=== PATIENT | male | born 1940 | race Caucasian/White ===

== ENCOUNTER 2020-12-18 13:04 | Outpatient (CLI) | payer MEDICARE, SELFPAY ==
--- NOTE | ~2020-12-18 | US_ITS ---
EXAMINATION: US carotid duplex BI DATE: 12/18/2020 13:57 INDICATION: Left carotid bruit. TECHNIQUE: Grayscale, color Doppler, and pulsed Doppler images of the cervical carotid arteries were obtained. The degree of vessel stenosis is placed in one of the following categories: normal, <50%, 5 0-69%, >=70% but less than near-occlusion, near-occlusion, or total occlusion. Note that percent sten osis relative to normal distal artery lumen diameter is indirectly measured from velocity measurement s as described by Kasi, et al. Radiology 2003; 229:340-346. COMPARISON: None. FINDINGS: RIGHT: The right common carotid artery (CCA) peak systolic velocity (PSV) is 82 cm/s. The right internal car otid artery (ICA) PSV is 82 cm/s. The right ICA end-diastolic velocity (EDV) is 21 cm/s. The right IC A/CCA PSV ratio is 1.0. Grayscale and color Doppler images yield an estimate of <50% diameter reducti on from plaque in the ICA. There is antegrade flow in the right vertebral artery. LEFT: The left CCA PSV is 66 cm/s. The left ICA PSV is 313 cm/s. The left ICA EDV is 65 cm/s. The left ICA/ CCA PSV ratio is 4.8. Grayscale and color Doppler images yield an estimate of >=50% diameter reductio n from plaque in the ICA. There is antegrade flow in the left vertebral artery. IMPRESSION: 1. <50% stenosis in the right internal carotid artery. 2. >=70% stenosis in the left internal carotid artery, but less than near occlusion. Reviewed, dictated and finalized at location A. IMPRESSION: 1. <50% stenosis in the right internal carotid artery. 2. >=70% stenosis in the left internal carotid artery, but less than near occlu zakia.
== END 2020-12-18 13:05 | disposition home or self-care (01) ==
PROVIDERS: PCP Family Medicine Adolescent Medicine; Visit Provider Internal Medicine Cardiovascular Disease
DX: I13.10 Hypertensive heart and chronic kidney disease without heart failure, with stage 1 through stage 4 chronic kidney disease, or unspecified chronic kidney disease (principal); E78.5 Hyperlipidemia, unspecified; I65.23 Occlusion and stenosis of bilateral carotid arteries
CPT/HCPCS: 93880

== ENCOUNTER 2021-01-31 21:35 | Emergency (ER) | payer MEDICARE, SELFPAY ==
[2021-01-31 22:06] VITALS: BP 176/70; PULSE 75; RESP 18; TEMP 37.1; O2SAT 99
[2021-01-31 23:01] LABS: Basophils Absolute Auto 0.1 K/mm3 (0.0-0.1); Basophils Percent Auto 0.8 % (0.2-1.2); Eosinophils Absolute Auto 0.1 K/mm3 (0-0.3); Eosinophils Percent Auto 1.7 % (0-4.4); Hematocrit 42.1 % (42.0-52.0); Hemoglobin 13.9 g/dL (14.0-18.0); Immature Granulocyte Absolute 0.01 K/mm3 (0.00-0.031); Immature Granulocyte Percent A 0.2 % (0-0.5); Lymphocytes Absolute Auto 1.15 K/mm3 (0.9-3.2); Lymphocytes Percent Auto 17.4 % (18.3-44.2); Mean Corpuscular Hemoglobin 30.7 pg (26-34); Mean Corpuscular Volume 92.9 fl (80-100); Monocytes Absolute Auto 0.6 K/mm3 (0.1-0.6); Monocytes Percent Auto 8.6 % (2.6-8.5); Neutrophils Absolute Auto 4.7 K/mm3 (1.3-6.7); Neutrophils Percent Auto 71.3 % (45.5-73.1); Platelet Count Result 210 k/mm3 (150-375); Red Blood Count 4.53 M/mm3 (4.6-6.20); Red Cell Distribution Width 12.8 % (11.5-14.5); White Blood Count 6.6 K/mm3 (4.5-10.0)
[2021-01-31 23:12] LABS: Alanine Aminotransferase 6 U/L (4-50); Albumin Level 4.5 g/dL (3.5-5.1); Alkaline Phosphatase 74 U/L (38-126); Anion Gap 7 mmol/L (8-16); Aspartate Amino Transferase 26 U/L (17-59); Bilirubin,Total 0.6 mg/dL (0.2-1.3); Blood Urea Nitrogen 29 mg/dL (9-20); Calcium 9.1 mg/dL (8.4-10.2); Carbon Dioxide 29 mmol/L (22-30); Chloride 106 mmol/L (98-107); Estimated CRCL calculation 40 ml/min; Estimated Glomerular Filt Rate 53; Glucose 102 mg/dL (65-110); Sodium 142 mmol/L (137-145)
[2021-01-31 23:18] LABS: INR 1.4; Prothrombin Time 16.6 Seconds (11.1-14.7)
[2021-01-31 23:54] VITALS: BP 157/74; PULSE 69
[2021-01-31 23:56] VITALS: BP 196/90; PULSE 75
[2021-01-31 23:58] VITALS: BP 165/84; PULSE 82
[2021-02-01] VITALS (18 sets, daily range): BP systolic 166–182; BP diastolic 69–82; PULSE 70–97; RESP 12–23; O2SAT 98–100
--- NOTE | 2021-02-01 00:15 | ED.GIBLEED ---
HPI - GI Bleed General Chief complaint: GI Bleed Stated complaint: rectal bleeding Time Seen by Provider: 01/31/21 23:55 Source: patient History of Present Illness HPI Narrative: Patient presents with blood per rectum. Patient with abdominal pain 830 this evening did not think much of it was having some mild lower abdominal went to use the restroom again and noted a large amount of blood in his underwear a white his bottom side and noted a large amount of blood on the tissue paper. He googled his symptoms and came to the ER for evaluation. Patient overall falls we will denies any abdominal pain at this time he reports he has 1 bowel movement a day denies prior history of GI bleeds hemorrhoids, fissures. Denies any pain with his bowel movement denies any nausea vomiting lightheadedness or fatigue Related Data Allergies Allergy/AdvReac Type Severity Reaction Status Date / Time No Known Allergies Allergy Unverified 10/10/18 16:36 Review of Systems Review of Systems: CONSTITUTIONAL: Denies fever, chills, or sweats. EYES: Denies visual changes, redness, or discharge. ENT: Denies rhinorrhea, congestion, sore throat, or otalgia. CARDIOVASCULAR: Denies chest pain, palpitations, or edema. RESPIRATORY: Denies cough or dyspnea. GASTROINTESTINAL: Denies abdominal pain, nausea, vomiting, or diarrhea. GENITOURINARY: Denies dysuria or hematuria. SKIN: Denies rash or itching. MUSCULOSKELETAL: Denies back pain, joint pain, or myalgia. NEUROLOGIC: Denies headache, numbness, dizziness, or weakness. PSYCHIATRIC: Denies anxiety or depression. All systems reviewed & are unremarkable except as noted in HPI and below Exam Narrative: GENERAL: Well-appearing, well-nourished, and in no acute distress. HEAD: Normocephalic, atraumatic. EYES: PERRLA and EOMI. ENT: Nares clear, no rhinorrhea or epistaxis. Mucous membranes moist. NECK: Supple. No masses. No JVD CHEST: Clear to auscultation. No respiratory distress. No wheezes rales or rhonchi HEART: Regular rate and rhythm. No murmur heard. Normal peripheral pulses. ABDOMEN: Soft, nontender, nondistended EXTREMITIES: Normal range of motion. No edema. SKIN: Warm, dry, no rash. NEURO: No focal deficits. Alert and oriented x3. PSYCH: Normal mood and affect. Course Reevaluation(s) Reevaluation #1: Case discussed with Dr. Maira MONTEZ at [facility] in [place] would be happy to evaluate the patient. Discussed patient with Daniela rasmussenlevel at the same facility who accepts on behalf of of Dr. Fregoso the hospitalist team. Will transfer patient to [facility] for specialty evaluation as GI is not available here patient is comfortable with transfer plans. Primary concern is for lower GI bleed Date: 02/01/21 Time: 01:00 Vital Signs Vital signs: Vital Signs Temperature 37.1 C 01/31/21 22:06 Pulse Rate 75 01/31/21 22:06 Respiratory Rate 18 01/31/21 22:06 Blood Pressure 176/70 H 01/31/21 22:06 Pulse Oximetry 99 01/31/21 22:06 Temperature 37.1 C 01/31/21 22:06 Pulse Rate 70 02/01/21 03:52 Respiratory Rate 17 02/01/21 03:52 Blood Pressure 176/69 H 02/01/21 03:17 Pulse Oximetry 99 02/01/21 03:52 MDM - GI Bleed MDM Narrative Medical decision making narrative: Patient presented with bright red blood per rectum which started this evening. Patient overall feels well vital signs are reassuring labs are reassuring exam however showed bright red blood per rectum without a clear source. Case was discussed with [facility] in [place] who is happy to accept and continue evaluation of patient. Lab Data Result diagrams: 01/31/21 22:52 01/31/21 22:52 Labs: Lab Results 01/31/21 01/31/21 01/31/21 Range/Units 22:52 22:52 22:52 WBC 6.6 (4.5-10.0) K/mm3 RBC 4.53 L (4.6-6.20) M/mm3 Hgb 13.9 L (14.0-18.0) g/dL Hct 42.1 (42.0-52.0) % MCV 92.9 (80-100) fl MCH 30.7 (26-34) pg MCHC 33.0 (32-36) g/dl RDW 12.8
== END 2021-02-01 04:30 | disposition short-term general hospital (02) ==
PROVIDERS: Emergency Provider Emergency Medicine; PCP Family Medicine Adolescent Medicine
DX: K92.2 Gastrointestinal hemorrhage, unspecified (principal)
CPT/HCPCS: 36415; 80053; 85025; 85610; 85730; 86850; 86900; 86901; 99285

== ENCOUNTER 2022-03-08 12:30 | Outpatient (RCR) | payer MEDICARE, SELFPAY ==
--- NOTE | 2022-02-13 16:22 | STOPEVAL1 ---
Assessment and note entered by Mera Avina, CABIN CLEANER Evaluation Information Assessment Status Evaluation Diagnosis Dysphonia Onset Several years Subjective Information Patient reports that he feels that his voice does not work very reliably. He reports he was diagnosed with Parkinson's disease September of 2020. The reports that the patient's vocal loudness is tremendously lower than what it used to be and that patient has been avoiding speaking on the phone as other people cannot hear him over the phone. She describes it as hoarse and that she continually has to ask him to repeat himself. Reported Pain Level Pain Score 0: Self Report Assessment ST Clinical Summary VOICE EVALUATION This patient presents with mildly reduced vocal loudness secondary to history of Parkinson's disease. Patient and report he has always been soft-spoken however now she and her family members are having difficulty understanding him. Speech intelligibility is judged to be within normal limits however loudness is judged to be on the average at least 7 decibels lower than the lowest limits for the normal range in this speech room. Patient will be seen three times weekly for four weeks to address improving vocal loudness in order for family to hear and understand him better in person, while in the car, and over the telephone/zoom/facetime. Patient and spouse voice good understanding of and are in agreement with recommendations. Thank you for this referral. Plan of Care Interventions Treatment of Voice ST Services Indicated Yes Treatment Frequency and 3x week/4 weeks. Duration These treatments will address the objective and functional deficits as defined above. The patient will be advanced safely and appropriately in order for the patient to progress towards his/her prior level of function. Additional exercises will be introduced and as well as a comprehensive home exercise program upon discharge, if needed, ?to ensure carryover of functional gains achieved in the clinic. This treatment plan has been reviewed and agreement upon by the patient.
--- NOTE | 2022-03-08 14:15 | STOPDC ---
Assessment and note entered by Mera Avina NONPROFIT MANAGER Evaluation Information Assessment Status Discharge Reported Pain Level Pain Score 0: Self Report Assessment ST Clinical Summary TREATMENT SESSION AND DISCHARGE SUMMARY This patient has been seen for an initial evaluation of voice and 9 treatment sessions focusing on improving vocal loudness. Initially, he was noted to speak softly, lower than average decibels for the average range in the speech therapy room. Therapy focused on repetition of loud, sustained ah sounds, then word, phrase, and sentence imitation, responding to open-ended questions, and then participating in conversation. Patient required visual and verbal feedback using a sound pressure level meter (SPL meter) in order to truly understand that her normal loudness was 5-10 decibels lower than the average range. By last session, patient's ability to sustain ah sound averaged at 95.4 decibels and his conversational loudness ranged at 76 decibels. Initially ah sound level was 84.2 decibels. Patient is being discharged with all goals achieved and patient instruction to continue to practice loudness exercises frequently. Patient and voice understanding of recommendations. Plan of Care ST Services Indicated No
== END 2022-03-08 15:17 | disposition home or self-care (01) ==
LOC: ANHST 12:30
PROVIDERS: PCP Family Medicine Adolescent Medicine
DX: G20 Parkinson's disease (principal); R49.0 Dysphonia
CPT/HCPCS: 92507; 92524

== ENCOUNTER 2022-05-09 16:02 | Observation (INO) | payer MEDICARE, SELFPAY ==
[2022-05-09] VITALS (44 sets, daily range): BP systolic 162–188; BP diastolic 70–82; PULSE 75–95; RESP 12–28; TEMP 36.3; O2SAT 97–100
--- NOTE | ~2022-05-09 | US_ITS ---
EXAMINATION: US carotid duplex BI DATE: 05/09/2022 19:38 INDICATION: Transient ischemic attack. Left common carotid, internal carotid artery stent. TECHNIQUE: Grayscale, color Doppler, and pulsed Doppler images of the cervical carotid arteries were obtained. The degree of vessel stenosis is placed in one of the following categories: normal, <50%, 5 0-69%, >=70% but less than near-occlusion, near-occlusion, or total occlusion. Note that percent sten osis relative to normal distal artery lumen diameter is indirectly measured from velocity measurement s as described by Kasi, et al. Radiology 2003; 229:340-346. COMPARISON: None. FINDINGS: RIGHT: The right common carotid artery (CCA) peak systolic velocity (PSV) is 86.3 cm/s. The right internal c arotid artery (ICA) PSV is 112.4 cm/s. The right ICA end-diastolic velocity (EDV) is 25.6 cm/s. The r ight ICA/CCA PSV ratio is 1.3. Grayscale and color Doppler images yield an estimate of less than 50% diameter reduction from plaque in the ICA. The external carotid artery (ECA) PSV is 141.7 cm/s. There is antegrade flow in the right vertebral artery. LEFT: The left CCA PSV is 90.7 cm/s. The left ICA PSV is 77.5 cm/s. The left ICA EDV is 18.2 cm/s. The left ICA/CCA PSV ratio is 0.85. Grayscale and color Doppler images yield an estimate of less than 50% ryan meter reduction from plaque in the ICA. The ECA PSV is 97.3 cm/s. There is antegrade flow in the left vertebral artery. IMPRESSION: 1. Less than 50% stenosis in the right internal carotid artery. 2. Less than 50%. stenosis in the left internal carotid artery. Reviewed, dictated and finalized at Location [facility]. Reviewed, dictated and finalized at location A. MANAGEMENT NURSE PRACTITIONER
--- NOTE | ~2022-05-09 | CT_ITS ---
EXAMINATION: CT brain wo con DATE: 05/09/2022 17:02 INDICATION: Transient ischemic episode with left arm numbness TECHNIQUE: Computed tomography (CT) of the head was performed without intravenous contrast. Sagittal and coronal reconstructions were performed. The mA was adjusted according to patient size. Iterative reconstruction technique was employed. The dose-length product was 681.00 mGy-cm. COMPARISON: Brain MR dated 07/23/2016 FINDINGS: No acute intracranial hemorrhage, acute infarction or abnormal extra axial fluid collection. There is moderate scattered white matter hypoattenuation consistent with chronic small vessel ischemic diseas e. Symmetric prominence of the sulci consistent with mild to moderate age-appropriate diffuse cerebra l volume loss. Ventricles are normal and symmetric. No mass/mass effect. Changes of bilateral intraoc ular lens replacement. The orbits, paranasal sinuses and mastoid air cells are normal. Intracranial c alcified cerebral atherosclerosis is noted. IMPRESSION: 1. No acute intracranial process. 2. Age-related changes including mild to moderate diffuse volume loss and moderate scattered white ma tter hypoattenuation consistent with chronic small vessel ischemic disease. Reviewed, dictated and finalized at location A. TBAND DECORATING MACHINE OPERATOR IMPRESSION: 1. No acute intracranial process. 2. Age-related changes including mild to moderate diffuse volume loss and moder ate scattered white matter hypoattenuation consistent with chronic small vessel ischemic disease.
--- NOTE | ~2022-05-09 | MR_ITS ---
EXAMINATION: MR brain/brain stem wo/w con DATE: 05/10/2022 13:01 INDICATION: Transient ischemic attack. Right arm weakness. TECHNIQUE: Magnetic resonance imaging (MRI) of the brain and brainstem was performed without and with 13 mL MultiHance intravenous contrast. COMPARISON: Brain MRI 07/23/2016, head CT 05/09/2022 FINDINGS: There is a small acute infarct in left frontoparietal region. There are scattered areas of nonspecific increased T2-weighted signal intensity in the cerebral white matter. There is no intracra nial hemorrhage or abnormal mass lesion. The ventricles are normal in size. There is mild mucosal thi ckening in the paranasal sinuses. There are likely changes of ocular lens replacement surgeries. The mastoid air cells are normal. IMPRESSION: 1. 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 2. Moderate nonspecific cerebral white matter disease, which likely represents chronic small vessel i schemic disease. Reviewed, dictated and finalized at location A. CAL HISTORIAN IMPRESSION: 1. 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 2. Moderate nonspecific cerebral white matter disease, which likely represents chronic small vessel ischemic disease.
--- NOTE | ~2022-05-09 | CT_ITS ---
EXAMINATION: CTA brain carotid DATE: 05/09/2022 18:10 INDICATION: Transient ischemic attack. TECHNIQUE: Computed tomographic angiography (CTA) of the head was performed with 100 mL Omnipaque-350 intravenous contrast. CTA of the neck was performed with intravenous contrast. Automated exposure co ntrol and iterative reconstruction technique were employed. The dose-length product was 1132.00 mGy-c m. Maximum intensity projection and volume rendered 3D-reconstructions were created by the [employer] on a separate workstation. COMPARISON: Head CT 05/09/2022, brain MRI 07/23/2016 FINDINGS: HEAD CTA: There are scattered areas of low attenuation in the cerebral white matter. There is no intr acranial hemorrhage, acute infarction, or abnormal intracranial mass lesion. The ventricles are emre l in size. There are likely changes of ocular lens replacement surgeries. There is mild mucosal thick ening in the paranasal sinuses. The mastoid air cells are normal. The vertebral arteries are codomina nt. There is no significant stenosis of basilar artery or the posterior cerebral arteries. There is n o significant stenosis of the intracranial internal carotid arteries or anterior cerebral arteries. T here is moderate stenosis of proximal left middle cerebral artery. Anterior communicating artery is n ormal. Right posterior communicating artery is normal. A left posterior communicating arteries not id entified. There is no aneurysm. NECK CTA: There is mild scarring at the lung apices. There are no pathologically enlarged lymph nodes . There is no significant stenosis of the vertebral arteries. There is plaque in proximal right inter nal carotid artery. There is 0% stenosis of the proximal right internal carotid artery relative to no rmal distal artery lumen diameter (NASCET criteria). There is a stent in left common carotid artery a nd internal carotid artery with mild in-stent stenosis. There are surgical clips in left supraclavicu lar region. There is soft tissue in left supraclavicular region around the internal jugular vein and common carotid artery, likely hematoma. There is moderate stenosis of left internal jugular vein near its anastomosis with subclavian vein. There is severe cervical spondylosis. IMPRESSION: 1. Moderate nonspecific cerebral white matter disease, which likely represents chronic small vessel i schemic disease. 2. Moderate stenosis of proximal left middle cerebral artery. 3. 0% stenosis of the proximal right internal carotid artery relative to normal distal artery lumen d iameter (NASCET criteria). 4. Stent in left common carotid artery and left internal carotid artery with mild in-stent stenosis. 5. Soft tissue in left supraclavicular region around the internal jugular vein and common carotid art nikolai with moderate stenosis of the internal jugular vein, likely hematoma. Reviewed, dictated and finalized at location E. [employer] IMPRESSION: 1. Moderate nonspecific cerebral white matter disease, which likely represents chronic small vessel ischemic disease. 2. Moderate stenosis of proximal left middle cerebral artery. 3. 0% stenosis of the proximal right internal carotid artery relative to normal distal artery lumen diameter (NASCET criteria). 4. Stent in left common carotid artery and left internal carotid artery with mi ld in-stent stenosis. 5. Soft tissue in left supraclavicular region around the internal jugular vein and common carotid artery with moderate stenosis of the internal jugular vein, likely hematoma.
--- NOTE | 2022-05-09 16:28 | ECG_ITS ---
Measurements Intervals [place] Rate: 78 P: 69 MA: 145 QRS: 31 QRSD: 134 T: 31 QT: 391 QTc: 446 Interpretive Statements SINUS RHYTHM RIGHT BUNDLE BRANCH BLOCK BASELINE ARTIFACT- I, II, III, AVR, AVL, AVF ABNORMAL ECG COMPARED TO ECG 10/10/2018 16:26:50 SINUS RHYTHM NOW PRESENT Electronically Signed On 05-09-2022 18:25:13 COMMERCIAL FRONT LOAD DRIVER by Nick Avelar D.O.
--- NOTE | 2022-05-09 16:31 | ED.GENADULT ---
HPI - General Adult General Chief complaint: Neuro Symptoms/Deficit Stated complaint: numbness to right arm Time Seen by Provider: 05/09/22 16:11 History of Present Illness HPI narrative: 81-year-old male presenting to the emergency department for evaluation of multiple episodes of right arm weakness. Patient states yesterday from 9 to 9:30 PM he had onset of numbness to the right hand and arm. Patient states this did have some associated weakness. Symptoms did resolve over 30-minute. Patient reports he had 2 additional episodes today each lasting approximately 30 minutes. Patient does have a history of carotid stenosis and did have a TCAR performed on the at [place] [facility] by Dr. Abarca on the left. Patient is already taking 81 mg of aspirin, 35 mg of Plavix and 5 mg Eliquis daily. Related Data Home Medications Medication Instructions Recorded Confirmed apixaban 5 mg tablet (Eliquis) 5 mg PO BID 05/14/21 05/09/22 cholecalciferol (vitamin D3) 25 25 mcg PO DAILY 05/14/21 01/28/22 mcg (1,000 unit) capsule metoprolol succinate 50 mg 50 mg PO BID 05/14/21 05/09/22 tablet,extended release 24 hr carbidopa 25 mg-levodopa 100 mg 1 tablet PO TID 01/22/22 05/09/22 tablet aspirin 81 mg chewable tablet 81 mg PO DAILY 05/09/22 05/09/22 clopidogrel 75 mg tablet 75 mg PO DAILY 05/09/22 05/09/22 Allergies Allergy/AdvReac Type Severity Reaction Status Date / Time neomycin Allergy Mild local Verified 05/09/22 17:08 swelling Review of Systems Review of Systems: CONSTITUTIONAL: Denies fever, chills, or sweats. EYES: Denies visual changes, redness, or discharge. ENT: Denies rhinorrhea, congestion, sore throat, or otalgia. CARDIOVASCULAR: Denies chest pain, palpitations, or edema. RESPIRATORY: Denies cough or dyspnea. GASTROINTESTINAL: Denies abdominal pain, nausea, vomiting, or diarrhea. GENITOURINARY: Denies dysuria or hematuria. SKIN: Denies rash or itching. MUSCULOSKELETAL: Denies back pain, joint pain, or myalgia. NEUROLOGIC: Denies headache, numbness, or weakness. [facility] Family History Family History Father Heart disease Social History Social History (Updated 05/14/21 @ 13:29 by Taylor Alcala MA) Smoking status: Never smoker Second hand tobacco smoke exposure: No Alcohol intake: current Drinks per week: 5 Substance use: never Substance use type: does not use Gender identity (if verbalized by the patient): Male Sexual Orientation (if Verbalized by the Patient): Straight or Heterosexual Spiritual care concerns: No Agree to blood products: Yes Exam Narrative: APPEARANCE: Well appearing, no pain, no distress, well-nourished. HEAD: normocephalic, atraumatic. EYES: PERRLA/EOMI, conjunctivae clear. NOSE: Normal no drainage NECK: Supple. No adenopathy, no masses. RESPIRATORY: Airway patent, respirations nonlabored. Clear to auscultation bilaterally, no rales, rhonchi, wheezing. CARDIOVASCULAR: Regular rate and rhythm without murmurs rubs or gallops. ABDOMINAL: Soft, nontender, nondistended, normal bowel sounds MUSCULOSKELETAL: Moves all extremities. Strength/ROM intact, No edema, No calf tenderness. NEURO: Alert. Cranial nerves II through XII intact. Normal comprehensive neuro exam. No ataxia. No drift. NIH score of 0 SKIN: Warm, dry. Normal Color PSYCHIATRIC: Normal affect/mood. Course Course Emergency Course: Patient's initial head CT showed no evidence of acute infarct. Case was discussed with patient's vascular surgeon and Dr. Tevin Ellis. Vascular did request a CTA to make sure that the newly placed stent was still patent. CTA did show evidence of mild in-stent stenosis. Dr. Pratt was comfortable with the plan to have the patient transferred to [place] [facility] and he will see the patient as consult. I discussed the case with Dr. Bartholomew and inpatient was accepted. Reportedly bed will not be available until tomorrow s
[2022-05-09 16:39] LABS: Glucose Point of Care 82 mg/dl (65-105)
[2022-05-09 16:43] LABS: Basophils Absolute Auto 0.1 K/mm3 (0.0-0.1); Eosinophils Absolute Auto 0.3 K/mm3 (0-0.3); Eosinophils Percent Auto 4.2 % (0-4.4); Hemoglobin 9.4 g/dL (14.0-18.0); Immature Granulocyte Absolute 0.02 K/mm3 (0.00-0.031); Immature Granulocyte Percent A 0.3 % (0-0.5); Lymphocytes Absolute Auto 0.96 K/mm3 (0.9-3.2); Lymphocytes Percent Auto 13.8 % (18.3-44.2); Mean Corpuscular HGB Conc 30.3 g/dl (32-36); Mean Corpuscular Hemoglobin 28.4 pg (26-34); Mean Corpuscular Volume 93.7 fl (80-100); Mean Platelet Volume 8.8 fl (7.4-10.4); Monocytes Absolute Auto 0.8 K/mm3 (0.1-0.6); Monocytes Percent Auto 10.8 % (2.6-8.5); Neutrophils Absolute Auto 4.9 K/mm3 (1.3-6.7); Neutrophils Percent Auto 69.9 % (45.5-73.1); Platelet Count Result 300 k/mm3 (150-375); Red Blood Count 3.31 M/mm3 (4.6-6.20)
[2022-05-09 16:53] LABS: Alanine Aminotransferase 9 U/L (6-50); Albumin Level 4.1 g/dL (3.5-5.1); Alkaline Phosphatase 80 U/L (38-126); Anion Gap 6 mmol/L (8-16); Aspartate Amino Transferase 26 U/L (17-59); Bilirubin,Total 0.5 mg/dL (0.2-1.3); Blood Urea Nitrogen 34 mg/dL (9-20); Calcium 8.5 mg/dL (8.4-10.2); Carbon Dioxide 26 mmol/L (22-30); Chloride 107 mmol/L (98-107); Estimated CRCL calculation 38 ml/min; Estimated Glomerular Filt Rate 53; Glucose 100 mg/dL (65-110); Potassium 4.2 mmol/L (3.4-5.0); Sodium 139 mmol/L (137-145)
[2022-05-09 16:54] LABS: INR 1.6; Prothrombin Time 18.3 Seconds (11.1-14.7)
[2022-05-09 16:55] LABS: Partial Thromboplastin Time 32.9 SECONDS (22.3-36.8)
[2022-05-09 17:33] LABS: Appearance Urine Clear (Clear); Bilirubin Urine Negative (Negative); Blood Urine Negative (Negative); Color Urine Yellow (Yellow); Glucose Urine UA Negative (Negative); Ketones Urine Negative (Negative); Leukocyte Esterase Ur Negative LEU/UL (Negative); Nitrate Urine Negative (Negative); Protein Urine Trace mg/dL (Negative); Specific Grav Ur >= 1.030 (1.001-1.035); Urobilinogen Urine 0.2 mg/dL (<2.0)
[2022-05-09 17:37] LABS: Mucus Urine Rare /lpf; WBC Urine 0-3 /hpf
[2022-05-09 18:14] LABS: Add Urine Microscopic? YES
--- NOTE | 2022-05-09 19:46 | PC.NURSE ---
Meghan LUO, called to finish triage pt for transfer and acceptance at [facility], still waiting on bed at this time. Requested call back with Covid results. [phone]
--- NOTE | 2022-05-09 20:02 | PM.IMHP ---
H&P: HPI History of Present Illness Date/Time: 05/09/22 20:02 Chief Complaint: Right arm pain Narrative: This is an 81-year-old male with past medical history significant for carotid artery disease patient underwent TCAR on April 23 with stent placement he comes to our emergency room after he had an episode of what he describes as right arm pain and numbness that lasted briefly 30 minutes the day before on the day the patient presents to the emergency room he had another 2 additional episodes decided to come to the emergency room his drove him at the time of my visit patient symptoms had resolved patient denies any headaches, change in vision, speech disturbance, trouble swallowing, no focal weakness, no vertigo, no dizziness, no syncope, no near syncope. Emergency room physician discussed case with patient's surgeon present time no beds are available but have accepted for transfer currently awaiting on a bed to open up. Preliminary workup was significant for: CT of the head was reported as: FINDINGS: No acute intracranial hemorrhage, acute infarction or abnormal extra axial fluid collection. There is moderate scattered white matter hypoattenuation consistent with chronic small vessel ischemic disease. Symmetric prominence of the sulci consistent with mild to moderate age-appropriate diffuse cerebral volume loss. Ventricles are normal and symmetric. No mass/mass effect. Changes of bilateral intraocular lens replacement. The orbits, paranasal sinuses and mastoid air cells are normal. Intracranial calcified cerebral atherosclerosis is noted. IMPRESSION: 1. No acute intracranial process. 2. Age-related changes including mild to moderate diffuse volume loss and moderate scattered white matter hypoattenuation consistent with chronic small vessel ischemic disease. CT angiogram of head and neck was reported as: FINDINGS: HEAD CTA: There are scattered areas of low attenuation in the cerebral white matter. There is no intracranial hemorrhage, acute infarction, or abnormal intracranial mass lesion. The ventricles are normal in size. There are likely changes of ocular lens replacement surgeries. There is mild mucosal thickening in the paranasal sinuses. The mastoid air cells are normal. The vertebral arteries are codominant. There is no significant stenosis of basilar artery or the posterior cerebral arteries. There is no significant stenosis of the intracranial internal carotid arteries or anterior cerebral arteries. There is moderate stenosis of proximal left middle cerebral artery. Anterior communicating artery is normal. Right posterior communicating artery is normal. A left posterior communicating arteries not identified. There is no aneurysm. NECK CTA: There is mild scarring at the lung apices. There are no pathologically enlarged lymph nodes. There is no significant stenosis of the vertebral arteries. There is plaque in proximal right internal carotid artery. There is 0% stenosis of the proximal right internal carotid artery relative to normal distal artery lumen diameter (NASCET criteria). There is a stent in left common carotid artery and internal carotid artery with mild in-stent stenosis. There are surgical clips in left supraclavicular region. There is soft tissue in left supraclavicular region around the internal jugular vein and common carotid artery, likely hematoma. There is moderate stenosis of left internal jugular vein near its anastomosis with subclavian vein. There is severe cervical spondylosis. IMPRESSION: 1. Moderate nonspecific cerebral white matter disease, which likely represents chronic small vessel ischemic disease. 2. Moderate stenosis of proximal left middle cerebral artery. 3. 0% stenosis of the proximal right internal carotid artery relative to normal distal artery lumen diameter (NASCET criteria). 4. Stent in left common carotid artery and left internal carotid artery with mild in-stent stenosis. 5. Soft tissue in left supracla
[2022-05-09 20:24] LABS: Influenza A QL RT-PCR Negative (Negative); Influenza B QL RT-PCR Negative (Negative); RSV RNA, RT-PCR Negative (Negative); SARS-CoV-2 RNA PCR Negative
--- NOTE | 2022-05-09 23:29 | ADMGEN ---
This patient, Jose Maria Terry, was admitted to IMU Room 205-02 at 2329. Patient/family oriented to hospital policies and general routines including ID bracelet, bed and alarms, visiting hours, pain management, procedures, bathroom and other care routines, personal items, smoking policy, room service/diet, and visiting hours. Information on how to activate the Rapid Response Team has been discussed. Patient/Family are encouraged to report perceived risks to care and to ask questions if they do not understand what they are told or what they should do.
[2022-05-10] VITALS (16 sets, daily range): BP systolic 133–163; BP diastolic 57–79; PULSE 67–121; RESP 16–20; TEMP 36.4–37.1; O2SAT 98–100
[2022-05-10] MEDS: SIMVASTATIN 20 MG TABLET PO ×2 (00:02→20:27)
[2022-05-10] MEDS: METOPROLOL SUCCINATE EXT REL 50 MG TABCR PO ×3 (08:06→20:27)
[2022-05-10] MEDS: APIXABAN 5 MG TABLET PO ×3 (08:06→19:57)
--- NOTE | 2022-05-10 12:41 | PM.IMPN ---
Progress Note: A&P Assessment and Plan (1) Brain TIA: Code(s): G45.9 - Transient cerebral ischemic attack, unspecified Status: Acute Assessment and Plan: Patient is status post TCAR Awaiting bed at [facility] where his surgeon performed the procedure Head CTA with mild InStent stenosis. Continue Plavix, continue apixaban, continue aspirin, continue Zocor MRI brain to be done today will Also consult Neurology while awaiting bed placement (2) Parkinson's disease: Code(s): G20 - Parkinson's disease Status: Acute Assessment and Plan: Resume carbidopa levodopa (3) Paroxysmal atrial fibrillation: Code(s): I48.0 - Paroxysmal atrial fibrillation Status: Acute Assessment and Plan: Resume metoprolol Also on apixaban for anticoagulation (4) Chronic kidney disease, stage 3a: Code(s): N18.31 - Chronic kidney disease, stage 3a Status: Acute Assessment and Plan: Continue to monitor BUN and creatinine (5) Occlusion and stenosis of bilateral carotid arteries: Code(s): I65.23 - Occlusion and stenosis of bilateral carotid arteries Status: Acute Assessment and Plan: A status post TCAR Subjective Date/time seen: 05/10/22 12:41 Interval history: Patient presents with episodes of right arm tingling and numbness since yesterday. Some weakness. Symptoms resolved after 30 minutes with further episodes again. No other worsening symptoms. She is on aspirin Plavix and Eliquis. He is status post TCAR done 23 April for carotid stenosis on left Review of Systems Review of Systems: All systems reviewed & are unremarkable except as noted in HPI and below Exam Narrative: APPEARANCE: Thin built, no pain, no distress, well-nourished. HEAD: normocephalic, atraumatic. EYES: PERRLA/EOMI, conjunctivae clear. NOSE: Normal no drainage NECK: Supple. No adenopathy, no masses. RESPIRATORY: Airway patent, respirations nonlabored. Clear to auscultation bilaterally, no rales, rhonchi, wheezing. CARDIOVASCULAR: Regular rate and rhythm without murmurs rubs or gallops. ABDOMINAL: Soft, nontender, nondistended, normal bowel sounds MUSCULOSKELETAL: Moves all extremities. Strength/ROM intact, No edema, No calf tenderness. NEURO: Alert. Cranial nerves II through XII intact.? Normal comprehensive neuro exam.? No ataxia.? No drift. SKIN: Warm, dry. Normal Color PSYCHIATRIC: Normal affect/mood. Objective Data Vital Signs Vital Signs: Vital Signs - 24 hr 05/09/22 16:04 05/09/22 18:46 05/09/22 18:49 Temperature 97.3 F L Pulse Rate 95 80 78 Respiratory Rate 16 18 Blood Pressure 188/76 H 162/72 H Pulse Oximetry 97 100 Oxygen Delivery Room Air 05/09/22 16:11 05/09/22 16:16 05/09/22 16:17 Temperature Pulse Rate 85 85 86 Respiratory Rate 18 20 22 H Blood Pressure 164/70 H Pulse Oximetry 99 100 100 Oxygen Delivery 05/09/22 16:30 05/09/22 16:31 05/09/22 16:45 Temperature Pulse Rate 80 80 77 Respiratory Rate 19 20 19 Blood Pressure 167/75 H Pulse Oximetry 99 Oxygen Delivery 05/09/22 17:00 05/09/22 17:15 05/09/22 17:36 Temperature Pulse Rate 86 75 Respiratory Rate 20 20 Blood Pressure Pulse Oximetry 98 100 Oxygen Delivery 05/09/22 17:45 05/09/22 18:06 05/09/22 18:07 Temperature Pulse Rate 77 81 83 Respiratory Rate 18 12 17 Blood Pressure 164/72 H Pulse Oximetry 100 99 99 Oxygen Delivery 05/09/22 18:15 05/09/22 18:30 05/09/22 18:31 Temperature Pulse Rate 80 75 77 Respiratory Rate 19 19 19 Blood Pressure 162/72 H Pulse Oximetry 99 100 100 Oxygen Delivery 05/09/22 18:45 05/09/22 19:00 05/09/22 19:01 Temperature Pulse Rate 79 76 79 Respiratory Rate 20 18 28 H Blood Pressure 162/76 H Pulse Oximetry 100 100 100 Oxygen Delivery 05/09/22 19:15 05/09/22 19:30 05/09/22 19:31 Temperature Pulse Rate 80 79 78 Respiratory Rate 18 17 20 Blood Pre
--- NOTE | 2022-05-10 13:32 | WPDNEURCNPN ---
Assessment and Plan Assessment and plan (1) Brain TIA: Code(s): G45.9 - Transient cerebral ischemic attack, unspecified Status: Acute Plan 1 postsurgical TIA 2 history of paroxysmal atrial fibrillation 3 history of Parkinson's disease for history of chronic kidney disease. Medications include apixaban 5 mg b.i.d. with aspirin 81 mg and clopidogrel 75 mg daily in addition to carbidopa levodopa 25/101 tablets 3 times a day Consult date: 05/10/22 HPI: Jose Maria Terry is a 81 year old male admitted to the hospital through the emergency room for the complaints of right upper extremity numbness on day before between 9 to 930 p.m. associated with weakness but symptomatology resolving over 30 minutes. Though recurring on the day of admission again reportedly patient has a history of carotid stenosis and has been taking the aspirin 81 mg daily with 375 mg of Plavix and 5 mg of Eliquis also has undergone TCAR other medications include metoprolol 50 mg twice a day carbidopa levodopa 25/100 3 times a day, patient is a never smoker, current alcohol intake or at least 5 drinks per week initial exam in the Emergency Room otherwise nonfocal, initial CT scan of the head negative for the bleed, case was discussed by the ER physician with the vascular surgeon Dr. drummond we will suggested to have the CTA to make sure the stent is still patent which documented mild in stent stenosis as the bed was not available at the [facility] patient was admitted here till the bed is available his initial signs were stable except blood pressure 188/76 CBC was normal except hemoglobin only 9.4 routine labs were completely normal UA was negative CT scan as mentioned before changes with age-related vasculature CTA with nonspecific cerebral white matter disease moderate stenosis of proximal left middle cerebral artery 0% stenosis of proximal right internal carotid artery stenting the left common carotid and left internal carotid with mild InStent stenosis and soft tissue in left supraclavicular region around the internal jugular vein and common carotid with moderate stenosis of internal jugular vein could be likely hematoma, MRI documented small acute infarct in left frontoparietal region with moderate nonspecific white matter diseas [facility] Family History Family History Father Heart disease Social History Social History (Updated 05/14/21 @ 13:29 by Taylor Alcala MA) Smoking status: Former smoker Second hand tobacco smoke exposure: No Additional smoking assessment comments: quit 40 years ago Alcohol intake: current Drinks per week: 5 Substance use: never Substance use type: does not use Lack of Transportation: No Lack of Food: Never True Current Housing: I Have Housing Concerned About Future Housing: No Difficulty Paying Gas/Electric Bills: No Difficulty Paying for Meds: No Currently Unemployed: No Education: Decline to Answer Difficulty w/ Childcare or Family Care: No Gender identity (if verbalized by the patient): Male Sexual Orientation (if Verbalized by the Patient): Straight or Heterosexual Spiritual care concerns: No Agree to blood products: Yes Meds Home Medications and Allergies Home Medications Medication Instructions Recorded Confirmed Type apixaban 5 mg tablet (Eliquis) 5 mg PO BID 05/14/21 05/09/22 History metoprolol succinate 50 mg 50 mg PO Q12H 05/14/21 05/09/22 History tablet,extended release 24 hr carbidopa 25 mg-levodopa 100 mg 1 tablet PO TID 01/22/22 05/09/22 History tablet simvastatin 20 mg tablet 20 mg PO DAILY #90 tabs 01/22/22 05/09/22 Rx aspirin 81 mg chewable tablet 81 mg PO DAILY 05/09/22 05/09/22 History cholecalciferol (vitamin D3) 25 25 mcg PO DAILY 05/09/22 05/09/22 History mcg (1,000 unit) capsule clopidogrel 75 mg tablet 75 mg PO DAILY 05/09/22 05/09/22 History fluticasone propionate 50 1 spray intranasal CHARLIE
[2022-05-10] MEDS: CARBIDOPA/LEVODOPA 25/100 MG TABLET 1 TABLET PO ×2 (13:35→19:57)
[2022-05-10] MEDS: ASPIRIN 81 MG CHEWABLE TABLET PO (13:35)
[2022-05-10] MEDS: CLOPIDOGREL BISULFATE 75 MG TABLET PO (13:35)
[2022-05-11] VITALS (15 sets, daily range): BP systolic 120–161; BP diastolic 52–75; PULSE 66–85; RESP 16–20; TEMP 36.1–36.7; O2SAT 98–100
[2022-05-11] MEDS: ACETAMINOPHEN 500 MG TABLET 1000 MG PO (02:41)
[2022-05-11 05:25] LABS: Basophils Absolute Auto 0.1 K/mm3 (0.0-0.1); Basophils Percent Auto 0.6 % (0.2-1.2); Eosinophils Absolute Auto 0.3 K/mm3 (0-0.3); Eosinophils Percent Auto 3.3 % (0-4.4); Hematocrit 29.3 % (42.0-52.0); Hemoglobin 9.1 g/dL (14.0-18.0); Immature Granulocyte Absolute 0.03 K/mm3 (0.00-0.031); Immature Granulocyte Percent A 0.4 % (0-0.5); Lymphocytes Absolute Auto 0.95 K/mm3 (0.9-3.2); Lymphocytes Percent Auto 11.9 % (18.3-44.2); Mean Corpuscular HGB Conc 31.1 g/dl (32-36); Mean Corpuscular Hemoglobin 28.2 pg (26-34); Mean Corpuscular Volume 90.7 fl (80-100); Mean Platelet Volume 9.5 fl (7.4-10.4); Monocytes Absolute Auto 0.9 K/mm3 (0.1-0.6); Monocytes Percent Auto 10.7 % (2.6-8.5); Neutrophils Absolute Auto 5.8 K/mm3 (1.3-6.7); Neutrophils Percent Auto 73.1 % (45.5-73.1); Platelet Count Result 308 k/mm3 (150-375); Red Blood Count 3.23 M/mm3 (4.6-6.20); Red Cell Distribution Width 13.5 % (11.5-14.5)
[2022-05-11 05:40] LABS: Alanine Aminotransferase 9 U/L (6-50); Albumin Level 3.5 g/dL (3.5-5.1); Alkaline Phosphatase 65 U/L (38-126); Anion Gap 3 mmol/L (8-16); Aspartate Amino Transferase 21 U/L (17-59); Bilirubin,Total 0.6 mg/dL (0.2-1.3); Blood Urea Nitrogen 26 mg/dL (9-20); Calcium 8.2 mg/dL (8.4-10.2); Carbon Dioxide 25 mmol/L (22-30); Chloride 107 mmol/L (98-107); Estimated CRCL calculation 44 ml/min; Estimated Glomerular Filt Rate > 60; Glucose 95 mg/dL (65-110); Magnesium 2.1 mg/dL (1.6-2.3); Potassium 3.8 mmol/L (3.4-5.0); Sodium 135 mmol/L (137-145)
[2022-05-11] MEDS: ASPIRIN 81 MG CHEWABLE TABLET PO (08:49)
[2022-05-11] MEDS: APIXABAN 5 MG TABLET PO ×2 (08:49→17:47)
[2022-05-11] MEDS: METOPROLOL SUCCINATE EXT REL 50 MG TABCR PO ×2 (08:49→20:11)
[2022-05-11] MEDS: CHOLECALCIFEROL 1,000 UNITS TABLET 1000 UNITS PO (08:50)
[2022-05-11] MEDS: CARBIDOPA/LEVODOPA 25/100 MG TABLET 1 TABLET PO ×3 (08:50→17:47)
[2022-05-11] MEDS: CLOPIDOGREL BISULFATE 75 MG TABLET PO (08:50)
--- NOTE | 2022-05-11 14:02 | PM.IMPN ---
Progress Note: A&P Assessment and Plan (1) Brain TIA: Code(s): G45.9 - Transient cerebral ischemic attack, unspecified Status: Acute Assessment and Plan: Patient is status post TCAR Awaiting bed at [facility] where his surgeon performed the procedure Head CTA with mild InStent stenosis. Continue Plavix, continue apixaban, continue aspirin, continue Zocor MRI brain With small acute stroke in left frontoparietal region Also consult Neurology while awaiting bed placement. Neurology consult reviewed (2) Parkinson's disease: Code(s): G20 - Parkinson's disease Status: Acute Assessment and Plan: Resume carbidopa levodopa (3) Paroxysmal atrial fibrillation: Code(s): I48.0 - Paroxysmal atrial fibrillation Status: Acute Assessment and Plan: Resume metoprolol Also on apixaban for anticoagulation (4) Chronic kidney disease, stage 3a: Code(s): N18.31 - Chronic kidney disease, stage 3a Status: Acute Assessment and Plan: Continue to monitor BUN and creatinine (5) Occlusion and stenosis of bilateral carotid arteries: Code(s): I65.23 - Occlusion and stenosis of bilateral carotid arteries Status: Acute Assessment and Plan: A status post TCAR (6) Acute stroke due to ischemia: Code(s): I63.9 - Cerebral infarction, unspecified Status: Acute Subjective Date/time seen: 05/11/22 14:02 Interval history: no overnight events on tingling and numbness about the same. Working with therapy today. Discussed findings with the patient. Review of Systems Review of Systems: All systems reviewed & are unremarkable except as noted in HPI and below Exam Narrative: APPEARANCE: Thin built, no pain, no distress, well-nourished. HEAD: normocephalic, atraumatic. EYES: PERRLA/EOMI, conjunctivae clear. NOSE: Normal no drainage NECK: Supple. No adenopathy, no masses. RESPIRATORY: Airway patent, respirations nonlabored. Clear to auscultation bilaterally, no rales, rhonchi, wheezing. CARDIOVASCULAR: Regular rate and rhythm without murmurs rubs or gallops. ABDOMINAL: Soft, nontender, nondistended, normal bowel sounds MUSCULOSKELETAL: Moves all extremities. Strength/ROM intact, No edema, No calf tenderness. NEURO: Alert. Cranial nerves II through XII intact.? Normal comprehensive neuro exam.? No ataxia.? No drift. SKIN: Warm, dry. Normal Color PSYCHIATRIC: Normal affect/mood. Objective Data Vital Signs Vital Signs: Vital Signs - 24 hr 05/11/22 16:00 05/11/22 16:00 05/11/22 16:00 Temperature Pulse Rate 75 75 75 Respiratory Rate 16 Blood Pressure Pulse Oximetry 100 Oxygen Delivery Room Air 05/11/22 18:00 05/11/22 20:00 05/11/22 20:11 Temperature 97.6 F Pulse Rate 79 81 82 Respiratory Rate 18 Blood Pressure 156/61 H Pulse Oximetry 100 Oxygen Delivery 05/11/22 20:00 05/11/22 20:00 05/11/22 22:00 Temperature Pulse Rate 82 71 Respiratory Rate Blood Pressure Pulse Oximetry Oxygen Delivery Room Air 05/11/22 23:29 05/11/22 23:50 05/12/22 00:00 Temperature 97.4 F L Pulse Rate 80 75 Respiratory Rate 18 Blood Pressure 161/69 H Pulse Oximetry 98 Oxygen Delivery Room Air 05/12/22 02:00 05/12/22 03:50 05/12/22 03:57 Temperature 97.6 F Pulse Rate 71 85 Respiratory Rate 18 Blood Pressure 158/72 H Pulse Oximetry 100 Oxygen Delivery Room Air 05/12/22 04:00 05/12/22 06:00 05/12/22 08:00 Temperature Pulse Rate 71 94 97 Respiratory Rate Blood Pressure Pulse Oximetry Oxygen Delivery 05/12/22 08:53 05/12/22 08:00 05/12/22 08:00 Temperature 97.9 F Pulse Rate 77 76 77 Respiratory Rate 16 16 Blood Pressure 134/59 L Pulse Oximetry 98 98 Oxygen Delivery Room Air 05/12/22 10:00 05/12/22 11:57 05/12/22 11:30 Temperature 97.6 F Pulse Rate 79 73 81 Respiratory Rate 20 Blood Pressure 120/46 L Pulse Oximetry 99
[2022-05-11] MEDS: SIMVASTATIN 20 MG TABLET PO (20:12)
[2022-05-11] MEDS: ACETAMINOPHEN 500 MG TABLET PO (20:39)
[2022-05-12] VITALS (11 sets, daily range): BP systolic 120–158; BP diastolic 46–72; PULSE 71–97; RESP 16–20; TEMP 36.4–36.6; O2SAT 98–100
[2022-05-12] MEDS: CARBIDOPA/LEVODOPA 25/100 MG TABLET 1 TABLET PO (08:52)
[2022-05-12] MEDS: ASPIRIN 81 MG CHEWABLE TABLET PO (08:52)
[2022-05-12] MEDS: CLOPIDOGREL BISULFATE 75 MG TABLET PO (08:52)
[2022-05-12] MEDS: APIXABAN 5 MG TABLET PO (08:52)
[2022-05-12] MEDS: CHOLECALCIFEROL 1,000 UNITS TABLET 1000 UNITS PO (08:52)
[2022-05-12] MEDS: METOPROLOL SUCCINATE EXT REL 50 MG TABCR PO (08:53)
--- NOTE | 2022-05-12 11:38 | PM.DS ---
DS: Admitting Diagnosis Discharge Date 05/12/2022 Admitting Diagnosis right- arm weakness DS: Discharge Diagnosis Discharge Diagnosis (1) Brain TIA: Code(s): G45.9 - Transient cerebral ischemic attack, unspecified Status: Acute (2) Parkinson's disease: Code(s): G20 - Parkinson's disease Status: Acute (3) Paroxysmal atrial fibrillation: Code(s): I48.0 - Paroxysmal atrial fibrillation Status: Acute (4) Chronic kidney disease, stage 3a: Code(s): N18.31 - Chronic kidney disease, stage 3a Status: Acute (5) Occlusion and stenosis of bilateral carotid arteries: Code(s): I65.23 - Occlusion and stenosis of bilateral carotid arteries Status: Acute (6) Acute stroke due to ischemia: Code(s): I63.9 - Cerebral infarction, unspecified Status: Acute DS: Summary Hospital Course Hospital Course: # acute ischemic stroke: Patient is status post TCAR Performed on 04/23 Head CTA with mild InStent stenosis. Continue Plavix, continue apixaban, continue aspirin, continue Zocor and has been compliant with the medications MRI brain with acute small stroke in frontoparietal area. Neurology consulted Already on aspirin Plavix and apixaban. Likely a stroke is postsurgical Discussed with Dr. Abarca vascular surgery regarding in stent stenosis. With clinical stability, he will follow-up early this week to review the images and make further determination. However does not anticipate any intervention required He work with PT OT while in the hospital. He will need outpatient PT OT which will be ordered # Parkinson's disease: Resume carbidopa levodopa # Paroxysmal atrial fibrillation: Resume metoprolol Also on apixaban for anticoagulation # chronic kidney disease stage 3: Continue to monitor BUN and creatinine # carotid artery stenosis: A status post TCAR Time Spent with Patient Time attestation: Total time spent providing and/or coordinating discharge services: 45 minutes Exam Narrative: APPEARANCE: Thin built, no pain, no distress, well-nourished. HEAD: normocephalic, atraumatic. EYES: PERRLA/EOMI, conjunctivae clear. NOSE: Normal no drainage NECK: Supple. No adenopathy, no masses. RESPIRATORY: Airway patent, respirations nonlabored. Clear to auscultation bilaterally, no rales, rhonchi, wheezing. CARDIOVASCULAR: Regular rate and rhythm without murmurs rubs or gallops. ABDOMINAL: Soft, nontender, nondistended, normal bowel sounds MUSCULOSKELETAL: Moves all extremities. Strength/ROM intact, No edema, No calf tenderness. NEURO: Alert. Cranial nerves II through XII intact.? Normal comprehensive neuro exam.? No ataxia.? No drift. SKIN: Warm, dry. Normal Color PSYCHIATRIC: Normal affect/mood. DS: Data Imaging Radiologist's impression: ITS Impressions Head CT 05/09/22 17:02 IMPRESSION: 1. No acute intracranial process. 2. Age-related changes including mild to moderate diffuse volume loss and moderate scattered white matter hypoattenuation consistent with chronic small vessel ischemic disease. Head/Neck CTA 05/09/22 18:30 IMPRESSION: 1. Moderate nonspecific cerebral white matter disease, which likely represents chronic small vessel ischemic disease. 2. Moderate stenosis of proximal left middle cerebral artery. 3. 0% stenosis of the proximal right internal carotid artery relative to normal distal artery lumen diameter (NASCET criteria). 4. Stent in left common carotid artery and left internal carotid artery with mild in-stent stenosis. 5. Soft tissue in left supraclavicular region around the internal jugular vein and common carotid artery with moderate stenosis of the internal jugular vein, likely hematoma. Carotid Doppler Study 05/09/22 19:48 IMPRESSION: 1. Less than 50% stenosis in the right internal carotid artery. 2. Less than 50%. stenosis in the left internal carotid artery. Brain MRI 05/10/22 13:13 IMPRESSION: 1. Small ac
== END 2022-05-12 13:00 | disposition home or self-care (01) ==
LOC: ANHED 19:30 → ANHIMU 23:14
PROVIDERS: Admitting Provider Internal Medicine; Emergency Provider Emergency Medicine; PCP Family Medicine Adolescent Medicine; Visit Provider Internal Medicine
DX: G45.9 Transient cerebral ischemic attack, unspecified (principal); G20 Parkinson's disease; I48.0 Paroxysmal atrial fibrillation; N18.31 Chronic kidney disease, stage 3a; I63.9 Cerebral infarction, unspecified; R20.0 Anesthesia of skin; T82.856A Stenosis of peripheral vascular stent, initial encounter; I87.1 Compression of vein; F10.90 Alcohol use, unspecified, uncomplicated; I45.10 Unspecified right bundle-branch block; Z20.822 Contact with and (suspected) exposure to COVID-19; R94.31 Abnormal electrocardiogram [ECG] [EKG]; R90.82 White matter disease, unspecified; Z87.891 Personal history of nicotine dependence; Z79.01 Long term (current) use of anticoagulants; Z79.82 Long term (current) use of aspirin; Z90.2 Acquired absence of lung [part of]; Z79.899 Other long term (current) drug therapy
CPT/HCPCS: 36415; 70450; 70496; 70498; 70553; 80053; 81001; 82948; 83735; 85025; 85610; 85730; 87637; 93005; 93880; 97161; 97165; 99285; A9270; A9577; G0378; Q9967

== ENCOUNTER → 2022-05-21 08:45 | Outpatient (CLI) | payer MEDICARE, SELFPAY ==
--- NOTE | ~2022-05-21 | CT_ITS ---
CT Scan of the Chest without Contrast: Clinical Indication: Hilar enlargement on outside chest x-ray Technique: Contiguous sections were acquired throughout the chest without intravenous contrast. Dose reduction technique was used on this scan by utilizing automated exposure control and iterative recon struction technique. The dose-length product (DLP) was 222.01 mGy-cm. Findings: There is no evidence of any significant mediastinal, hilar or axillary lymphadenopathy. Coronary mateusz ry calcifications are present. The mediastinal soft tissues otherwise appear normal. There is no evidence of pleural or pericardial effusion. There is an irregular, somewhat branching tubular opacity in the right lower lobe (axial images 70-77 ), suggestive a possible impacted small airway. There is a focal small calcified pleural plaque at th e extreme right lung base. There is minimal subpleural reticulation or scarring at the upper lobes. Images through the upper abdomen reveal small hepatic cysts. Large left renal cyst measures 9.8 cm in diameter.. Impression: Irregular, somewhat branching tubular opacities in the right lower lobe, as detailed above. Finding s uggests an impacted small airways and possible focal pneumonia. Clinical correlation advised. Short-t erm follow-up CT scan in 1-3 months after interval therapy is advised. Small focal calcified pleural plaque at the right lung base. Reviewed, dictated and finalized at location M. [employer] Impression: Irregular, somewhat branching tubular opacities in the right lower lobe, as det sayra above. Finding suggests an impacted small airways and possible focal pneu monia. Clinical correlation advised. Short-term follow-up CT scan in 1-3 months after interval therapy is advised. Small focal calcified pleural plaque at the right lung base.
== END ==
PROVIDERS: PCP Family Medicine Adolescent Medicine; Visit Provider Family Medicine Adolescent Medicine
DX: R91.8 Other nonspecific abnormal finding of lung field (principal); J92.9 Pleural plaque without asbestos
CPT/HCPCS: 71250

== ENCOUNTER 2022-09-27 09:15 | Outpatient (RCR) | payer MEDICARE, SELFPAY ==
--- NOTE | 2022-07-05 12:34 | OTOPDC ---
Assessment and note entered by HOLLEY Grant/Inocencio, CHT Evaluation Information Assessment Status Evaluation Diagnosis Parkinson's Disease, Orthostatic Hypotension Subjective Information Patient and his , Arielle, present today stating that they are here for JOSE hose fittings, which we unfortunately do not provide at this clinic. Provided them with information on a local resource that will measure patient and suggest what size stockings to purchase. The patient also reports having difficulties with his mobility since March after having a carotid stent and subsequent TIA. Reporting decreased balance and falls. He states he lives with his and is independent with ADLs. Does not use a device for mobility and they used to walk a mile a day prior to his carotid surgery. Reported Pain Level Pain Score 0: Self Report Assessment OT Clinical Summary Patient evaluated by OT this afternoon. Patient is currently functioning independently and reporting no difficulties with ADLs or fine motor tasks. Assessments today reveal functional and symmetrical strength and coordination of bilateral UEs. Patient and his spouse report they also have a PT order at home, which appears to be more fitting, for balance and mobility. No further skilled OT indicated at this time. Plan of Care OT Services Indicated No
--- NOTE | 2022-07-18 13:52 | PTOPEVAL1 ---
Assessment and note entered by Sumit Watson, PT Evaluation Information Assessment Status Evaluation Diagnosis Parkinsons disease Subjective Information Patient reports March of last year patient has been dealing with a carotid occlusion with subsequent surgery to fix it, a CVA, and orthostatic hypotension. He reports that he is no longer having the dizzy spells and it on a heart monitor. He was walking a mile a day, but has not done that since last March. Patient reports no falls or trouble do any activities of daily living. Reported Pain Level Pain Score 0: Self Report Assessment PT Clinical Summary Jose Maria is an 81 year old male coming into the clinic for strengthening and balance training after a run of bad health. He needs to work on balance and improving endurance. Physical therapy will be used as an adjunct to his HEP and getting back into the [facility] which he was using frequently last year. Plan of Care Interventions Electrical Stimulation,Gait Training,Hot Pack/Cold Pack,Manual Therapy,Neuro Re-education,Patient/ Caregiver Education,Therapeutic Activities, Therapeutic Exercise,Ultrasound Other Interventions taping PT Services Indicated Yes Treatment Frequency and 1x/wk for 4 weeks Duration These treatments will address the objective and functional deficits as defined above. The patient will be advanced safely and appropriately in order for the patient to progress towards his/her prior level of function. Additional exercises will be introduced and as well as a comprehensive home exercise program upon discharge, if needed, ?to ensure carryover of functional gains achieved in the clinic. This treatment plan has been reviewed and agreement upon by the patient.
--- NOTE | 2022-07-31 08:58 | PCPTNOTE ---
Patient called & cancelled scheduled appointment this date due to being in A-fib
--- NOTE | 2022-08-15 07:49 | PTOPPROG ---
Assessment and note entered by Sumit Watson, PT Evaluation Information Assessment Status Progress Diagnosis Parkinson's disease, orthostatic hypotension Subjective Information Patient reports he is starting to walk outside again and be more active, but had a run of A-Fib that slowed him down and still feels like his balance and endurance is not where he would like it. Assessment PT Clinical Summary Jose Maria is an 81 year old male coming into the clinic with a diagnosis of Parkinson's disease and balance issues. Patient was evaluated on July 18 and attended 4 vists with needing to take a week off secondary to some issues with A-Fib and getting medication figured out. He has met his strength and walking goal, but would like to have a more aggressive walking goal and has not met his balance goal. I believe that both will be achievable and since he was on the sidelines for awhile would benefit from continued physical therapy. Plan of Care Interventions Electrical Stimulation,Gait Training,Hot Pack/Cold Pack,Manual Therapy,Neuro Re-education,Patient/ Caregiver Education,Therapeutic Activities, Therapeutic Exercise,Ultrasound Other Interventions cupping, taping, IASTM PT Services Indicated Yes Treatment Frequency and 1-2x/wk for 4 weeks Duration These treatments will address the objective and functional deficits as defined above. The patient will be advanced safely and appropriately in order for the patient to progress towards his/her prior level of function. Additional exercises will be introduced and as well as a comprehensive home exercise program upon discharge, if needed, ?to ensure carryover of functional gains achieved in the clinic. This treatment plan has been reviewed and agreement upon by the patient.
--- NOTE | 2022-09-10 13:34 | PTOPPROG ---
Assessment and note entered by Sumit Watson, PT Evaluation Information Assessment Status Progress Diagnosis Parkinson's disease Subjective Information Patient reports he started doing LSVT exercises given to him by Jessica CASE THERAPIST certified LSVT clinician , and he watched the DVD and it is making more sense. He is walking 1 mile a day 3 times a week. Reports no falls. Assessment PT Clinical Summary Jose Maria is an 81 year old male coming into the clinic with a diagnosis of Parkinson's Disease. The patient was evaluated on 07/18/22 and has attended 12 sessions. The last go around patient will work on LSVT and establish a good home exercise progrm for the patient. Plan of Care Interventions Electrical Stimulation,Gait Training,Hot Pack/Cold Pack,Manual Therapy,Neuro Re-education,Patient/ Caregiver EducatiON,Therapeutic Activities, Therapeutic Exercise,Ultrasound Other Interventions taping, cupping, IASTM PT Services Indicated Yes Treatment Frequency and 2x/wk for 4 weeks Duration These treatments will address the objective and functional deficits as defined above. The patient will be advanced safely and appropriately in order for the patient to progress towards his/her prior level of function. Additional exercises will be introduced and as well as a comprehensive home exercise program upon discharge, if needed, ?to ensure carryover of functional gains achieved in the clinic. This treatment plan has been reviewed and agreement upon by the patient.
== END 2022-09-27 15:45 | disposition other institution (70) ==
LOC: ANHPT 09:15
PROVIDERS: PCP Family Medicine Adolescent Medicine
DX: G20 Parkinson's disease (principal); I95.1 Orthostatic hypotension
CPT/HCPCS: 97110; 97112; 97161; 97165; 97530

== ENCOUNTER 2022-10-11 12:30 | Outpatient (RCR) | payer MEDICARE, SELFPAY ==
--- NOTE | 2022-10-11 13:14 | PTOPDC ---
Assessment and note entered by Sumit Watson, PT Evaluation Information Assessment Status Discharge Diagnosis Parkinson's Disease Subjective Information Patient and reports he feels like he is moving around better, has been doing his HEP 2x a day without fail and is going to sign up for a PD class at the [facility] or look into [facility] training. Patient and are okay with being discharged from skilled physical therapy. Reported Pain Level Pain Score 0: Self Report Assessment PT Clinical Summary Jose Maria is an 81 year old male coming into the clinic with a diagnosis of Parkinson's Disease. Patient was evaluated on 07/18/22 and has attended 18 visits. He has met his strength, and balance goals, but not his hamstring flexibility goal although it did improve 9-10 degrees from initial evaluation. Patient appears safe with his exercises and now is a good time to go to HEP with him staying active at the [facility]. Discharged from skilled physical therapy. Plan of Care PT Services Indicated No
== END 2022-10-11 15:33 | disposition home or self-care (01) ==
LOC: ANHPT 12:30
PROVIDERS: PCP Family Medicine Adolescent Medicine
DX: G20 Parkinson's disease (principal); I95.1 Orthostatic hypotension
CPT/HCPCS: 97110; 97112; 97530

== ENCOUNTER 2023-01-05 22:49 | Emergency (ER) | payer MEDICARE, SELFPAY ==
[2023-01-05 23:30] VITALS: BP 184/93; PULSE 88; RESP 16; TEMP 36.3; O2SAT 99
--- NOTE | 2023-01-05 23:37 | ED.GENADULT ---
HPI - General Adult General Chief complaint: Recheck/Abnormal Lab/Rx Stated complaint: elevated BP Time Seen by Provider: 01/05/23 23:36 History of Present Illness HPI narrative: Patient presents to the emergency department with his with concern for hypertension. He is asymptomatic. They have been checking his blood pressure because he has a history of orthostatic hypotension. He is not on any blood pressure medications. Normally blood pressure varies between 100-1 60 systolic. However time it was 180s. Repeat numbers continued up to 200. Here is 184/93. He is accompanied by his and she contributes to a large part of the history. He is very pleasant and his exam is grossly benign Related Data Home Medications Medication Instructions Recorded Confirmed apixaban 5 mg tablet (Eliquis) 5 mg PO BID 05/14/21 09/11/22 carbidopa 25 mg-levodopa 100 mg 1 tablet PO TID 01/22/22 09/11/22 tablet cholecalciferol (vitamin D3) 25 25 mcg PO DAILY 05/09/22 09/11/22 mcg (1,000 unit) capsule clopidogrel 75 mg tablet 75 mg PO DAILY 05/09/22 09/11/22 fluticasone propionate 50 1 spray intranasal DAILY PRN 05/09/22 09/11/22 mcg/actuation nasal Allergy Symptoms spray,suspension (Flonase Allergy Relief) ketotifen fumarate 0.025 % (0.035 1 drp EACH EYE BID PRN Allergy 05/09/22 09/11/22 %) eye drops (Alaway) Symptoms fludrocortisone 0.1 mg tablet 0.1 mg PO .AM 09/11/22 09/11/22 metoprolol succinate 25 mg 25 mg PO .PM 09/11/22 09/11/22 tablet,extended release 24 hr (Toprol XL) Allergies Allergy/AdvReac Type Severity Reaction Status Date / Time cats Allergy Mild Sneezing Uncoded 09/11/22 08:43 mold Allergy Mild Swelling Uncoded 09/11/22 08:43 tree pollen Allergy Mild Sneezing Uncoded 09/11/22 08:43 Review of Systems Review of Systems: CONSTITUTIONAL: Denies fever, chills, or sweats. EYES: Denies visual changes, redness, or discharge. ENT: Denies rhinorrhea, congestion, sore throat, or otalgia. CARDIOVASCULAR: Denies chest pain, palpitations, or edema. RESPIRATORY: Denies cough or dyspnea. GASTROINTESTINAL: Denies abdominal pain, nausea, vomiting, or diarrhea. GENITOURINARY: Denies dysuria or hematuria. SKIN: Denies rash or itching. MUSCULOSKELETAL: Denies back pain, joint pain, or myalgia. NEUROLOGIC: Denies headache, numbness, or weakness. PSYCHIATRIC: Denies anxiety or depression. [facility] Past Medical History Medical History (Updated 01/06/23 @ 02:30 by Darline Gonzales MD) Anemia Benign prostatic hyperplasia with lower urinary tract symptoms CKD (chronic kidney disease) Hypertension Parkinson's disease Paroxysmal atrial fibrillation Personal history of malignant neoplasm of prostate Vasomotor rhinitis Family History Family History Father Heart disease Social History Social History (Updated 05/14/21 @ 13:29 by Taylor Alcala MA) Smoking status: Former smoker Second hand tobacco smoke exposure: No Additional smoking assessment comments: quit 40 years ago Alcohol intake: current Drinks per week: 5 Substance use: never Substance use type: does not use Lack of Transportation: No Lack of Food: Never True Current Housing: I Have Housing Concerned About Future Housing: No Difficulty Paying Gas/Electric Bills: No Difficulty Paying for Meds: No Currently Unemployed: No Education: Decline to Answer Difficulty w/ Childcare or Family Care: No Living arrangements: with family Occupation/Education: retired Gender identity (if verbalized by the patient): Male Sexual Orientation (if Verbalized by the Patient): Straight or Heterosexual Spiritual care concerns: No Agree to blood products: Yes Exam Narrative: GENERAL: Well-appearing, well-nourished, and in no acute distress. HEAD: Normocephalic, atraumatic. EYES: PERRLA and EOMI. ENT: Nares clear, no rhinorrhea or epistaxis. Mucous membranes
--- NOTE | 2023-01-06 | ECG_ITS ---
Measurements Intervals [place] Rate: 77 P: 79 WA: 164 QRS: 50 QRSD: 135 T: 37 QT: 383 QTc: 435 Interpretive Statements SINUS RHYTHM POSSIBLE LEFT ATRIAL ENLARGEMENT RIGHT BUNDLE BRANCH BLOCK BASELINE ARTIFACT- I, III, AVR, AVL ABNORMAL ECG COMPARED TO ECG 05/09/2022 16:33:38 NO SIGNIFICANT CHANGES Electronically Signed On 01-06-2023 6:31:22 CDT by Nick Avelar D.O.
[2023-01-06 00:44] LABS: Basophils Absolute Auto 0.1 K/mm3 (0.0-0.1); Basophils Percent Auto 0.7 % (0.2-1.2); Eosinophils Absolute Auto 0.1 K/mm3 (0-0.3); Eosinophils Percent Auto 0.9 % (0-4.4); Hematocrit 37.9 % (42.0-52.0); Hemoglobin 12.3 g/dL (14.0-18.0); Immature Granulocyte Absolute 0.01 K/mm3 (0.00-0.031); Immature Granulocyte Percent A 0.1 % (0-0.5); Lymphocytes Percent Auto 12.8 % (18.3-44.2); Mean Corpuscular HGB Conc 32.5 g/dl (32-36); Mean Corpuscular Hemoglobin 31.8 pg (26-34); Mean Corpuscular Volume 97.9 fl (80-100); Mean Platelet Volume 9.5 fl (7.4-10.4); Monocytes Absolute Auto 0.7 K/mm3 (0.1-0.6); Neutrophils Absolute Auto 5.3 K/mm3 (1.3-6.7); Neutrophils Percent Auto 75.5 % (45.5-73.1); Platelet Count Result 192 k/mm3 (150-375); Red Blood Count 3.87 M/mm3 (4.6-6.20); Red Cell Distribution Width 12.7 % (11.5-14.5)
[2023-01-06 00:56] LABS: Alanine Aminotransferase 8 U/L (6-50); Albumin Level 4.4 g/dL (3.5-5.1); Alkaline Phosphatase 71 U/L (38-126); Anion Gap 7 mmol/L (8-16); Aspartate Amino Transferase 28 U/L (17-59); Bilirubin,Total 0.7 mg/dL (0.2-1.3); Blood Urea Nitrogen 32 mg/dL (9-20); Calcium 8.6 mg/dL (8.4-10.2); Carbon Dioxide 27 mmol/L (22-30); Chloride 107 mmol/L (98-107); Estimated CRCL calculation 43 ml/min; Estimated Glomerular Filt Rate > 60; Glucose 100 mg/dL (65-110); Sodium 141 mmol/L (137-145)
[2023-01-06 01:46] VITALS: BP 174/88; PULSE 78; RESP 14; O2SAT 99
[2023-01-06 03:34] VITALS: BP 195/77; PULSE 82; RESP 16; O2SAT 100
[2023-01-06 04:30] VITALS: BP 212/97; PULSE 86
[2023-01-06] MEDS: METOPROLOL TARTRATE 50 MG TAB 25 MG PO (04:30)
[2023-01-06] MEDS: cloNIDine HCL 0.1 MG TABLET 0.2 MG PO (04:30)
[2023-01-06 04:31] VITALS: BP 204/95
[2023-01-06 05:07] VITALS: BP 173/89
== END 2023-01-06 06:13 | disposition home or self-care (01) ==
PROVIDERS: Emergency Provider Emergency Medicine; PCP Family Medicine Adolescent Medicine
DX: I10 Essential (primary) hypertension (principal); I12.9 Hypertensive chronic kidney disease with stage 1 through stage 4 chronic kidney disease, or unspecified chronic kidney disease; N18.9 Chronic kidney disease, unspecified; G20 Parkinson's disease; I48.0 Paroxysmal atrial fibrillation; Z79.01 Long term (current) use of anticoagulants
CPT/HCPCS: 36415; 80053; 85025; 93005; 99283; A9270

== ENCOUNTER 2024-02-03 14:06 | Inpatient (IN) | payer MEDICARE, SELFPAY ==
[2024-02-03] VITALS (17 sets, daily range): BP systolic 117–171; BP diastolic 65–114; PULSE 78–148; RESP 14–20; TEMP 36.6–37.1; O2SAT 98–100; BMI 21.2
--- NOTE | ~2024-02-03 | XR_ITS ---
EXAMINATION: XR chest 2V DATE: 02/03/2024 14:37 INDICATION: Near syncope. TECHNIQUE: Frontal and lateral views of the chest were obtained. COMPARISON: Chest 2 views 02/28/2015, chest CT 05/21/2022 FINDINGS: There are small pleural effusions, right worse than left. There is mild scarring at right l liset apex and in the right midlung zone. No pneumothorax. The heart size is normal. Surgical clips ove rlie left chest. IMPRESSION: 1. Small pleural effusions, right worse than left. 2. Mild scarring in right mid and upper lung zones. Reviewed, dictated and finalized at location A.
--- NOTE | 2024-02-03 14:05 | ECG_ITS ---
Test Date: 2024-02-03 14:09:32 Measurements Intervals [place] Rate: 133 P: 0 NM: 0 QRS: 19 QRSD: 146 T: -37 QT: 329 QTc: 489 Interpretive Statements ATRIAL FIBRILLATION WITH RAPID VENTRICULAR RESPONSE RIGHT BUNDLE BRANCH BLOCK [120+ ms QRS DURATION, UPRIGHT V1, 40+ ms S IN I/aVL/V4/V5/V6] NONSPECIFIC ST SEGMENT ABNORMALITY ABNORMAL ECG No previous ECG available for comparison Electronically Signed On 02-04-2024 07:07:41 CDT by Prabhakar Murry M.D.
[2024-02-03 14:45] LABS: Basophils Percent Auto 0.5 % (0.2-1.2); Eosinophils Absolute Auto 0.1 K/mm3 (0-0.3); Eosinophils Percent Auto 0.8 % (0-4.4); Hematocrit 27.4 % (42.0-52.0); Hemoglobin 7.9 g/dL (14.0-18.0); Immature Granulocyte Absolute 0.03 K/mm3 (0.00-0.031); Immature Granulocyte Percent A 0.5 % (0-0.5); Lymphocytes Absolute Auto 0.55 K/mm3 (0.9-3.2); Lymphocytes Percent Auto 9.1 % (18.3-44.2); Mean Corpuscular HGB Conc 28.8 g/dl (32-36); Mean Corpuscular Hemoglobin 24.6 pg (26-34); Mean Corpuscular Volume 85.4 fl (80-100); Mean Platelet Volume 9.7 fl (7.4-10.4); Monocytes Absolute Auto 0.3 K/mm3 (0.1-0.6); Neutrophils Absolute Auto 5.1 K/mm3 (1.3-6.7); Neutrophils Percent Auto 84.1 % (45.5-73.1); Nucleated Red Blood Cells Perc 0.3 % (0.0-0.2); Platelet Count Result 256 k/mm3 (150-375); Red Blood Count 3.21 M/mm3 (4.6-6.20); Red Cell Distribution Width 15.9 % (11.5-14.5)
[2024-02-03 15:03] LABS: Alanine Aminotransferase 9 U/L (6-50); Albumin Level 3.7 g/dL (3.5-5.1); Alkaline Phosphatase 57 U/L (38-126); Anion Gap 13 mmol/L (4-12); Aspartate Amino Transferase 22 U/L (17-59); Blood Urea Nitrogen 33 mg/dL (9-20); Calcium 8.3 mg/dL (8.4-10.2); Carbon Dioxide 22 mmol/L (22-30); Chloride 109 mmol/L (98-107); Estimated CRCL calculation 31 ml/min; Estimated Glomerular Filt Rate 44; Glucose 130 mg/dL (65-110); Potassium 3.4 mmol/L (3.4-5.0); Sodium 144 mmol/L (137-145)
[2024-02-03 15:09] LABS: Hypochromasia 1+; Ovalocytes 1+; Platelet Estimate Adequate (Adequate); Schistocytes None Seen
--- NOTE | 2024-02-03 15:55 | ED.SYNCOPE ---
HPI - Syncope General Chief Complaint: Syncope Stated Complaint: near syncopal Time Seen by Provider: 02/03/24 15:44 History of Present Illness HPI narrative: Pt had several near syncopal episodes this morning. Pt said some were when he stood others not. Pt denies CP or SOB. Pt has history of syncopal episodes in past and iron deficiency anemia but quit taking it due to interactions with other meds. Pt also recently started on lasix for leg edema. Related Data Home Medications Medication Instructions Recorded Confirmed apixaban 5 mg tablet (Eliquis) 5 mg PO BID 05/14/21 01/27/24 cholecalciferol (vitamin D3) 25 25 mcg PO DAILY 05/09/22 01/27/24 mcg (1,000 unit) capsule fluticasone propionate 50 1 spray intranasal DAILY PRN 05/09/22 01/27/24 mcg/actuation nasal Allergy Symptoms spray,suspension (Flonase Allergy Relief) ketotifen fumarate 0.025 % (0.035 1 drp EACH EYE BID PRN Allergy 05/09/22 01/27/24 %) eye drops (Alaway) Symptoms ferrous sulfate 325 mg (65 mg 325 mg PO DAILY 01/09/23 09/25/23 iron) tablet clonidine HCl 0.1 mg tablet 0.1 mg PO .COMPLEX 03/19/23 01/27/24 metoprolol succinate 25 mg 25 mg PO QHS 05/15/23 01/27/24 tablet,extended release 24 hr (Toprol XL) aspirin 81 mg tablet,delayed 81 mg PO DAILY 01/27/24 01/27/24 release (Adult Low Dose Aspirin) Allergies Allergy/AdvReac Type Severity Reaction Status Date / Time cats Allergy Mild Sneezing Uncoded 01/27/24 09:29 mold Allergy Mild Swelling Uncoded 01/27/24 09:29 tree pollen Allergy Mild Sneezing Uncoded 01/27/24 09:29 Review of Systems Review of Systems: All systems reviewed & are unremarkable except as noted in HPI and below PMFSH Past Medical History Medical History (Updated 02/03/24 @ 17:35 by Vikram Galaviz III, DO) Anemia Benign prostatic hyperplasia with lower urinary tract symptoms CKD (chronic kidney disease) Hypertension Parkinson's disease Paroxysmal atrial fibrillation Personal history of malignant neoplasm of prostate Vasomotor rhinitis Family History Family History Father Heart disease Social History Social History (Updated 09/25/23 @ 10:10 by Melissa Irby MA) Smoking status: Former smoker Second hand tobacco smoke exposure: No Additional smoking assessment comments: quit 40 years ago Alcohol intake: current Drinks per week: 5 Substance use: never Substance use type: does not use Do You Feel Safe in your Home?: Yes Lack of Transportation: No Lack of Food: Never True Current Housing: I Have Housing Concerned About Future Housing: No Difficulty Paying Gas/Electric Bills: No Difficulty Paying for Meds: No Currently Unemployed: No Education: Decline to Answer Difficulty w/ Childcare or Family Care: No Living arrangements: with family Occupation/Education: retired Gender identity (if verbalized by the patient): Male Sexual Orientation (if Verbalized by the Patient): Straight or Heterosexual Spiritual care concerns: No Agree to blood products: Yes Exam Const: General: healthy appearing and no acute distress Nutritional Appearance: well nourished Orientation/consciousness: patient oriented x3 Eyes: Pupils: Equal, round and reactive pupils present EOM: EOMs intact bilaterally Neck: Neck: normal visual inspection Chest: Chest palpation & inspection: normal inspection of the chest Resp: Effort & Inspection: normal respiratory effort Auscultation: clear to auscultation bilaterally Cardio: Rate: tachycardic Rhythm: abnormal rhythm GI: GI Palp: Yes Soft to palpation and No Tenderness to palpation present (GI) Back/Spine/Pelvis: Back: no CVA tenderness Skin: General skin exam: pallor Rashes: no rashes Wounds: no wounds Neuro: General: patient oriented x3, moves all extremities, no meningeal signs, no focal motor deficits and CN's II-XI intact bilaterally Cranial nerves: Yes Nysta
[2024-02-03] MEDS: SODIUM CHLORIDE 0.9% IV 500 ML 999 ML IV CONT (16:01)
--- NOTE | 2024-02-03 16:06 | PC.NURSE ---
Lab called to add on ordered labs.
[2024-02-03 16:46] LABS: INR 2.2; Partial Thromboplastin Time 30.3 Seconds (22.3-36.8); Prothrombin Time 24.7 Seconds (11.1-14.7)
[2024-02-03 16:54] LABS: Troponin I 0.012 ng/mL (0.000-0.034)
--- NOTE | 2024-02-03 17:19 | PM.IMHP ---
H&P: HPI History of Present Illness Date/Time: 02/03/24 17:19 Chief Complaint: Syncope Narrative: 83-year-old male with past medical history of Parkinson's disease, iron deficiency anemia, atrial fibrillation, lower extremity edema presents the hospital with syncope. Per the patient he believes that he did not pass out. Per the she states that the patient was in the bathroom when his eyes rolled into the back of his head and he did not respond her, he fell back onto the toilet. She states that when they tried to get into a chair he fell onto the ground. She states that he has passed out 3 or 4 times this week. Patient recently saw his cardiology nurse practitioner last week and was on a Holter monitor with Lasix started due to his increasing lower extremity edema. Patient states that he took it for a couple days and then stopped taking it due to side effects increasing has orthostatic hypotension and falls , his last dose was about 3 days ago. Patient also states that he stop taking his iron supplements due to interactions with his Parkinson's. He states that he has been off them for about a month. Patient states that he stopped drinking alcohol last month. Per the patient did not hit his head, patient denies nausea or vomiting. Emergency room patient had positive orthostatics with a simple RVR heart rate in 140s, patient was given 500 cc fluid bolus, without change in heart rate. Due to patient having acute hemoglobin drop since last month with positive orthostatics is given 1 unit RBCs without improvement in heart rate. We will defer to Cardiology for further management. states his old registered art therapist retired and not seen his new registered art therapist Dr. Chance. Review of Systems Constitutional: Constitutional: Reports fatigue and Reports weakness Eyes: Eyes: Reports no additional eye complaints Cardiovascular: Cardiovascular: Reports leg edema and Reports lightheadedness Respiratory: Respiratory: Reports no additional respiratory complaints Gastrointestinal: Gastrointestinal: Reports no additional gastrointestinal complaints Genitourinary: Genitourinary: Reports no additional male genitourinary complaints Musculoskeletal: Musculoskeletal: Reports no additional musculoskeletal complaints Integumentary/Breasts: Skin/Breast: Reports system reviewed and no additional complaints, except as docu Neurologic: Reports system reviewed and no additional complaints, except as documented Psychiatric: Psychiatric: Reports no additional psychiatric complaints PMFSH Past Medical History Medical History (Updated 02/03/24 @ 17:35 by Vikram Galaviz III, DO) Anemia Benign prostatic hyperplasia with lower urinary tract symptoms CKD (chronic kidney disease) Hypertension Parkinson's disease Paroxysmal atrial fibrillation Personal history of malignant neoplasm of prostate Vasomotor rhinitis Family History Family History (Updated 02/03/24 @ 20:28 by Junie Barrett, MARIANA) Father Heart disease Sibling Cancer Social History Social History (Updated 02/03/24 @ 21:00 by Birgit Mosher APRN) Smoking status: Former smoker Second hand tobacco smoke exposure: No Additional smoking assessment comments: quit 40 years ago Alcohol intake: former Alcohol use details: 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s: with family Occupation/Education: retired Gender identity (if verbalized by the patient): Male Sexual Orientation (if Verbalized by the Patient): Straight or Heterosexual Spiritual care
[2024-02-03] MEDS: SODIUM CHLORIDE 0.9% IV 250 ML 30 ML IV CONT (18:20)
--- NOTE | 2024-02-03 20:00 | PC.NURSE ---
Addendum entered by Liz Rangel RN 02/03/24 20:01: Report called to IMU RN for room 205. All questions answered at this time. Original Note: Report called to IMU RN for room
--- NOTE | 2024-02-03 20:16 | ADMGEN ---
This patient, Jose Maria Terry, was admitted to IMU Room 205-01. Patient/family oriented to hospital policies and general routines including ID bracelet, bed and alarms, visiting hours, pain management, procedures, bathroom and other care routines, personal items, smoking policy, room service/diet, and visiting hours. Information on how to activate the Rapid Response Team has been discussed. Patient/Family are encouraged to report perceived risks to care and to ask questions if they do not understand what they are told or what they should do.
--- NOTE | 2024-02-03 20:47 | PC.NURSE ---
blood finished in ed
[2024-02-03 21:54] LABS: Iron 35 ug/dL (49-181)
[2024-02-03] MEDS: CARBIDOPA/LEVODOPA 25/100 MG TABLET 1 TABLET BY MOUTH (21:58)
[2024-02-03] MEDS: SIMVASTATIN 20 MG TABLET PO (21:58)
[2024-02-03] MEDS: METOPROLOL TARTRATE INJ 5 MG/5 ML VIAL IV PUSH (22:01)
[2024-02-03 22:02] LABS: Percent Iron Saturation 8 % (20-50)
[2024-02-03 22:29] LABS: Ferritin 7.21 ng/mL (11.1-264)
[2024-02-03] MEDS: FLUDROCORTISONE ACETATE 0.1 MG TABLET 0.2 MG PO (22:33)
[2024-02-03] MEDS: METOPROLOL SUCCINATE EXT REL 25 MG TABCR PO (22:33)
[2024-02-03 22:58] LABS: Folic Acid 9.6 ng/mL (2.76->20)
[2024-02-04] VITALS (18 sets, daily range): BP systolic 106–174; BP diastolic 52–97; PULSE 88–140; RESP 18–22; TEMP 36.1–36.6; O2SAT 98–100
--- NOTE | 2024-02-04 | ECHO_ITS ---
Patient Info Name: Jose Maria Terry Age: 83 years : 1940 Gender: Male Ht: 72 in Wt: 155 lbs BSA: 1.88 m2 HR: 68 bpm BP: 142 / 89 mmHg Heart Rhythm: Atrial Flutter Technical Quality: Fair Exam Date: 02/04/2024 11:34 AM Exam Location: Echo Lab Patient Status: Outpatient Admit Date: 02/03/2024 Staff Ordering Physician: Lanre Miranda MD (lee/betsy) Grey Iron Molder: Wali Be RDCS Attending Provider: Bill Naqvi MD Referring Physician: Ruben RICH; Exam Type: CA echo doppler color flow Study Info Indications R55 - Syncope and collapse Complete two-dimensional, color flow and Doppler transthoracic echocardiogram is performed. Summary 1. Complete two-dimensional, color flow and Doppler transthoracic echocardiogram is performed. 2. Normal left ventricular size and systolic contractility. 3. Right ventricular dilation with systolic dysfunction. 4. Significant biatrial dilation right greater than left. 5. Mild savage valvular regurgitation. 6. Atrial flutter. Left Ventricle Left ventricular systolic function is normal, estimated at 55-60%. The left ventricular diastolic function is indeterminate. Right Ventricle Right ventricular chamber dimension is severely enlarged. Left Atria Left atrial chamber dimension is moderately enlarged. Right Atria Right atrial chamber dimension is severely enlarged. Aortic Valve The aortic valve is trileaflet. There is mild aortic valve sclerosis. There is mild aortic valve regurgitation. Pulmonic Valve The pulmonic valve is normal. There is mild pulmonic regurgitation. Mitral Valve The mitral valve has normal leaflets. There is trace mitral valve regurgitation. Tricuspid Valve The tricuspid valve leaflets are normal. There is mild tricuspid valve regurgitation. Pericardium/Pleural The pericardium appears normal. Aorta The aortic root size at the sinus of Valsalva is normal. Left Ventricular Outflow Tract Name Value Normal LVOT 2D LVOT Diameter 2.1 cm LVOT Doppler LVOT Peak Gradient 2 mmHg LVOT Mean Gradient 1 mmHg LVOT VTI 13 cm LVOT VTI/AV VTI Ratio 1.1 LVOT Stroke Volume 42 ml LVOT CO 8.1 l/min LVOT CI 4.3 l/min/m2 Pulmonic Valve Name Value Normal PV Doppler PV Peak Gradient 3 mmHg PV Regurgitation Doppler OR Peak End Diastolic Velocity 73 cm/s Mitral Valve Name Value Normal MV Doppler M
[2024-02-04 05:25] LABS: Basophils Percent Auto 0.6 % (0.2-1.2); Eosinophils Absolute Auto 0.1 K/mm3 (0-0.3); Hematocrit 29.9 % (42.0-52.0); Hemoglobin 8.9 g/dL (14.0-18.0); Immature Granulocyte Absolute 0.02 K/mm3 (0.00-0.031); Immature Granulocyte Percent A 0.3 % (0-0.5); Lymphocytes Absolute Auto 1.03 K/mm3 (0.9-3.2); Lymphocytes Percent Auto 14.9 % (18.3-44.2); Mean Corpuscular HGB Conc 29.8 g/dl (32-36); Mean Corpuscular Hemoglobin 25.1 pg (26-34); Mean Corpuscular Volume 84.5 fl (80-100); Mean Platelet Volume 9.6 fl (7.4-10.4); Monocytes Absolute Auto 0.8 K/mm3 (0.1-0.6); Monocytes Percent Auto 11.9 % (2.6-8.5); Neutrophils Absolute Auto 4.9 K/mm3 (1.3-6.7); Neutrophils Percent Auto 71.3 % (45.5-73.1); Nucleated Red Blood Cells Perc 0.3 % (0.0-0.2); Platelet Count Result 239 k/mm3 (150-375); Red Blood Count 3.54 M/mm3 (4.6-6.20); Red Cell Distribution Width 16.2 % (11.5-14.5); White Blood Count 6.9 K/mm3 (4.5-10.0)
[2024-02-04 05:31] LABS: Anion Gap 9 mmol/L (4-12); Blood Urea Nitrogen 35 mg/dL (9-20); Calcium 8.5 mg/dL (8.4-10.2); Carbon Dioxide 23 mmol/L (22-30); Chloride 111 mmol/L (98-107); Estimated CRCL calculation 37 ml/min; Estimated Glomerular Filt Rate 52; Glucose 90 mg/dL (65-110); Potassium 3.5 mmol/L (3.4-5.0); Sodium 143 mmol/L (137-145)
[2024-02-04 05:53] LABS: Ovalocytes 1+; Platelet Estimate Adequate (Adequate)
[2024-02-04 05:54] LABS: Schistocytes None Seen; Target Cells 1+
[2024-02-04] MEDS: METOPROLOL SUCCINATE EXT REL 25 MG TABCR PO (08:38)
[2024-02-04] MEDS: ASPIRIN 81 MG ENTERIC TABLET PO (08:39)
[2024-02-04] MEDS: FLUDROCORTISONE ACETATE 0.1 MG TABLET 0.2 MG PO (08:39)
[2024-02-04] MEDS: CARBIDOPA/LEVODOPA 25/100 MG TABLET 1 TABLET BY MOUTH ×3 (08:40→17:59)
[2024-02-04] MEDS: DIGOXIN INJ 250 MCG/ML 2 ML AMP (*BKC) 500 MCG IV PUSH (10:38)
[2024-02-04] MEDS: ENOXAPARIN 40 MG/0.4 ML SYRINGE SUB-Q (10:40)
--- NOTE | 2024-02-04 11:35 | PM.IMPN ---
Progress Note: A&P Assessment and Plan (1) Atrial fibrillation with RVR: Code(s): I48.91 - Unspecified atrial fibrillation Status: Acute Assessment and Plan: unresponsive to fluid cardiology consulted telemetry monitoring IV metoprolol x1 02/03 card recommendation reviewed: VALERIEVAS 4 - Continue BB in their current dose - Will consider one dose digoxin and monitor response - Apixaban on hold for now because of anemia - Consider GI evaluation prior to restart of apixaban (2) Iron deficiency anemia: Code(s): D50.9 - Iron deficiency anemia, unspecified Status: Acute Assessment and Plan: patient was seen outpatient on 01/06/2023 hemoglobin of 12.3, now 7.9 no acute signs of bleeding patient has taken himself off iron supplements due to interacting with Parkinson's medications vitamin B12 and folic acid pending ferritin, iron, TIBC panel pending (3) Syncope: Code(s): R55 - Syncope and collapse Status: Acute Assessment and Plan: workup per Cardiology -recommendations reviewed: Appears secondary to autonomic dysfunction in the setting of parkinsons. Sinemet contributes to the episodes so as the diuretics did orthostatics Supine: BP 139/97 mmhg Sitting: BP 116/72 mmhg Standin/52 mmhg - Discontinue diuretic - Compression stocking - Continue Fludricortisone. Monitor BP closely for supine hypertension - Increase intake of salt - Advised regarding changes to movement - Discuss with neurology to help consider an alternative for sinemet - Repeat echo to r/o any structural heart ds. Prior echo shows hyperdynamic LV function with no significant valvular heart ds (4) Edema: Code(s): R60.9 - Edema, unspecified Status: Acute Assessment and Plan: 3 to 4+ lower extremity pitting edema no signs of pulmonary edema on exam but patient has taken himself off lasix about 3 days ago cardiology to manage diuretics -recommendation reviewed: -Discontinue diuretic - Compression stocking (5) Orthostatic hypotension: Code(s): I95.1 - Orthostatic hypotension Status: Acute Assessment and Plan: continue home fludrocortisone Plan 83-year-old male with past medical history of Parkinson's disease, iron deficiency anemia, atrial fibrillation, lower extremity edema presents the hospital with syncope and AFib with RVR, Cardiology consulted for management. Time Spent With Patient Time with patient: Greater than 35 minutes Subjective Date/time seen: 02/04/24 11:35 Interval history: Syncope Narrative retrieved from H/P: 83-year-old male with past medical history of Parkinson's disease, iron deficiency anemia, atrial fibrillation, lower extremity edema presents the hospital with syncope. Per the patient he believes that he did not pass out. Per the she states that the patient was in the bathroom when his eyes rolled into the back of his head and he did not respond her, he fell back onto the toilet. She states that when they tried to get into a chair he fell onto the ground. She states that he has passed out 3 or 4 times this week. Patient recently saw his cardiology nurse practitioner last week and was on a Holter monitor with Lasix started due to his increasing lower extremity edema. Patient states that he took it for a couple days and then stopped taking it due to side effects increasing has orthostatic hypotension and falls , his last dose was about 3 days ago. Patient also states that he stop taking his iron supplements due to interactions with his Parkinson's. He states that he has been off them for about a month. Patient states that he stopped drinking alcohol last month. Per the patient did not hit his head, patient denies nausea or vomiting. Emergency room patient had positive orthostatics with a simple RVR heart rate in 140s, patient was given 500 cc fluid bolus, without change in heart rat
--- NOTE | 2024-02-04 13:55 | PM.CNCAR ---
Assessment and Plan Assessment and plan (1) Atrial fibrillation with RVR: Code(s): I48.91 - Unspecified atrial fibrillation Status: Acute (2) Orthostatic hypotension: Code(s): I95.1 - Orthostatic hypotension Status: Acute (3) Syncope: Code(s): R55 - Syncope and collapse Status: Acute Plan 1. Syncope/orthostatic Hypotension Appears secondary to autonomic dysfunction in the setting of parkinsons. Sinemet contributes to the episodes so as the diuretics did orthostatics Supine: BP 139/97 mmhg Sitting: BP 116/72 mmhg Standin/52 mmhg - Discontinue diuretic - Compression stocking - Continue Fludricortisone. Monitor BP closely for supine hypertension - Increase intake of salt - Advised regarding changes to movement - Discuss with neurology to help consider an alternative for sinemet - Repeat echo to r/o any structural heart ds. Prior echo shows hyperdynamic LV function with no significant valvular heart ds 2. Afib with RVR CHADSVASC 4 - Continue BB in their current dose - Will consider one dose digoxin and monitor response - Apixaban on hold for now becasue of anemia - Consider GI evaluation prior to restart of apixaban History of Present Illness History of Present Illness Consult date/time: 02/04/24 13:55 Reason For Visit: near syncope Narrative: 83-year-old male with past medical history of Parkinson's disease, iron deficiency anemia, atrial fibrillation, lower extremity edema presents the hospital with syncope. As per his he has been having occasional episodes of falls for the past several days. They seem to coincide with the timing of him being started on diuretics. No chest pain, palpitations, tonic-clonic movements. No loss of bowel bladder Review of Systems Review of Systems: All systems reviewed & are unremarkable except as noted in HPI and below Constitutional: Constitutional: Reports fatigue and Reports weakness Eyes: Eyes: Reports no additional eye complaints Cardiovascular: Cardiovascular: Reports leg edema and Reports lightheadedness Respiratory: Respiratory: Reports no additional respiratory complaints Gastrointestinal: Gastrointestinal: Reports no additional gastrointestinal complaints Genitourinary: Genitourinary: Reports no additional male genitourinary complaints Musculoskeletal: Musculoskeletal: Reports no additional musculoskeletal complaints Integumentary/Breasts: Skin/Breast: Reports system reviewed and no additional complaints, except as docu Neurologic: Reports system reviewed and no additional complaints, except as documented and Reports weakness Psychiatric: Psychiatric: Reports no additional psychiatric complaints Endocrine: Endocrine: Reports fatigue PMFSH Past Medical History Medical History (Updated 02/03/24 @ 17:35 by Vikram Galaviz III, DO) Anemia Benign prostatic hyperplasia with lower urinary tract symptoms CKD (chronic kidney disease) Hypertension Parkinson's disease Paroxysmal atrial fibrillation Personal history of malignant neoplasm of prostate Vasomotor rhinitis Family History Family History (Updated 02/03/24 @ 20:28 by Junie Barrett RN) Father Heart disease Sibling Cancer Social History Social History (Updated 02/03/24 @ 21:00 by Birgit Mosher, [employer]) Smoking status: Former smoker Second hand tobacco smoke exposure: No Additional smoking assessment comments: quit 40 years ago Alcohol intake: former Alcohol use details: 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
[2024-02-04] MEDS: DIGOXIN INJ 250 MCG/ML 2 ML AMP (*BKC) IV PUSH (16:17)
[2024-02-04] MEDS: SIMVASTATIN 20 MG TABLET PO (17:59)
[2024-02-05] VITALS (17 sets, daily range): BP systolic 130–161; BP diastolic 61–90; PULSE 66–132; RESP 16–20; TEMP 36.4–36.6; O2SAT 97–99
[2024-02-05] MEDS: ASPIRIN 81 MG ENTERIC TABLET PO (08:54)
[2024-02-05] MEDS: ENOXAPARIN 40 MG/0.4 ML SYRINGE SUB-Q (08:55)
[2024-02-05] MEDS: METOPROLOL SUCCINATE EXT REL 25 MG TABCR PO (08:55)
[2024-02-05] MEDS: FLUDROCORTISONE ACETATE 0.1 MG TABLET 0.2 MG PO (08:55)
[2024-02-05] MEDS: CARBIDOPA/LEVODOPA 25/100 MG TABLET 1 TABLET BY MOUTH ×3 (08:57→18:04)
--- NOTE | 2024-02-05 09:33 | PM.IMPN ---
Progress Note: A&P Assessment and Plan (1) Atrial fibrillation with RVR: Code(s): I48.91 - Unspecified atrial fibrillation Status: Acute Assessment and Plan: unresponsive to fluid cardiology consulted telemetry monitoring IV metoprolol x1 02/03 card recommendation reviewed: BJ 4 - Continue BB in their current dose - Will consider one dose digoxin and monitor response - Apixaban on hold for now because of anemia - Consider GI evaluation prior to restart of apixaban - card is changing therapy- sotalol instead of metoprolol with electrophysiology card [facility] as outpt. -contniue to monitor (2) Iron deficiency anemia: Code(s): D50.9 - Iron deficiency anemia, unspecified Status: Acute Assessment and Plan: patient was seen outpatient on 01/06/2023 hemoglobin of 12.3, now 7.9 no acute signs of bleeding patient has taken himself off iron supplements due to interacting with Parkinson's medications vitamin B12 and folic acid pending ferritin, iron, TIBC panel pending -stool occult ordered but not collected (3) Syncope: Code(s): R55 - Syncope and collapse Status: Acute Assessment and Plan: workup per Cardiology -recommendations reviewed: Appears secondary to autonomic dysfunction in the setting of parkinsons. Sinemet contributes to the episodes so as the diuretics did orthostatics Supine: BP 139/97 mmhg Sitting: BP 116/72 mmhg Standin/52 mmhg - Discontinue diuretic - Compression stocking - Continue Fludricortisone. Monitor BP closely for supine hypertension - Increase intake of salt - Advised regarding changes to movement - Discuss with neurology to help consider an alternative for sinemet - Repeat echo to r/o any structural heart ds. Prior echo shows hyperdynamic LV function with no significant valvular heart ds (4) Edema: Code(s): R60.9 - Edema, unspecified Status: Acute Assessment and Plan: 3 to 4+ lower extremity pitting edema no signs of pulmonary edema on exam but patient has taken himself off lasix about 3 days ago cardiology to manage diuretics -recommendation reviewed: -Discontinue diuretic - Compression stocking (5) Orthostatic hypotension: Code(s): I95.1 - Orthostatic hypotension Status: Acute Assessment and Plan: continue home fludrocortisone Plan 83-year-old male with past medical history of Parkinson's disease, iron deficiency anemia, atrial fibrillation, lower extremity edema presents the hospital with syncope and AFib with RVR, Cardiology consulted for management. Time Spent With Patient Time with patient: Greater than 35 minutes Subjective Date/time seen: 02/05/24 09:33 Interval history: Syncope Narrative retrieved from H/P: 83-year-old male with past medical history of Parkinson's disease, iron deficiency anemia, atrial fibrillation, lower extremity edema presents the hospital with syncope. Per the patient he believes that he did not pass out. Per the she states that the patient was in the bathroom when his eyes rolled into the back of his head and he did not respond her, he fell back onto the toilet. She states that when they tried to get into a chair he fell onto the ground. She states that he has passed out 3 or 4 times this week. Patient recently saw his cardiology nurse practitioner last week and was on a Holter monitor with Lasix started due to his increasing lower extremity edema. Patient states that he took it for a couple days and then stopped taking it due to side effects increasing has orthostatic hypotension and falls , his last dose was about 3 days ago. Patient also states that he stop taking his iron supplements due to interactions with his Parkinson's. He states that he has been off them for about a month. Patient states that he stopped drinking alcohol last month. Per the patient did not hit his head, patient denies nausea or vomi
[2024-02-05 09:49] LABS: Hematocrit 30.5 % (42.0-52.0); Hemoglobin 9.2 g/dL (14.0-18.0); Mean Corpuscular HGB Conc 30.2 g/dl (32-36); Mean Corpuscular Hemoglobin 25.3 pg (26-34); Mean Platelet Volume 9.5 fl (7.4-10.4); Platelet Count Result 223 k/mm3 (150-375); Red Blood Count 3.63 M/mm3 (4.6-6.20); Red Cell Distribution Width 16.3 % (11.5-14.5); White Blood Count 7.3 K/mm3 (4.5-10.0)
[2024-02-05 10:00] LABS: Anion Gap 7 mmol/L (4-12); Blood Urea Nitrogen 33 mg/dL (9-20); Calcium 8.4 mg/dL (8.4-10.2); Carbon Dioxide 27 mmol/L (22-30); Chloride 108 mmol/L (98-107); Estimated CRCL calculation 41 ml/min; Estimated Glomerular Filt Rate 58; Glucose 105 mg/dL (65-110); Potassium 3.5 mmol/L (3.4-5.0); Sodium 142 mmol/L (137-145)
--- NOTE | 2024-02-05 10:18 | PC.NURSE ---
Resting in bed with eyes closed upon admission to room. Opens eyes and is oriented x3. Denies pain or discomfort at this time. Vital signs are stable. Discussed plan of care for the day including medication with both patient and spouse. Verbalizes understanding related to plan and medications, and states he is familiar with all medications. Heart rate is noted to be irregular, however rate is controlled at this time. Denies chest pain or shortness of breath. No acute distress noted at this time. Denies further questions or concerns at this time.
--- NOTE | 2024-02-05 11:02 | PM.PNCARD ---
Progress Note: A&P Assessment and Plan (1) Atrial fibrillation with rapid ventricular response: Code(s): I48.91 - Unspecified atrial fibrillation Status: Acute Plan 83-year-old man with paroxysmal atrial fibrillation. He is symptomatic because of this as well as orthostatic hypotension related to Parkinson's. Despite low-dose metoprolol he is in and out of atrial fibrillation. The plan at the time of his last office appointment was to refer him to electrophysiology for opinion regarding more aggressive therapy for his AF. The physician with whom he has an appointment has resigned and obviously that appointment will not occur. While he is in the hospital I believe we should attempt more aggressive antiarrhythmic therapy in along those lines I am going to transition him from metoprolol to sotalol. Will start with 80 mg q.12 hours starting tonight and see how he tolerates this dosage. Explained to the patient that we do not have electrophysiology artist consultant available here at [facility]. We might refer him to an EP artist consultant at [facility] or [facility] as an outpatient but the physician that he was scheduled to see is no longer available. Patient was somewhat disappointed that initiation of sotalol treatment will result in needing to remain hospitalized for at least a couple more days. Prabhakar Murry MD [facility] Subjective Date/time seen: Date of service: 02/05/24 11:02 Interval history: Follow-up visit in this 83-year-old man with: Symptomatic paroxysmal atrial fibrillation. He has had this arrhythmia for several years and has been managed with low-dose of beta-corina. Recently he has become more symptomatic with this arrhythmia and has been admitted to the hospital because of this and because of symptomatic hypotension related to orthostasis. This is been attributed to concurrent Parkinson's disease. The patient at bed rest is feeling well and is essentially asymptomatic at this time. Exam Const: General: comfortable and no acute distress Other: Elderly frail gentleman comfortable no distress HENMT: Mouth: Yes moist mucous membranes Eyes: Sclera: sclerae normal Neck: Neck: supple and no JVD Resp: Effort & Inspection: normal respiratory effort Auscultation: clear to auscultation bilaterally Cardio: Rate: regular rate Rhythm: abnormal rhythm irregularly irregular GI: GI Palp: Yes Soft to palpation Auscultation: normal bowel sounds Skin: General skin exam: normal color Neuro: Other: Alert and oriented x3 Objective Data Vital Signs Vital Signs: Vital Signs - 24 hr 02/04/24 12:15 02/04/24 12:00 02/04/24 14:00 Temperature 36.1 C L Pulse Rate 116 H 101 H 98 Respiratory Rate 22 H Blood Pressure 133/58 L Pulse Oximetry 99 Oxygen Delivery 02/04/24 15:35 02/04/24 15:40 02/04/24 15:33 Temperature Pulse Rate 94 97 Respiratory Rate 18 Blood Pressure 131/68 Pulse Oximetry 100 Oxygen Delivery Room Air 02/04/24 16:17 02/04/24 18:00 02/04/24 19:31 Temperature Pulse Rate 88 88 91 Respiratory Rate Blood Pressure Pulse Oximetry Oxygen Delivery 02/04/24 19:36 02/04/24 20:04 02/04/24 21:58 Temperature 36.6 C Pulse Rate 91 89 89 Respiratory Rate 18 18 Blood Pressure 168/69 H Pulse Oximetry 100 98 Oxygen Delivery Room Air 02/04/24 23:28 02/05/24 00:00 02/05/24 00:00 Temperature 36.5 C Pulse Rate 89 84 76 Respiratory Rate 18 18 Blood Pressure 174/75 H Pulse Oximetry 98 98 Oxygen Delivery Room Air 02/05/24 03:20 02/05/24 03:53 02/05/24 04:24 Temperature 36.6 C Pulse Rate 125 H 109 H 132 H Respiratory Rate 18 18 Blood Pressure 161/90 H Pulse Oximetry 98 97 Oxygen Delivery Room Air 02/05/24 05:00 02/05/24 07:53 02/05/24 08:55 Temperature 36.6 C Pulse Rate 100 122 H 98 Respiratory Rate 16 Blood Pressure 145/84 H Pulse Oximetry 98 Oxygen Delivery 02/05/24 09:00 1
--- NOTE | 2024-02-05 12:19 | PC.NURSE ---
Patient discussed plan of care including medication changes with MD. Verbalizes understanding that because of the medications changes he will not be discharged home today. No acute distress noted at this time.
[2024-02-05] MEDS: SIMVASTATIN 20 MG TABLET PO (18:04)
[2024-02-05] MEDS: SOTALOL HCL 80 MG TABLET PO (20:58)
--- NOTE | 2024-02-05 22:04 | ECG_ITS ---
Test Date: 2024-02-05 22:04:24 Measurements Intervals [place] Rate: 85 P: 0 MD: 0 QRS: 7 QRSD: 139 T: -2 QT: 431 QTc: 515 Interpretive Statements ATRIAL FIBRILLATION RIGHT BUNDLE BRANCH BLOCK [120+ ms QRS DURATION, UPRIGHT V1, 40+ ms S IN I/aVL/V4/V5/V6] NONSPECIFIC T-WAVE ABNORMALITY ABNORMAL ECG WARNING: DATA QUALITY MAY AFFECT INTERPRETATION Compared to ECG 02/03/2024 14:09:32 HEART RATE IS REDUCED Electronically Signed On 02-06-2024 12:31:20 CDT by Prabhakar Murry M.D.
[2024-02-06] VITALS (11 sets, daily range): BP systolic 130–176; BP diastolic 50–72; PULSE 61–707; RESP 16–20; TEMP 36.4–36.8; O2SAT 93–99
--- NOTE | 2024-02-06 07:52 | P.PNIM_ITS ---
Progress Note: A&P Assessment and Plan (1) Atrial fibrillation with RVR: Code(s): I48.91 - Unspecified atrial fibrillation Status: Acute Assessment and Plan: unresponsive to fluid cardiology consulted telemetry monitoring IV metoprolol x1 02/03 card recommendation reviewed: BJ 4 - Continue BB in their current dose - Will consider one dose digoxin and monitor response - Apixaban on hold for now because of anemia - Consider GI evaluation prior to restart of apixaban - card is changing therapy- sotalol instead of metoprolol with electrophysiology card [facility] as outpt. -contniue to monitor 02/05- converted overnight (2) Iron deficiency anemia: Code(s): D50.9 - Iron deficiency anemia, unspecified Status: Acute Assessment and Plan: patient was seen outpatient on 01/06/2023 hemoglobin of 12.3, now 7.9 no acute signs of bleeding patient has taken himself off iron supplements due to interacting with Parkinson's medications vitamin B12 and folic acid pending ferritin, iron, TIBC panel pending -stool occult ordered but not collected (3) Syncope: Code(s): R55 - Syncope and collapse Status: Acute Assessment and Plan: workup per Cardiology -recommendations reviewed: Appears secondary to autonomic dysfunction in the setting of parkinsons. Sinemet contributes to the episodes so as the diuretics did orthostatics Supine: BP 139/97 mmhg Sitting: BP 116/72 mmhg Standin/52 mmhg - Discontinue diuretic - Compression stocking - Continue Fludricortisone. Monitor BP closely for supine hypertension - Increase intake of salt - Advised regarding changes to movement - Discuss with neurology to help consider an alternative for sinemet - Repeat echo to r/o any structural heart ds. Prior echo shows hyperdynamic LV function with no significant valvular heart ds (4) Edema: Code(s): R60.9 - Edema, unspecified Status: Acute Assessment and Plan: 3 to 4+ lower extremity pitting edema no signs of pulmonary edema on exam but patient has taken himself off lasix about 3 days ago cardiology to manage diuretics -recommendation reviewed: -Discontinue diuretic - Compression stocking (5) Orthostatic hypotension: Code(s): I95.1 - Orthostatic hypotension Status: Acute Assessment and Plan: continue home fludrocortisone Plan 83-year-old male with past medical history of Parkinson's disease, iron deficiency anemia, atrial fibrillation, lower extremity edema presents the hospital with syncope and AFib with RVR, Cardiology consulted for management. Time Spent With Patient Time with patient: Greater than 35 minutes Subjective Date/time seen: 02/06/24 07:52 Interval history: Syncope Narrative retrieved from H/P: 83-year-old male with past medical history of Parkinson's disease, iron deficiency anemia, atrial fibrillation, lower extremity edema presents the hospital with syncope. Per the patient he believes that he did not pass out. Per the she states that the patient was in the bathroom when his eyes rolled into the back of his head and he did not respond her, he fell back onto the toilet. She states that when they tried to get into a chair he fell onto the ground. She states that he has passed out 3 or 4 times this week. Patient recently saw his cardiology nurse practitioner last week and was on a Holter monitor with Lasix started due to his increasing lower extremity edema. Patient states that
[2024-02-06] MEDS: ENOXAPARIN 40 MG/0.4 ML SYRINGE SUB-Q (08:14)
[2024-02-06] MEDS: SOTALOL HCL 80 MG TABLET PO ×2 (08:14→20:44)
[2024-02-06] MEDS: ASPIRIN 81 MG ENTERIC TABLET PO (08:15)
[2024-02-06] MEDS: FLUDROCORTISONE ACETATE 0.1 MG TABLET 0.2 MG PO (08:15)
[2024-02-06] MEDS: CARBIDOPA/LEVODOPA 25/100 MG TABLET 1 TABLET BY MOUTH ×3 (08:15→19:07)
--- NOTE | 2024-02-06 10:07 | PC.NURSE ---
Alert and oriented sitting up in bed. Vital sign are stable at this time. Discussed plan of care including PT, OT, and medications. Discussed current cardiac rhythm as being NSR at this time. Denies chest pain or discomfort at this time. No acute distress noted.
--- NOTE | 2024-02-06 10:19 | PM.PNCARD ---
Progress Note: A&P Assessment and Plan (1) Atrial fibrillation with rapid ventricular response: Code(s): I48.91 - Unspecified atrial fibrillation Status: Acute Plan 83-year-old man with paroxysmal atrial fibrillation. He is symptomatic because of this as well as orthostatic hypotension related to Parkinson's. Despite low-dose metoprolol he is in and out of atrial fibrillation. He has been shifted to sotalol and has converted to sinus rhythm Continue sotalol 80mg b.i.d. Daily BMP and Mag while sotalol loading Obtain EKG 2 hours post sotalol dose x 5 doses for QTc monitoring, stable so far If he remains otherwise stable he can be discharged after his 5th dose of sotalol Will arrange for outpatient follow up with a different EP as his previous EP has resigned Continuous telemetry monitoring while sotalol loading Subjective Date/time seen: 02/06/24 10:19 Interval history: Follow-up visit in this 83-year-old man with: Symptomatic paroxysmal atrial fibrillation. He has had this arrhythmia for several years and has been managed with low-dose of beta-corina. Recently he has become more symptomatic with this arrhythmia and has been admitted to the hospital because of this and because of symptomatic hypotension related to orthostasis. This is been attributed to concurrent Parkinson's disease. The patient at bed rest is feeling well and is essentially asymptomatic at this time. Date of service 02/06/2024: Mr. Terry feels well this morning and has no complaints. Telemetry shows sinus rhythm with QTc is stable on follow up EKG this morning Review of Systems Review of Systems: All systems reviewed & are unremarkable except as noted in HPI and below Constitutional: Constitutional: Reports fatigue and Reports weakness Eyes: Eyes: Reports no additional eye complaints Cardiovascular: Cardiovascular: Reports leg edema and Reports lightheadedness Respiratory: Respiratory: Reports no additional respiratory complaints Gastrointestinal: Gastrointestinal: Reports no additional gastrointestinal complaints Genitourinary: Genitourinary: Reports no additional male genitourinary complaints Musculoskeletal: Musculoskeletal: Reports no additional musculoskeletal complaints Integumentary/Breasts: Skin/Breast: Reports system reviewed and no additional complaints, except as docu Neurologic: Reports system reviewed and no additional complaints, except as documented and Reports weakness Psychiatric: Psychiatric: Reports no additional psychiatric complaints Endocrine: Endocrine: Reports fatigue Exam Const: General: healthy appearing, comfortable, no acute distress and well nourished Nutritional Appearance: well nourished Orientation/consciousness: patient oriented x3 Other: Elderly frail gentleman comfortable no distress HENMT: Face/Nose/Sinus: Normal nares present Mouth: Yes moist mucous membranes Eyes: General: appearance normal, both eyes and all related structures Sclera: sclerae normal Pupils: Equal, round and reactive pupils present EOM: EOMs intact bilaterally Neck: Neck: normal visual inspection, no meningeal signs, supple and no JVD Chest: Chest palpation & inspection: normal inspection of the chest Resp: Effort & Inspection: normal respiratory effort Auscultation: clear to auscultation bilaterally Cardio: Rate: regular rate Rhythm: regular rhythm GI: Auscultation: normal bowel sounds : General: Yes bladder normal to palpation and Yes no CVA tenderness Back/Spine/Pelvis: Back: no CVA tenderness Skin: General skin exam: normal color and pallor Rashes: no rashes Wounds: no wounds Other: pale Neuro: General: patient oriented x3, moves all extremities, no meningeal signs, no focal motor deficits and CN's II-XI intact bilaterally Cranial nerves: Yes Equal, round and reactive pupils present and Yes Nystagmus not present Speech: normal speech Other: Alert and oriented x3 E
--- NOTE | 2024-02-06 10:31 | ECG_ITS ---
Test Date: 2024-02-06 10:55:00 Measurements Intervals [place] Rate: 61 P: 47 OK: 152 QRS: 15 QRSD: 136 T: -7 QT: 449 QTc: 453 Interpretive Statements SINUS RHYTHM RIGHT BUNDLE BRANCH BLOCK [120+ ms QRS DURATION, UPRIGHT V1, 40+ ms S IN I/aVL/V4/V5/V6] ABNORMAL ECG WARNING: DATA QUALITY MAY AFFECT INTERPRETATION Compared to ECG 02/05/2024 22:04:24 SINUS RHYTHM REPLACES ATRIAL FIBRILLATION Electronically Signed On 02-06-2024 12:37:19 CDT by Prabhakar Murry M.D.
[2024-02-06] MEDS: SIMVASTATIN 20 MG TABLET PO (19:07)
--- NOTE | 2024-02-06 22:45 | ECG_ITS ---
Test Date: 2024-02-06 23:22:02 Measurements Intervals [place] Rate: 58 P: 56 MT: 158 QRS: 13 QRSD: 146 T: -18 QT: 471 QTc: 466 Interpretive Statements SINUS BRADYCARDIA WITH SINUS ARRHYTHMIA RIGHT BUNDLE BRANCH BLOCK [120+ ms QRS DURATION, UPRIGHT V1, 40+ ms S IN I/aVL/V4/V5/V6] none specific t,st changes Compared to ECG 02/06/2024 10:55:00 Sinus rhythm no longer present Electronically Signed On 02-07-2024 08:32:44 CDT by Nicolasa Freitas M.D.
[2024-02-07] VITALS (18 sets, daily range): BP systolic 117–174; BP diastolic 44–56; PULSE 53–88; RESP 14–18; TEMP 36.4–36.9; O2SAT 97–100
[2024-02-07] MEDS: SOTALOL HCL 80 MG TABLET PO ×2 (08:57→20:24)
[2024-02-07] MEDS: ASPIRIN 81 MG ENTERIC TABLET PO (08:57)
[2024-02-07] MEDS: CARBIDOPA/LEVODOPA 25/100 MG TABLET 1 TABLET BY MOUTH ×3 (08:58→16:59)
[2024-02-07] MEDS: ENOXAPARIN 40 MG/0.4 ML SYRINGE SUB-Q (08:58)
[2024-02-07] MEDS: FLUDROCORTISONE ACETATE 0.1 MG TABLET 0.2 MG PO (08:58)
--- NOTE | 2024-02-07 10:16 | PM.IMPN ---
Progress Note: A&P Assessment and Plan (1) Atrial fibrillation with RVR: Code(s): I48.91 - Unspecified atrial fibrillation Status: Acute Assessment and Plan: unresponsive to fluid cardiology consulted telemetry monitoring IV metoprolol x1 02/03 card recommendation reviewed: VALERIEVAS 4 - Continue BB in their current dose - Will consider one dose digoxin and monitor response - Apixaban on hold for now because of anemia - Consider GI evaluation prior to restart of apixaban - card is changing therapy- sotalol instead of metoprolol with electrophysiology card [place] as outpt. -contniue to monitor 02/05- converted overnight 02/06- sotalol 80 mg q12h- HR 58's overnight, 69 this am (2) Iron deficiency anemia: Code(s): D50.9 - Iron deficiency anemia, unspecified Status: Acute Assessment and Plan: patient was seen outpatient on 01/06/2023 hemoglobin of 12.3, now 7.9 no acute signs of bleeding patient has taken himself off iron supplements due to interacting with Parkinson's medications vitamin B12 and folic acid pending ferritin, iron, TIBC panel pending -stool occult ordered but not collected -to avoid PO interactions- will give IV dose of iron (3) Syncope: Code(s): R55 - Syncope and collapse Status: Acute Assessment and Plan: workup per Cardiology -recommendations reviewed: Appears secondary to autonomic dysfunction in the setting of parkinsons. Sinemet contributes to the episodes so as the diuretics did orthostatics Supine: BP 139/97 mmhg Sitting: BP 116/72 mmhg [place]/52 mmhg - Discontinue diuretic - Compression stocking - Continue Fludricortisone. Monitor BP closely for supine hypertension - Increase intake of salt - Advised regarding changes to movement - Discuss with neurology to help consider an alternative for sinemet - Repeat echo to r/o any structural heart ds. Prior echo shows hyperdynamic LV function with no significant valvular heart ds (4) Edema: Code(s): R60.9 - Edema, unspecified Status: Acute Assessment and Plan: 3 to 4+ lower extremity pitting edema no signs of pulmonary edema on exam but patient has taken himself off lasix about 3 days ago cardiology to manage diuretics -recommendation reviewed: -Discontinue diuretic - Compression stocking (5) Orthostatic hypotension: Code(s): I95.1 - Orthostatic hypotension Status: Acute Assessment and Plan: continue home fludrocortisone Plan 83-year-old male with past medical history of Parkinson's disease, iron deficiency anemia, atrial fibrillation, lower extremity edema presents the hospital with syncope and AFib with RVR, Cardiology consulted for management. Time Spent With Patient Time with patient: Greater than 35 minutes Subjective Date/time seen: 02/07/24 10:16 Interval history: 02/06- pt is seen and examined. he feels well this morning and has no complaints. Cardiology switched him to sotalol 80 mg q12h. Telemetry shows sinus rhythm with QTc is stable. will receive IV iron x 1 Review of Systems Constitutional: Constitutional: Reports fatigue and Reports weakness Eyes: Eyes: Reports no additional eye complaints Cardiovascular: Cardiovascular: Reports leg edema and Reports lightheadedness Respiratory: Respiratory: Reports no additional respiratory complaints Gastrointestinal: Gastrointestinal: Reports no additional gastrointestinal complaints Genitourinary: Genitourinary: Reports no additional male genitourinary complaints Musculoskeletal: Musculoskeletal: Reports no additional musculoskeletal complaints Integumentary/Breasts: Skin/Breast: Reports system reviewed and no additional complaints, except as docu Neurologic: Reports system reviewed and no additional complaints, except as documented and Reports weakness Psychiatric: Psychiatric: Reports no additional psychiatric complaints Endocrine: E
--- NOTE | 2024-02-07 10:57 | ECG_ITS ---
Test Date: 2024-02-07 11:05:07 Measurements Intervals [place] Rate: 59 P: 50 DC: 148 QRS: 12 QRSD: 147 T: -28 QT: 465 QTc: 462 Interpretive Statements SINUS BRADYCARDIA RIGHT BUNDLE BRANCH BLOCK [120+ ms QRS DURATION, UPRIGHT V1, 40+ ms S IN I/aVL/V4/V5/V6] MODERATE T-WAVE ABNORMALITY, CONSIDER LATERAL ISCHEMIA [-0.1+ mV T WAVE IN I/aVL/V5/V6] Compared to ECG 02/06/2024 23:22:02 T-wave abnormality now present Possible ischemia now present Sinus arrhythmia no longer present Electronically Signed On 02-07-2024 11:55:13 CDT by Nicolasa Freitas M.D.
[2024-02-07 11:01] LABS: IFOB Positive Control Positive; Immunochemical Fecal Occult Bl Positive (N)
--- NOTE | 2024-02-07 12:52 | PM.PNCARD ---
Progress Note: A&P Assessment and Plan (1) Atrial fibrillation with rapid ventricular response: Code(s): I48.91 - Unspecified atrial fibrillation Status: Acute Plan Proximal atrial fibrillation currently in sinus rhythm Sotalol loading see interval is normal tolerated Hypertension controlled Four anticoagulation has been on hold because of anemia Plan Continue sotalol 80 mg b.i.d. Continue aspirin Subjective Date/time seen: 02/07/24 12:52 Interval history: no acute events Telemetry sinus rhythm and QTC intervals normal Review of Systems Review of Systems: All systems reviewed & are unremarkable except as noted in HPI and below Exam Const: General: healthy appearing, comfortable, no acute distress and well nourished Nutritional Appearance: well nourished Orientation/consciousness: patient oriented x3 Other: Elderly frail gentleman comfortable no distress HENMT: Face/Nose/Sinus: Normal nares present Mouth: Yes moist mucous membranes Eyes: General: appearance normal, both eyes and all related structures Sclera: sclerae normal Pupils: Equal, round and reactive pupils present EOM: EOMs intact bilaterally Neck: Neck: normal visual inspection, no meningeal signs, supple and no JVD Chest: Chest palpation & inspection: normal inspection of the chest Resp: Effort & Inspection: normal respiratory effort Auscultation: clear to auscultation bilaterally Cardio: Rate: regular rate Rhythm: regular rhythm GI: Auscultation: normal bowel sounds : General: Yes bladder normal to palpation and Yes no CVA tenderness Back/Spine/Pelvis: Back: no CVA tenderness Skin: General skin exam: normal color and pallor Rashes: no rashes Wounds: no wounds Other: pale Neuro: General: patient oriented x3, moves all extremities, no meningeal signs, no focal motor deficits and CN's II-XI intact bilaterally Cranial nerves: Yes Equal, round and reactive pupils present and Yes Nystagmus not present Speech: normal speech Other: Alert and oriented x3 Extrem: General: edema bilateral Psych: Mental Status: mental status grossly normal Affect: normal affect Attitude: cooperative Objective Data Vital Signs Vital Signs: Vital Signs - 24 hr 02/06/24 16:00 02/06/24 16:00 02/06/24 16:00 Temperature 36.8 C Pulse Rate 62 61 61 Respiratory Rate 20 20 Blood Pressure 130/51 L Pulse Oximetry 98 98 Oxygen Delivery Room Air 02/06/24 20:06 02/06/24 20:44 02/06/24 20:00 Temperature 36.5 C Pulse Rate 69 74 65 Respiratory Rate 18 Blood Pressure 165/65 H Pulse Oximetry 96 Oxygen Delivery 02/06/24 20:00 02/06/24 21:48 02/06/24 23:41 Temperature 36.4 C Pulse Rate 65 76 62 Respiratory Rate 18 18 Blood Pressure 176/66 H Pulse Oximetry 96 98 Oxygen Delivery Room Air 02/07/24 00:00 02/07/24 00:00 02/07/24 02:00 Temperature Pulse Rate 56 L 56 L 54 L Respiratory Rate 18 Blood Pressure Pulse Oximetry 98 Oxygen Delivery Room Air 02/07/24 04:00 02/07/24 04:00 02/07/24 05:28 Temperature 36.8 C Pulse Rate 61 61 61 Respiratory Rate 18 18 Blood Pressure 174/56 H Pulse Oximetry 98 99 Oxygen Delivery Room Air 02/07/24 05:55 02/07/24 07:48 02/07/24 08:57 Temperature 36.4 C Pulse Rate 58 L 59 L 69 Respiratory Rate 18 Blood Pressure 166/56 H Pulse Oximetry 100 Oxygen Delivery 02/07/24 08:00 02/07/24 08:00 02/07/24 10:00 Temperature Pulse Rate 58 L 55 L Respiratory Rate Blood Pressure Pulse Oximetry Oxygen Delivery Room Air 02/07/24 12:00 Temperature 36.8 C Pulse Rate 55 L Respiratory Rate 16 Blood Pressure 117/45 L Pulse Oximetry 97 Oxygen Delivery Intake/Output Intake/Output: Intake & Output 02/04/24 02/05/24 02/06/24 02/07/24 23:59 23:59 23:59 23:59 Intake Total 1460 750 600 622 Output Total 625 900 100 300 Balance 835 -150 500 322 Meds/Results Medications: Acti
[2024-02-07] MEDS: SIMVASTATIN 20 MG TABLET PO (16:59)
--- NOTE | 2024-02-07 17:08 | WPDGICN ---
Assessment and Plan Assessment and plan (1) Anemia: Code(s): D64.9 - Anemia, unspecified Status: Acute Plan The patient has clear evidence of iron deficiency anemia with recent drop in hemoglobin. A colonoscopy and an upper endoscopy are indicated to rule out colorectal, gastric neoplasm, peptic ulcer disease, angiodysplasia among other sources of bleeding. I explained to the patient about the procedure and he will discuss it with his primary care physician, Dr. Carey. When a decision is made, we will be glad to schedule the procedures, either now as an inpatient or at a later date as an outpatient, although it will be ideal to perform these procedures while off Eliquis. GI Consult Note Consult date/time: 02/07/24 17:08 Reason for consult: Fe Deficiency anemia and heme-positive stools. HPI: 83-year-old male with past medical history of Parkinson's disease, iron deficiency anemia, atrial fibrillation, presents the hospital with syncope. He was taking Eliquis at home among other medications, however it was discontinued at admission and is currently receiving subcutaneous Lovenox. He denies overt rectal bleeding, hematemesis, melena or abdominal pain. He has never had colonoscopy or EGD. Review of Systems Review of Systems: All systems reviewed & are unremarkable except as noted in HPI and below [facility] Past Medical History Medical History (Updated 02/03/24 @ 17:35 by Vikram Galaviz III, DO) Anemia Benign prostatic hyperplasia with lower urinary tract symptoms CKD (chronic kidney disease) Hypertension Parkinson's disease Paroxysmal atrial fibrillation Personal history of malignant neoplasm of prostate Vasomotor rhinitis Family History Family History (Updated 02/03/24 @ 20:28 by Junie Barrett RN) Father Heart disease Sibling Cancer Social History Social History (Updated 02/03/24 @ 21:00 by Birgit Mosher APRN) Smoking status: Former smoker Second hand tobacco smoke exposure: No Additional smoking assessment comments: quit 40 years ago Alcohol intake: former Alcohol use details: 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s: with family Occupation/Education: retired Gender identity (if verbalized by the patient): Male Sexual Orientation (if Verbalized by the Patient): Straight or Heterosexual Spiritual care concerns: No Agree to blood products: Yes Meds Home Medications and Allergies Home Medications Medication Instructions Recorded Confirmed Type apixaban 5 mg tablet (Eliquis) 5 mg PO Q12H 05/14/21 02/03/24 History cholecalciferol (vitamin D3) 25 25 mcg PO DAILY 05/09/22 02/03/24 History mcg (1,000 unit) capsule fluticasone propionate 50 1 spray intranasal DAILY PRN 05/09/22 02/03/24 History mcg/actuation nasal Allergy Symptoms spray,suspension (Flonase Allergy Relief) ketotifen fumarate 0.025 % (0.035 1 drp EACH EYE BID PRN Allergy 05/09/22 02/03/24 History %) eye drops ([place]) Symptoms ferrous sulfate 325 mg (65 mg 325 mg PO QPM 01/09/23 02/03/24 History iron) tablet clonidine HCl 0.1 mg tablet 0.1 mg PO .COMPLEX 03/19/23 02/03/24 History metoprolol succinate 25 mg 25 mg PO QPM 05/15/23 02/03/24 History tablet,extended release 24 hr (Toprol XL) carbidopa 25 mg-levodopa 100 mg See Rx Instructions .Route 06/05/23 02/03/24 Rx tablet .COMPLEX #270 tabs fludrocortisone 0.1 mg tablet 0.2 mg PO .AM #180 tabs 11/27/23 02/03/24 Rx aspirin 81 mg tablet,delayed 81 mg PO DAILY 01/27/24 02/03/24 History release
[2024-02-08] VITALS (7 sets, daily range): BP systolic 127–159; BP diastolic 45–60; PULSE 50–59; RESP 14–20; TEMP 36.3–36.6; O2SAT 97–100
[2024-02-08] MEDS: ENOXAPARIN 40 MG/0.4 ML SYRINGE SUB-Q (08:50)
[2024-02-08] MEDS: IRON SUCROSE COMPLEX 100 MG in SODIUM CHLORIDE 0.9% IV 50 ML 220 MG IVPB (08:51)
[2024-02-08] MEDS: FLUDROCORTISONE ACETATE 0.1 MG TABLET 0.2 MG PO (08:51)
[2024-02-08] MEDS: CARBIDOPA/LEVODOPA 25/100 MG TABLET 1 TABLET BY MOUTH ×2 (08:51→12:05)
[2024-02-08] MEDS: ASPIRIN 81 MG ENTERIC TABLET PO (08:51)
[2024-02-08] MEDS: SOTALOL HCL 80 MG TABLET PO (08:51)
--- NOTE | 2024-02-08 10:15 | WPDGIPROGNO ---
Progress Note: A&P Assessment and Plan (1) Anemia: Code(s): D64.9 - Anemia, unspecified Status: Acute Plan Patient will be discharged today. Conversation with his PCP still pending regarding the optimal timing for colonoscopy and EGD, essential to address cause of iron deficiency anemia. Will coordinate these tests as an outpatient. Time Spent With Patient Time with patient: less than 15 minutes Subjective Date/time seen: 02/08/24 10:15 Objective Data Vital Signs Vital Signs: Vital Signs - 24 hr 02/07/24 12:00 02/07/24 12:00 02/07/24 12:00 Temperature 98.2 F Pulse Rate 55 L 60 Respiratory Rate 16 Blood Pressure 117/45 L Pulse Oximetry 97 Oxygen Delivery Room Air 02/07/24 14:00 02/07/24 16:00 02/07/24 16:00 Temperature 98.4 F Pulse Rate 61 54 L 53 L Respiratory Rate 14 Blood Pressure 121/44 L Pulse Oximetry 100 Oxygen Delivery 02/07/24 16:00 02/07/24 19:42 02/07/24 20:24 Temperature 97.6 F Pulse Rate 64 88 Respiratory Rate 14 Blood Pressure 130/55 L Pulse Oximetry 97 Oxygen Delivery Room Air 02/07/24 20:00 02/07/24 20:00 02/07/24 21:38 Temperature Pulse Rate 66 66 60 Respiratory Rate 14 Blood Pressure Pulse Oximetry 97 Oxygen Delivery Room Air 02/07/24 23:50 02/07/24 23:50 02/07/24 23:55 Temperature 97.6 F Pulse Rate 56 L 56 L 57 L Respiratory Rate 14 18 Blood Pressure 169/56 H Pulse Oximetry 97 97 Oxygen Delivery Room Air 02/08/24 02:00 02/08/24 04:00 02/08/24 04:00 Temperature Pulse Rate 52 L 50 L 50 L Respiratory Rate 18 Blood Pressure Pulse Oximetry 97 Oxygen Delivery Room Air 02/08/24 04:00 02/08/24 05:40 02/08/24 08:51 Temperature 97.8 F Pulse Rate 58 L 52 L 55 L Respiratory Rate 18 Blood Pressure 159/60 H Pulse Oximetry 97 Oxygen Delivery 02/08/24 08:00 Temperature 97.3 F L Pulse Rate 57 L Respiratory Rate 14 Blood Pressure 137/45 L Pulse Oximetry 98 Oxygen Delivery Intake/Output Intake/Output: Intake & Output 02/05/24 02/06/24 02/07/24 02/08/24 23:59 23:59 23:59 23:59 Intake Total 376 713 5691 100 Output Total 900 100 300 400 Balance -904 109 0911 -300 Meds/Results Medications: Active Medications Generic Name Dose Route Start Last Admin Trade Name Freq PRN Reason Stop Dose Admin Acetaminophen 650 mg 02/03/24 21:09 Acetaminophen 325 Mg Tablet PO Q4H PRN Mild Pain (1-3) or Fever Hydrocodone Bitart/Acetaminophen 1 tab 02/03/24 21:09 Hydrocodone/Acetaminophen (*Crx) 5-325 Mg Tablet PO Q4H PRN Moderate Pain (4-6) Aspirin 81 mg 02/04/24 09:00 02/08/24 08:51 Aspirin 81 Mg Enteric Tablet PO 81 mg DAILY BELKIS Administration Carbidopa/Levodopa 1 tablet 02/03/24 21:30 02/08/24 08:51 Carbidopa/Levodopa 25/100 Mg Tablet BY MOUTH 1 tablet 0900,1300,1800 BELKIS Administration Docusate Sodium 100 mg 02/03/24 21:44 Docusate Sodium 100 Mg Capsule PO Q12H PRN Constipation Enoxaparin Sodium 40 mg 02/04/24 09:00 02/08/24 08:50 Enoxaparin 40 Mg/0.4 Ml Syringe SUB-Q 40 mg DAILY BELKIS Administration Fludrocortisone Acetate 0.2 mg 02/03/24 09:00 02/08/24 08:51 Fludrocortisone Acetate 0.1 Mg Tablet PO 0.2 mg DAILY BELKIS Administration Fluticasone Propionate 1 spray 02/03/24 21:13 Fluticasone Propionate 0.05% Na Spr 16 Gm Btl (*Bkc) NASAL DAILY PRN Allergy Symptoms Iron Sucrose 100 mg/ Sodium 55 mls @ 220 mls/hr 02/08/24 09:00 02/08/24 08:51 Chloride IVPB 220 mls/hr DAILY BELKIS Administration Simvastatin 20 mg 02/03/24 21:30 02/07/24 16:59 Simvastatin 20 Mg Tablet PO 20 mg QPM BELKIS Administration Sotalol HCl 80 mg 02/05/24 21:00 02/08/24 08:51 Sotalol Hcl 80 Mg Tablet PO 80 mg Q12HR BELKIS Administration Radiology Results: ITS Impressions Chest X-Ray 02/03/24 14:41 IMPRESSION: 1. Small pleural effusions, right worse
--- NOTE | 2024-02-08 12:03 | PM.DS ---
DS: Admitting Diagnosis Discharge Date 02/07 Admitting Diagnosis dizzy DS: Discharge Diagnosis Discharge Diagnosis (1) Atrial fibrillation with RVR: Code(s): I48.91 - Unspecified atrial fibrillation Status: Acute Assessment and Plan: unresponsive to fluid cardiology consulted telemetry monitoring IV metoprolol x1 02/03 card recommendation reviewed: CHADSVASC 4 - Continue BB in their current dose - Will consider one dose digoxin and monitor response - Apixaban on hold for now because of anemia - Consider GI evaluation prior to restart of apixaban - card is changing therapy- sotalol instead of metoprolol with electrophysiology card [place] as outpt. -contniue to monitor 02/05- converted overnight 02/06- sotalol 80 mg q12h- HR 58's overnight, 69 this am (2) Iron deficiency anemia: Code(s): D50.9 - Iron deficiency anemia, unspecified Status: Acute Assessment and Plan: patient was seen outpatient on 01/06/2023 hemoglobin of 12.3, now 7.9 no acute signs of bleeding patient has taken himself off iron supplements due to interacting with Parkinson's medications vitamin B12 and folic acid pending ferritin, iron, TIBC panel pending -stool occult ordered but not collected -to avoid PO interactions- will give IV dose of iron (3) Syncope: Code(s): R55 - Syncope and collapse Status: Acute Assessment and Plan: workup per Cardiology -recommendations reviewed: Appears secondary to autonomic dysfunction in the setting of parkinsons. Sinemet contributes to the episodes so as the diuretics did orthostatics Supine: BP 139/97 mmhg Sitting: BP 116/72 mmhg [place]/52 mmhg - Discontinue diuretic - Compression stocking - Continue Fludricortisone. Monitor BP closely for supine hypertension - Increase intake of salt - Advised regarding changes to movement - Discuss with neurology to help consider an alternative for sinemet - Repeat echo to r/o any structural heart ds. Prior echo shows hyperdynamic LV function with no significant valvular heart ds (4) Edema: Code(s): R60.9 - Edema, unspecified Status: Acute Assessment and Plan: 3 to 4+ lower extremity pitting edema no signs of pulmonary edema on exam but patient has taken himself off lasix about 3 days ago cardiology to manage diuretics -recommendation reviewed: -Discontinue diuretic - Compression stocking (5) Orthostatic hypotension: Code(s): I95.1 - Orthostatic hypotension Status: Acute Assessment and Plan: continue home fludrocortisone Plan 83-year-old male with past medical history of Parkinson's disease, iron deficiency anemia, atrial fibrillation, lower extremity edema presents the hospital with syncope and AFib with RVR, Cardiology consulted for management. DS: Summary Hospital Course Hospital Course: 83-year-old male with past medical history of Parkinson's disease, iron deficiency anemia, atrial fibrillation, lower extremity edema presents the hospital with syncope. Per the patient he believes that he did not pass out. Per the she states that the patient was in the bathroom when his eyes rolled into the back of his head and he did not respond her, he fell back onto the toilet. She states that when they tried to get into a chair he fell onto the ground. cardiology was consulted- transitioned him from metoprolol to sotalol on 02/04- 80 mg q.12 hours- he converted to NSR that following night. Proximal atrial fibrillation currently in sinus rhythm Four anticoagulation has been on hold because of anemia Plan Continue sotalol 80 mg b.i.d. Continue aspirin # TANESHA - received IV iron - positive stool occult - will need to arrange colonoscopy - hold eliquis until colonoscopy is done - further recommendations on eliquiz per GI Status at Discharge Functional status at discharge: independent ambulation Overall status at discharge: patient is
== END 2024-02-08 13:48 | disposition home health service (06) | DRG 312 ==
LOC: ANHED 17:35 → ANHIMU 19:46
PROVIDERS: Nurse Practitioner Gerontology; Admitting Provider General Practice; Emergency Provider Emergency Medicine; PCP Family Medicine Adolescent Medicine; Visit Provider Nurse Practitioner
DX: I95.1 Orthostatic hypotension (principal); I48.0 Paroxysmal atrial fibrillation; D50.9 Iron deficiency anemia, unspecified; N40.1 Benign prostatic hyperplasia with lower urinary tract symptoms; G20.A1 Parkinson's disease without dyskinesia, without mention of fluctuations; I12.9 Hypertensive chronic kidney disease with stage 1 through stage 4 chronic kidney disease, or unspecified chronic kidney disease; N18.9 Chronic kidney disease, unspecified; Z85.46 Personal history of malignant neoplasm of prostate; Z87.891 Personal history of nicotine dependence
CPT/HCPCS: 36415; 36430; 71046; 80048; 80053; 82274; 82607; 82728; 82746; 83540; 83550; 84484; 85025; 85027; 85610; 85730; 86850; 86900; 86901; 86923; 93005; 93306; 96361; 96372; 96374; 96375; 97110; 97116; 97162; 97165; 97530; 97535; 99285; A9270; G0378; J1160; J1650; J1756; J7040; J7050; P9016

== ENCOUNTER 2024-03-04 11:46 | Inpatient (IN) | payer MEDICARE, SELFPAY ==
[2024-03-04] VITALS (16 sets, daily range): BP systolic 90–179; BP diastolic 42–93; PULSE 68–98; RESP 14–18; TEMP 35.7–36.6; O2SAT 98–99
--- NOTE | ~2024-03-04 | XR_ITS ---
EXAMINATION: XR chest 2V DATE: 03/04/2024 12:13 INDICATION: Weakness. TECHNIQUE: Frontal and lateral views of the chest were obtained. COMPARISON: Chest 2 views 02/03/2024, chest CT 05/21/2022 FINDINGS: There is mild scarring in right mid and upper lung zones and left upper lung zone. There is a small left pleural effusion. No pneumothorax. The heart size is normal. There are surgical clips i n left neck. There are old healed left rib fractures. IMPRESSION: 1. Mild scarring in the lungs. 2. Small left pleural effusion. Reviewed, dictated and finalized at location [facility]
--- NOTE | 2024-03-04 11:47 | ECG_ITS ---
Test Date: 2024-03-04 11:49:27 Measurements Intervals [place] Rate: 83 P: 0 MI: 0 QRS: 24 QRSD: 146 T: 55 QT: 446 QTc: 524 Interpretive Statements ATRIAL FLUTTER/TACHYCARDIA WITH NORMAL VENTRICULAR RESPONSE RIGHT BUNDLE BRANCH BLOCK BASELINE ARTIFACT- I, II, III, AVR, AVL, V1-V2 ABNORMAL ECG Compared to ECG 02/07/2024 11:05:07 ATRIAL FLUTTER/TACHYCARDIA NOW PRESENT Electronically Signed On 03-04-2024 11:58:42 WASHERETTE MACHINE OPERATOR by Nick Avelar D.O.
[2024-03-04] MEDS: SODIUM CHLORIDE 0.9% IV 1,000 ML 999 ML IV CONT (12:27)
[2024-03-04 12:38] LABS: Basophils Percent Auto 0.2 % (0.2-1.2); Eosinophils Percent Auto 0.4 % (0-4.4); Hematocrit 36.7 % (42.0-52.0); Hemoglobin 11.1 g/dL (14.0-18.0); Immature Granulocyte Absolute 0.03 K/mm3 (0.00-0.031); Immature Granulocyte Percent A 0.4 % (0-0.5); Lymphocytes Absolute Auto 0.61 K/mm3 (0.9-3.2); Lymphocytes Percent Auto 7.1 % (18.3-44.2); Mean Corpuscular HGB Conc 30.2 g/dl (32-36); Mean Corpuscular Hemoglobin 26.8 pg (26-34); Mean Corpuscular Volume 88.6 fl (80-100); Mean Platelet Volume 9.5 fl (7.4-10.4); Monocytes Absolute Auto 0.6 K/mm3 (0.1-0.6); Monocytes Percent Auto 7.2 % (2.6-8.5); Neutrophils Absolute Auto 7.3 K/mm3 (1.3-6.7); Neutrophils Percent Auto 84.7 % (45.5-73.1); Platelet Count Result 164 k/mm3 (150-375); Red Blood Count 4.14 M/mm3 (4.6-6.20); Red Cell Distribution Width 23.5 % (11.5-14.5); White Blood Count 8.6 K/mm3 (4.5-10.0)
[2024-03-04 12:48] LABS: Alanine Aminotransferase 8 U/L (6-50); Albumin Level 3.8 g/dL (3.5-5.1); Alkaline Phosphatase 60 U/L (38-126); Anion Gap 8 mmol/L (4-12); Aspartate Amino Transferase 22 U/L (17-59); Bilirubin,Total 1.2 mg/dL (0.2-1.3); Blood Urea Nitrogen 36 mg/dL (9-20); Calcium 8.8 mg/dL (8.4-10.2); Carbon Dioxide 29 mmol/L (22-30); Chloride 101 mmol/L (98-107); Estimated CRCL calculation 30 ml/min; Estimated Glomerular Filt Rate 44; Glucose 91 mg/dL (65-110); Potassium 3.5 mmol/L (3.4-5.0); Sodium 138 mmol/L (137-145)
[2024-03-04 13:00] LABS: Anisocytosis 2+; Platelet Estimate Adequate (Adequate); Schistocytes None Seen
--- NOTE | 2024-03-04 13:09 | ED.GENADULT ---
HPI - General Adult General Chief complaint: Weakness Stated complaint: weakness Time Seen by Provider: 03/04/24 12:05 History of Present Illness HPI narrative: Patient is an 83-year-old male who presents ER with increased confusion. Ongoing since last night. He has had increased weakness and cannot stand up. Underwent colonoscopy yesterday and underwent multiple polypectomies. The procedure was performed for anemia. Patient has had no bloody stools. He has only urinated x1. Has had poor oral intake. Related Data Home Medications Medication Instructions Recorded Confirmed apixaban 5 mg tablet (Eliquis) 5 mg PO Q12H 05/14/21 03/04/24 cholecalciferol (vitamin D3) 25 25 mcg PO DAILY 05/09/22 03/04/24 mcg (1,000 unit) capsule fluticasone propionate 50 1 spray intranasal DAILY PRN 05/09/22 03/04/24 mcg/actuation nasal Allergy Symptoms spray,suspension (Flonase Allergy Relief) ketotifen fumarate 0.025 % (0.035 1 drp EACH EYE BID PRN Allergy 05/09/22 03/04/24 %) eye drops (Alaway) Symptoms ferrous sulfate 325 mg (65 mg 325 mg PO QPM 01/09/23 03/04/24 iron) tablet clonidine HCl 0.1 mg tablet 0.1 mg PO PRN PRN Hypertension 03/19/23 03/04/24 aspirin 81 mg tablet,delayed 81 mg PO DAILY 01/27/24 03/04/24 release (Adult Low Dose Aspirin) simvastatin 20 mg tablet 20 mg PO QPM 02/03/24 03/04/24 vibegron 75 mg tablet (Gemtesa) 75 mg PO QPM 02/03/24 03/04/24 carbidopa 25 mg-levodopa 100 mg 25 - 100 tablet PO TID 03/04/24 03/04/24 tablet Allergies Allergy/AdvReac Type Severity Reaction Status Date / Time cats Allergy Mild Sneezing Uncoded 03/03/24 11:29 mold Allergy Mild Swelling Uncoded 03/03/24 11:29 tree pollen Allergy Mild Sneezing Uncoded 03/03/24 11:29 Review of Systems Review of Systems: ROS unobtainable: Yes unobtainable due to mental status PMFSH Past Medical History Medical History (Updated 03/04/24 @ 22:05 by Loc Wing MD) Acute stroke due to ischemia Anemia TANESHA/CKD Atrial flutter, paroxysmal Benign prostatic hyperplasia with lower urinary tract symptoms CKD (chronic kidney disease) Hypertension shelter (current) use of anticoagulants Occlusion and stenosis of bilateral carotid arteries Overactive bladder Parkinson's disease Paroxysmal atrial fibrillation Personal history of malignant neoplasm of prostate Secondary renal hyperparathyroidism Vasomotor rhinitis Vitamin D deficiency Family History Family History Father Heart disease Sibling Cancer Social History Social History Years smoked: 20 Smoking status: Former smoker Second hand tobacco smoke exposure: No Additional smoking assessment comments: quit 40 years ago Alcohol intake: never Alcohol use details: 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s: with family Occupation/Education: retired Gender identity (if verbalized by the patient): Male Sexual Orientation (if Verbalized by the Patient): Straight or Heterosexual Spiritual care concerns: No Agree to blood products: Yes Exam Narrative: GENERAL: Chronically ill-appearing, well-nourished, and in no acute distress. HEAD: Normocephalic, atraumatic. ENT: Mucous membranes moist. CHEST: Clear to auscultation. No respiratory distress. HEART: Irregularly irregular rate and rhythm. Normal peripheral pulses. ABDOMEN: Soft, nontender, nondistended. EXTREMITIES: Normal range of motion. No edema. SKIN: Warm, dry, no rash. NEURO: Alert and oriented x2. PSYCH: Normal mood and affect. Course Course Emergency Course: admit for observation. Still orthostatic after IV fluid. Discussed with hospitalist. Vital Signs Vital signs: Vital Signs Temperature 97.9 F 03/04/24 11:48 Pulse Rate 77 03/04/24 11:48 Respiratory Rate 18 03/04/24 11:48 Blood Pressure 156/78 H 03/04/24 11:48 Pulse Oximetry 98 03/04/24 11:48 Oxygen Delivery Room Air 03/04/24 11:48 Temperature 97.9 F 03/04/24 20:11 Pulse Rate 68 03/04/24 20:11 Respiratory Rate 18 03/04/24 20:11 Blood Pressure 176/72 H 03/04/24 20:12 Pulse Oximetry 99 03/04/24 20:11 Oxygen Delivery Room Air 03/04/24 11:48 Medical Decision Making Vital Signs Vital Signs: Vital Signs Temperature 97.9 F 03/04/24 11:48 Pulse Rate 77 03/04/24 11:48 Respiratory Rate 18 03/04/24 11:48 Blood Pressure 156/78 H 03/04/24 11:48 Pulse Oximetry 98 03/04/24 11:48 Oxygen Delivery Room Air 03/04/24 11:48 Temperature 97.9 F 03/04/24 20:11 Pulse Rate 68 03/04/24 20:11 Respiratory Rate 18 03/04/24 20:11 Blood Pressure 176/72 H 03/04/24 20:12 Pulse Oximetry 99 03/04/24 20:11 Oxygen Delivery Room Air 03/04/24 11:48 Lab Data 03/04/24 12:26 03/04/24 12:26 Labs: Lab Results 03/04/24 03/04/24 Range/Units 12:26 13:08 WBC 8.6 (4.5-10.0) K/mm3 RBC 4.14 L (4.6-6.20) M/mm3 Hgb 11.1 L (14.0-18.0) g/dL Hct 36.7 L (42.0-52.0) % MCV 88.6 (80-100) fl MCH 26.8 (26-34) pg MCHC 30.2 L (32-36) g/dl RDW 23.5 H (11.5-14.5) % Plt Count 164 (150-375) k/mm3 MPV 9.5 (7.4-10.4) fl Immature Gran % (Auto) 0.4 (0-0.5) % Neut % (Auto) 84.7 H (45.5-73.1) % Lymph % (Auto) 7.1 L (18.3-44.2) % [place] % (Auto) 7.2 (2.6-8.5) % Eos % (Auto) 0.4 (0-4.4) % Baso % (Auto) 0.2 (0.2-1.2) % Lymph # (Auto) 0.61 L (0.9-3.2) K/mm3 [place] # (Auto) 0.6 (0.1-0.6) K/mm3 Eos # (Auto) 0.0 (0-0.3) K/mm3 Baso # (Auto) 0.0 (0.0-0.1) K/mm3 Abs Immat Gran (auto) 0.03 (0.00-0.031) K/mm3 Absolute Neuts (auto) 7.3 H (1.3-6.7) K/mm3 Absolute Nucleated RBC 0.000 (0.0-0.012) K/mm3 Nucleated RBC % 0.0 (0.0-0.2) % Platelet Estimate Adequate (Adequate) Anisocytosis 2+ Schistocytes None seen Sodium 138 (137-145) mmol/L Potassium 3.5 (3.4-5.0) mmol/L Chloride 101 (98-107) mmol/L Carbon Dioxide 29 (22-30) mmol/L Anion Gap 8 (4-12) mmol/L BUN 36 H (9-20) mg/dL Creatinine 1.50 H (0.7-1.3) mg/dL Estim Creat Clear Calc 30 ml/min Estimated GFR 44 L (59 - ) Glucose 91 (65-110) mg/dL Calcium 8.8 (8.4-10.2) mg/dL Total Bilirubin 1.2 (0.2-1.3) mg/dL AST 22 (17-59) U/L ALT 8 (6-50) U/L Alkaline Phosphatase 60 (38-126) U/L Total Protein 7.0 (6.3-8.2) g/dL Albumin 3.8 (3.5-5.1) g/dL Urine Color Yellow (Yellow) Urine Appearance Clear (Clear) Urine pH 5.0 (5.0-9.0) Ur Specific [place] 1.013 (1.001-1.035) Urine Protein Negative (Negative) mg/dL Urine Glucose (UA) Negative (Negative) mg/dL Urine Ketones Negative (Negative) mg/dL Ur Blood (Man) Negative (Negative) Urine Nitrate Negative (Negative) Urine Bilirubin Negative (Negative) Urine Urobilinogen 0.2 (<2.0) mg/dL Leukocyte Esterase Rfl Negative (Negative) SHIV/UL Imaging Data Radiologist's impression: ITS Impressions Chest X-Ray 03/04/24 12:32 IMPRESSION: 1. Mild scarring in the lungs. 2. Small left pleural effusion. ECG Data EKG #1: ECG completion date: 03/04/24 ECG completion time: 11:49 EKG Interpretation: normal rate (83), sinus rhythm, widened QRS and RBBB Discharge Plan Discharge Clinical Impression: Syncope, Dehydration Patient Disposition: Still a Patient Condition: Stable
[2024-03-04 14:14] LABS: Bilirubin Urine Negative (Negative); Blood Urine Negative (Negative); Color Urine Yellow (Yellow); Glucose Urine UA Negative (Negative); Ketones Urine Negative (Negative); Leukocyte Esterase Ur Negative LEU/UL (Negative); Nitrate Urine Negative (Negative); Protein Urine Negative (Negative); Specific Grav Ur 1.013 (1.001-1.035); Urobilinogen Urine 0.2 mg/dL (<2.0)
[2024-03-04 14:28] LABS: Add Urine Microscopic? NO; Appearance Urine Clear (Clear)
--- NOTE | 2024-03-04 16:38 | P.HP_ITS ---
H&P: HPI History of Present Illness Date/Time: 03/04/24 16:38 Chief Complaint: Weakness Narrative: 83 y/o M presents here with weakness with PMH of Parkinson's disease, paroxysmal AFib, anemia, stroke, BPH, CKD, and HTN. The patient presents here from home for further evaluation of weakness. The patient reports he underwent a colonoscopy yesterday and later that evening he developed weakness. At baseline he ambulates with a walker. Now not able to ambulate as well due to the severity of weakness. Colonoscopy performed for anemia. Underwent multiple polypectomies during procedure. He denies BRB per rectum or melena. Endorsing poor appetite/poor oral intake and reduced urine output. During initial evaluation in the ED, he was found to be orthostatic positive 163/79 -> 136/70 -> 94/42. He reports a similar situation has occurred twice after two previous colonoscopies. Patient is difficult historian. Initial VS at presentation: 97.9? F, HR 77, RR 18, 156/78, and 98% on RA. ED workup showed: No leukocytosis, hemoglobin 11.1 (previously 9.2 on 02/05/2024), creatinine 1.5 and GFR 44 (previously 1.2 and 58 on 02/05/2024), and UA unremarkable. CXR showed mild scarring in the lungs and small left pleural effusion. EKG showed atrial flutter/tachycardia with normal ventricular response, RBBB, and baseline artifact. 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 Occlusion and stenosis of bilateral carotid arteries Overactive bladder Parkinson's disease Paroxysmal atrial fibrillation Personal history of malignant neoplasm of prostate Secondary renal hyperparathyroidism Vasomotor rhinitis Vitamin D deficiency Family History Family History Father Heart disease Sibling Cancer Social History Social History Years smoked: 20 Smoking status: Former smoker Second hand tobacco smoke exposure: No Additional smoking assessment comments: quit 40 years ago Alcohol intake: never Alcohol use details: 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s: with family Occupation/Education: retired Gender identity (if verbalized by the patient): Male Sexual Orientation (if Verbalized by the Patient): Straight or Heterosexual Spiritual care concerns: No Agree to blood products: Yes Meds Home Medications and Allergies Home Medications Medication Instructions Recorded Confirmed Type apixaban 5 mg tablet (Eliquis) 5 mg PO Q12H 05/14/21 03/04/24 History cholecalciferol (vitamin D3) 25 25 mcg PO DAILY 05/09/22 03/04/24 History mcg (1,000 unit) capsule fluticasone propionate 50 1 spray intranasal DAILY PRN 05/09/22 03/04/24 History mcg/actuation nasal Allergy Symptoms spray,suspension (Flonase Allergy Relief) ketotifen fumarate 0.025 % (0.035 1 drp EACH EYE BID PRN Allergy 05/09/22 03/04/24 History %) eye drops (Alaway) Symptoms ferrous sulfate 325 mg (65 mg 325 mg PO QPM 01/09/23 03/04/24 History iron) tablet clonidine HCl 0.1 mg tablet 0.1 mg PO PRN PRN Hypertension 03/19/23 03/04/24 History aspirin 81 mg tablet,delayed 81 mg PO DAILY 01/27/24 03/04/24 History release (Adult Low Dose Aspirin) simvastatin 20 mg tablet 20 mg PO QPM 02/03/24 03/04/24 History vibegron 75 mg tablet (Gemtesa) 75 mg PO QPM 02/03/24 03/04/24 History sotalol 80 mg tablet 80 mg PO Q12HR #90 tabs 02/08/24 03/04/24 Rx carbidopa 25 mg-levodopa 100 mg 25 - 100 tablet PO TID 03/04/24 03/04/24 History tablet Allergies Allergy/AdvReac Type Severity Reaction Status Date / Time cats Allergy Mild Sneezing Uncoded 03/03/24 11:29 mold Allergy Mild Swelling Uncoded 03/03/24 11:29 tree pollen Allergy Mild Sneezing Uncoded 03/03/24 11:29 Vital Signs Vital Signs - 24 hr 03/04/24 11:48 03/04/24 12:27 03/04/24 12:30 Temperature 97.9 F Pulse Rate 77 98 86 Respiratory Rate 18 Blood Pressure 156/78 H 163/79 H 136/70 Pulse Oximetry 98 Oxygen Delivery Room Air 03/04/24 12:32 03/04/24 12:00 03/04/24 13:15 Temperature 97.6 F 97.9 F Pulse Rate 85 86 88 Respiratory Rate 16 16 Blood Pressure 94/42 L 145/89 H 146/72 H Pulse Oximetry 99 98 Oxygen Delivery 03/04/24 13:00 03/04/24 14:00 03/04/24 14:15 Temperature 97.8 F 97.6 F Pulse Rate 79 85 82 Respiratory Rate 16 16 Blood Pressure 154/84 H 151/83 H 155/79 H Pulse Oximetry 99 98 Oxygen Delivery 03/04/24 15:00 03/04/24 16:00 03/04/24 14:22 Temperature 97.6 F 97.7 F Pulse Rate 89 88 82 Respiratory Rate 18 18 Blood Pressure 171/93 H 135/91 H 157/90 H Pulse Oximetry 99 98 Oxygen Delivery 03/04/24 14:24 Temperature Pulse Rate 98 Respiratory Rate Blood Pressure 90/68 L Pulse Oximetry Oxygen Delivery Exam Const: General: comfortable and no acute distress Other: , male, nontoxic appearance. Mildly frail. HENMT: Face/Nose/Sinus: Normal nares present Mouth: Yes moist mucous membranes Eyes: General: appearance normal, both eyes and all related structures Sclera: sclerae normal Pupils: Equal, round and reactive pupils present EOM: EOMs intact bilaterally Resp: Effort & Inspection: normal respiratory effort Auscultation: clear to auscultation bilaterally Cardio: Rate: regular rate Rhythm: regular rhythm Other: +murmur GI: Other: Abdomen soft, nondistended, nontender. : Other: No suprapubic tenderness Skin: General skin exam: normal color and no rashes or lesions noted Wounds: no wounds Neuro: Speech: normal speech Motor exam (neuro): 5/5 motor strength present throughout Sensory Exam: normal sensation Other: A&O x4. fine intermittent tremor to hands and tongue. Extrem: General: normal to inspection Psych: Mental Status: mental status grossly normal Affect: normal affect Other: Good to fair insight and judgment, pleasant H&P: Results Labs Labs: Short CBC 03/04/24 Range/Units 12:26 WBC 8.6 (4.5-10.0) K/mm3 Hgb 11.1 L (14.0-18.0) g/dL Hct 36.7 L (42.0-52.0) % Plt Count 164 (150-375) k/mm3 BMP 03/04/24 12:26 Sodium 138 Potassium 3.5 Chloride 101 Carbon Dioxide 29 BUN 36 H Creatinine 1.50 H Glucose 91 Calcium 8.8 Liver Function 03/04/24 Range/Units 12:26 Total Bilirubin 1.2 (0.2-1.3) mg/dL AST 22 (17-59) U/L ALT 8 (6-50) U/L Alkaline Phosphatase 60 (38-126) U/L Albumin 3.8 (3.5-5.1) g/dL Urine 03/04/24 Range/Units 13:08 Urine Color Yellow (Yellow) Urine Appearance Clear (Clear) Urine pH 5.0 (5.0-9.0) Ur Specific [place] 1.013 (1.001-1.035) Urine Protein Negative (Negative) mg/dL Urine Glucose (UA) Negative (Negative) mg/dL Assessment and Plan Assessment and plan (1) Orthostatic hypotension: Code(s): I95.1 - Orthostatic hypotension Status: Acute Assessment and Plan: - orthostatic VS, initial: laying - HR 98, 163/79. sitting - HR 86, 136/70. standing - HR 85, 94/42. - orthostatics be repeated later in visit: laying - HR 82, 155/79. sitting - HR 82, 157/90. standing - HR 98, 90/68. - orthostatics qshift, starting on 03/05 - IV fluids: 1L bolus -> 125 mL/hr - suspect acute dehydration secondary to poor PO intake post-colonoscopy, has history of same x2 - monitor I&Os (2) Atrial flutter, paroxysmal: Code(s): I48.92 - Unspecified atrial flutter Status: Acute Assessment and Plan: - EKG, initial: Atrial flutter/tachycardia with normal ventricular response, rate 83, RBBB, baseline artifact. When compared to EKG done on 02/07/2024, atrial flutter/tachycardia now present. - continue home medications: (3) Anemia: Qualifiers: Anemia type: unspecified type Qualified Code(s): D64.9 - Anemia, unspecified Code(s): D64.9 - Anemia, unspecified Status: Chronic Assessment and Plan: - multifactorial: CKD, TANESHA - at baseline - monitor (4) Hypertension: Qualifiers: Hypertension type: unspecified Qualified Code(s): I10 - Essential (primary) hypertension Code(s): I10 - Essential (primary) hypertension Status: Chronic Assessment and Plan: - chronic, currently 135/91 - home medications: Will continue p.r.n. home clonidine for BP greater than 180/90. Hold sotalol, resume when appropriate. - monitor Plan Diet: Heart healthy GI Prophylaxis: Not currently indicated DVT Prophylaxis: Continue Eliquis Lines: Peripheral Code Status: Full code Quality VTE Prophylaxis VTE prophylaxis: pharmacologic ordered Hospitalist MIPS Advance Care Plan I have confirmed that the patient's Advanced Care Plan is present, code status is documented, or surrogate decision maker is listed in patient medical record.: Yes Medication Reconciliation I have utilized all available resources to obtain, update and review the patients current medications (includes all prescriptions, OTC, herbals, cannabis, and nutritional supplements).: Yes
[2024-03-04] MEDS: LACTATED RINGERS 1,000 ML 125 ML IV CONT (16:42)
--- NOTE | 2024-03-04 16:55 | ADMGEN ---
This patient, Jose Maria Terry, was admitted to [address] [facility] Surg Room 315-01. Patient/family oriented to hospital policies and general routines including ID bracelet, bed and alarms, visiting hours, pain management, procedures, bathroom and other care routines, personal items, smoking policy, room service/diet, and visiting hours. Information on how to activate the Rapid Response Team has been discussed. Patient/Family are encouraged to report perceived risks to care and to ask questions if they do not understand what they are told or what they should do.
[2024-03-04] MEDS: APIXABAN 5 MG TABLET PO (23:43)
[2024-03-05] VITALS (7 sets, daily range): BP systolic 116–218; BP diastolic 48–92; PULSE 70–97; RESP 14–16; TEMP 36.1–37.7; O2SAT 96–99
[2024-03-05] MEDS: LACTATED RINGERS 1,000 ML 125 ML IV CONT ×2 (01:34→09:40)
[2024-03-05] MEDS: cloNIDine HCL 0.1 MG TABLET PO (05:04)
[2024-03-05 07:07] LABS: Basophils Percent Auto 0.3 % (0.2-1.2); Eosinophils Absolute Auto 0.1 K/mm3 (0-0.3); Eosinophils Percent Auto 1.3 % (0-4.4); Hematocrit 35.1 % (42.0-52.0); Hemoglobin 10.6 g/dL (14.0-18.0); Immature Granulocyte Absolute 0.03 K/mm3 (0.00-0.031); Immature Granulocyte Percent A 0.4 % (0-0.5); Lymphocytes Absolute Auto 0.43 K/mm3 (0.9-3.2); Mean Corpuscular HGB Conc 30.2 g/dl (32-36); Mean Corpuscular Hemoglobin 26.6 pg (26-34); Mean Corpuscular Volume 88.2 fl (80-100); Monocytes Absolute Auto 0.6 K/mm3 (0.1-0.6); Monocytes Percent Auto 8.2 % (2.6-8.5); Neutrophils Percent Auto 83.8 % (45.5-73.1); Platelet Count Result 174 k/mm3 (150-375); Red Blood Count 3.98 M/mm3 (4.6-6.20); Red Cell Distribution Width 23.1 % (11.5-14.5); White Blood Count 7.2 K/mm3 (4.5-10.0)
[2024-03-05 07:16] LABS: Anion Gap 6 mmol/L (4-12); Blood Urea Nitrogen 28 mg/dL (9-20); Calcium 8.5 mg/dL (8.4-10.2); Carbon Dioxide 30 mmol/L (22-30); Chloride 103 mmol/L (98-107); Estimated CRCL calculation 40 ml/min; Estimated Glomerular Filt Rate > 60; Glucose 90 mg/dL (65-110); Potassium 3.4 mmol/L (3.4-5.0); Sodium 139 mmol/L (137-145)
[2024-03-05 07:46] LABS: Anisocytosis 2+; Burr Cells 1+; Hypochromasia 1+; Platelet Estimate Adequate (Adequate); Schistocytes None Seen
[2024-03-05] MEDS: CHOLECALCIFEROL 1,000 UNITS TABLET 1000 UNITS PO (07:56)
[2024-03-05] MEDS: ASPIRIN 81 MG ENTERIC TABLET PO (07:57)
[2024-03-05] MEDS: APIXABAN 5 MG TABLET PO (07:57)
[2024-03-05] MEDS: CARBIDOPA/LEVODOPA 25/100 MG TABLET 1 TABLET PO ×3 (07:58→17:54)
[2024-03-05] MEDS: FERROUS SULFATE 325 MG TABLET DR PO (17:54)
[2024-03-05] MEDS: SIMVASTATIN 20 MG TABLET PO (17:54)
--- NOTE | 2024-03-05 18:13 | P.DS_ITS ---
DS: Admitting Diagnosis Discharge Date 03/05/2024 Admitting Diagnosis Generalized Muscle Weakness DS: Discharge Diagnosis Discharge Diagnosis (1) Orthostatic hypotension: Code(s): I95.1 - Orthostatic hypotension Status: Acute Assessment and Plan: - Possibly secondary to dehydration related to colonoscopy prep. - orthostatic VS, initial: laying - HR 98, 163/79. sitting - HR 86, 136/70. standing - HR 85, 94/42. - Repeat orthostatics: laying - HR 82, 155/79. sitting - HR 82, 157/90. standing - HR 98, 90/68. - orthostatics qshift, starting on 03/05 - Continue IVF hydration. - Symptoms much improved with IVF hydration and denies symptoms prior to discharge. - Worked with PT and cleared for discharge home with home health PT. - Patient already has PT set-up at home. (2) Atrial flutter, paroxysmal: Code(s): I48.92 - Unspecified atrial flutter Status: Acute Assessment and Plan: - EKG, initial: Atrial flutter/tachycardia with normal ventricular response, rate 83, RBBB, baseline artifact. When compared to EKG done on 02/07/2024, atrial flutter/tachycardia now present. - Rate well controlled. - Resume Sotalol and Apixaban. (3) Anemia: Qualifiers: Anemia type: unspecified type Qualified Code(s): D64.9 - Anemia, unspecified Code(s): D64.9 - Anemia, unspecified Status: Chronic Assessment and Plan: - multifactorial: CKD, TANESHA - Hgb remains stable baseline inpatient. (4) Hypertension: Qualifiers: Hypertension type: unspecified Qualified Code(s): I10 - Essential (primary) hypertension Code(s): I10 - Essential (primary) hypertension Status: Chronic Assessment and Plan: - Well controlled inpatient. - Home meds resumed. - chronic, currently 135/91 Plan Diet: Heart healthy GI Prophylaxis: Not currently indicated DVT Prophylaxis: Continue Eliquis Lines: Peripheral Code Status: Full code Discharge home with Home Health DS: Summary Hospital Course Reason for hospitalization: Generalized Muscle Weakness Hospital Course: Patient presented to the hospital with reports of increased generalized weakness accompanied with dizziness at home. Patient had a colonoscopy the day before he presented and his reported that this always occurs to the patient after colonoscopy due to severe dehydration with the colonoscopy prep. Patient had positive orthostatics and had JERMAINE as well with Cr level 1.5. Patient has been aggressively hydrated and his JERMAINE has resolved. His orthostatics have normalized too and patient was able to walk with PT prior to discharge and tolerated well. Pt was recommended for home discharge with PT home health, which pt currently has. Pt want to go home today and denies any distressful symptoms, including dizziness. He's medically stable for discharge with no acute distress noted or reported prior to discharge. Status at Discharge Functional status at discharge: uses cane/walker Overall status at discharge: patient is progressing back to baseline Time Spent with Patient Time attestation: Total time spent providing and/or coordinating discharge services: Time spent: Less than 30 minutes DS: Data Data Completed and Pending Labs on day of discharge: Labs from last 24 hours 03/05/24 06:20 WBC 7.2 RBC 3.98 L Hgb 10.6 L Hct 35.1 L MCV 88.2 MCH 26.6 MCHC 30.2 L RDW 23.1 H Plt Count 174 MPV 10.0 Immature Gran % (Auto) 0.4 Neut % (Auto) 83.8 H Lymph % (Auto) 6.0 L [place] % (Auto) 8.2 Eos % (Auto) 1.3 Baso % (Auto) 0.3 Lymph # (Auto) 0.43 L [place] # (Auto) 0.6 Eos # (Auto) 0.1 Baso # (Auto) 0.0 Abs Immat Gran (auto) 0.03 Absolute Neuts (auto) 6.0 Absolute Nucleated RBC 0.000 Nucleated RBC % 0.0 Platelet Estimate Adequate Hypochromasia 1+ Anisocytosis 2+ Abe Cells 1+ Schistocytes None seen Sodium 139 Potassium 3.4 Chloride 103 Carbon Dioxide 30 Anion Gap 6 BUN 28 H Creatinine 1.10 Estim Creat Clear Calc 40 Estimated GFR > 60 Glucose 90 Calcium 8.5 Discharge Plan Discharge Attending physician on discharge: Dre Gottlieb Discharging Clinician: Ervin Guerrero Anticipated Discharge Date/Time: 03/05/24 18:28 Patient Disposition: Home Health Service Activity: as tolerated Diet: heart healthy Discharge Instructions: Per Care Coordination: [facility] will resume services at discharge. [facility] will resume PT eval and treat servies. [facility] can be contacted at [phone]. Nursing please fax discharge paperwork to [phone]. Patient Instructions: Antibiotic Form, Apixaban (By mouth) Stand Alone Forms: General Discharge Information Follow-up/Referrals: Miguel Acuña MD [Primary Care Provider] - 1 Week Discharge Medications: Continued clonidine HCl 0.1 mg tablet 0.1 mg PO PRN PRN (Reason: Hypertension) Rx Instructions: 0.1 mg orally as needed for blood pressure greater than 180; Eliquis 5 mg tablet 5 mg PO Q12H Hold Instructions: Resume on 02/23/24. hold until directed otgerwise per your GI doctor Patient Comments: On hold until EGD/Colonoscopy RESUME 03/11/24 ferrous sulfate 325 mg (65 mg iron) tablet 325 mg PO QPM aspirin [Adult Low Dose Aspirin] 81 mg tablet,delayed release (DR/EC) 81 mg PO DAILY simvastatin 20 mg tablet 20 mg PO QPM Gemtesa 75 mg tablet 75 mg PO QPM sotalol 80 mg Tablet 80 mg PO Q12HR Qty: 90 0RF carbidopa-levodopa 25-100 mg tablet 25 - 100 tablet PO TID Rx Instructions: TAKE 1 TABLET BY MOUTH THREE TIMES DAILY (9AM, 1PM, 6PM) ketotifen fumarate [[place]away] 0.025 % (0.035 %) Drops 1 drp EACH EYE BID PRN (Reason: Allergy Symptoms) Rx Instructions: administer at least 8 hours apart fluticasone propionate [Flonase Allergy Relief] 50 mcg/actuation [place],Suspension 1 spray INTRANASAL DAILY PRN (Reason: Allergy Symptoms) Rx Instructions: administer into each nostril cholecalciferol (vitamin D3) 25 mcg (1,000 unit) Capsule 25 mcg PO DAILY Date of admission: 03/05/24 12:38 Primary Care Provider: Miguel Acuña Admitting Provider: Dre Gottlieb Attending physician on admission: Dre Gottlieb Condition: Stable Quality VTE Prophylaxis VTE prophylaxis: pharmacologic ordered Hospitalist MIPS Heart Failure (Exclusion) Patient has history of Heart Transplant or Left Ventricular Assistive Device?: No IF YES, STOP HERE Heart Failure (Qualifier) Patient has current or prior documentation of LVEF less than or equal to 40%, or mod/servere depressed LVSF?: No IF NO, STOP HERE If Yes, Heart Failure (Qualifier) Patient was prescribed or already taking bisoprolol, carvedilol, or sustained release metoprolol succinate: Yes
== END 2024-03-05 18:45 | disposition home health service (06) | DRG 312 ==
LOC: ANHED 12:23 → ANH3MEDSUR 16:30
PROVIDERS: Emergency Medicine; Student in an Organized Health Care Education/Training Program; Admitting Provider Internal Medicine; Emergency Provider Emergency Medicine; PCP Family Medicine Adolescent Medicine; Visit Provider Nurse Practitioner Adult Health
DX: I95.1 Orthostatic hypotension (principal); I48.92 Unspecified atrial flutter; N25.81 Secondary hyperparathyroidism of renal origin; E86.0 Dehydration; I65.23 Occlusion and stenosis of bilateral carotid arteries; I12.9 Hypertensive chronic kidney disease with stage 1 through stage 4 chronic kidney disease, or unspecified chronic kidney disease; N18.9 Chronic kidney disease, unspecified; D63.1 Anemia in chronic kidney disease; D50.9 Iron deficiency anemia, unspecified; G20.A1 Parkinson's disease without dyskinesia, without mention of fluctuations; N32.81 Overactive bladder; N40.1 Benign prostatic hyperplasia with lower urinary tract symptoms; I48.0 Paroxysmal atrial fibrillation; Z79.01 Long term (current) use of anticoagulants; Z85.46 Personal history of malignant neoplasm of prostate; Z87.891 Personal history of nicotine dependence; Z86.73 Personal history of transient ischemic attack (TIA), and cerebral infarction without residual deficits
CPT/HCPCS: 36415; 71046; 80048; 80053; 81003; 85025; 93005; 96360; 96361; 97161; 97166; 99285; A9270; G0378; J7030; J7120

== ENCOUNTER 2024-03-22 12:36 | Inpatient (IN) | payer MEDICARE, SELFPAY ==
[2024-03-22] VITALS (25 sets, daily range): BP systolic 68–234; BP diastolic 35–91; PULSE 19–66; RESP 16–20; TEMP 36.5; O2SAT 96–100; BMI 17.5
--- NOTE | ~2024-03-22 | XR_ITS ---
EXAM: XR pelvis 1-2V DATE: 03/22/2024 15:23 HISTORY: fall . COMPARISON: None available. FINDINGS: Decreased mineralization. Vascular clips and prostate seeds over the midline pelvis. No fr acture or dislocation. No lytic or blastic lesion. Moderate lumbar degenerative disc disease. Scatter ed pelvic enthesopathy. Mild bilateral hip osteoarthritis. No erosion or periosteal change. Soft tiss ues within normal limits. IMPRESSION: No acute osseous finding in the pelvis. Reviewed, dictated and finalized at location K. IRER RECREATIONAL VEHICLE
--- NOTE | ~2024-03-22 | XR_ITS ---
XR chest 1V portable 03/23/2024 10:08 Indication: Shock Procedure: AP portable chest Comparison: Comparison to multiple prior studies sequentially, with oldest reviewed study dated 12/14.. Findings: Cardiomegaly. No focal air space disease, pulmonary edema, pleural effusion or suspected pn eumothorax. No acute osseous abnormality. Impression: 1: No acute cardiopulmonary disease. Reviewed, dictated and finalized at location B. ICE CONSULTANT Impression: 1: No acute cardiopulmonary disease.
--- NOTE | ~2024-03-22 | XR_ITS ---
XR chest 1V portable DATE: 03/26/2024 12:48 INDICATION: Post lead-less pacemaker TECHNIQUE: Portable upright AP chest on 03/26/2024 at 1239 hours COMPARISON: 03/23/2024 portable AP chest at 1004 hours FINDINGS: There is a small electronic device overlying the left lower chest, superimposing the left c ardiac silhouette. There is borderline heart size. There is pulmonary vascular congestion and redistribution. There are bilateral pulmonary central lung infiltrates suggesting pulmonary edema. There is a small right pleur al effusion. NG tube in stomach. IMPRESSION: Congestive changes including pulmonary edema and mild right pleural effusion, new since 05/23/2023 Left lead-less pacemaker device placement since 03/23/2024 Reviewed, dictated and finalized at location A. METRY MONITOR IMPRESSION: Congestive changes including pulmonary edema and mild right pleural effusion, new since 03/23/2024 Left lead-less pacemaker device placement since 03/23/2024
--- NOTE | ~2024-03-22 | CT_ITS ---
EXAMINATION: CT abdomen pelvis wo con DATE: 03/24/2024 10:57 INDICATION: Shock. TECHNIQUE: Computed tomography (CT) of the abdomen and pelvis was performed without intravenous contr ast. Automated exposure control and iterative reconstruction technique were employed. The dose-length product was 392.24 mGy-cm. COMPARISON: Chest CT 05/21/2022 FINDINGS: The visualized portions of the lung bases demonstrate small pleural effusions and dependent atelectasis. Cardiomegaly is noted. No pericardial effusion. There are coronary artery calcification s. There is a pacer wire in right ventricle. The liver demonstrates periportal edema. There are cysts in the liver measuring up to 2.1 cm. The gallbladder, spleen, pancreas, and adrenal glands are emre l. There are cysts in the kidneys measuring up to 10.4 cm on the left. There are two 1-2 mm stones in left kidney. The prostate is moderately enlarged. There are brachytherapy seeds in the prostate. The re is a Rodriguez catheter in expected position. There is diverticulosis of the colon without evidence of diverticulitis. There are no dilated loops of bowel. The appendix is not visualized. There are no pa thologically enlarged lymph nodes. There is a small volume of pelvic ascites. Body wall edema is note d. There are healing fractures of right 11th and 12th ribs and right L1 transverse process. There is severe lower lumbar spondylosis. IMPRESSION: 1. Small pleural effusions. 2. Small volume of ascites. Reviewed, dictated and finalized at location A. NG CARPENTER
--- NOTE | ~2024-03-22 | XR_ITS ---
EXAMINATION: XR chest ET placement DATE: 03/26/2024 14:27 INDICATION: Intubation TECHNIQUE: frontal view of the chest was obtained. COMPARISON: Chest radiograph dated 03/26/2024 at 12:39 PM FINDINGS: Endotracheal tube tip 4.6 similar both the chris. Nasogastric tube extends below the left hemidiaph ragm with distal tip collimated off the study. Increasing volume loss in the right hemithorax with elevation the right hemidiaphragm and rightward s hift of the heart and mediastinum. There is elevation of the minor fissure and progressive increase i n opacification of the right upper lobe most likely representing progression of now partial lobar col lapse although underlying pneumonia not excludable. There is new cut off of the lucency at the right mainstem bronchus suggestive of mucus impaction. A couple skinfolds project over the left upper lung. Mild streaky left basilar atelectasis. No pulmonary edema, pleural effusion or pneumothorax. Heart s ize is normal. IMPRESSION: 1. Constellation of findings suggestive of mucus impaction in the right mainstem bronchus with progre ssive volume loss the right hemithorax including partial collapse of the right upper lobe. Reviewed, dictated and finalized at location A. PRESIDENT IMPRESSION: 1. Constellation of findings suggestive of mucus impaction in the right mainste m bronchus with progressive volume loss the right hemithorax including partial collapse of the right upper lobe.
--- NOTE | ~2024-03-22 | CT_ITS ---
EXAMINATION: CT brain wo con DATE: 03/24/2024 10:57 INDICATION: Encephalopathy. TECHNIQUE: Computed tomography (CT) of the head was performed without intravenous contrast. The mA wa s adjusted according to patient size. Iterative reconstruction technique was employed. The dose-lengt h product was 681.00 mGy-cm. COMPARISON: Head CT 05/09/2022 FINDINGS: There are scattered areas of low attenuation in the cerebral white matter. There is no intr acranial hemorrhage, acute infarction, or abnormal intracranial mass lesion. The ventricles are emre l in size. There are likely changes of ocular lens replacement surgeries. There is mild mucosal thick ening in the paranasal sinuses. There is a small left mastoid effusion. IMPRESSION: 1. Stable moderate nonspecific cerebral white matter disease, which likely represents chronic small v essel ischemic disease. Reviewed, dictated and finalized at location A. RIAL COMBINER IMPRESSION: 1. Stable moderate nonspecific cerebral white matter disease, which likely repr esents chronic small vessel ischemic disease.
--- NOTE | ~2024-03-22 | XR_ITS ---
XR abdomen gastric tube insert DATE: 03/26/2024 12:48 INDICATION: NG tube placement TECHNIQUE: Portable AP view on 03/26/2024 at 1240 hours COMPARISON: None FINDINGS: An NG tube is present, the proximal side port situated near the diaphragmatic hiatus, the d istal tip situated in the very proximal stomach. Tube advancement is recommended. Nonspecific bowel gas pattern. IMPRESSION: NG tube in the very proximal stomach, the proximal side port near the diaphragmatic hiatu s; tube advancement is recommended Reviewed, dictated and finalized at Location A. Reviewed, dictated and finalized at location A. ESSOR OF BIOSTATISTICS IMPRESSION: NG tube in the very proximal stomach, the proximal side port near t he diaphragmatic hiatus; tube advancement is recommended
--- NOTE | 2024-03-22 12:41 | ECG_ITS ---
Test Date: 2024-03-22 12:45:09 Measurements Intervals [place] Rate: 33 P: 0 [place]: 0 QRS: 53 QRSD: 135 T: 5 QT: 569 QTc: 424 Interpretive Statements SINUS BRADYCARDIA WITH 2ND DEGREE AV BLOCK, MOBITZ TYPE II (2:1 AV BLOCK) RIGHT BUNDLE BRANCH BLOCK BASELINE ARTIFACT- I, II, III, AVR, AVL, AVF, V1, V4-V6 ABNORMAL ECG Compared to ECG 03/04/2024 11:49:27 Atrial flutter no longer present Electronically Signed On 03-22-2024 12:55:36 CREDIT REPORTING CLERK by Nick Avelar D.O.
--- NOTE | 2024-03-22 12:57 | ED_ITS ---
HPI - Arrhythmia/Palpitations General Chief Complaint: Arrhythmia/Palpitations Stated Complaint: glf, dizzy, hypotension Time Seen by Provider: 03/22/24 12:48 History of Present Illness HPI narrative: Pt slipped and fell to ground but denies injuring himself with fall. Pt felt very weak after and had trouble getting up. On EMS arrival SBP in 100's and bradycardia noted. Pt denies CP or SOB. Pt feels generally weak. Pt restarted on eliquis last week after holding it for colonoscopy. Pt has history of a fib. Pt is DNR. Related Data Home Medications Medication Instructions Recorded Confirmed apixaban 5 mg tablet (Eliquis) 5 mg PO Q12H 05/14/21 03/22/24 cholecalciferol (vitamin D3) 25 25 mcg PO DAILY 05/09/22 03/22/24 mcg (1,000 unit) capsule fluticasone propionate 50 1 spray intranasal DAILY PRN 05/09/22 03/22/24 mcg/actuation nasal Allergy Symptoms spray,suspension (Flonase Allergy Relief) ketotifen fumarate 0.025 % (0.035 1 drp EACH EYE BID PRN Allergy 05/09/22 03/22/24 %) eye drops (Alaway) Symptoms ferrous sulfate 325 mg (65 mg 325 mg PO QPM 01/09/23 03/22/24 iron) tablet clonidine HCl 0.1 mg tablet 0.1 mg PO PRN PRN Hypertension 03/19/23 03/22/24 aspirin 81 mg tablet,delayed 81 mg PO DAILY 01/27/24 03/22/24 release (Adult Low Dose Aspirin) simvastatin 20 mg tablet 20 mg PO QPM 02/03/24 03/22/24 vibegron 75 mg tablet (Gemtesa) 75 mg PO QPM 02/03/24 03/22/24 carbidopa 25 mg-levodopa 100 mg 25 - 100 tablet PO TID 03/04/24 03/22/24 tablet fludrocortisone 0.1 mg tablet 0.05 mg PO DAILY 03/18/24 03/22/24 tavaborole 5 % topical solution 1 applic topical DAILY 03/18/24 03/22/24 with applicator nitrofurantoin 100 mg PO Q12H 03/22/24 03/22/24 monohydrate/macrocrystals 100 mg capsule Allergies Allergy/AdvReac Type Severity Reaction Status Date / Time cats Allergy Mild Sneezing Uncoded 03/18/24 10:09 mold Allergy Mild Swelling Uncoded 03/18/24 10:09 tree pollen Allergy Mild Sneezing Uncoded 03/18/24 10:09 Review of Systems Review of Systems: All systems reviewed & are unremarkable except as noted in HPI and below PMFSH Past Medical History Medical History Acute stroke due to ischemia Atrial flutter, paroxysmal Benign prostatic hyperplasia with lower urinary tract symptoms Chronic anemia anemia of chronic disease and iron deficiency Chronic kidney disease 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 Code status: Full code. Years smoked: 20 Smoking status: Former smoker Tobacco type: cigarettes Second hand tobacco smoke exposure: No Additional smoking assessment comments: quit 40 years ago Alcohol intake: never Substance use: never Substance use type: does not use Do You Feel Safe in your Home?: Yes Lack of Transportation: No Lack of Food: Never True Current Housing: I Have Housing Concerned About Future Housing: No Difficulty Paying Gas/Electric Bills: No Difficulty Paying for Meds: No Currently Unemployed: No Education: Master's Degree or Higher Difficulty w/ Childcare or Family Care: No Living arrangements: with family Occupation/Education: retired Spiritual care concerns: No Agree to blood products: Yes Exam Const: General: healthy appearing and no acute distress Nutritional Appearance: well nourished Orientation/consciousness: patient oriented x3 Limitations: no limitations Eyes: EOM: EOMs intact bilaterally Resp: Effort & Inspection: normal respiratory effort Auscultation: clear to auscultation bilaterally Cardio: Rate: bradycardic Rhythm: regular rhythm GI: Auscultation: normal bowel sounds Skin: General skin exam: normal color Wounds: no wounds Neuro: General: patient oriented x3, moves all extremities, no focal motor deficits and CN's II-XI intact bilaterally Cranial nerves: Yes Nystagmus not present Speech: normal speech Extrem: General: normal to inspection and no clubbing, cyanosis or edema Psych: Mental Status: mental status grossly normal Affect: normal affect Attitude: cooperative Course Vital Signs Vital signs: Vital Signs Temperature 97.7 F 03/22/24 12:34 Pulse Rate 35 L 03/22/24 12:34 Respiratory Rate 18 03/22/24 12:34 Blood Pressure 140/47 L 03/22/24 12:34 Pulse Oximetry 96 03/22/24 12:34 Oxygen Delivery Room Air 03/22/24 12:34 Temperature 97.7 F 03/22/24 12:34 Pulse Rate 35 L 03/22/24 17:52 Respiratory Rate 16 03/22/24 17:05 Blood Pressure 176/42 H 03/22/24 17:05 Pulse Oximetry 100 03/22/24 17:05 Oxygen Delivery Room Air 03/22/24 12:34 MDM - Arrhythmia/Palpitations MDM Narrative Medical decision making narrative: Pt in 2nd degree block [place] II on ekg rate 33. will check las and get cardiology consult and admit. Pt initially said was DNR but talked with and would like to be rescusitated. Pt willing to have pacer. discussed with Meghan Duque and says will consult . discussed with Dr Murry will not be her for a couple of days but other partners can see pt. Discussed with Xiomara dee and will admit. Pt says he has some discomfort in his bottom, has external hemmorhoids by history, no hemmorhoids noted on exam. will get x ray pelvis to be safe Lab Data 03/22/24 13:09 03/22/24 13:09 Labs: Lab Results 03/22/24 Range/Units 13:09 WBC 6.2 (4.5-10.0) K/mm3 RBC 3.80 L (4.6-6.20) M/mm3 Hgb 10.5 L (14.0-18.0) g/dL Hct 34.5 L (42.0-52.0) % MCV 90.8 (80-100) fl MCH 27.6 (26-34) pg MCHC 30.4 L (32-36) g/dl RDW 23.1 H (11.5-14.5) % Plt Count 277 D (150-375) k/mm3 MPV 9.1 (7.4-10.4) fl Immature Gran % (Auto) 0.3 (0-0.5) % Neut % (Auto) 77.5 H (45.5-73.1) % Lymph % (Auto) 10.6 L (18.3-44.2) % [place] % (Auto) 8.6 H (2.6-8.5) % Eos % (Auto) 2.3 (0-4.4) % Baso % (Auto) 0.7 (0.2-1.2) % Lymph # (Auto) 0.65 L (0.9-3.2) K/mm3 [place] # (Auto) 0.5 (0.1-0.6) K/mm3 Eos # (Auto) 0.1 (0-0.3) K/mm3 Baso # (Auto) 0.0 (0.0-0.1) K/mm3 Abs Immat Gran (auto) 0.02 (0.00-0.031) K/mm3 Absolute Neuts (auto) 4.8 (1.3-6.7) K/mm3 Absolute Nucleated RBC 0.000 (0.0-0.012) K/mm3 Nucleated RBC % 0.0 (0.0-0.2) % Platelet Estimate Adequate (Adequate) Hypochromasia 1+ Anisocytosis 1+ Acanthocytes ([place]) 1+ Schistocytes None seen PT 20.8 H (11.1-14.7) Seconds INR 1.8 APTT 31.6 (22.3-36.8) Seconds Sodium 140 (137-145) mmol/L Potassium 3.8 (3.4-5.0) mmol/L Chloride 106 (98-107) mmol/L Carbon Dioxide 29 (22-30) mmol/L Anion Gap 5 (4-12) mmol/L BUN 36 H (9-20) mg/dL Creatinine 1.20 (0.7-1.3) mg/dL Estim Creat Clear Calc 36 ml/min Estimated GFR 58 L (59 - ) Glucose 97 (65-110) mg/dL Calcium 8.7 (8.4-10.2) mg/dL Total Bilirubin 0.7 (0.2-1.3) mg/dL AST 25 (17-59) U/L ALT 9 (6-50) U/L Alkaline Phosphatase 56 (38-126) U/L Troponin I 0.029 (0.000-0.034) ng/mL Total Protein 7.0 (6.3-8.2) g/dL Albumin 3.8 (3.5-5.1) g/dL Lipase 107 (23-300) U/L Critical Care Time Critical Care Time Critical Care Time: Yes Total Critical Care Time: 35 Discharge Plan Discharge Clinical Impression: Heart block AV second degree Patient Disposition: Still a Patient Condition: Guarded Prognosis
[2024-03-22 13:14] LABS: Basophils Percent Auto 0.7 % (0.2-1.2); Eosinophils Absolute Auto 0.1 K/mm3 (0-0.3); Eosinophils Percent Auto 2.3 % (0-4.4); Hematocrit 34.5 % (42.0-52.0); Hemoglobin 10.5 g/dL (14.0-18.0); Immature Granulocyte Absolute 0.02 K/mm3 (0.00-0.031); Immature Granulocyte Percent A 0.3 % (0-0.5); Lymphocytes Absolute Auto 0.65 K/mm3 (0.9-3.2); Lymphocytes Percent Auto 10.6 % (18.3-44.2); Mean Corpuscular HGB Conc 30.4 g/dl (32-36); Mean Corpuscular Hemoglobin 27.6 pg (26-34); Mean Corpuscular Volume 90.8 fl (80-100); Mean Platelet Volume 9.1 fl (7.4-10.4); Monocytes Absolute Auto 0.5 K/mm3 (0.1-0.6); Monocytes Percent Auto 8.6 % (2.6-8.5); Neutrophils Absolute Auto 4.8 K/mm3 (1.3-6.7); Neutrophils Percent Auto 77.5 % (45.5-73.1); Platelet Count Result 277 k/mm3 (150-375); Red Cell Distribution Width 23.1 % (11.5-14.5); White Blood Count 6.2 K/mm3 (4.5-10.0)
[2024-03-22 13:32] LABS: Alanine Aminotransferase 9 U/L (6-50); Albumin Level 3.8 g/dL (3.5-5.1); Alkaline Phosphatase 56 U/L (38-126); Anion Gap 5 mmol/L (4-12); Aspartate Amino Transferase 25 U/L (17-59); Bilirubin,Total 0.7 mg/dL (0.2-1.3); Blood Urea Nitrogen 36 mg/dL (9-20); Calcium 8.7 mg/dL (8.4-10.2); Carbon Dioxide 29 mmol/L (22-30); Chloride 106 mmol/L (98-107); Estimated CRCL calculation 36 ml/min; Estimated Glomerular Filt Rate 58; Glucose 97 mg/dL (65-110); Lipase 107 U/L (23-300); Potassium 3.8 mmol/L (3.4-5.0); Sodium 140 mmol/L (137-145)
[2024-03-22 13:36] LABS: Anisocytosis 1+; Hypochromasia 1+; Platelet Estimate Adequate (Adequate); Schistocytes None Seen
[2024-03-22 13:37] LABS: Acanthocytes 1+
[2024-03-22 13:44] LABS: Troponin I 0.029 ng/mL (0.000-0.034)
[2024-03-22 14:01] LABS: INR 1.8; Prothrombin Time 20.8 Seconds (11.1-14.7)
[2024-03-22 14:02] LABS: Partial Thromboplastin Time 31.6 Seconds (22.3-36.8)
--- NOTE | 2024-03-22 14:50 | PM.IMHP ---
H&P: HPI History of Present Illness Date/Time: 03/22/24 14:50 Chief Complaint: Weakness, fall. Narrative: This is a pleasant 83-year-old male with history of atrial fibrillation on chronic anticoagulation, hyperlipidemia, Parkinson's disease, orthostatic hypotension with history of syncope, chronic kidney disease, and iron deficiency anemia presented to the emergency department via EMS from home for evaluation of weakness and a fall. The patient provides the following history. This will be the patient's 3rd admission to the hospital since the beginning of January. He was admitted on 02/03/2024 with syncope, rapid atrial fibrillation, and anemia. Syncope may have been related to orthostatic hypotension due to autonomic dysfunction in the setting of Parkinson's. Metoprolol was discontinued and he was started on sotalol per Cardiology with recommendations to follow-up with an electrophysiology specialist. There were no obvious signs of bleeding and he was started back on iron supplementation. Outpatient EGD and colonoscopy on 03/03/2024 showed gastritis, several benign colon polyps, and diverticulosis without abscess or bleeding. He was readmitted to the hospital the following day with orthostatic hypotension, was hydrated, and was discharged 24 hours later. He is back on apixaban and has not noticed any bleeding. In any event today he slipped and fell to the ground and was weak that he had difficulties getting himself up. EMS was summoned and on their arrival his systolic pressure was in the low 100s and his pulse was found to be in the 30s. He denies syncope, chest pain, palpitations, shortness of breath, nausea, vomiting, and sweats. At the time my evaluation his only complaint is that of being tired. In the ED: Vital signs on arrival include a blood pressure of 140/47, pulse surgery 3, respiratory 20, SpO2 100% on room air. Labs were significant for a stable hemoglobin of 10.5, INR 1.8, BUN 36, creatinine 1.20, estimated GFR 58, troponin 0.029. EKG showed sinus bradycardia with second-degree AV block and right bundle-branch block. ED physician spoke with Cardiology who recommends admission to IMU. Review of Systems Review of Systems: 12 systems were reviewed and are negative except for as per HPI. [facility] [place] Past Medical History Medical History Acute stroke due to ischemia Atrial flutter, paroxysmal Benign prostatic hyperplasia with lower urinary tract symptoms Chronic anemia anemia of chronic disease and iron deficiency Chronic kidney disease Hypertension halfway (current) use of anticoagulants Occlusion and stenosis of bilateral carotid arteries Overactive bladder Parkinson's disease Paroxysmal atrial fibrillation Prostate cancer status post radiation and seed implantation Secondary renal hyperparathyroidism Vasomotor rhinitis Vitamin D deficiency Surgical History Surgical History History of bilateral cataract extraction History of tonsillectomy History of transcarotid artery revascularization (TCAR) (04/2021) left Family History Family History Father Heart disease Sibling Cancer Social History Social History (Updated 03/22/24 @ 21:38 by Xiomara Kathleen PA-C) Social History: Surrogate medical decision maker: Arielle Terry, spouse. Code status: Full code. Years smoked: 20 Smoking status: Former smoker Tobacco type: cigarettes Second hand tobacco smoke exposure: No Additional smoking assessment comments: quit 40 years ago Alcohol intake: never Substance use: never Substance use type: does not use Do You Feel Safe in your Home?: Yes Lack of Transportation: No Lack of Food: Never True Current Housing: I Have Housing Concerned About Future Housing: No Difficulty Paying Gas/Electric Bills: No Difficulty Paying for Meds: No Currently Unemployed: No Education: Master's Degree or Higher Difficulty w/ Childcare or Family Care: No Living arrangements: with family Additional living arrangements comments: Lives with spouse in [place]. 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 Spiritual care concerns: No Agree to blood products: Yes Meds Home Medications and Allergies Home Medications Medication Instructions Recorded Confirmed Type apixaban 5 mg tablet (Eliquis) 5 mg PO Q12H 05/14/21 03/22/24 History cholecalciferol (vitamin D3) 25 25 mcg PO DAILY 05/09/22 03/22/24 History mcg (1,000 unit) capsule fluticasone propionate 50 1 spray intranasal DAILY PRN 05/09/22 03/22/24 History mcg/actuation nasal Allergy Symptoms spray,suspension (Flonase Allergy Relief) ketotifen fumarate 0.025 % (0.035 1 drp EACH EYE BID PRN Allergy 05/09/22 03/22/24 History %) eye drops ([place]) Symptoms ferrous sulfate 325 mg (65 mg 325 mg PO QPM 01/09/23 03/22/24 History iron) tablet clonidine HCl 0.1 mg tablet 0.1 mg PO PRN PRN Hypertension 03/19/23 03/22/24 History aspirin 81 mg tablet,delayed 81 mg PO DAILY 01/27/24 03/22/24 History release (Adult Low Dose Aspirin) simvastatin 20 mg tablet 20 mg PO QPM 02/03/24 03/22/24 History vibegron 75 mg tablet (Gemtesa) 75 mg PO QPM 02/03/24 03/22/24 History sotalol 80 mg tablet 80 mg PO Q12HR #90 tabs 02/08/24 03/22/24 Rx carbidopa 25 mg-levodopa 100 mg 25 - 100 tablet PO TID 03/04/24 03/22/24 History tablet fludrocortisone 0.1 mg tablet 0.05 mg PO DAILY 03/18/24 03/22/24 History tavaborole 5 % topical solution 1 applic topical DAILY 03/18/24 03/22/24 History with applicator nitrofurantoin 100 mg PO Q12H 03/22/24 03/22/24 History monohydrate/macrocrystals 100 mg capsule Allergies Allergy/AdvReac Type Severity Reaction Status Date / Time cats Allergy Mild Sneezing Uncoded 03/18/24 10:09 mold Allergy Mild Swelling Uncoded 03/18/24 10:09 tree pollen Allergy Mild Sneezing Uncoded 03/18/24 10:09 Vital Signs Vital Signs - 24 hr 03/22/24 12:34 03/22/24 12:55 03/22/24 13:32 Temperature 97.7 F Pulse Rate 35 L 33 L 33 L Respiratory Rate 18 20 19 Blood Pressure 140/47 L 140/47 L 139/46 L Pulse Oximetry 96 100 98 Oxygen Delivery Room Air 03/22/24 13:46 03/22/24 14:01 Temperature Pulse Rate 34 L 34 L Respiratory Rate 17 18 Blood Pressure 150/46 H 148/51 H Pulse Oximetry 100 100 Oxygen Delivery Exam Narrative: General: Chronically ill-appearing elderly gentleman supine in bed in no acute distress. Weight: 58.7 kg. BMI: 17.6. HEENT: PERRL, EOMI. Sclera anicteric. Oral mucosa moist. Oropharynx clear. Neck: Supple. No JVD. Respiratory: Lungs are clear to auscultation bilaterally. Cardiovascular: Bradycardic. Gastrointestinal: Abdomen is soft, nontender, and nondistended with positive bowel sounds. Skin: Warm and dry. Generalized pallor. Bruising over the right medial elbow. Extremities: No cyanosis, clubbing, or edema. Radial and pedal pulses intact. Neurological: Alert. Cranial nerves 2-12 are grossly intact. No gross focal deficits to casual conversation. Psychiatric: Pleasant and cooperative with normal mood and affect. Judgment and insight intact. H&P: Results Labs Labs: Short CBC 03/22/24 Range/Units 13:09 WBC 6.2 (4.5-10.0) K/mm3 Hgb 10.5 L (14.0-18.0) g/dL Hct 34.5 L (42.0-52.0) % Plt Count 277 D (150-375) k/mm3 BMP 03/22/24 13:09 Sodium 140 Potassium 3.8 Chloride 106 Carbon Dioxide 29 BUN 36 H Creatinine 1.20 Glucose 97 Calcium 8.7 Cardiac Enzymes 03/22/24 Range/Units 13:09 Troponin I 0.029 (0.000-0.034) ng/mL Liver Function 03/22/24 Range/Units 13:09 Total Bilirubin 0.7 (0.2-1.3) mg/dL AST 25 (17-59) U/L ALT 9 (6-50) U/L Alkaline Phosphatase 56 (38-126) U/L Albumin 3.8 (3.5-5.1) g/dL Imaging Pelvis X-Ray 03/22/24 15:24 IMPRESSION: 1. No acute osseous finding in the pelvis. 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 Labs, imaging, EKG, and all reports were personally reviewed. Blood pressures have been stable however he is bradycardic with evidence of second-degree heart block Mobitz type 2. Within the past month or so he was transitioned from metoprolol to sotalol due to rapid atrial fibrillation and flutter. Hold sotalol for now. Cardiology has been consulted for recommendations. Initiate fall precautions. His labs are stable on review of previous labs. Home medications will be reviewed and resumed as appropriate. Findings and treatment plan were discussed with the patient. Questions were solicited and answered to satisfaction. The patient's medical management will be taken over by the hospitalist team in a.m. Quality VTE Prophylaxis VTE prophylaxis: mechanical ordered If No VTE Prophylaxis Answer both mechanical and pharmacologic: Reason no pharmacologic proph: medical contraindication (may need pacemaker) The patient has been admitted under observation status. Hospitalist [facility] Advance Care Plan I have confirmed that the patient's Advanced Care Plan is present, code status is documented, or surrogate decision maker is listed in patient medical record.: Yes Medication Reconciliation I have utilized all available resources to obtain, update and review the patients current medications (includes all prescriptions, OTC, herbals, cannabis, and nutritional supplements).: Yes
[2024-03-22] MEDS: HYDROcodone/acetaminophen (*CRX) 5-325 MG TABLET 1 TAB PO (15:14)
--- NOTE | 2024-03-22 15:56 | ECG_ITS ---
Test Date: 2024-03-22 16:11:26 Measurements Intervals [place] Rate: 35 P: 0 [place]: 0 QRS: 27 QRSD: 139 T: 17 QT: 577 QTc: 442 Interpretive Statements SINUS BRADYCARDIA WITH 2ND DEGREE AV BLOCK, 2:1 OR MOBITZ TYPE II RIGHT BUNDLE BRANCH BLOCK BASELINE ARTIFACT- I, II, III, AVR, AVL, AVF, V1-V6 ABNORMAL ECG Compared to ECG 03/22/2024 12:45:09 NO SIGNIFICANT CHANGE Electronically Signed On 03-22-2024 16:16:28 DISPATCH SUPERVISOR by Nick Avelar D.O.
[2024-03-22 16:41] LABS: Troponin I 0.022 ng/mL (0.000-0.034)
[2024-03-22 18:37] LABS: Troponin I 0.025 ng/mL (0.000-0.034)
[2024-03-22 22:05] LABS: Troponin I 0.041 ng/mL (0.000-0.034)
[2024-03-22] MEDS: ATROPINE SULFATE 1 MG/10 ML SYRINGE IV PUSH (22:19)
[2024-03-22] MEDS: DOPamine 400 MG/D5W 250 ML 400 MG/250 ML BAG 22.01 MG IV CONT (22:30)
[2024-03-22] MEDS: EPINEPHrine INJ 1 MG/10 ML SYRINGE IV PUSH (22:40)
--- NOTE | 2024-03-22 23:03 | PC.NURSE ---
This patient, Jose Maria Terry, was received from [IMU room 232 ] on 03/22/24 at 2228. Patient/family oriented to unit policies and routines
--- NOTE | 2024-03-22 23:04 | PC.NURSE ---
at bedside. Updated to pt's condition per STACI Sam. Desires pt to remain a full code.
--- NOTE | 2024-03-22 23:21 | PC.NURSE ---
Pt's removed yellow band from left ring finger and will take ring home.
[2024-03-22 23:27] LABS: Alveolar/Arterial O2 Gradient 27.6 mmHg; Base Excess ABG -2.5 mEq/l (+/-2.0); Carboxyhemoglobin 0.6 % THb (0-2.0); Fractional Inspired Oxygen 21 %; HCO3 ABG 21.5 mEq/l (22.0-26.0); Methemoglobin ABG 0.3 %THb (0-1.5); Oxygen Saturation ABG 96.2 % (95.0-100.0); Oxyhemoglobin 94.9 % THb (90.0-100.0); PCO2 ABG 34.3 mmHg (35.0-45.0); PO2 ABG 81.1 mmHg (80.0-100.0); PO2 FiO2 Ratio Arterial Blood 3.86 %; Reduced Hemoglobin 4.2 %THb (0-5.0); Total Hemoglobin 10.4 g/dL (12.0-18.0); pH ABG 7.416 (7.350-7.450)
[2024-03-22 23:28] LABS: Device ROOM AIR; Modified Allen's Test Pass; Site Drawn RIGHT RADIAL
[2024-03-22 23:29] LABS: IFOB Positive Control Positive; Immunochemical Fecal Occult Bl Positive (N)
[2024-03-22 23:30] LABS: Hematocrit 32.6 % (42.0-52.0); Hemoglobin 9.8 g/dL (14.0-18.0); Mean Corpuscular HGB Conc 30.1 g/dl (32-36); Mean Corpuscular Volume 93.1 fl (80-100); Mean Platelet Volume 9.2 fl (7.4-10.4); Platelet Count Result 280 k/mm3 (150-375); Red Cell Distribution Width 23.4 % (11.5-14.5); White Blood Count 6.8 K/mm3 (4.5-10.0)
[2024-03-22 23:40] LABS: Alanine Aminotransferase 18 U/L (6-50); Albumin Level 3.5 g/dL (3.5-5.1); Alkaline Phosphatase 60 U/L (38-126); Anion Gap 6 mmol/L (4-12); Aspartate Amino Transferase 34 U/L (17-59); Bilirubin,Total 0.7 mg/dL (0.2-1.3); Blood Urea Nitrogen 42 mg/dL (9-20); Calcium 8.5 mg/dL (8.4-10.2); Carbon Dioxide 24 mmol/L (22-30); Chloride 107 mmol/L (98-107); Estimated CRCL calculation 27 ml/min; Estimated Glomerular Filt Rate 44; Glucose 122 mg/dL (65-110); Magnesium 2.5 mg/dL (1.6-2.3); Potassium 4.3 mmol/L (3.4-5.0); Sodium 137 mmol/L (137-145)
[2024-03-22 23:46] LABS: Partial Thromboplastin Time 29.7 Seconds (22.3-36.8)
[2024-03-22 23:47] LABS: Fibrinogen 231 mg/dl (215-510)
--- NOTE | 2024-03-22 23:47 | PC.NURSE ---
2221: this RN transferred pt to ICU 11 by bed. Bedside report given to Kaykay PEÑA. 2232: Miller RN called and left a message 2237: this RN called Dr. Menchaca per Xiomara with update on patient. Dr. Menchaca called Xiomara directly. 2238: this RN called pt's with status update and advised to come to bedside per Xiomara. confirmed pt's code status as full code and wanted intubation if needed.
[2024-03-22 23:48] LABS: INR 1.8; Prothrombin Time 20.9 Seconds (11.1-14.7)
[2024-03-22] MEDS: GLUCAGON FOR INJ 1 MG VIAL 10 MG IV PUSH (23:53)
[2024-03-22] MEDS: NOREPINEPHRINE 8 MG/D5W 250 ML 8 MG/250 ML BAG 18.75 MG IV CONT (23:55)
[2024-03-22 23:56] LABS: Troponin I 0.043 ng/mL (0.000-0.034)
[2024-03-22] MEDS: GLUCAGON FOR INJ 10 MG in DEXTROSE 5% 100 ML 40 MG IV CONT (23:56)
--- NOTE | 2024-03-22 23:59 | P.PCNBED_ITS ---
Procedures Central Line Placement Left Femoral: Central Line Date: 03/22/24 Central Line Time: 23:30 Discussed w/ the patient/family/POA,the placement of a central venous catheter, including its clinical necessity/indication & associated potential risks, benifits and alternatives.: Yes The patient/family/POA understand(s) and acknowledge(s) the need to proceed with central venous catheter insertion as an important element of the patient's clinical management.: Yes Consent: I have discussed with the patient and/or surrogate, the non-emergent placement of a central venous catheter, including its clinical necessity/indication and associated potential risks and complications. The patient and/or surrogate understand(s) and acknowledge(s) the need to proceed with central venous catheter insertion as an important element of the patient's clinical management. Time Out Performed: Yes Patient Position: supine Patient placed on monitor/pulse ox: Yes Provider Prep: mask, sterile gown, sterile gloves, Max. sterile barrier precautions, cap and hand hygiene with conventional soap/water or alcohol based hand rub Central line prep: 2% Chlorhexidine scrub Local anesthesia used: lidocaine 1% Amount of anesthesia used (ml): 5 Sterile US Technique with sterile gel/sterile probe covers: Yes Central line lumen inserted: triple Surinamese: 7 Length (cm): 20 Post Procedure: sutured in place, good blood return, all ports aspirated, flushed, capped, transparent dressing and aseptic technique maintained throughout procedure Post procedure x-ray: other ( n/a with femoral placement) Complications: none
[2024-03-23] VITALS (35 sets, daily range): BP systolic 100–163; BP diastolic 50–98; PULSE 58–81; RESP 14–22; TEMP 36.4–37.1; O2SAT 96–100; BMI 18.5
[2024-03-23 00:03] LABS: D Dimer 0.36 ug/mL (<0.48)
--- NOTE | 2024-03-23 00:32 | PM.CCN ---
Critical Care Event Note Summary Code activated: No Narrative: Date of encounter: 03/23/2024 I received a call from the patient's nurse that his heart rate was dropping into the 20s and he seemed less responsive. Patient is less responsive than when I saw him last. He is slightly hard of hearing and would not respond to voice. He did withdraw to pain. Radial pulse palpable at about 20 beats per minute. Respirations were nonlabored with an SpO2 in the upper 90s on room air. Abdomen nontender. Patient was noted to have a maroon-colored stool. He was transferred immediately to the ICU. Generalized pallor. Capillary refill approximately 3 to 4 seconds. Extremities slightly cool. is at bedside and he will occasionally say a word or 2 to her. No facial asymmetry. Pupils are reactive. Extraocular motions appear to be intact. He withdraws to stimuli in all extremities. Atropine 1 mg administered with brief improvement in his heart rate into the 40s. He was then started on peripheral dopamine at 5 mics which was titrated up to 15 mics without much improvement. Currently being transcutaneously with a rate of 60 at 90 mA. Blood pressures deteriorated, central line was inserted, and he is currently on norepinephrine at 11 mics. Case was discussed with vulcan crewmember Dr. Diggs and cardiac interventionalist Dr. Chance. Dr. Chance recommends giving glucagon bolus and starting glucagon drip for possible beta-corina overdose as he was recently started on sotalol. If he remains hemodynamically stable overnight plans will be for pacemaker implantation tomorrow however may need to be done on a more urgent basis. Trend hemoglobin and hematocrit. Apixaban and aspirin remain on hold. This case had a high probability of a clinically significant, sudden, or life threatening deterioration of this patient's condition which required my full and direct attention, intervention and personal management. Critical care time: 30 - 74 mins
[2024-03-23 01:04] LABS: Free T4 Free Thyroxine Reflex 1.77 ng/dL (0.78-2.19)
[2024-03-23] MEDS: SODIUM CHLORIDE 0.9% IV 1,000 ML 80 ML IV CONT ×2 (01:12→17:03)
[2024-03-23 01:52] LABS: Total Triiodothyronine (T3) 0.99 NG/ML (0.97-1.69)
[2024-03-23 04:42] LABS: Basophils Percent Auto 0.3 % (0.2-1.2); Eosinophils Percent Auto 0.2 % (0-4.4); Hematocrit 32.7 % (42.0-52.0); Hemoglobin 10.2 g/dL (14.0-18.0); Immature Granulocyte Absolute 0.05 K/mm3 (0.00-0.031); Immature Granulocyte Percent A 0.5 % (0-0.5); Lymphocytes Absolute Auto 0.84 K/mm3 (0.9-3.2); Lymphocytes Percent Auto 7.7 % (18.3-44.2); Mean Corpuscular HGB Conc 31.2 g/dl (32-36); Mean Corpuscular Hemoglobin 27.9 pg (26-34); Mean Corpuscular Volume 89.3 fl (80-100); Monocytes Absolute Auto 1.6 K/mm3 (0.1-0.6); Monocytes Percent Auto 14.8 % (2.6-8.5); Neutrophils Absolute Auto 8.4 K/mm3 (1.3-6.7); Neutrophils Percent Auto 76.5 % (45.5-73.1); Platelet Count Result 261 k/mm3 (150-375); Red Blood Count 3.66 M/mm3 (4.6-6.20)
[2024-03-23 04:54] LABS: Anion Gap 9 mmol/L (4-12); Blood Urea Nitrogen 46 mg/dL (9-20); Calcium 8.9 mg/dL (8.4-10.2); Carbon Dioxide 25 mmol/L (22-30); Chloride 105 mmol/L (98-107); Estimated CRCL calculation 27 ml/min; Estimated Glomerular Filt Rate 41; Glucose 122 mg/dL (65-110); Magnesium 2.6 mg/dL (1.6-2.3); Potassium 4.5 mmol/L (3.4-5.0); Sodium 139 mmol/L (137-145)
[2024-03-23 04:56] LABS: INR 1.8; Prothrombin Time 20.8 Seconds (11.1-14.7)
[2024-03-23 05:03] LABS: Anisocytosis 1+; Large Platelets Present; Ovalocytes 1+; Platelet Estimate Adequate (Adequate)
[2024-03-23 05:04] LABS: Burr Cells 1+; Schistocytes Rare
[2024-03-23] MEDS: CENTRAL LINE FLUSH 10 ML IV PUSH ×3 (05:30→20:49)
--- NOTE | 2024-03-23 05:30 | PC.NURSE ---
Pacer pads changed. mA decreased due to better connectivity.
[2024-03-23] MEDS: DOPamine 400 MG/D5W 250 ML 400 MG/250 ML BAG 33.02 MG IV CONT (06:21)
[2024-03-23] MEDS: LACTATED RINGERS 500 ML IV CONT (08:39)
[2024-03-23 09:00] LABS: Lactic Acid Reflex 2.9 mmol/L (0.7-2.0)
--- NOTE | 2024-03-23 09:25 | WPDCNINT ---
Assessment and Plan Assessment and plan (1) Shock: Code(s): R57.9 - Shock, unspecified Status: Acute Assessment and Plan: Hemodynamic instability leading to shock secondary to high-degree AV block, questionable infection -central line was inserted overnight -continue dopamine and Levophed maintain mean arterial pressure > 65 mmHg for adequate end organ perfusion -lactic acid 2.9 this morning -will give IV fluid bolus 500 mL IV x1 and will repeat -continue maintenance IV fluids -03/03: Obtain blood and urine culture -started patient on a empiric ceftriaxone and vancomycin (03/23) -will obtain UA and chest x-ray 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, likely related to sotalol -currently currently being transcutaneously paced, -patient hemodynamically unstable requiring norepinephrine and dopamine -has received glucagon IV push and drip -discussed with Cardiology, likely require transvenous pacing (3) Bradycardia: Code(s): R00.1 - Bradycardia, unspecified Status: Acute Assessment and Plan: Symptomatic bradycardia likely related av block secondary to sotalol -treatment as above (4) Fall from ground level: Code(s): W18.30XA - Fall on same level, unspecified, initial encounter Status: Acute Assessment and Plan: Most likely related to bradycardia and AV block (5) Chronic anemia: Code(s): D64.9 - Anemia, unspecified Status: Acute Assessment and Plan: History of chronic iron deficiency anemia, patient is on iron supplements at home. Recent colonoscopy as under -patient did have a maroon stool last night per hospitalist note -hemoglobin has been stable -continue to monitor for now -start Protonix IV q.12 hours 03/03/2024: Colonoscopy was done for iron deficiency anemia, showed cecal polyp, transverse colon polyps, ascending colon polyps, diverticulosis without perforation or abscess without bleeding. (6) Chronic kidney disease: Code(s): N18.9 - Chronic kidney disease, unspecified Status: Acute Assessment and Plan: Creatinine 1.60 this admission, (baseline creatinine is 1.10-1.30) -continue maintenance IV fluid -will give 500 mL bolus of LR x1 -will check urine lytes, urine eosinophils, CK level since patient had a fall -monitor urine output, renal function electrolytes Plan DVT prophylaxis: SCDs Stress ulcer prophylaxis: Protonix Nutrition: NPO for now Code Status: Full code Critical Care Time Spent: [address] Menchaca, stated patient may require a transvenous pacemaker -discussed with patient's spouse at bedside updated with patient's condition and plan of care. I answered all questions. She is aware that patient may require transvenous pacemaker once Cardiology evaluates the patient Due to a high probability of clinically significant, life threatening deterioration, the patient required my highest level of preparedness to intervene emergently and I personally spent this critical care time directly and personally managing the patient. This critical care time included obtaining a history; examining the patient; pulse oximetry; ordering and review of studies; arranging urgent treatment with development of a management plan; evaluation of patient's response to treatment; frequent reassessment; and discussions with other providers. It was exclusive of separately billable procedures and treating other patients and teaching time. Please see Assessment and Plan section and the rest of the note for further information on patient assessment and treatment This dictation may have been done utilizing a voice recognition system. Attempts have been made to correct errors. However, there may be uncorrected grammatical, spelling, and recognitions errors present. 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 Consult date: 03/23/24 Reason for consult: High degree AV block, bradycardia, fall HPI: Jose Maria Terry is a 83 year old male with significant past medical history of CVA, paroxysmal atrial flutter/fibrillation on anticoagulation, BPH, chronic iron deficiency anemia, CKD, essential hypertension, overactive bladder, Parkinson's disease, history of prostate cancer status post radiation and seed implantation, hyperparathyroidism presented the ED on 03/22/2024 after he had a fall and had difficulty getting himself up, EMS was called and upon their arrival his systolic blood pressures were in the low 100s and his pulse was in the 30s and patient was brought to the ED. patient was admitted to the intermediate Unit, rapid response was called patient's heart rate was in the 20s, less responsive and hypotensive. Patient was also had a maroon-colored stool and was transferred to the ICU for further management. In the ICU patient would administered atropine, peripheral dopamine was started, patient was transcutaneously paced, central line was inserted and patient was started on norepinephrine. Medical Record Assistant was aware, recommended glucagon and glucagon drip as patient was recently started on sotalol. Apixaban aspirin were held. 03/03/2024: Colonoscopy was done for iron deficiency anemia, showed cecal polyp, transverse colon polyps, ascending colon polyps, diverticulosis without perforation or abscess without bleeding. Patient seen and examined the ICU this morning, is awake, able to answer few questions but is confused. Upon further questioning with the who is at bedside, she stated that the patient has been confused since his colonoscopy on 03/03/2024. He is able to walk and take care of himself. Patient is currently being paced with transcutaneous pacer, remains on dopamine and Levophed infusion urine output has been low, lactic acid of 2.9. 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 Occlusion and stenosis of bilateral carotid arteries Overactive bladder Parkinson's disease Paroxysmal atrial fibrillation Prostate cancer status post radiation and seed implantation Secondary renal hyperparathyroidism Vasomotor rhinitis Vitamin D deficiency Surgical History Surgical History History of bilateral cataract extraction History of tonsillectomy History of transcarotid artery revascularization (TCAR) (04/2021) left Family History Family History Father Heart disease Sibling Cancer Social History Social History (Updated 03/22/24 @ 21:38 by Xiomara Kathleen PA-C) Social History: Surrogate medical decision maker: Arielle Terry, spouse. Code status: Full code. Years smoked: 20 Smoking status: Former smoker Tobacco type: cigarettes Second hand tobacco smoke exposure: No Additional smoking assessment comments: quit 40 years ago Alcohol intake: never Substance use: never Substance use type: does not use Do You Feel Safe in your Home?: Yes Lack of Transportation: No Lack of Food: Never True Current Housing: I Have Housing Concerned About Future Housing: No Difficulty Paying Gas/Electric Bills: No Difficulty Paying for Meds: No Currently Unemployed: No Education: Master's Degree or Higher Difficulty w/ Childcare or Family Care: No Living arrangements: with family Additional living arrangements comments: Lives with spouse in [place]. 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 Spiritual care concerns: No Agree to blood products: Yes Meds Home Medications and Allergies Home Medications Medication Instructions Recorded Confirmed Type apixaban 5 mg tablet (Eliquis) 5 mg PO Q12H 05/14/21 03/22/24 History cholecalciferol (vitamin D3) 25 25 mcg PO DAILY 05/09/22 03/22/24 History mcg (1,000 unit) capsule fluticasone propionate 50 1 spray intranasal DAILY PRN 05/09/22 03/22/24 History mcg/actuation nasal Allergy Symptoms spray,suspension (Flonase Allergy Relief) ketotifen fumarate 0.025 % (0.035 1 drp EACH EYE BID PRN Allergy 05/09/22 03/22/24 History %) eye drops ([place]) Symptoms ferrous sulfate 325 mg (65 mg 325 mg PO QPM 01/09/23 03/22/24 History iron) tablet clonidine HCl 0.1 mg tablet 0.1 mg PO PRN PRN Hypertension 03/19/23 03/22/24 History aspirin 81 mg tablet,delayed 81 mg PO DAILY 01/27/24 03/22/24 History release (Adult Low Dose Aspirin) simvastatin 20 mg tablet 20 mg PO QPM 02/03/24 03/22/24 History vibegron 75 mg tablet (Gemtesa) 75 mg PO QPM 02/03/24 03/22/24 History sotalol 80 mg tablet 80 mg PO Q12HR #90 tabs 02/08/24 03/22/24 Rx carbidopa 25 mg-levodopa 100 mg 25 - 100 tablet PO TID 03/04/24 03/22/24 History tablet fludrocortisone 0.1 mg tablet 0.05 mg PO DAILY 03/18/24 03/22/24 History tavaborole 5 % topical solution 1 applic topical DAILY 03/18/24 03/22/24 History with applicator nitrofurantoin 100 mg PO Q12H 03/22/24 03/22/24 History monohydrate/macrocrystals 100 mg capsule Allergies Allergy/AdvReac Type Severity Reaction Status Date / Time cats Allergy Mild Sneezing Uncoded 03/18/24 10:09 mold Allergy Mild Swelling Uncoded 03/18/24 10:09 tree pollen Allergy Mild Sneezing Uncoded 03/18/24 10:09 Vital Signs Vital Signs - 24 hr 03/22/24 12:34 03/22/24 12:55 03/22/24 13:32 Temperature 97.7 F Pulse Rate 35 L 33 L 33 L Respiratory Rate 18 20 19 Blood Pressure 140/47 L 140/47 L 139/46 L Pulse Oximetry 96 100 98 Oxygen Delivery Room Air Oxygen Flow Rate 03/22/24 13:46 03/22/24 14:01 03/22/24 14:30 Temperature Pulse Rate 34 L 34 L 36 L Respiratory Rate 17 18 18 Blood Pressure 150/46 H 148/51 H 165/52 H Pulse Oximetry 100 100 100 Oxygen Delivery Oxygen Flow Rate 03/22/24 15:31 03/22/24 16:32 03/22/24 16:55 Temperature Pulse Rate 34 L 36 L 36 L Respiratory Rate 17 17 16 Blood Pressure 166/49 H 181/51 H 175/65 H Pulse Oximetry 100 100 97 Oxygen Delivery Oxygen Flow Rate 03/22/24 17:52 03/22/24 17:05 03/22/24 20:00 Temperature 97.7 F Pulse Rate 35 L 37 L 26 L Respiratory Rate 16 18 Blood Pressure 176/42 H 118/62 Pulse Oximetry 100 100 Oxygen Delivery Oxygen Flow Rate 03/22/24 19:55 03/22/24 22:30 03/22/24 22:44 Temperature Pulse Rate 24 L 66 Respiratory Rate Blood Pressure 122/62 234/91 H Pulse Oximetry Oxygen Delivery Oxygen Flow Rate 03/22/24 22:47 03/22/24 23:06 03/22/24 23:15 Temperature Pulse Rate 61 62 65 Respiratory Rate Blood Pressure 222/77 H 107/40 L Pulse Oximetry Oxygen Delivery Oxygen Flow Rate 03/22/24 23:27 03/22/24 23:31 03/22/24 20:00 Temperature Pulse Rate 60 65 Respiratory Rate Blood Pressure 90/35 L 90/38 L Pulse Oximetry 97 Oxygen Delivery Room Air Oxygen Flow Rate 03/22/24 20:00 03/22/24 22:00 03/22/24 22:16 Temperature Pulse Rate 24 L 26 L 19 L Respiratory Rate Blood Pressure Pulse Oximetry Oxygen Delivery Oxygen Flow Rate 03/22/24 22:16 03/22/24 23:47 03/22/24 23:55 Temperature Pulse Rate 19 L 61 60 Respiratory Rate Blood Pressure 68/40 L 68/40 L Pulse Oximetry Oxygen Delivery Oxygen Flow Rate 03/22/24 23:59 03/22/24 22:30 03/23/24 00:04 Temperature 97.9 F Pulse Rate 61 21 L 67 Respiratory Rate 18 20 Blood Pressure 76/50 L 122/60 Pulse Oximetry 99 Oxygen Delivery Oxygen Flow Rate 03/23/24 00:15 03/23/24 00:43 03/23/24 00:44 Temperature Pulse Rate 72 73 72 Respiratory Rate Blood Pressure 142/58 H 150/70 H 150/70 H Pulse Oximetry Oxygen Delivery Oxygen Flow Rate 03/23/24 00:00 03/23/24 01:15 03/23/24 01:15 Temperature Pulse Rate 69 68 72 Respiratory Rate Blood Pressure 158/59 H 158/59 H Pulse Oximetry Oxygen Delivery Oxygen Flow Rate 03/23/24 00:00 03/23/24 02:00 03/23/24 02:04 Temperature Pulse Rate 70 60 Respiratory Rate 17 Blood Pressure 157/59 H Pulse Oximetry 98 Oxygen Delivery Room Air Oxygen Flow Rate 03/23/24 02:30 03/23/24 02:30 03/23/24 03:21 Temperature Pulse Rate 60 60 60 Respiratory Rate Blood Pressure 157/59 H 157/59 H 146/98 H Pulse Oximetry Oxygen Delivery Oxygen Flow Rate 03/23/24 03:58 03/23/24 03:59 03/23/24 04:00 Temperature 97.8 F Pulse Rate 58 L 58 L 58 L Respiratory Rate 18 Blood Pressure 100/60 100/60 100/60 Pulse Oximetry 99 Oxygen Delivery Oxygen Flow Rate 03/23/24 04:00 03/23/24 04:25 03/23/24 04:33 Temperature Pulse Rate 60 61 Respiratory Rate 20 Blood Pressure 102/50 L 124/60 Pulse Oximetry 97 Oxygen Delivery Room Air Oxygen Flow Rate 03/23/24 04:48 03/23/24 04:00 03/23/24 05:28 Temperature Pulse Rate 58 L 60 62 Respiratory Rate Blood Pressure 160/60 H 132/64 Pulse Oximetry Oxygen Delivery Oxygen Flow Rate 03/23/24 06:00 03/23/24 06:09 03/23/24 06:00 Temperature Pulse Rate 58 L 58 L 60 Respiratory Rate Blood Pressure 132/60 132/60 Pulse Oximetry Oxygen Delivery Oxygen Flow Rate 03/23/24 06:00 03/23/24 06:00 03/23/24 06:21 Temperature Pulse Rate 60 69 Respiratory Rate 14 Blood Pressure 132/60 111/96 H Pulse Oximetry 100 100 Oxygen Delivery Nasal Cannula Oxygen Flow Rate 2 03/23/24 06:21 03/23/24 06:42 03/23/24 07:03 Temperature Pulse Rate 69 69 65 Respiratory Rate Blood Pressure 111/96 H 150/58 H 154/60 H Pulse Oximetry Oxygen Delivery Oxygen Flow Rate 03/23/24 07:15 03/23/24 08:01 03/23/24 08:01 Temperature Pulse Rate 68 67 67 Respiratory Rate Blood Pressure 143/61 H 118/97 H 118/97 H Pulse Oximetry Oxygen Delivery Oxygen Flow Rate 03/23/24 08:00 03/23/24 08:00 03/23/24 08:00 Temperature 98.2 F Pulse Rate 64 68 Respiratory Rate 20 Blood Pressure 118/97 H Pulse Oximetry 98 99 Oxygen Delivery Nasal Cannula Oxygen Flow Rate 2 Exam Narrative: General: Elderly gentleman currently in no acute distress HEENT:? Pupils equal and reactive, sclera is clear, dry oral mucosa Neck:? Supple Respiratory:? Clear to auscultation bilaterally, decreased at bases Cardiac:? Irregular rhythm Abdomen:? Soft, nontender, nondistended, hypoactive bowel sounds Extremities:? palpable pedal pulses, no edema Neuro:? Patient is awake, not oriented, able to answer few questions and follows commands Skin:? Mottling noted on the knees bilaterally Psych:? Confused Results Labs 03/23/24 04:30 03/23/24 04:30 Labs: Short CBC 03/22/24 03/22/24 03/23/24 Range/Units 13:09 23:24 04:30 WBC 6.2 6.8 11.0 H (4.5-10.0) K/mm3 Hgb 10.5 L 9.8 L 10.2 L (14.0-18.0) g/dL Hct 34.5 L 32.6 L 32.7 L (42.0-52.0) % Plt Count 277 D 280 261 (150-375) k/mm3 BMP 03/22/24 03/22/24 03/23/24 13:09 23:24 04:30 Sodium 140 137 139 Potassium 3.8 4.3 4.5 Chloride 106 107 105 Carbon Dioxide 29 24 25 BUN 36 H 42 H 46 H Creatinine 1.20 1.50 H 1.60 H Glucose 97 122 H 122 H Calcium 8.7 8.5 8.9 Cardiac Enzymes 03/22/24 03/22/24 03/22/24 Range/Units 13:09 16:00 18:08 Troponin I 0.029 0.022 D 0.025 (0.000-0.034) ng/mL 03/22/24 03/22/24 Range/Units 21:30 23:24 Troponin I 0.041 H* D 0.043 H* (0.000-0.034) ng/mL Liver Function 03/22/24 03/22/24 Range/Units 13:09 23:24 Total Bilirubin 0.7 0.7 (0.2-1.3) mg/dL AST 25 34 (17-59) U/L ALT 9 18 (6-50) U/L Alkaline Phosphatase 56 60 (38-126) U/L Albumin 3.8 3.5 (3.5-5.1) g/dL Hospitalist MIPS Advance Care Plan I have confirmed that the patient's Advanced Care Plan is present, code status is documented, or surrogate decision maker is listed in patient medical record.: Yes Medication Reconciliation I have utilized all available resources to obtain, update and review the patients current medications (includes all prescriptions, OTC, herbals, cannabis, and nutritional supplements).: Yes
[2024-03-23 10:22] LABS: Creatine Kinase 38 U/L (55-170)
--- NOTE | 2024-03-23 10:41 | PC.NURSE ---
pt transported to labor trainer via bed with 2 labor trainer RN's; levophed and dopamine drips infusing, transcutaneous pacer still intact and pacing
--- NOTE | 2024-03-23 11:35 | P.CONCA_ITS ---
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 Discontinue Sotalol. Avoid other AV johanne blocking agents. Tentatively plan for permanent pacemaker on Friday with Dr. Murry. Last dose of Eliquis 03/22 AM. Hold Eliquis in preparation for permanent pacemaker. (2) Tachycardia-bradycardia syndrome: Code(s): I49.5 - Sick sinus syndrome Status: Acute Assessment and Plan: As above. (3) Shock: Code(s): R57.9 - Shock, unspecified Status: Acute Assessment and Plan: Likely precipitated by complete heart block. Undergoing infectious workup by ICU team. (4) [facility] (current) use of anticoagulants: Code(s): Z79.01 - [facility]FP (current) use of anticoagulants Status: Acute Assessment and Plan: Last dose of Eliquis 03/22 AM. Hold Eliquis in preparation for permanent pacemaker. (5) Paroxysmal atrial fibrillation: Code(s): I48.0 - Paroxysmal atrial fibrillation Status: Acute Assessment and Plan: Discontinue Sotalol. Avoid other AV johanne blocking agents. Last dose of Eliquis 03/22 AM. Hold Eliquis in preparation for permanent pacemaker. Plan Recommendations and plan discussed with Dr. Smith. Patient's case discussed with Dr. Murry. History of Present Illness History of Present Illness Consult date/time: 03/23/24 11:35 Requesting physician: Xiomara Kathleen PA-C Consult reason: Other (Complete heart block ) Reason For Visit: heart block Narrative: This is an 83 year old male with paroxysmal atrial fibrillation on Sotalol (which was started in January 2024) who presented to [facility] for evaluation of weakness and fall. Found to be in sinus bradycardia with 2:1 AV block. Overnight, patient progressed to complete heart block. Initially was hemodynamically stable and asymptomatic, however, then he became less responsive and heart rates dropped to the 20s. He was moved to the ICU. Administered Atropine with improvement in heart rates to the 40s. Started on Dopamine and transcutaneous pacing. Became hypotensive and required addition of Levophed. This morning, patient remains mentally altered. He is being transcutaneous pa arron. Remains on Dopamine and Levophed. at bedside. 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 Code status: Full code. Years smoked: 20 Smoking status: Former smoker Tobacco type: cigarettes Second hand tobacco smoke exposure: No Additional smoking assessment comments: quit 40 years ago Alcohol intake: never Substance use: never Substance use type: does not use Do You Feel Safe in your Home?: Yes Lack of Transportation: No Lack of Food: Never True Current Housing: I Have Housing Concerned About Future Housing: No Difficulty Paying Gas/Electric Bills: No Difficulty Paying for Meds: No Currently Unemployed: No Education: Master's Degree or Higher Difficulty w/ Childcare or Family Care: No Living arrangements: with family Additional living arrangements comments: Lives with spouse in [place]. 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 Spiritual care concerns: No Agree to blood products: Yes Meds Home Medications and Allergies Home Medications Medication Instructions Recorded Confirmed Type apixaban 5 mg tablet (Eliquis) 5 mg PO Q12H 05/14/21 03/22/24 History cholecalciferol (vitamin D3) 25 25 mcg PO DAILY 05/09/22 03/22/24 History mcg (1,000 unit) capsule fluticasone propionate 50 1 spray intranasal DAILY PRN 05/09/22 03/22/24 History mcg/actuation nasal Allergy Symptoms spray,suspension (Flonase Allergy Relief) ketotifen fumarate 0.025 % (0.035 1 drp EACH EYE BID PRN Allergy 05/09/22 03/22/24 History %) eye drops ([place]) Symptoms ferrous sulfate 325 mg (65 mg 325 mg PO QPM 01/09/23 03/22/24 History iron) tablet clonidine HCl 0.1 mg tablet 0.1 mg PO PRN PRN Hypertension 03/19/23 03/22/24 History aspirin 81 mg tablet,delayed 81 mg PO DAILY 01/27/24 03/22/24 History release (Adult Low Dose Aspirin) simvastatin 20 mg tablet 20 mg PO QPM 02/03/24 03/22/24 History vibegron 75 mg tablet (Gemtesa) 75 mg PO QPM 02/03/24 03/22/24 History sotalol 80 mg tablet 80 mg PO Q12HR #90 tabs 02/08/24 03/22/24 Rx carbidopa 25 mg-levodopa 100 mg 25 - 100 tablet PO TID 03/04/24 03/22/24 History tablet fludrocortisone 0.1 mg tablet 0.05 mg PO DAILY 03/18/24 03/22/24 History tavaborole 5 % topical solution 1 applic topical DAILY 03/18/24 03/22/24 History with applicator nitrofurantoin 100 mg PO Q12H 03/22/24 03/22/24 History monohydrate/macrocrystals 100 mg capsule Allergies Allergy/AdvReac Type Severity Reaction Status Date / Time cats Allergy Mild Sneezing Uncoded 03/18/24 10:09 mold Allergy Mild Swelling Uncoded 03/18/24 10:09 tree pollen Allergy Mild Sneezing Uncoded 03/18/24 10:09 Vital Signs Vital Signs - 24 hr 03/22/24 12:34 03/22/24 12:55 03/22/24 13:32 Temperature 36.5 C Pulse Rate 35 L 33 L 33 L Respiratory Rate 18 20 19 Blood Pressure 140/47 L 140/47 L 139/46 L Pulse Oximetry 96 100 98 Oxygen Delivery Room Air Oxygen Flow Rate 03/22/24 13:46 03/22/24 14:01 03/22/24 14:30 Temperature Pulse Rate 34 L 34 L 36 L Respiratory Rate 17 18 18 Blood Pressure 150/46 H 148/51 H 165/52 H Pulse Oximetry 100 100 100 Oxygen Delivery Oxygen Flow Rate 03/22/24 15:31 03/22/24 16:32 03/22/24 16:55 Temperature Pulse Rate 34 L 36 L 36 L Respiratory Rate 17 17 16 Blood Pressure 166/49 H 181/51 H 175/65 H Pulse Oximetry 100 100 97 Oxygen Delivery Oxygen Flow Rate 03/22/24 17:52 03/22/24 17:05 03/22/24 20:00 Temperature 36.5 C Pulse Rate 35 L 37 L 26 L Respiratory Rate 16 18 Blood Pressure 176/42 H 118/62 Pulse Oximetry 100 100 Oxygen Delivery Oxygen Flow Rate 03/22/24 19:55 03/22/24 22:30 03/22/24 22:44 Temperature Pulse Rate 24 L 66 Respiratory Rate Blood Pressure 122/62 234/91 H Pulse Oximetry Oxygen Delivery Oxygen Flow Rate 03/22/24 22:47 03/22/24 23:06 03/22/24 23:15 Temperature Pulse Rate 61 62 65 Respiratory Rate Blood Pressure 222/77 H 107/40 L Pulse Oximetry Oxygen Delivery Oxygen Flow Rate 03/22/24 23:27 03/22/24 23:31 03/22/24 20:00 Temperature Pulse Rate 60 65 Respiratory Rate Blood Pressure 90/35 L 90/38 L Pulse Oximetry 97 Oxygen Delivery Room Air Oxygen Flow Rate 03/22/24 20:00 03/22/24 22:00 03/22/24 22:16 Temperature Pulse Rate 24 L 26 L 19 L Respiratory Rate Blood Pressure Pulse Oximetry Oxygen Delivery Oxygen Flow Rate 03/22/24 22:16 03/22/24 23:47 03/22/24 23:55 Temperature Pulse Rate 19 L 61 60 Respiratory Rate Blood Pressure 68/40 L 68/40 L Pulse Oximetry Oxygen Delivery Oxygen Flow Rate 03/22/24 23:59 03/22/24 22:30 03/23/24 00:04 Temperature 36.6 C Pulse Rate 61 21 L 67 Respiratory Rate 18 20 Blood Pressure 76/50 L 122/60 Pulse Oximetry 99 Oxygen Delivery Oxygen Flow Rate 03/23/24 00:15 03/23/24 00:43 03/23/24 00:44 Temperature Pulse Rate 72 73 72 Respiratory Rate Blood Pressure 142/58 H 150/70 H 150/70 H Pulse Oximetry Oxygen Delivery Oxygen Flow Rate 03/23/24 00:00 03/23/24 01:15 03/23/24 01:15 Temperature Pulse Rate 69 68 72 Respiratory Rate Blood Pressure 158/59 H 158/59 H Pulse Oximetry Oxygen Delivery Oxygen Flow Rate 03/23/24 00:00 03/23/24 02:00 03/23/24 02:04 Temperature Pulse Rate 70 60 Respiratory Rate 17 Blood Pressure 157/59 H Pulse Oximetry 98 Oxygen Delivery Room Air Oxygen Flow Rate 03/23/24 02:30 03/23/24 02:30 03/23/24 03:21 Temperature Pulse Rate 60 60 60 Respiratory Rate Blood Pressure 157/59 H 157/59 H 146/98 H Pulse Oximetry Oxygen Delivery Oxygen Flow Rate 03/23/24 03:58 03/23/24 03:59 03/23/24 04:00 Temperature 36.6 C Pulse Rate 58 L 58 L 58 L Respiratory Rate 18 Blood Pressure 100/60 100/60 100/60 Pulse Oximetry 99 Oxygen Delivery Oxygen Flow Rate 03/23/24 04:00 03/23/24 04:25 03/23/24 04:33 Temperature Pulse Rate 60 61 Respiratory Rate 20 Blood Pressure 102/50 L 124/60 Pulse Oximetry 97 Oxygen Delivery Room Air Oxygen Flow Rate 03/23/24 04:48 03/23/24 04:00 03/23/24 05:28 Temperature Pulse Rate 58 L 60 62 Respiratory Rate Blood Pressure 160/60 H 132/64 Pulse Oximetry Oxygen Delivery Oxygen Flow Rate 03/23/24 06:00 03/23/24 06:09 03/23/24 06:00 Temperature Pulse Rate 58 L 58 L 60 Respiratory Rate Blood Pressure 132/60 132/60 Pulse Oximetry Oxygen Delivery Oxygen Flow Rate 03/23/24 06:00 03/23/24 06:00 03/23/24 06:21 Temperature Pulse Rate 60 69 Respiratory Rate 14 Blood Pressure 132/60 111/96 H Pulse Oximetry 100 100 Oxygen Delivery Nasal Cannula Oxygen Flow Rate 2 03/23/24 06:21 03/23/24 06:42 03/23/24 07:03 Temperature Pulse Rate 69 69 65 Respiratory Rate Blood Pressure 111/96 H 150/58 H 154/60 H Pulse Oximetry Oxygen Delivery Oxygen Flow Rate 03/23/24 07:15 03/23/24 08:01 03/23/24 08:01 Temperature Pulse Rate 68 67 67 Respiratory Rate Blood Pressure 143/61 H 118/97 H 118/97 H Pulse Oximetry Oxygen Delivery Oxygen Flow Rate 03/23/24 08:00 03/23/24 08:00 03/23/24 08:00 Temperature 36.8 C Pulse Rate 64 68 Respiratory Rate 20 Blood Pressure 118/97 H Pulse Oximetry 98 99 Oxygen Delivery Nasal Cannula Oxygen Flow Rate 2 03/23/24 10:00 03/23/24 10:00 03/23/24 10:00 Temperature Pulse Rate 70 70 70 Respiratory Rate Blood Pressure 116/90 116/90 Pulse Oximetry Oxygen Delivery Oxygen Flow Rate 03/23/24 10:00 Temperature Pulse Rate 70 Respiratory Rate 22 H Blood Pressure 116/90 Pulse Oximetry 97 Oxygen Delivery Oxygen Flow Rate Exam Const: General: no acute distress HENMT: Mouth: Yes dry mucous membranes Eyes: Sclera: sclerae normal Resp: Effort & Inspection: normal respiratory effort Cardio: Heart sounds: no murmurs Other: Transcutaneously paced Neuro: Other: Mentally altered Results Labs and Meds 03/23/24 04:30 03/23/24 04:30 Lab results: Cardiac Enzymes 03/22/24 03/22/24 03/22/24 Range/Units 13:09 16:00 18:08 AST 25 (17-59) U/L Troponin I 0.029 0.022 D 0.025 (0.000-0.034) ng/mL 03/22/24 03/22/24 Range/Units 21:30 23:24 AST 34 (17-59) U/L Troponin I 0.041 H* D 0.043 H* (0.000-0.034) ng/mL Coagulation 03/22/24 03/22/24 03/23/24 Range/Units 13:09 23:24 04:30 PT 20.8 H 20.9 H 20.8 H (11.1-14.7) Seconds APTT 31.6 29.7 (22.3-36.8) Seconds CBC 03/22/24 03/22/24 03/23/24 Range/Units 13:09 23:24 04:30 WBC 6.2 6.8 11.0 H (4.5-10.0) K/mm3 RBC 3.80 L 3.50 L 3.66 L (4.6-6.20) M/mm3 Hgb 10.5 L 9.8 L 10.2 L (14.0-18.0) g/dL Hct 34.5 L 32.6 L 32.7 L (42.0-52.0) % Plt Count 277 D 280 261 (150-375) k/mm3 Lymph # (Auto) 0.65 L 0.84 L (0.9-3.2) K/mm3 [place] # (Auto) 0.5 1.6 H (0.1-0.6) K/mm3 Eos # (Auto) 0.1 0.0 (0-0.3) K/mm3 Baso # (Auto) 0.0 0.0 (0.0-0.1) K/mm3 Comprehensive Metabolic Panel 03/22/24 03/22/24 03/23/24 Range/Units 13:09 23:24 04:30 Sodium 140 137 139 (137-145) mmol/L Potassium 3.8 4.3 4.5 (3.4-5.0) mmol/L Chloride 106 107 105 (98-107) mmol/L Carbon Dioxide 29 24 25 (22-30) mmol/L BUN 36 H 42 H 46 H (9-20) mg/dL Creatinine 1.20 1.50 H 1.60 H (0.7-1.3) mg/dL Glucose 97 122 H 122 H (65-110) mg/dL Calcium 8.7 8.5 8.9 (8.4-10.2) mg/dL AST 25 34 (17-59) U/L ALT 9 18 (6-50) U/L Alkaline Phosphatase 56 60 (38-126) U/L Total Protein 7.0 7.0 (6.3-8.2) g/dL Albumin 3.8 3.5 (3.5-5.1) g/dL Intake and Output 03/22/24 03/23/24 03/23/24 23:59 07:59 15:59 Intake Total 16.6 439.2 906.6 Output Total 75 Balance 16.6 364.2 906.6 Intake: IV 16.6 439.2 906.6 DOPamine 400 MG/D5W 250 ML 400 15.3 216.9 120.5 mg In 250 ml @ 15 MCG/KG/MIN 33 .019 mls/hr IV CONT .[id number] [facility] Rx#:[id number] Glucagon For Inj 10 mg In 100 Dextrose 5% 100 ml @ 4 MG/HR 40 mls/hr IV CONT .Q2H30M [facility] Rx# :[id number] Norepinephrine 8 mg/D5w 250 ml 1.3 122.3 22.1 8 mg In 250 ml @ 6 MCG/MIN 11. 25 mls/hr IV CONT .[id number] [facility] Rx#:[id number] Sodium Chloride 0.9% IV 1,000 764 ml @ 80 mls/hr IV CONT .[id number] [facility] Rx#:[id number] Oral 0 0 Output: Catheter Urine 75 Coude 75 Other: Number of Bowel Movements Today 1 Patient Weight 03/23/24 23:59 Weight 62 kg
[2024-03-23 11:41] LABS: Reflex Lactic Acid Yes or No Add Lactic
--- NOTE | 2024-03-23 11:49 | P.SEDATION_ITS ---
Moderate Sedation Note-Pt Data Patient Data Diagnosis: Complete heart block Present Complaint: Complete heart block Procedure to be performed/Plan: Insertion of temporary transvenous pacer Allergies Allergy/AdvReac Type Severity Reaction Status Date / Time cats Allergy Mild Sneezing Uncoded 03/18/24 10:09 mold Allergy Mild Swelling Uncoded 03/18/24 10:09 tree pollen Allergy Mild Sneezing Uncoded 03/18/24 10:09 Home Medications Medication Instructions Recorded Confirmed Type apixaban 5 mg tablet (Eliquis) 5 mg PO Q12H 05/14/21 03/22/24 History cholecalciferol (vitamin D3) 25 25 mcg PO DAILY 05/09/22 03/22/24 History mcg (1,000 unit) capsule fluticasone propionate 50 1 spray intranasal DAILY PRN 05/09/22 03/22/24 History mcg/actuation nasal Allergy Symptoms spray,suspension (Flonase Allergy Relief) ketotifen fumarate 0.025 % (0.035 1 drp EACH EYE BID PRN Allergy 05/09/22 03/22/24 History %) eye drops ([place]) Symptoms ferrous sulfate 325 mg (65 mg 325 mg PO QPM 01/09/23 03/22/24 History iron) tablet clonidine HCl 0.1 mg tablet 0.1 mg PO PRN PRN Hypertension 03/19/23 03/22/24 History aspirin 81 mg tablet,delayed 81 mg PO DAILY 01/27/24 03/22/24 History release (Adult Low Dose Aspirin) simvastatin 20 mg tablet 20 mg PO QPM 02/03/24 03/22/24 History vibegron 75 mg tablet (Gemtesa) 75 mg PO QPM 02/03/24 03/22/24 History sotalol 80 mg tablet 80 mg PO Q12HR #90 tabs 02/08/24 03/22/24 Rx carbidopa 25 mg-levodopa 100 mg 25 - 100 tablet PO TID 03/04/24 03/22/24 History tablet fludrocortisone 0.1 mg tablet 0.05 mg PO DAILY 03/18/24 03/22/24 History tavaborole 5 % topical solution 1 applic topical DAILY 03/18/24 03/22/24 History with applicator nitrofurantoin 100 mg PO Q12H 03/22/24 03/22/24 History monohydrate/macrocrystals 100 mg capsule Current Medications: Active Medications Acetaminophen (Acetaminophen 325 Mg Tablet) 650 mg PO Q6H PRN PRN Reason: Mild Pain (1-3) or Fever Carbidopa/Levodopa (Carbidopa/Levodopa 25/100 Mg Tablet) 1 tablet PO TID @0900,1300,1800 [facility] Last Admin: 03/23/24 09:18 Dose: Not Given Ferrous Sulfate (Ferrous Sulfate [address]) 325 mg BY MOUTH HS [facility] Fludrocortisone Acetate (Fludrocortisone Acetate 0.1 Mg Tablet) 0.05 mg PO DAILY PRN PRN Reason: SBP<90 Hydrocortisone Sodium Succinate (Hydrocortisone Sodium Succinate 100 Mg/2 Ml Vial) 100 mg IV PUSH Q8HR [facility] Dopamine HCl/Dextrose (Dopamine 400 Mg/D5w 250 Ml) 400 mg in 250 mls @ 33.019 mls/hr IV CONT .[id number] [facility]; Protocol Last Titration: 03/23/24 10:00 Dose: 15 mcg/kg/min, 33.02 mls/hr Norepinephrine Bitartrate (Levophed 8 Mg/D5w 250 Ml) 8 mg in 250 mls @ 7.5 mls/hr IV CONT .Q24H [facility]; Protocol Last Titration: 03/23/24 10:00 Dose: 4 mcg/min, 7.5 mls/hr Sodium Chloride (Normal Saline Iv) 1,000 mls @ 80 mls/hr IV CONT .[id number] [facility] Last Infusion: 03/23/24 10:45 Dose: 0 mls/hr Ceftriaxone Sodium (Rocephin 1 Gm/Ns 50 Ml) 1 gm in 50 mls @ 100 mls/hr IVPB Q2 4H [facility] Vancomycin HCl (Vancomycin 1,500 Mg/Ns 500 Ml) 1,500 mg in 500 mls @ 250 mls/hr IVPB ONCE ONE Stop: 03/23/24 12:02 Vancomycin HCl (Vancomycin 1,250 Mg/Ns 250 Ml) 1,250 mg in 250 mls @ 166.667 mls/hr IVPB Q36H [facility] Non-Formulary Medication (Tavaborole) 1 applic TOPICAL DAILY [facility] Stop: 04/22/24 08:59 Non-Formulary Medication (Vibegron [Gemtesa]) 75 mg PO QPM [facility] Stop: 04/21/24 21:39 Pantoprazole Sodium (Pantoprazole Sodium Iv 40 Mg Vial) 40 mg IV PUSH Q12HR [facility] Simvastatin (Simvastatin 20 Mg Tablet) 20 mg PO QPM [facility] Last Admin: 03/23/24 00:16 Dose: Not Given Sodium Chloride (Central Line Flush) 10 ml IV PUSH Q8HR [facility] Last Admin: 03/23/24 05:30 Dose: 10 ml Sodium Chloride (Central Line Flush) 20 ml IV PUSH PRN PRN PRN Reason: after blood draws Vitamin D (Cholecalciferol 1,000 Units Tablet) 1,000 units PO DAILY [facility] Last Admin: 03/23/24 09:18 Dose: Not Given Sedation/Anesthesia: No previous sedation/anesthesia problems (including family history). [facility] Past Medical History Medical History Acute stroke due to ischemia Atrial flutter, paroxysmal Benign prostatic hyperplasia with lower urinary tract symptoms Chronic anemia anemia of chronic disease and iron deficiency Chronic kidney disease Hypertension USP (current) use of anticoagulants Occlusion and stenosis of bilateral carotid arteries Overactive bladder Parkinson's disease Paroxysmal atrial fibrillation Prostate cancer status post radiation and seed implantation Secondary renal hyperparathyroidism Vasomotor rhinitis Vitamin D deficiency Surgical History Surgical History History of bilateral cataract extraction History of tonsillectomy History of transcarotid artery revascularization (TCAR) (04/2021) left Family History Family History Father Heart disease Sibling Cancer Social History Social History Social History: Surrogate medical decision maker: Arielle Terry, spouse. Code status: Full code. Years smoked: 20 Smoking status: Former smoker Tobacco type: cigarettes Second hand tobacco smoke exposure: No Additional smoking assessment comments: quit 40 years ago Alcohol intake: never Substance use: never Substance use type: does not use Do You Feel Safe in your Home?: Yes Lack of Transportation: No Lack of Food: Never True Current Housing: I Have Housing Concerned About Future Housing: No Difficulty Paying Gas/Electric Bills: No Difficulty Paying for Meds: No Currently Unemployed: No Education: Master's Degree or Higher Difficulty w/ Childcare or Family Care: No Living arrangements: with family Additional living arrangements comments: Lives with spouse in [place]. 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 Spiritual care concerns: No Agree to blood products: Yes Mod Sed Physical Exam Physical Exam Pre Procedural Exam: Normal: Lungs, Extremities and Skin and Variation: Appearance (Altered mental status, frail appearing ), Heart Rate ( Transcutaneously paced ), Heart Rhythm (Transcutaneously paced) and Neuro Exam (Altered mental status ) Hours since solid foods: 12 Hours since liquid intake: 8 Mallampati Classification: class II Internal Medicine - PN: Obj Da Vital Signs Vital Signs: Vital Signs - 24 hr 03/22/24 12:34 03/22/24 12:55 03/22/24 13:32 Temperature 36.5 C Pulse Rate 35 L 33 L 33 L Respiratory Rate 18 20 19 Blood Pressure 140/47 L 140/47 L 139/46 L Pulse Oximetry 96 100 98 Oxygen Delivery Room Air Oxygen Flow Rate 03/22/24 13:46 03/22/24 14:01 03/22/24 14:30 Temperature Pulse Rate 34 L 34 L 36 L Respiratory Rate 17 18 18 Blood Pressure 150/46 H 148/51 H 165/52 H Pulse Oximetry 100 100 100 Oxygen Delivery Oxygen Flow Rate 03/22/24 15:31 03/22/24 16:32 03/22/24 16:55 Temperature Pulse Rate 34 L 36 L 36 L Respiratory Rate 17 17 16 Blood Pressure 166/49 H 181/51 H 175/65 H Pulse Oximetry 100 100 97 Oxygen Delivery Oxygen Flow Rate 03/22/24 17:52 03/22/24 17:05 03/22/24 20:00 Temperature 36.5 C Pulse Rate 35 L 37 L 26 L Respiratory Rate 16 18 Blood Pressure 176/42 H 118/62 Pulse Oximetry 100 100 Oxygen Delivery Oxygen Flow Rate 03/22/24 19:55 03/22/24 22:30 03/22/24 22:44 Temperature Pulse Rate 24 L 66 Respiratory Rate Blood Pressure 122/62 234/91 H Pulse Oximetry Oxygen Delivery Oxygen Flow Rate 03/22/24 22:47 03/22/24 23:06 03/22/24 23:15 Temperature Pulse Rate 61 62 65 Respiratory Rate Blood Pressure 222/77 H 107/40 L Pulse Oximetry Oxygen Delivery Oxygen Flow Rate 03/22/24 23:27 03/22/24 23:31 03/22/24 20:00 Temperature Pulse Rate 60 65 Respiratory Rate Blood Pressure 90/35 L 90/38 L Pulse Oximetry 97 Oxygen Delivery Room Air Oxygen Flow Rate 03/22/24 20:00 03/22/24 22:00 03/22/24 22:16 Temperature Pulse Rate 24 L 26 L 19 L Respiratory Rate Blood Pressure Pulse Oximetry Oxygen Delivery Oxygen Flow Rate 03/22/24 22:16 03/22/24 23:47 03/22/24 23:55 Temperature Pulse Rate 19 L 61 60 Respiratory Rate Blood Pressure 68/40 L 68/40 L Pulse Oximetry Oxygen Delivery Oxygen Flow Rate 03/22/24 23:59 03/22/24 22:30 03/23/24 00:04 Temperature 36.6 C Pulse Rate 61 21 L 67 Respiratory Rate 18 20 Blood Pressure 76/50 L 122/60 Pulse Oximetry 99 Oxygen Delivery Oxygen Flow Rate 03/23/24 00:15 03/23/24 00:43 03/23/24 00:44 Temperature Pulse Rate 72 73 72 Respiratory Rate Blood Pressure 142/58 H 150/70 H 150/70 H Pulse Oximetry Oxygen Delivery Oxygen Flow Rate 03/23/24 00:00 03/23/24 01:15 03/23/24 01:15 Temperature Pulse Rate 69 68 72 Respiratory Rate Blood Pressure 158/59 H 158/59 H Pulse Oximetry Oxygen Delivery Oxygen Flow Rate 03/23/24 00:00 03/23/24 02:00 03/23/24 02:04 Temperature Pulse Rate 70 60 Respiratory Rate 17 Blood Pressure 157/59 H Pulse Oximetry 98 Oxygen Delivery Room Air Oxygen Flow Rate 03/23/24 02:30 03/23/24 02:30 03/23/24 03:21 Temperature Pulse Rate 60 60 60 Respiratory Rate Blood Pressure 157/59 H 157/59 H 146/98 H Pulse Oximetry Oxygen Delivery Oxygen Flow Rate 03/23/24 03:58 03/23/24 03:59 03/23/24 04:00 Temperature 36.6 C Pulse Rate 58 L 58 L 58 L Respiratory Rate 18 Blood Pressure 100/60 100/60 100/60 Pulse Oximetry 99 Oxygen Delivery Oxygen Flow Rate 03/23/24 04:00 03/23/24 04:25 03/23/24 04:33 Temperature Pulse Rate 60 61 Respiratory Rate 20 Blood Pressure 102/50 L 124/60 Pulse Oximetry 97 Oxygen Delivery Room Air Oxygen Flow Rate 03/23/24 04:48 03/23/24 04:00 03/23/24 05:28 Temperature Pulse Rate 58 L 60 62 Respiratory Rate Blood Pressure 160/60 H 132/64 Pulse Oximetry Oxygen Delivery Oxygen Flow Rate 03/23/24 06:00 03/23/24 06:09 03/23/24 06:00 Temperature Pulse Rate 58 L 58 L 60 Respiratory Rate Blood Pressure 132/60 132/60 Pulse Oximetry Oxygen Delivery Oxygen Flow Rate 03/23/24 06:00 03/23/24 06:00 03/23/24 06:21 Temperature Pulse Rate 60 69 Respiratory Rate 14 Blood Pressure 132/60 111/96 H Pulse Oximetry 100 100 Oxygen Delivery Nasal Cannula Oxygen Flow Rate 2 03/23/24 06:21 03/23/24 06:42 03/23/24 07:03 Temperature Pulse Rate 69 69 65 Respiratory Rate Blood Pressure 111/96 H 150/58 H 154/60 H Pulse Oximetry Oxygen Delivery Oxygen Flow Rate 03/23/24 07:15 03/23/24 08:01 03/23/24 08:01 Temperature Pulse Rate 68 67 67 Respiratory Rate Blood Pressure 143/61 H 118/97 H 118/97 H Pulse Oximetry Oxygen Delivery Oxygen Flow Rate 03/23/24 08:00 03/23/24 08:00 03/23/24 08:00 Temperature 36.8 C Pulse Rate 64 68 Respiratory Rate 20 Blood Pressure 118/97 H Pulse Oximetry 98 99 Oxygen Delivery Nasal Cannula Oxygen Flow Rate 2 03/23/24 10:00 03/23/24 10:00 03/23/24 10:00 Temperature Pulse Rate 70 70 70 Respiratory Rate Blood Pressure 116/90 116/90 Pulse Oximetry Oxygen Delivery Oxygen Flow Rate 03/23/24 10:00 Temperature Pulse Rate 70 Respiratory Rate 22 H Blood Pressure 116/90 Pulse Oximetry 97 Oxygen Delivery Oxygen Flow Rate Intake/Output Intake/Output: Intake & Output 03/20/24 03/21/24 03/22/24 03/23/24 23:59 23:59 23:59 23:59 Intake Total 16.6 1345.8 Output Total 75 Balance 16.6 1270.8 Meds/Results Medications: Active Medications Generic Name Dose Route Start Last Admin Trade Name Freq PRN Reason Stop Dose Admin Acetaminophen 650 mg 03/22/24 15:38 Acetaminophen 325 Mg Tablet PO Q6H PRN Mild Pain (1-3) or Fever Carbidopa/Levodopa 1 tablet 03/22/24 22:00 03/23/24 09:18 Carbidopa/Levodopa 25/100 Mg Tablet PO Not Given TID@0900,1300,1800 [facility] Ferrous Sulfate 325 mg 03/23/24 21:00 Ferrous Sulfate [address] BY MOUTH HS [facility] Fludrocortisone Acetate 0.05 mg 03/23/24 09:00 Fludrocortisone Acetate 0.1 Mg Tablet PO DAILY PRN SBP<90 Hydrocortisone Sodium Succinate 100 mg 03/23/24 14:00 Hydrocortisone Sodium Succinate 100 Mg/2 Ml Vial IV PUSH Q8HR [facility] Dopamine HCl/Dextrose 400 mg in 250 mls @ 33.019 mls/hr 03/22/24 22:30 03/23/24 10:00 Dopamine 400 Mg/D5w 250 Ml IV CONT 15 mcg/kg/min .Q7H35M [facility] 33.02 mls/hr Titration Protocol 15 MCG/KG/MIN Norepinephrine Bitartrate 8 mg in 250 mls @ 7.5 mls/hr 03/22/24 23:55 03/23/24 10:00 Levophed 8 Mg/D5w 250 Ml IV CONT 4 mcg/min .Q24H [facility] 7.5 mls/hr Titration Protocol 4 MCG/MIN Sodium Chloride 1,000 mls @ 80 mls/hr 03/23/24 00:50 03/23/24 10:45 Normal Saline Iv IV CONT 0 mls/hr .[id number] [facility] Infusion Ceftriaxone Sodium 1 gm in 50 mls @ 100 mls/hr 03/23/24 09:00 Rocephin 1 Gm/Ns 50 Ml IVPB Q24H [facility] Vancomycin HCl 1,500 mg in 500 mls @ 250 mls/hr 03/23/24 10:03 Vancomycin 1,500 Mg/Ns 500 Ml IVPB 03/23/24 12:02 ONCE ONE Vancomycin HCl 1,250 mg in 250 mls @ 166.667 mls/hr 03/24/24 23:00 Vancomycin 1,250 Mg/Ns 250 Ml IVPB Q36H [facility] Non-Formulary Medication 1 applic 03/23/24 09:00 Tavaborole TOPICAL 04/22/24 08:59 DAILY [facility] Non-Formulary Medication 75 mg 03/22/24 21:40 Vibegron [Gemtesa] PO 04/21/24 21:39 QPM [facility] Pantoprazole Sodium 40 mg 03/23/24 10:00 Pantoprazole Sodium Iv 40 Mg Vial IV PUSH Q12HR [facility] Simvastatin 20 mg 03/22/24 21:40 03/23/24 00:16 Simvastatin 20 Mg Tablet PO Not Given QPM [facility] Sodium Chloride 10 ml 03/23/24 06:00 03/23/24 05:30 Central Line Flush IV PUSH 10 ml Q8HR [facility] Administration Sodium Chloride 20 ml 03/23/24 02:04 Central Line Flush IV PUSH PRN PRN after blood draws Vitamin D 1,000 units 03/23/24 09:00 03/23/24 09:18 Cholecalciferol 1,000 Units Tablet PO Not Given DAILY [facility] Radiology Results: ITS Impressions Pelvis X-Ray 03/22/24 15:24 IMPRESSION: No acute osseous finding in the pelvis. Chest X-Ray 03/23/24 10:09 Impression: 1: No acute cardiopulmonary disease. Labs 03/23/24 04:30 03/23/24 04:30 Labs: Laboratory Results - last 24 hr 03/22/24 03/22/24 03/22/24 13:09 16:00 18:08 WBC 6.2 RBC 3.80 L Hgb 10.5 L Hct 34.5 L MCV 90.8 MCH 27.6 MCHC 30.4 L RDW 23.1 H Plt Count 277 D MPV 9.1 Immature Gran % (Auto) 0.3 Neut % (Auto) 77.5 H Lymph % (Auto) 10.6 L [place] % (Auto) 8.6 H Eos % (Auto) 2.3 Baso % (Auto) 0.7 Lymph # (Auto) 0.65 L [place] # (Auto) 0.5 Eos # (Auto) 0.1 Baso # (Auto) 0.0 Abs Immat Gran (auto) 0.02 Absolute Neuts (auto) 4.8 Absolute Nucleated RBC 0.000 Nucleated RBC % 0.0 Platelet Estimate Adequate Large Platelets Hypochromasia 1+ Anisocytosis 1+ Ovalocytes Diamond Cells Acanthocytes (Spur) 1+ Schistocytes None seen PT 20.8 H INR 1.8 APTT 31.6 Fibrinogen D-Dimer Puncture Site ABG pH ABG pCO2 ABG pO2 ABG PO2/FiO2 Ratio ABG HCO3 ABG O2 Saturation ABG O2 Content ABG Base Excess A-a Gradient Oxyhemoglobin Carboxyhemoglobin Methemoglobin Reduced Hemoglobin Total Hemoglobin O2 Delivery Device O2 Liters/Min FiO2 Sodium 140 Potassium 3.8 Chloride 106 Carbon Dioxide 29 Anion Gap 5 BUN 36 H Creatinine 1.20 Estim Creat Clear Calc 36 Estimated GFR 58 L Glucose 97 Lactic Acid Calcium 8.7 Magnesium Total Bilirubin 0.7 AST 25 ALT 9 Alkaline Phosphatase 56 Total Creatine Kinase Troponin I 0.029 0.022 D 0.025 Total Protein 7.0 Albumin 3.8 Lipase 107 TSH (Reflex) Free T4 Total T3 Stl Occult Blood (IFOB) 03/22/24 03/22/24 03/22/24 21:30 23:10 23:23 WBC RBC Hgb Hct MCV MCH MCHC RDW Plt Count MPV Immature Gran % (Auto) Neut % (Auto) Lymph % (Auto) [place] % (Auto) Eos % (Auto) Baso % (Auto) Lymph # (Auto) [place] # (Auto) Eos # (Auto) Baso # (Auto) Abs Immat Gran (auto) Absolute Neuts (auto) Absolute Nucleated RBC Nucleated RBC % Platelet Estimate Large Platelets Hypochromasia Anisocytosis Ovalocytes Abe Cells Acanthocytes (Spur) Schistocytes PT INR APTT Fibrinogen D-Dimer Puncture Site ABG pH ABG pCO2 ABG pO2 ABG PO2/FiO2 Ratio ABG HCO3 ABG O2 Saturation ABG O2 Content ABG Base Excess A-a Gradient Oxyhemoglobin Carboxyhemoglobin Methemoglobin Reduced Hemoglobin Total Hemoglobin O2 Delivery Device O2 Liters/Min FiO2 Sodium Potassium Chloride Carbon Dioxide Anion Gap BUN Creatinine Estim Creat Clear Calc Estimated GFR Glucose Lactic Acid Calcium Magnesium Total Bilirubin AST ALT Alkaline Phosphatase Total Creatine Kinase Troponin I 0.041 H* D Total Protein Albumin Lipase TSH (Reflex) 4.450 Free T4 1.77 Total T3 0.99 Stl Occult Blood (IFOB) Positive H 03/22/24 03/23/24 03/23/24 23:24 04:30 08:36 WBC 6.8 11.0 H RBC 3.50 L 3.66 L Hgb 9.8 L 10.2 L Hct 32.6 L 32.7 L MCV 93.1 89.3 MCH 28.0 27.9 MCHC 30.1 L 31.2 L RDW 23.4 H 23.0 H Plt Count 280 261 MPV 9.2 9.0 Immature Gran % (Auto) 0.5 Neut % (Auto) 76.5 H Lymph % (Auto) 7.7 L [place] % (Auto) 14.8 H Eos % (Auto) 0.2 Baso % (Auto) 0.3 Lymph # (Auto) 0.84 L [place] # (Auto) 1.6 H Eos # (Auto) 0.0 Baso # (Auto) 0.0 Abs Immat Gran (auto) 0.05 H Absolute Neuts (auto) 8.4 H Absolute Nucleated RBC 0.000 Nucleated RBC % 0.0 Platelet Estimate Adequate Large Platelets Present Hypochromasia Anisocytosis 1+ Ovalocytes 1+ Abe Cells 1+ Acanthocytes (Spur) Schistocytes Rare PT 20.9 H 20.8 H INR 1.8 1.8 APTT 29.7 Fibrinogen 231 D-Dimer 0.36 Puncture Site Right radial ABG pH 7.416 ABG pCO2 34.3 L ABG pO2 81.1 ABG PO2/FiO2 Ratio 3.86 ABG HCO3 21.5 L ABG O2 Saturation 96.2 ABG O2 Content 14.0 L ABG Base Excess -2.5 A-a Gradient 27.6 Oxyhemoglobin 94.9 Carboxyhemoglobin 0.6 Methemoglobin 0.3 Reduced Hemoglobin 4.2 Total Hemoglobin 10.4 L O2 Delivery Device Room air O2 Liters/Min Not Reportable FiO2 21 Sodium 137 139 Potassium 4.3 4.5 Chloride 107 105 Carbon Dioxide 24 25 Anion Gap 6 9 BUN 42 H 46 H Creatinine 1.50 H 1.60 H Estim Creat Clear Calc 27 27 Estimated GFR 44 L 41 L Glucose 122 H 122 H Lactic Acid 2.9 H Calcium 8.5 8.9 Magnesium 2.5 H 2.6 H Total Bilirubin 0.7 AST 34 ALT 18 Alkaline Phosphatase 60 Total Creatine Kinase 38 L Troponin I 0.043 H* Total Protein 7.0 Albumin 3.5 Lipase TSH (Reflex) 1.520 Free T4 Total T3 Stl Occult Blood (IFOB) ASA Classification/Sedation ASA Classification/Sedation ASA Class: IV Emergent: No Risks: Risks, benefits and alternatives explained and patient/family accepted plan for sedation. Patient re-evaluated immediately prior to sedation.
--- NOTE | 2024-03-23 11:50 | WPDCARDPROC ---
Cardiac Cath Procedure Note Date of procedure:: 03/23/24 Performing physician:: CATHETERIZATION LABORATORY REPORT Procedure Date: 03/23/2024 It Architect: Katheryn Menchaca M.D., [facility]? Referring Physician: Katheryn Menchaca M.D. ? Anesthesia: No IV sedation was administered. Procedure start time: 11:11 Procedure end time: 11:31 Total procedure time 20 minutes Pre-op Diagnosis: Complete heart block Post-op Diagnosis: Successful placement of transvenous pacer Procedure(s): 1. Moderate sedation 2. Ultrasound-guided access of the right femoral vein 3. Insertion of transvenous pacer Access Site: Right femoral vein Brief History and Clinical Indications: Patient is an 83 year old male who is referred for transvenous pacer for complete heart block All risks, benefits and alternatives to insertion of transvenous pacer was discussed at length with the patient's . Risk of complications including but not limited to bleeding, infection, arrhythmia, stroke, blood loss, groin hematoma, limb loss, emergency surgery, and even were discussed with the patient's and all questions were answered. The patient understood and wished to proceed. Time out called, patient name, date of , medical record number, allergies, procedure performed, identify It Architect, patient and staff member concurred with accurate data, procedure carried on. Description of Procedure: Informed consent signed and placed in the chart. Patient transferred to label remover room. Prepped and draped in usual sterile fashion. 2% lidocaine injected subcutaneously in right groin area. Right femoral vein was accessed using micropuncture technique under ultrasound guidance. 6-FR sheath placed. Transvenous pacer advanced into RV, appropriate capture and thresholds noted. Sheath sutured in place. Plan: Obtain daily CXR to confirm position of pacer wire. ? Katheryn Menchaca M.D. Interventional Cardiology
--- NOTE | 2024-03-23 12:00 | PC.NURSE ---
pt back from manufacturing lab technician; temporary pacemaker in place in right groin, site is dry and intact, no bleeding or hematoma; dopamine and levophed infusions were off; levophed restarted at previous rate per Dr. Smith; leg immoblizer placed on right leg
[2024-03-23] MEDS: PANTOPRAZOLE SODIUM IV 40 MG VIAL IV PUSH ×2 (12:34→20:49)
[2024-03-23] MEDS: VANCOMYCIN 1,500 MG/NS 500 ML 1,500 MG/500 ML BAG 250 MG IVPB (12:51)
[2024-03-23 13:00] LABS: Lactic Acid 2.6 mmol/L (0.7-2.0)
[2024-03-23] MEDS: HYDROCORTISONE SODIUM SUCCINATE 100 MG/2 ML VIAL IV PUSH ×2 (13:02→21:08)
[2024-03-23 13:03] LABS: Creatinine Urine 189.6 mg/dL
[2024-03-23] MEDS: ALBUMIN HUMAN 25% 25 GM/100 ML 100 ML IVPB ×2 (13:03→17:25)
[2024-03-23 13:04] LABS: Potassium Urine Random 66.4 meq/L; Sodium Urine Random 22 meq/L
[2024-03-23 13:44] LABS: Add Urine Microscopic? YES; Appearance Urine Cloudy (Clear); Bacteria Urine 3+ /hpf; Bilirubin Urine 1+ (Negative); Blood Urine 1+ (Negative); Color Urine Dark Yellow (Yellow); Glucose Urine UA Negative (Negative); Hyaline Casts Urine Present /lpf; Ketones Urine Trace mg/dL (Negative); Leukocyte Esterase Ur 1+ LEU/UL (Negative); Need Manual Microscopic Reviewed; Nitrate Urine Negative (Negative); Non Pathogenic Casts >20; Protein Urine 1+ mg/dL (Negative); Specific Grav Ur 1.021 (1.001-1.035); Squamous Epithelial Cell Urine Occasional /hpf (Few); Urobilinogen Urine 0.2 mg/dL (<2.0)
[2024-03-23 13:52] LABS: Eosinophil Urine None Seen % (None Seen); Urine Eos QC 2nd Tech Confirmed
[2024-03-24] VITALS (14 sets, daily range): BP systolic 116–173; BP diastolic 76–122; PULSE 80–81; RESP 14–24; TEMP 36.4–37.3; O2SAT 92–97
[2024-03-24] MEDS: ALBUMIN HUMAN 25% 25 GM/100 ML 100 ML IVPB ×2 (00:33→05:17)
[2024-03-24] MEDS: HYDROCORTISONE SODIUM SUCCINATE 100 MG/2 ML VIAL IV PUSH ×3 (05:19→21:00)
[2024-03-24] MEDS: CENTRAL LINE FLUSH 10 ML IV PUSH ×3 (05:24→20:44)
[2024-03-24] MEDS: SODIUM CHLORIDE 0.9% IV 1,000 ML 80 ML IV CONT (05:35)
[2024-03-24 06:02] LABS: Hematocrit 26.4 % (42.0-52.0); Hemoglobin 8.2 g/dL (14.0-18.0); Immature Granulocyte Absolute 0.05 K/mm3 (0.00-0.031); Immature Granulocyte Percent A 0.7 % (0-0.5); Lymphocytes Absolute Auto 0.43 K/mm3 (0.9-3.2); Lymphocytes Percent Auto 6.4 % (18.3-44.2); Mean Corpuscular HGB Conc 31.1 g/dl (32-36); Mean Corpuscular Hemoglobin 27.9 pg (26-34); Mean Corpuscular Volume 89.8 fl (80-100); Mean Platelet Volume 9.8 fl (7.4-10.4); Monocytes Absolute Auto 0.3 K/mm3 (0.1-0.6); Monocytes Percent Auto 4.6 % (2.6-8.5); Neutrophils Absolute Auto 5.9 K/mm3 (1.3-6.7); Neutrophils Percent Auto 88.3 % (45.5-73.1); Platelet Count Result 184 k/mm3 (150-375); Red Blood Count 2.94 M/mm3 (4.6-6.20); Red Cell Distribution Width 24.1 % (11.5-14.5); White Blood Count 6.7 K/mm3 (4.5-10.0)
[2024-03-24 06:08] LABS: Alanine Aminotransferase 48 U/L (6-50); Alkaline Phosphatase 46 U/L (38-126); Anion Gap 11 mmol/L (4-12); Aspartate Amino Transferase 75 U/L (17-59); Bilirubin,Total 1.4 mg/dL (0.2-1.3); Blood Urea Nitrogen 52 mg/dL (9-20); Calcium 8.5 mg/dL (8.4-10.2); Carbon Dioxide 21 mmol/L (22-30); Chloride 108 mmol/L (98-107); Estimated CRCL calculation 28 ml/min; Estimated Glomerular Filt Rate 41; Glucose 102 mg/dL (65-110); Magnesium 2.4 mg/dL (1.6-2.3); Phosphorus 4.9 mg/dL (2.5-4.5); Potassium 4.2 mmol/L (3.4-5.0); Sodium 140 mmol/L (137-145)
[2024-03-24 06:40] LABS: Anisocytosis 2+; Platelet Estimate Adequate (Adequate)
[2024-03-24 06:41] LABS: Acanthocytes 1+; Ovalocytes 1+
[2024-03-24 06:46] LABS: Schistocytes Rare
--- NOTE | 2024-03-24 08:39 | P.PNCA_ITS ---
Progress Note: A&P Assessment and Plan (1) Complete heart block: Code(s): I44.2 - Atrioventricular block, complete Status: Acute Assessment and Plan: Transvenous pacer placed in the laboratory animal care veterinarian on 03/23. Discontinue Sotalol. Avoid other AV johanne blocking agents. Tentatively plan for permanent pacemaker on Friday with Dr. Murry. Last dose of Eliquis 03/22 AM. Hold Eliquis in preparation for permanent pac emaker. (2) Tachycardia-bradycardia syndrome: Code(s): I49.5 - Sick sinus syndrome Status: Acute Assessment and Plan: As above. (3) Shock: Code(s): R57.9 - Shock, unspecified Status: Acute Assessment and Plan: Likely precipitated by complete heart block. Undergoing infectious workup by ICU team. Off of pressors now. Blood pressure remains stable off of pressors. 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 Hold Eliquis in preparation for permanent pacemaker. (5) Paroxysmal atrial fibrillation: Code(s): I48.0 - Paroxysmal atrial fibrillation Status: Acute Assessment and Plan: Discontinue Sotalol. Avoid other AV johanne blocking agents. Last dose of Eliquis 03/22 AM. Hold Eliquis in preparation for permanent pacemaker. Plan Recommendations and plan discussed with ICU Physician Dr. Smith. Subjective Date/time seen: 03/24/24 08:39 Interval history: Reason for visit: Complete heart block HPI: This is an 83 year old male with paroxysmal atrial fibrillation on Sotalol (which was started in January 2024) who presented to [facility] for evaluation of weakness and fall. Found to be in sinus bradycardia with 2:1 AV block. Overnight, patient progressed to complete heart block. Initially was hemodynamically stable and asymptomatic, however, then he became less responsive and heart rates dropped to the 20s. He was moved to the ICU. Administered Atropine with improvement in heart rates to the 40s. Started on Dopamine and transcutaneous pacing. Became hypotensive and required addition of Levophed. This morning, patient remains mentally altered. He is being transcutaneous paced. Remains on Dopamine and Levophed. at bedside. Date of service 03/24: Remains mentally altered, at bedside. Still being transvenously paced. Off of pressors now. Review of Systems Review of Systems: ROS unobtainable: Yes unobtainable due to mental status Exam Const: General: no acute distress HENMT: Mouth: Yes dry mucous membranes Eyes: Sclera: sclerae normal Resp: Effort & Inspection: normal respiratory effort Cardio: Rate: regular rate Rhythm: regular rhythm Heart sounds: no murmurs Other: Transvenously paced Neuro: Other: Mentally altered Objective Data Vital Signs Vital Signs: Vital Signs - 24 hr 03/23/24 10:00 03/23/24 10:00 03/23/24 10:00 Temperature Pulse Rate 70 70 70 Respiratory Rate Blood Pressure 116/90 116/90 Pulse Oximetry Oxygen Delivery Oxygen Flow Rate 03/23/24 10:00 03/23/24 12:00 03/23/24 12:00 Temperature Pulse Rate 70 80 81 Respiratory Rate 22 H Blood Pressure 116/90 102/57 L 102/57 L Pulse Oximetry 97 Oxygen Delivery Oxygen Flow Rate 03/23/24 13:00 03/23/24 12:00 03/23/24 12:00 Temperature 36.4 C Pulse Rate 81 81 Respiratory Rate 22 H Blood Pressure 140/72 102/57 L Pulse Oximetry 99 98 Oxygen Delivery Nasal Cannula Oxygen Flow Rate 2 03/23/24 12:00 03/23/24 14:00 03/23/24 14:00 Temperature Pulse Rate 81 81 81 Respiratory Rate 20 Blood Pressure 163/81 H Pulse Oximetry 99 Oxygen Delivery Oxygen Flow Rate 03/23/24 13:30 03/23/24 13:45 03/23/24 14:00 Temperature Pulse Rate 81 81 81 Respiratory Rate Blood Pressure 124/94 H 143/85 H 163/81 H Pulse Oximetry Oxygen Delivery Oxygen Flow Rate 03/23/24 16:00 03/23/24 16:00 03/23/24 16:00 Temperature 36.4 C Pulse Rate 81 81 Respiratory Rate 16 Blood Pressure 140/78 140/78 Pulse Oximetry 99 98 Oxygen Delivery Room Air Oxygen Flow Rate 03/23/24 16:00 03/23/24 18:00 03/23/24 18:00 Temperature Pulse Rate 81 81 81 Respiratory Rate 18 Blood Pressure 141/82 H Pulse Oximetry 96 Oxygen Delivery Oxygen Flow Rate 03/23/24 18:00 03/23/24 20:00 03/23/24 20:00 Temperature 37.1 C Pulse Rate 81 81 Respiratory Rate 17 Blood Pressure 141/82 H 141/92 H Pulse Oximetry 96 97 Oxygen Delivery Room Air Oxygen Flow Rate 03/23/24 20:00 03/23/24 22:00 03/24/24 00:00 Temperature Pulse Rate 81 81 81 Respiratory Rate Blood Pressure Pulse Oximetry Oxygen Delivery Oxygen Flow Rate 03/24/24 00:00 03/23/24 22:00 03/24/24 00:00 Temperature 36.9 C Pulse Rate 81 80 Respiratory Rate 19 14 Blood Pressure 132/97 H 154/92 H Pulse Oximetry 96 97 97 Oxygen Delivery Room Air Oxygen Flow Rate 03/24/24 02:00 03/24/24 02:00 03/24/24 04:00 Temperature Pulse Rate 81 81 81 Respiratory Rate 19 Blood Pressure 152/76 H Pulse Oximetry 96 Oxygen Delivery Oxygen Flow Rate 03/24/24 04:00 03/24/24 04:00 03/23/24 20:00 Temperature 36.7 C Pulse Rate 81 81 Respiratory Rate 21 H Blood Pressure 147/89 H 141/92 H Pulse Oximetry 95 95 Oxygen Delivery Room Air Oxygen Flow Rate 03/24/24 00:00 03/24/24 04:00 03/24/24 06:00 Temperature Pulse Rate 81 81 81 Respiratory Rate Blood Pressure 154/94 H 147/89 H Pulse Oximetry Oxygen Delivery Oxygen Flow Rate 03/24/24 06:00 Temperature Pulse Rate 81 Respiratory Rate 19 Blood Pressure 152/122 H Pulse Oximetry 93 Oxygen Delivery Oxygen Flow Rate Intake/Output Intake/Output: Intake & Output 03/21/24 03/22/24 03/23/24 03/24/24 23:59 23:59 23:59 23:59 Intake Total 16.6 2924.5 1200 Output Total 275 200 Balance 16.6 2649.5 1000 Meds/Results Medications: Active Medications Generic Name Dose Route Start Last Admin Trade Name Freq PRN Reason Stop Dose Admin Acetaminophen 650 mg 03/22/24 15:38 Acetaminophen 325 Mg Tablet PO Q6H PRN Mild Pain (1-3) or Fever Carbidopa/Levodopa 1 tablet 03/22/24 22:00 03/23/24 09:18 Carbidopa/Levodopa 25/100 Mg Tablet PO Not Given TID@0900,1300,1800 [facility] Ferrous Sulfate 325 mg 03/23/24 21:00 Ferrous Sulfate [address] BY MOUTH HS BELKIS Fludrocortisone Acetate 0.05 mg 03/23/24 09:00 Fludrocortisone Acetate 0.1 Mg Tablet PO DAILY PRN SBP<90 Hydrocortisone Sodium Succinate 100 mg 03/23/24 14:00 03/24/24 05:19 Hydrocortisone Sodium Succinate 100 Mg/2 Ml Vial IV PUSH 100 mg Q8HR BELKIS Administration Norepinephrine Bitartrate 8 mg in 250 mls @ 0 mls/hr 03/22/24 23:55 03/24/24 04:00 Levophed 8 Mg/D5w 250 Ml IV CONT 0 mcg/min .Q0M BELKIS 0 mls/hr Titration Protocol Sodium Chloride 1,000 mls @ 80 mls/hr 03/23/24 00:50 03/24/24 05:35 Normal Saline Iv IV CONT 80 mls/hr .[id number] BELKIS Administration Ceftriaxone Sodium 1 gm in 50 mls @ 100 mls/hr 03/23/24 09:00 03/23/24 13:10 Rocephin 1 Gm/Ns 50 Ml IVPB Infused Q24H BELKIS Infusion Vancomycin HCl 1,250 mg in 250 mls @ 166.667 mls/hr 03/24/24 23:00 Vancomycin 1,250 Mg/Ns 250 Ml IVPB Q36H BELKIS Non-Formulary Medication 1 applic 03/23/24 09:00 Tavaborole TOPICAL 04/22/24 08:59 DAILY BELKIS Non-Formulary Medication 75 mg 03/22/24 21:40 Vibegron [Gemtesa] PO 04/21/24 21:39 QPM BELKIS Pantoprazole Sodium 40 mg 03/23/24 10:00 03/23/24 20:49 Pantoprazole Sodium Iv 40 Mg Vial IV PUSH 40 mg Q12HR BELKIS Administration Simvastatin 20 mg 03/22/24 21:40 03/23/24 00:16 Simvastatin 20 Mg Tablet PO Not Given QPM BELKIS Sodium Chloride 10 ml 03/23/24 06:00 03/24/24 05:24 Central Line Flush IV PUSH 10 ml Q8HR BELKIS Administration Sodium Chloride 20 ml 03/23/24 02:04 Central Line Flush IV PUSH PRN PRN after blood draws Vitamin D 1,000 units 03/23/24 09:00 03/23/24 09:18 Cholecalciferol 1,000 Units Tablet PO Not Given DAILY BELKIS Radiology Results: ITS Impressions Pelvis X-Ray 03/22/24 15:24 IMPRESSION: No acute osseous finding in the pelvis. Chest X-Ray 03/23/24 10:09 Impression: 1: No acute cardiopulmonary disease. Labs Labs: Laboratory Results - last 24 hr 03/23/24 03/23/24 03/23/24 04:30 08:36 12:44 WBC RBC Hgb Hct MCV MCH MCHC RDW Plt Count MPV Immature Gran % (Auto) Neut % (Auto) Lymph % (Auto) [place] % (Auto) Eos % (Auto) Baso % (Auto) Lymph # (Auto) [place] # (Auto) Eos # (Auto) Baso # (Auto) Abs Immat Gran (auto) Absolute Neuts (auto) Absolute Nucleated RBC Nucleated RBC % Platelet Estimate Anisocytosis Ovalocytes Acanthocytes (Spur) Schistocytes Sodium Potassium Chloride Carbon Dioxide Anion Gap BUN Creatinine Estim Creat Clear Calc Estimated GFR Glucose Lactic Acid 2.9 H 2.6 H Calcium Phosphorus Magnesium Total Bilirubin AST ALT Alkaline Phosphatase Total Creatine Kinase 38 L Total Protein Albumin Urine Color Dark yellow Urine Appearance Cloudy H Urine pH 5.0 Ur Specific Stella 1.021 Urine Protein 1+ H Urine Glucose (UA) Negative Urine Ketones Trace H Ur Blood (Man) 1+ H Urine Nitrate Negative Urine Bilirubin 1+ H Urine Urobilinogen 0.2 Add Ur Microanalysis Reviewed Leukocyte Esterase Rfl 1+ H Urine RBC 11-20 H Urine WBC 11-20 H Ur Squamous Epith Cells Occasional Urine Bacteria 3+ H Urine Casts >20 Hyaline Casts Present Urine Eosinophils None seen Ur Random Sodium 22 Ur Random Potassium 66.4 Urine Creatinine 189.6 03/24/24 05:27 WBC 6.7 RBC 2.94 L Hgb 8.2 L Hct 26.4 L MCV 89.8 MCH 27.9 MCHC 31.1 L RDW 24.1 H Plt Count 184 MPV 9.8 Immature Gran % (Auto) 0.7 H Neut % (Auto) 88.3 H Lymph % (Auto) 6.4 L [place] % (Auto) 4.6 Eos % (Auto) 0.0 Baso % (Auto) 0.0 L Lymph # (Auto) 0.43 L [place] # (Auto) 0.3 Eos # (Auto) 0.0 Baso # (Auto) 0.0 Abs Immat Gran (auto) 0.05 H Absolute Neuts (auto) 5.9 Absolute Nucleated RBC 0.000 Nucleated RBC % 0.0 Platelet Estimate Adequate Anisocytosis 2+ Ovalocytes 1+ Acanthocytes (Spur) 1+ Schistocytes Rare Sodium 140 Potassium 4.2 Chloride 108 H Carbon Dioxide 21 L Anion Gap 11 BUN 52 H Creatinine 1.60 H Estim Creat Clear Calc 28 Estimated GFR 41 L Glucose 102 Lactic Acid Calcium 8.5 Phosphorus 4.9 H Magnesium 2.4 H Total Bilirubin 1.4 H AST 75 H ALT 48 Alkaline Phosphatase 46 Total Creatine Kinase Total Protein 6.0 L Albumin 4.0 Urine Color Urine Appearance Urine pH Ur Specific Stella Urine Protein Urine Glucose (UA) Urine Ketones Ur Blood (Man) Urine Nitrate Urine Bilirubin Urine Urobilinogen Add Ur Microanalysis Leukocyte Esterase Rfl Urine RBC Urine WBC Ur Squamous Epith Cells Urine Bacteria Urine Casts Hyaline Casts Urine Eosinophils Ur Random Sodium Ur Random Potassium Urine Creatinine
[2024-03-24] MEDS: PANTOPRAZOLE SODIUM IV 40 MG VIAL IV PUSH ×2 (09:36→20:44)
[2024-03-24] MEDS: LACTATED RINGERS 1,000 ML 75 ML IV CONT (11:03)
--- NOTE | 2024-03-24 11:08 | PCFNICU ---
ICU Rounding Note: Pt current nutrition is NPO. Last recorded weight is 63.83 kg, up from 62 kg on admit. Bowel Motility: +BM reported 03/24 Labs Reviewed:Mg 2.4, BUN 52, Cr 1.6, Hct 26.4, Hgb 8.2 Meds Noted:Rocephin, Protonix, NS Skin: WNL Additional Notes: Patient had temporary pacemaker placed 03/23. Plans for permanent pacemaker 03/26. Patient currently NPO. GI consult for bloody stools. Following daily in ICU rounds. Monitoring intakes, weights, labs, supplement tolerance, plan of care Follow up in 3 days.
--- NOTE | 2024-03-24 11:38 | P.PNINT_ITS ---
Progress Note: A&P Assessment and Plan (1) Shock: Code(s): R57.9 - Shock, unspecified Status: Acute Assessment and Plan: Hemodynamic instability leading to shock secondary to high-degree AV block, questionable infection -central line was inserted overnight -OFF dopamine and Levophed off to transvenous pacer was inserted -lactic trending down -will repeat lactic acid -continue maintenance IV fluids -03/03: blood and urine cultures been obtained and pending -started patient on a empiric ceftriaxone and vancomycin (03/23) -chest x-ray was clear, UA reflective of UTI 03/24: CT abdomen and pelvis noncontrast 1. Small pleural effusions. 2. Small volume of ascites. 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, likely related to sotalol -currently currently being transcutaneously paced, -patient hemodynamically unstable requiring norepinephrine and dopamine -has received glucagon IV push and drip -03/23: Transvenous pacer placed -patient is currently off all vasopressors, hemodynamically stable, being paced almost 100% -permanent pacemaker replaced on 03/26/2024 (3) Bradycardia: Code(s): R00.1 - Bradycardia, unspecified Status: Acute Assessment and Plan: Symptomatic bradycardia likely related av block secondary to sotalol -treatment as above -status post transvenous pacemaker, - (4) Fall from ground level: Code(s): W18.30XA - Fall on same level, unspecified, initial encounter Status: Acute Assessment and Plan: Most likely related to bradycardia and AV block (5) Chronic anemia: Code(s): D64.9 - Anemia, unspecified Status: Acute Assessment and Plan: History of chronic iron deficiency anemia, patient is on iron supplements at home. Recent colonoscopy as under -patient did have a maroon stool last night per hospitalist note -hemoglobin has been stable -continue to monitor for now -start Protonix IV q.12 hours 03/03/2024: Colonoscopy was done for iron deficiency anemia, showed cecal polyp, transverse colon polyps, ascending colon polyps, diverticulosis without perforation or abscess without bleeding. (6) Chronic kidney disease: Code(s): N18.9 - Chronic kidney disease, unspecified Status: Acute Assessment and Plan: Creatinine 1.60 this admission, (baseline creatinine is 1.10-1.30) -continue maintenance IV fluid -will give 500 mL bolus of LR x1 -will check urine lytes, urine eosinophils, CK level since patient had a fall -monitor urine output, renal function electrolytes (7) Altered mental status: Code(s): R41.82 - Altered mental status, unspecified Status: Acute Assessment and Plan: Could be multifactorial likely related to infection, shock, anemia, hypoxia 03/24: CT head Stable moderate nonspecific cerebral white matter disease, which likely represents chronic small vessel ischemic disease. Plan DVT prophylaxis: SCDs Stress ulcer prophylaxis: Protonix Nutrition: NPO for now Code Status: Full code Critical Care Time Spent: [address] Menchaca, -discussed with patient's spouse at bedside updated with patient's condition and plan of care. I answered all questions. Due to a high probability of clinically significant, life threatening deterioration, the patient required my highest level of preparedness to intervene emergently and I personally spent this critical care time directly and personally managing the patient. This critical care time included obtaining a history; examining the patient; pulse oximetry; ordering and review of studies; arranging urgent treatment with development of a management plan; evaluation of patient's response to treatment; frequent reassessment; and discussions with other providers. It was exclusive of separately billable procedures and treating other patients and teaching time. Please see Assessment and Plan section and the rest of the note for further information on patient assessment and treatment This dictation may have been done utilizing a voice recognition system. Attempts have been made to correct errors. However, there may be uncorrected grammatical, spelling, and recognitions errors present. Subjective Date/time seen: 03/24/24 11:38 Interval history: Reason for consult: High-degree AV block, hemodynamic instability, bradycardia, fall 03/23: Transvenous pacemaker 03/24/2024: Patient seen and examined the ICU, is awake, confused, altered mental status, able to answer few questions and follows simple commands in all extremities, denies any pain or shortness of breath at this time, denies any nausea, vomiting abdominal pain. He complains of dryness in his mouth. Being transvenous lead paced. Off vasopressors Review of Systems Review of Systems: All systems reviewed & are unremarkable except as noted in HPI and below Exam Narrative: General: Elderly gentleman currently in no acute distress HEENT:? Pupils equal and reactive, sclera is clear, dry oral mucosa Neck:? Supple Respiratory:? Clear to auscultation bilaterally, decreased at bases Cardiac:? Paced rhythm Abdomen:? Soft, nontender, nondistended, hypoactive bowel sounds Extremities:? palpable pedal pulses, no edema Neuro:? Patient is awake, not oriented, able to answer few questions and follows commands, confused Skin:? Mottling is improved on his new bilateral Psych:? Confused Objective Data Vital Signs Vital Signs: Vital Signs - 24 hr 03/23/24 12:00 03/23/24 12:00 03/23/24 13:00 Temperature Pulse Rate 80 81 81 Respiratory Rate Blood Pressure 102/57 L 102/57 L 140/72 Pulse Oximetry Oxygen Delivery Oxygen Flow Rate 03/23/24 12:00 03/23/24 12:00 03/23/24 12:00 Temperature 97.6 F Pulse Rate 81 81 Respiratory Rate 22 H Blood Pressure 102/57 L Pulse Oximetry 99 98 Oxygen Delivery Nasal Cannula Oxygen Flow Rate 2 03/23/24 14:00 03/23/24 14:00 03/23/24 13:30 Temperature Pulse Rate 81 81 81 Respiratory Rate 20 Blood Pressure 163/81 H 124/94 H Pulse Oximetry 99 Oxygen Delivery Oxygen Flow Rate 03/23/24 13:45 03/23/24 14:00 03/23/24 16:00 Temperature Pulse Rate 81 81 81 Respiratory Rate Blood Pressure 143/85 H 163/81 H 140/78 Pulse Oximetry Oxygen Delivery Oxygen Flow Rate 03/23/24 16:00 03/23/24 16:00 03/23/24 16:00 Temperature 97.6 F Pulse Rate 81 81 Respiratory Rate 16 Blood Pressure 140/78 Pulse Oximetry 99 98 Oxygen Delivery Room Air Oxygen Flow Rate 03/23/24 18:00 03/23/24 18:00 03/23/24 18:00 Temperature Pulse Rate 81 81 81 Respiratory Rate 18 Blood Pressure 141/82 H 141/82 H Pulse Oximetry 96 Oxygen Delivery Oxygen Flow Rate 03/23/24 20:00 03/23/24 20:00 03/23/24 20:00 Temperature 98.7 F Pulse Rate 81 81 Respiratory Rate 17 Blood Pressure 141/92 H Pulse Oximetry 96 97 Oxygen Delivery Room Air Oxygen Flow Rate 03/23/24 22:00 03/24/24 00:00 03/24/24 00:00 Temperature Pulse Rate 81 81 Respiratory Rate Blood Pressure Pulse Oximetry 96 Oxygen Delivery Room Air Oxygen Flow Rate 03/23/24 22:00 03/24/24 00:00 03/24/24 02:00 Temperature 98.5 F Pulse Rate 81 80 81 Respiratory Rate 19 14 Blood Pressure 132/97 H 154/92 H Pulse Oximetry 97 97 Oxygen Delivery Oxygen Flow Rate 03/24/24 02:00 03/24/24 04:00 03/24/24 04:00 Temperature 98.0 F Pulse Rate 81 81 81 Respiratory Rate 19 21 H Blood Pressure 152/76 H 147/89 H Pulse Oximetry 96 95 Oxygen Delivery Oxygen Flow Rate 03/24/24 04:00 03/23/24 20:00 03/24/24 00:00 Temperature Pulse Rate 81 81 Respiratory Rate Blood Pressure 141/92 H 154/94 H Pulse Oximetry 95 Oxygen Delivery Room Air Oxygen Flow Rate 03/24/24 04:00 03/24/24 06:00 03/24/24 06:00 Temperature Pulse Rate 81 81 81 Respiratory Rate 19 Blood Pressure 147/89 H 152/122 H Pulse Oximetry 93 Oxygen Delivery Oxygen Flow Rate 03/24/24 08:00 03/24/24 08:00 03/24/24 10:00 Temperature 97.6 F Pulse Rate 81 81 81 Respiratory Rate 18 Blood Pressure 148/94 H Pulse Oximetry 93 Oxygen Delivery Oxygen Flow Rate 03/24/24 08:00 03/24/24 10:00 03/24/24 10:00 Temperature Pulse Rate 81 81 81 Respiratory Rate 22 H Blood Pressure 148/94 H 152/76 H 152/76 H Pulse Oximetry 94 Oxygen Delivery Oxygen Flow Rate 03/24/24 08:00 03/24/24 10:45 Temperature Pulse Rate Respiratory Rate Blood Pressure Pulse Oximetry 93 92 Oxygen Delivery Room Air Nasal Cannula Oxygen Flow Rate 3 Intake/Output Intake/Output: Intake & Output 03/21/24 03/22/24 03/23/24 03/24/24 23:59 23:59 23:59 23:59 Intake Total 16.6 2924.5 1250 Output Total 275 200 Balance 16.6 2649.5 1050 Meds/Results Medications: Active Medications Generic Name Dose Route Start Last Admin Trade Name Freq PRN Reason Stop Dose Admin Acetaminophen 650 mg 03/22/24 15:38 Acetaminophen 325 Mg Tablet PO Q6H PRN Mild Pain (1-3) or Fever Carbidopa/Levodopa 1 tablet 03/22/24 22:00 03/23/24 09:18 Carbidopa/Levodopa 25/100 Mg Tablet PO Not Given TID@0900,1300,1800 BELKIS Ferrous Sulfate 325 mg 03/23/24 21:00 Ferrous Sulfate [address] BY MOUTH HS BELKIS Fludrocortisone Acetate 0.05 mg 03/23/24 09:00 Fludrocortisone Acetate 0.1 Mg Tablet PO DAILY PRN SBP<90 Hydrocortisone Sodium Succinate 100 mg 03/23/24 14:00 03/24/24 05:19 Hydrocortisone Sodium Succinate 100 Mg/2 Ml Vial IV PUSH 100 mg Q8HR BELKIS Administration Ceftriaxone Sodium 1 gm in 50 mls @ 100 mls/hr 03/23/24 09:00 03/24/24 10:07 Rocephin 1 Gm/Ns 50 Ml IVPB Infused Q24H BELKIS Infusion Vancomycin HCl 1,250 mg in 250 mls @ 166.667 mls/hr 03/24/24 23:00 Vancomycin 1,250 Mg/Ns 250 Ml IVPB Q36H BELKIS Lactated Ringer's 1,000 mls @ 75 mls/hr 03/24/24 10:30 03/24/24 11:03 Lr - Lactated Ringers Iv IV CONT 03/24/24 23:49 75 mls/hr .[id number] BELKIS Administration Non-Formulary Medication 1 applic 03/23/24 09:00 Tavaborole TOPICAL 04/22/24 08:59 DAILY BELKIS Non-Formulary Medication 75 mg 03/22/24 21:40 Vibegron [Gemtesa] PO 04/21/24 21:39 QPM BELKIS Pantoprazole Sodium 40 mg 03/23/24 10:00 03/24/24 09:36 Pantoprazole Sodium Iv 40 Mg Vial IV PUSH 40 mg Q12HR BELKIS Administration Simvastatin 20 mg 03/22/24 21:40 03/23/24 00:16 Simvastatin 20 Mg Tablet PO Not Given QPM BELKIS Sodium Chloride 10 ml 03/23/24 06:00 03/24/24 05:24 Central Line Flush IV PUSH 10 ml Q8HR BELKIS Administration Sodium Chloride 20 ml 03/23/24 02:04 Central Line Flush IV PUSH PRN PRN after blood draws Vitamin D 1,000 units 03/23/24 09:00 03/23/24 09:18 Cholecalciferol 1,000 Units Tablet PO Not Given DAILY BELKIS Radiology Results: ITS Impressions Pelvis X-Ray 03/22/24 15:24 IMPRESSION: No acute osseous finding in the pelvis. Chest X-Ray 03/23/24 10:09 Impression: 1: No acute cardiopulmonary disease. Head CT 03/24/24 11:11 IMPRESSION: 1. Stable moderate nonspecific cerebral white matter disease, which likely represents chronic small vessel ischemic disease. Abdomen/Pelvis CT 03/24/24 11:13 IMPRESSION: 1. Small pleural effusions. 2. Small volume of ascites. Labs Labs: Laboratory Results - last 24 hr 03/23/24 03/24/24 12:44 05:27 WBC 6.7 RBC 2.94 L Hgb 8.2 L Hct 26.4 L MCV 89.8 MCH 27.9 MCHC 31.1 L RDW 24.1 H Plt Count 184 MPV 9.8 Immature Gran % (Auto) 0.7 H Neut % (Auto) 88.3 H Lymph % (Auto) 6.4 L [place] % (Auto) 4.6 Eos % (Auto) 0.0 Baso % (Auto) 0.0 L Lymph # (Auto) 0.43 L [place] # (Auto) 0.3 Eos # (Auto) 0.0 Baso # (Auto) 0.0 Abs Immat Gran (auto) 0.05 H Absolute Neuts (auto) 5.9 Absolute Nucleated RBC 0.000 Nucleated RBC % 0.0 Platelet Estimate Adequate Anisocytosis 2+ Ovalocytes 1+ Acanthocytes (Spur) 1+ Schistocytes Rare Sodium 140 Potassium 4.2 Chloride 108 H Carbon Dioxide 21 L Anion Gap 11 BUN 52 H Creatinine 1.60 H Estim Creat Clear Calc 28 Estimated GFR 41 L Glucose 102 Lactic Acid 2.6 H Calcium 8.5 Phosphorus 4.9 H Magnesium 2.4 H Total Bilirubin 1.4 H AST 75 H ALT 48 Alkaline Phosphatase 46 Total Protein 6.0 L Albumin 4.0 Urine Color Dark yellow Urine Appearance Cloudy H Urine pH 5.0 Ur Specific [place] 1.021 Urine Protein 1+ H Urine Glucose (UA) Negative Urine Ketones Trace H Ur Blood (Man) 1+ H Urine Nitrate Negative Urine Bilirubin 1+ H Urine Urobilinogen 0.2 Add Ur Microanalysis Reviewed Leukocyte Esterase Rfl 1+ H Urine RBC 11-20 H Urine WBC 11-20 H Ur Squamous Epith Cells Occasional Urine Bacteria 3+ H Urine Casts >20 Hyaline Casts Present Urine Eosinophils None seen Ur Random Sodium 22 Ur Random Potassium 66.4 Urine Creatinine 189.6 Quality VTE Prophylaxis VTE prophylaxis: mechanical ordered
[2024-03-24 15:23] LABS: Lactic Acid Reflex 3.1 mmol/L (0.7-2.0)
[2024-03-24 18:09] LABS: Reflex Lactic Acid Yes or No Add Lactic
[2024-03-24 18:40] LABS: Lactic Acid 2.7 mmol/L (0.7-2.0)
[2024-03-24] MEDS: hydrALAZINE HCL 20 MG/ML VIAL 10 MG IV PUSH (20:55)
[2024-03-24] MEDS: VANCOMYCIN 1,250 MG/NS 250 ML 1,250 MG/250 ML BAG 166.67 MG IVPB (22:56)
[2024-03-25] VITALS (20 sets, daily range): BP systolic 107–172; BP diastolic 76–109; PULSE 81–82; RESP 15–24; TEMP 36.3–36.9; O2SAT 91–100
[2024-03-25] MEDS: hydrALAZINE HCL 20 MG/ML VIAL 10 MG IV PUSH ×3 (01:33→14:21)
[2024-03-25] MEDS: HYDROCORTISONE SODIUM SUCCINATE 100 MG/2 ML VIAL IV PUSH (05:59)
[2024-03-25] MEDS: CENTRAL LINE FLUSH 10 ML IV PUSH ×3 (05:59→21:40)
[2024-03-25 06:02] LABS: Basophils Percent Auto 0.1 % (0.2-1.2); Hematocrit 30.7 % (42.0-52.0); Hemoglobin 9.4 g/dL (14.0-18.0); Immature Granulocyte Absolute 0.07 K/mm3 (0.00-0.031); Immature Granulocyte Percent A 0.7 % (0-0.5); Lymphocytes Absolute Auto 0.26 K/mm3 (0.9-3.2); Lymphocytes Percent Auto 2.6 % (18.3-44.2); Mean Corpuscular HGB Conc 30.6 g/dl (32-36); Mean Corpuscular Hemoglobin 27.8 pg (26-34); Mean Corpuscular Volume 90.8 fl (80-100); Mean Platelet Volume 9.4 fl (7.4-10.4); Monocytes Absolute Auto 0.6 K/mm3 (0.1-0.6); Neutrophils Absolute Auto 8.9 K/mm3 (1.3-6.7); Neutrophils Percent Auto 90.6 % (45.5-73.1); Nucleated Red Blood Cells Perc 0.2 % (0.0-0.2); Platelet Count Result 169 k/mm3 (150-375); Red Blood Count 3.38 M/mm3 (4.6-6.20); Red Cell Distribution Width 24.3 % (11.5-14.5); White Blood Count 9.9 K/mm3 (4.5-10.0)
[2024-03-25 06:11] LABS: Lactic Acid Reflex 2.4 mmol/L (0.7-2.0)
[2024-03-25 06:12] LABS: Alanine Aminotransferase 78 U/L (6-50); Alkaline Phosphatase 48 U/L (38-126); Anion Gap 12 mmol/L (4-12); Aspartate Amino Transferase 90 U/L (17-59); Bilirubin,Total 1.2 mg/dL (0.2-1.3); Blood Urea Nitrogen 67 mg/dL (9-20); Calcium 8.9 mg/dL (8.4-10.2); Carbon Dioxide 19 mmol/L (22-30); Chloride 110 mmol/L (98-107); Estimated CRCL calculation 23 ml/min; Estimated Glomerular Filt Rate 34; Glucose 111 mg/dL (65-110); Magnesium 2.5 mg/dL (1.6-2.3); Phosphorus 4.9 mg/dL (2.5-4.5); Potassium 4.3 mmol/L (3.4-5.0); Sodium 141 mmol/L (137-145)
[2024-03-25 06:26] LABS: INR 2.5; Prothrombin Time 27.2 Seconds (11.1-14.7)
[2024-03-25 06:27] LABS: Partial Thromboplastin Time 34.7 Seconds (22.3-36.8)
[2024-03-25 07:08] LABS: Acanthocytes 1+; Anisocytosis 2+; Burr Cells 1+; Ovalocytes 1+; Platelet Estimate Adequate (Adequate); Schistocytes None Seen
[2024-03-25 08:59] LABS: Reflex Lactic Acid Yes or No Add Lactic
[2024-03-25] MEDS: SODIUM CHLORIDE 0.9% IV 250 ML 30 ML IV CONT (09:34)
[2024-03-25] MEDS: PANTOPRAZOLE SODIUM IV 40 MG VIAL IV PUSH ×2 (09:34→20:08)
[2024-03-25] MEDS: PHYTONADIONE ADULT INJ 10 MG in DEXTROSE 5% IN WATER 50 ML 100 MG IVPB (09:34)
[2024-03-25] MEDS: ALBUMIN HUMAN 25% 25 GM/100 ML 100 ML IVPB ×3 (09:35→17:35)
--- NOTE | 2024-03-25 09:36 | P.PNCA_ITS ---
Progress Note: A&P Assessment and Plan (1) Complete heart block: Code(s): I44.2 - Atrioventricular block, complete Status: Acute (2) Tachycardia-bradycardia syndrome: Code(s): I49.5 - Sick sinus syndrome Status: Acute (3) Paroxysmal atrial fibrillation: Code(s): I48.0 - Paroxysmal atrial fibrillation Status: Acute Plan Elderly gentleman with paroxysmal atrial fibrillation now presenting with high- grade AV block/complete heart block had a temporary transvenous pacemaker placed by Dr. Menchaca and from that perspective is hemodynamically stable. He is clearly dependent on pacing at this time and does require implantation of a permanent device. He does have a coagulopathy as his INR is 2.5 and has not received any anticoagulation for several days. Based on his exam, elderly frail status and coagulopathy I will favor a leadless pacemaker system. Discussed with the patient's in the room he is pacemaker dependent will probably place a 2nd transvenous temporary wire from the left femoral vein in the helper animal laboratory allowing me to the right femoral vein for access for the leadless pacemaker device. Procedural details and risks were explained to the patient's the patient is nearly unresponsive at this time obviously cannot participate in these decisions. Prabhakar Murry MD [facility] Subjective Date/time seen: Date of service: 03/25/24 09:36 Interval history: Reason for visit: Complete heart block HPI: This is an 83 year old male with paroxysmal atrial fibrillation on Sotalol (which was started in January 2024) who presented to [facility] for evaluation of weakness and fall. Found to be in sinus bradycardia with 2:1 AV block. Overnight, patient progressed to complete heart block. Initially was hemodynamic ally stable and asymptomatic, however, then he became less responsive and heart rates dropped to the 20s. He was moved to the ICU. Administered Atropine with improvement in heart rates to the 40s. Started on Dopamine and transcutaneous pacing. Became hypotensive and required addition of Levophed. This morning, patient remains mentally altered. He is being transcutaneous paced. Remains on Dopamine and Levophed. at bedside. Date of service 03/24: Remains mentally altered, at bedside. Still being transvenously paced. Off of pressors now. Date of service 03/25/2024: Patient is essentially unresponsive/minimally responsive in ICU room 11. Temporary transvenous pacemaker is in the right femoral vein. Pacemaker rate turned down to 30 no intrinsic rhythm was present at this time Exam Const: General: no acute distress Other: Elderly frail essentially unresponsive patient HENMT: Mouth: Yes dry mucous membranes Eyes: Sclera: sclerae normal Resp: Effort & Inspection: normal respiratory effort Cardio: Rate: regular rate Rhythm: regular rhythm Heart sounds: no murmurs Other: Transvenously paced Neuro: Other: Mentally altered Objective Data Vital Signs Vital Signs: Vital Signs - 24 hr 03/24/24 10:00 03/24/24 10:00 03/24/24 10:00 Temperature Pulse Rate 81 81 81 Respiratory Rate 22 H Blood Pressure 152/76 H 152/76 H Pulse Oximetry 94 Oxygen Delivery Oxygen Flow Rate Fraction of Inspired Oxygen 03/24/24 10:45 03/24/24 12:00 03/24/24 12:00 Temperature 36.6 C Pulse Rate 81 Respiratory Rate 24 H Blood Pressure 154/92 H Pulse Oximetry 92 96 93 Oxygen Delivery Nasal Cannula Nasal Cannula Oxygen Flow Rate 3 2 Fraction of Inspired Oxygen 03/24/24 12:00 03/24/24 14:00 03/24/24 16:00 Temperature Pulse Rate 81 81 Respiratory Rate 22 H Blood Pressure 116/82 Pulse Oximetry 94 93 Oxygen Delivery Nasal Cannula Oxygen Flow Rate 2 Fraction of Inspired Oxygen 03/24/24 14:00 03/24/24 16:00 03/24/24 16:00 Temperature 36.5 C Pulse Rate 81 81 81 Respiratory Rate 18 Blood Pressure 134/92 H Pulse Oximetry 93 Oxygen Delivery Oxygen Flow Rate Fraction of Inspired Oxygen 03/24/24 18:00 03/24/24 18:00 03/24/24 20:00 Temperature 37.3 C Pulse Rate 81 81 81 Respiratory Rate 22 H 20 Blood Pressure 159/91 H 173/90 H Pulse Oximetry 92 95 Oxygen Delivery Oxygen Flow Rate Fraction of Inspired Oxygen 03/24/24 21:45 03/24/24 22:00 03/24/24 20:00 Temperature Pulse Rate 81 Respiratory Rate 17 Blood Pressure 163/87 H 158/78 H Pulse Oximetry 96 96 Oxygen Delivery Nasal Cannula Oxygen Flow Rate 2 Fraction of Inspired Oxygen 03/24/24 20:00 03/24/24 22:00 03/25/24 00:00 Temperature Pulse Rate 81 81 81 Respiratory Rate Blood Pressure Pulse Oximetry Oxygen Delivery Oxygen Flow Rate Fraction of Inspired Oxygen 03/25/24 00:00 03/25/24 00:00 03/25/24 02:00 Temperature 36.9 C Pulse Rate 81 81 Respiratory Rate 21 H Blood Pressure 160/99 H Pulse Oximetry 97 95 Oxygen Delivery Nasal Cannula Oxygen Flow Rate 2 Fraction of Inspired Oxygen 03/25/24 02:00 03/25/24 04:00 03/25/24 04:00 Temperature 36.8 C Pulse Rate 81 81 81 Respiratory Rate 22 H 18 Blood Pressure 139/107 H 172/83 H Pulse Oximetry 91 94 Oxygen Delivery Oxygen Flow Rate Fraction of Inspired Oxygen 03/25/24 06:00 03/25/24 06:00 03/25/24 04:00 Temperature Pulse Rate 81 81 Respiratory Rate 19 Blood Pressure 159/87 H Pulse Oximetry 94 93 Oxygen Delivery Nasal Cannula Oxygen Flow Rate 2 Fraction of Inspired Oxygen 03/25/24 08:32 03/25/24 08:00 03/25/24 08:00 Temperature 36.3 C L Pulse Rate 81 81 Respiratory Rate 16 Blood Pressure 164/86 H Pulse Oximetry 100 100 Oxygen Delivery Nasal Cannula Oxygen Flow Rate 2 Fraction of Inspired Oxygen 28 Intake/Output Intake/Output: Intake & Output 03/22/24 03/23/24 03/24/24 03/25/24 23:59 23:59 23:59 23:59 Intake Total 16.6 2924.5 1250 1250 Output Total 275 350 350 Balance 16.6 2649.5 900 900 Meds/Results Medications: Active Medications Generic Name Dose Route Start Last Admin Trade Name Freq PRN Reason Stop Dose Admin Acetaminophen 650 mg 03/22/24 15:38 Acetaminophen 325 Mg Tablet PO Q6H PRN Mild Pain (1-3) or Fever Carbidopa/Levodopa 1 tablet 03/22/24 22:00 03/23/24 09:18 Carbidopa/Levodopa 25/100 Mg Tablet PO Not Given TID@0900,1300,1800 [facility] Ferrous Sulfate 325 mg 03/23/24 21:00 Ferrous Sulfate [address] BY MOUTH HS [facility] Fludrocortisone Acetate 0.05 mg 03/23/24 09:00 Fludrocortisone Acetate 0.1 Mg Tablet PO DAILY PRN SBP<90 Hydralazine HCl 10 mg 03/24/24 20:52 03/25/24 05:58 Hydralazine Hcl 20 Mg/Ml Vial IV PUSH 10 mg Q4HR PRN Administration Blood Pressure - High Hydrocortisone Sodium Succinate 100 mg 03/23/24 14:00 03/25/24 05:59 Hydrocortisone Sodium Succinate 100 Mg/2 Ml Vial IV PUSH 100 mg Q8HR [facility] Administration Ceftriaxone Sodium 1 gm in 50 mls @ 100 mls/hr 03/23/24 09:00 03/25/24 09:34 Rocephin 1 Gm/Ns 50 Ml IVPB 100 mls/hr Q24H [facility] Administration Vancomycin HCl 1,250 mg in 250 mls @ 166.667 mls/hr 03/24/24 23:00 03/25/24 00:26 Vancomycin 1,250 Mg/Ns 250 Ml IVPB Infused Q36H [facility] Infusion Albumin Human 100 mls @ 60 mls/hr 03/25/24 08:16 03/25/24 09:35 Albutein IVPB 03/26/24 01:39 60 mls/hr Q6HR [facility] Administration Sodium Chloride 250 mls @ 30 mls/hr 03/25/24 08:18 03/25/24 09:34 Normal Saline Iv IV CONT 03/25/24 16:37 30 mls/hr .Q8H20M STA Administration Pantoprazole Sodium 40 mg 03/23/24 10:00 03/25/24 09:34 Pantoprazole Sodium Iv 40 Mg Vial IV PUSH 40 mg Q12HR [facility] Administration Simvastatin 20 mg 03/22/24 21:40 03/23/24 00:16 Simvastatin 20 Mg Tablet PO Not Given QPM [facility] Sodium Chloride 10 ml 03/23/24 06:00 03/25/24 05:59 Central Line Flush IV PUSH 10 ml Q8HR BELKIS Administration Sodium Chloride 20 ml 03/23/24 02:04 Central Line Flush IV PUSH PRN PRN after blood draws Vitamin D 1,000 units 03/23/24 09:00 03/23/24 09:18 Cholecalciferol 1,000 Units Tablet PO Not Given DAILY [facility] Radiology Results: ITS Impressions Pelvis X-Ray 03/22/24 15:24 IMPRESSION: No acute osseous finding in the pelvis. Chest X-Ray 03/23/24 10:09 Impression: 1: No acute cardiopulmonary disease. Head CT 03/24/24 11:11 IMPRESSION: 1. Stable moderate nonspecific cerebral white matter disease, which likely represents chronic small vessel ischemic disease. Abdomen/Pelvis CT 03/24/24 11:13 IMPRESSION: 1. Small pleural effusions. 2. Small volume of ascites. Labs Labs: Laboratory Results - last 24 hr 03/24/24 03/24/24 03/25/24 15:03 18:26 05:48 WBC 9.9 RBC 3.38 L Hgb 9.4 L Hct 30.7 L MCV 90.8 MCH 27.8 MCHC 30.6 L RDW 24.3 H Plt Count 169 MPV 9.4 Immature Gran % (Auto) 0.7 H Neut % (Auto) 90.6 H Lymph % (Auto) 2.6 L [place] % (Auto) 6.0 Eos % (Auto) 0.0 Baso % (Auto) 0.1 L Lymph # (Auto) 0.26 L [place] # (Auto) 0.6 Eos # (Auto) 0.0 Baso # (Auto) 0.0 Abs Immat Gran (auto) 0.07 H Absolute Neuts (auto) 8.9 H Absolute Nucleated RBC 0.020 H Nucleated RBC % 0.2 Platelet Estimate Adequate Anisocytosis 2+ Ovalocytes 1+ Abe Cells 1+ Acanthocytes (Spur) 1+ Schistocytes None seen PT 27.2 H D INR 2.5 APTT 34.7 Sodium 141 Potassium 4.3 Chloride 110 H Carbon Dioxide 19 L Anion Gap 12 BUN 67 H D Creatinine 1.90 H Estim Creat Clear Calc 23 Estimated GFR 34 L Glucose 111 H Lactic Acid 3.1 H 2.7 H 2.4 H Calcium 8.9 Phosphorus 4.9 H Magnesium 2.5 H Total Bilirubin 1.2 AST 90 H ALT 78 H Alkaline Phosphatase 48 Total Protein 6.0 L Albumin 4.0 Blood Type 03/25/24 08:49 WBC RBC Hgb Hct MCV MCH MCHC RDW Plt Count MPV Immature Gran % (Auto) Neut % (Auto) Lymph % (Auto) [place] % (Auto) Eos % (Auto) Baso % (Auto) Lymph # (Auto) [place] # (Auto) Eos # (Auto) Baso # (Auto) Abs Immat Gran (auto) Absolute Neuts (auto) Absolute Nucleated RBC Nucleated RBC % Platelet Estimate Anisocytosis Ovalocytes [place] Cells Acanthocytes (Spur) Schistocytes PT INR APTT Sodium Potassium Chloride Carbon Dioxide Anion Gap BUN Creatinine Estim Creat Clear Calc Estimated GFR Glucose Lactic Acid Calcium Phosphorus Magnesium Total Bilirubin AST ALT Alkaline Phosphatase Total Protein Albumin Blood Type O Positive
--- NOTE | 2024-03-25 10:46 | P.PNGI_ITS ---
Progress Note: A&P Assessment and Plan (1) Chronic anemia: Code(s): D64.9 - Anemia, unspecified Status: Acute Assessment and Plan: The patient has melena is probably attributable to residual a postpolypectomy bleeding, although given his condition of Parkinson's disease, intestinal transit can be extremely low and this might represent old melena. Anticoagulation might have been a predisposing factor. But it is currently discontinued. Overall, his hemoglobin has remained stable not requiring transfusions. The patient is scheduled for permanent pacemaker tomorrow. Will continue to follow closely. Subjective Date/time seen: 03/25/24 10:46 Interval history: The patient had no further melena episodes. He remains nonverbal, and is currently awaiting permanent pacemaker placement tomorrow. From a our specialty standpoint, patient had a colonoscopy and polypectomies on 03/03/2024, and post resection defects were closed with clips. However, patient experienced dark stools 3 weeks after. Of note, he started Eliquis 3 days after polypectomies and was taking it until 3 days ago. Objective Data Vital Signs Vital Signs: Vital Signs - 24 hr 03/24/24 12:00 03/24/24 12:00 03/24/24 12:00 Temperature 98 F Pulse Rate 81 81 Respiratory Rate 24 H Blood Pressure 154/92 H Pulse Oximetry 96 93 Oxygen Delivery Nasal Cannula Oxygen Flow Rate 2 Fraction of Inspired Oxygen 03/24/24 14:00 03/24/24 16:00 03/24/24 14:00 Temperature Pulse Rate 81 81 Respiratory Rate 22 H Blood Pressure 116/82 Pulse Oximetry 94 93 Oxygen Delivery Nasal Cannula Oxygen Flow Rate 2 Fraction of Inspired Oxygen 03/24/24 16:00 03/24/24 16:00 03/24/24 18:00 Temperature 97.7 F Pulse Rate 81 81 81 Respiratory Rate 18 Blood Pressure 134/92 H Pulse Oximetry 93 Oxygen Delivery Oxygen Flow Rate Fraction of Inspired Oxygen 03/24/24 18:00 03/24/24 20:00 03/24/24 21:45 Temperature 99.2 F Pulse Rate 81 81 Respiratory Rate 22 H 20 Blood Pressure 159/91 H 173/90 H 163/87 H Pulse Oximetry 92 95 Oxygen Delivery Oxygen Flow Rate Fraction of Inspired Oxygen 03/24/24 22:00 03/24/24 20:00 03/24/24 20:00 Temperature Pulse Rate 81 81 Respiratory Rate 17 Blood Pressure 158/78 H Pulse Oximetry 96 96 Oxygen Delivery Nasal Cannula Oxygen Flow Rate 2 Fraction of Inspired Oxygen 03/24/24 22:00 03/25/24 00:00 03/25/24 00:00 Temperature Pulse Rate 81 81 Respiratory Rate Blood Pressure Pulse Oximetry 97 Oxygen Delivery Nasal Cannula Oxygen Flow Rate 2 Fraction of Inspired Oxygen 03/25/24 00:00 03/25/24 02:00 03/25/24 02:00 Temperature 98.5 F Pulse Rate 81 81 81 Respiratory Rate 21 H 22 H Blood Pressure 160/99 H 139/107 H Pulse Oximetry 95 91 Oxygen Delivery Oxygen Flow Rate Fraction of Inspired Oxygen 03/25/24 04:00 03/25/24 04:00 03/25/24 06:00 Temperature 98.2 F Pulse Rate 81 81 81 Respiratory Rate 18 19 Blood Pressure 172/83 H 159/87 H Pulse Oximetry 94 94 Oxygen Delivery Oxygen Flow Rate Fraction of Inspired Oxygen 03/25/24 06:00 03/25/24 04:00 03/25/24 08:32 Temperature Pulse Rate 81 Respiratory Rate Blood Pressure Pulse Oximetry 93 100 Oxygen Delivery Nasal Cannula Nasal Cannula Oxygen Flow Rate 2 2 Fraction of Inspired Oxygen 03/25/24 08:00 03/25/24 08:00 03/25/24 10:00 Temperature 97.3 F L 97.6 F Pulse Rate 81 81 81 Respiratory Rate 16 17 Blood Pressure 164/86 H 162/95 H Pulse Oximetry 100 98 Oxygen Delivery Oxygen Flow Rate Fraction of Inspired Oxygen Intake/Output Intake/Output: Intake & Output 03/22/24 03/23/24 03/24/24 03/25/24 23:59 23:59 23:59 23:59 Intake Total 16.6 2924.5 1250 1250 Output Total 275 350 350 Balance 16.6 2649.5 900 900 Meds/Results Medications: Active Medications Generic Name Dose Route Start Last Admin Trade Name Freq PRN Reason Stop Dose Admin Acetaminophen 650 mg 03/22/24 15:38 Acetaminophen 325 Mg Tablet PO Q6H PRN Mild Pain (1-3) or Fever Carbidopa/Levodopa 1 tablet 03/22/24 22:00 03/23/24 09:18 Carbidopa/Levodopa 25/100 Mg Tablet PO Not Given TID@0900,1300,1800 [facility] Ferrous Sulfate 325 mg 03/23/24 21:00 Ferrous Sulfate [address] BY MOUTH HS [facility] Fludrocortisone Acetate 0.05 mg 03/23/24 09:00 Fludrocortisone Acetate 0.1 Mg Tablet PO DAILY PRN SBP<90 Hydralazine HCl 10 mg 03/24/24 20:52 03/25/24 05:58 Hydralazine Hcl 20 Mg/Ml Vial IV PUSH 10 mg Q4HR PRN Administration Blood Pressure - High Hydrocortisone Sodium Succinate 100 mg 03/23/24 14:00 03/25/24 05:59 Hydrocortisone Sodium Succinate 100 Mg/2 Ml Vial IV PUSH 100 mg Q8HR [facility] Administration Ceftriaxone Sodium 1 gm in 50 mls @ 100 mls/hr 03/23/24 09:00 03/25/24 09:34 Rocephin 1 Gm/Ns 50 Ml IVPB 100 mls/hr Q24H [facility] Administration Albumin Human 100 mls @ 60 mls/hr 03/25/24 08:16 03/25/24 09:35 Albutein IVPB 03/26/24 01:39 60 mls/hr Q6HR [facility] Administration Sodium Chloride 250 mls @ 30 mls/hr 03/25/24 08:18 03/25/24 09:34 Normal Saline Iv IV CONT 03/25/24 16:37 30 mls/hr .Q8H20M STA Administration Pantoprazole Sodium 40 mg 03/23/24 10:00 03/25/24 09:34 Pantoprazole Sodium Iv 40 Mg Vial IV PUSH 40 mg Q12HR [facility] Administration Simvastatin 20 mg 03/22/24 21:40 03/23/24 00:16 Simvastatin 20 Mg Tablet PO Not Given QPM [facility] Sodium Chloride 10 ml 03/23/24 06:00 03/25/24 05:59 Central Line Flush IV PUSH 10 ml Q8HR [facility] Administration Sodium Chloride 20 ml 03/23/24 02:04 Central Line Flush IV PUSH PRN PRN after blood draws Vitamin D 1,000 units 03/23/24 09:00 03/23/24 09:18 Cholecalciferol 1,000 Units Tablet PO Not Given DAILY [facility] Radiology Results: ITS Impressions Pelvis X-Ray 03/22/24 15:24 IMPRESSION: No acute osseous finding in the pelvis. Chest X-Ray 03/23/24 10:09 Impression: 1: No acute cardiopulmonary disease. Head CT 03/24/24 11:11 IMPRESSION: 1. Stable moderate nonspecific cerebral white matter disease, which likely r epresents chronic small vessel ischemic disease. Abdomen/Pelvis CT 03/24/24 11:13 IMPRESSION: 1. Small pleural effusions. 2. Small volume of ascites. Labs Labs: Laboratory Results - last 24 hr 03/24/24 03/24/24 03/25/24 15:03 18:26 05:48 WBC 9.9 RBC 3.38 L Hgb 9.4 L Hct 30.7 L MCV 90.8 MCH 27.8 MCHC 30.6 L RDW 24.3 H Plt Count 169 MPV 9.4 Immature Gran % (Auto) 0.7 H Neut % (Auto) 90.6 H Lymph % (Auto) 2.6 L [place] % (Auto) 6.0 Eos % (Auto) 0.0 Baso % (Auto) 0.1 L Lymph # (Auto) 0.26 L [place] # (Auto) 0.6 Eos # (Auto) 0.0 Baso # (Auto) 0.0 Abs Immat Gran (auto) 0.07 H Absolute Neuts (auto) 8.9 H Absolute Nucleated RBC 0.020 H Nucleated RBC % 0.2 Platelet Estimate Adequate Anisocytosis 2+ Ovalocytes 1+ [place] Cells 1+ Acanthocytes (Spur) 1+ Schistocytes None seen PT 27.2 H D INR 2.5 APTT 34.7 Sodium 141 Potassium 4.3 Chloride 110 H Carbon Dioxide 19 L Anion Gap 12 BUN 67 H D Creatinine 1.90 H Estim Creat Clear Calc 23 Estimated GFR 34 L Glucose 111 H Lactic Acid 3.1 H 2.7 H 2.4 H Calcium 8.9 Phosphorus 4.9 H Magnesium 2.5 H Total Bilirubin 1.2 AST 90 H ALT 78 H Alkaline Phosphatase 48 Total Protein 6.0 L Albumin 4.0 Blood Type Antibody Screen 03/25/24 03/25/24 08:49 09:31 WBC RBC Hgb Hct MCV MCH MCHC RDW Plt Count MPV Immature Gran % (Auto) Neut % (Auto) Lymph % (Auto) [place] % (Auto) Eos % (Auto) Baso % (Auto) Lymph # (Auto) [place] # (Auto) Eos # (Auto) Baso # (Auto) Abs Immat Gran (auto) Absolute Neuts (auto) Absolute Nucleated RBC Nucleated RBC % Platelet Estimate Anisocytosis Ovalocytes [place] Cells Acanthocytes (Spur) Schistocytes PT INR APTT Sodium Potassium Chloride Carbon Dioxide Anion Gap BUN Creatinine Estim Creat Clear Calc Estimated GFR Glucose Lactic Acid 2.0 Calcium Phosphorus Magnesium Total Bilirubin AST ALT Alkaline Phosphatase Total Protein Albumin Blood Type O Positive Antibody Screen Negative
--- NOTE | 2024-03-25 11:45 | P.PNINT_ITS ---
Progress Note: A&P Assessment and Plan (1) Shock: Code(s): R57.9 - Shock, unspecified Status: Acute Assessment and Plan: Hemodynamic instability leading to shock secondary to high-degree AV block, questionable infection -central line was inserted overnight -OFF dopamine and Levophed off to transvenous pacer was inserted -lactic normalized -continue maintenance IV fluids -03/23: blood and urine cultures are negative -continue ceftriaxone (03/23) -chest x-ray was clear, UA reflective of UTI 03/24: CT abdomen and pelvis noncontrast 1. Small pleural effusions. 2. Small volume of ascites. 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, likely related to sotalol -currently currently being transcutaneously paced, -patient hemodynamically unstable requiring norepinephrine and dopamine -has received glucagon IV push and drip -03/23: Transvenous pacer placed -patient is currently off all vasopressors, hemodynamically stable, completely pacer dependent -permanent pacemaker replaced on 03/26/2024 (3) Bradycardia: Code(s): R00.1 - Bradycardia, unspecified Status: Acute Assessment and Plan: Symptomatic bradycardia likely related av block secondary to sotalol -treatment as above -status post transvenous pacemaker, (4) Fall from ground level: Code(s): W18.30XA - Fall on same level, unspecified, initial encounter Status: Acute Assessment and Plan: Most likely related to bradycardia and AV block (5) Chronic anemia: Code(s): D64.9 - Anemia, unspecified Status: Acute Assessment and Plan: History of chronic iron deficiency anemia, patient is on iron supplements at home. Recent colonoscopy as under -patient did have a maroon stool last night per hospitalist note -hemoglobin has been stable -continue to monitor for now -start Protonix IV q.12 hours -appreciate GI if following the patient as patient still has dark stools -he was on Eliquis until 03/22. Now off Eliquis, will continue to monitor hemoglobin 03/03/2024: Colonoscopy was done for iron deficiency anemia, showed cecal polyp, transverse colon polyps, ascending colon polyps, diverticulosis without perforation or abscess without bleeding. (6) Chronic kidney disease: Code(s): N18.9 - Chronic kidney disease, unspecified Status: Acute Assessment and Plan: Acute on chronic kidney disease, sees Dr. Martinez as outpatient. -JERMAINE likely related to hypotension, shock, ATN, UTI/sepsis 03/23: Creatinine 1.60 this admission, (baseline creatinine is 1.10-1.30) -continue maintenance IV fluid -patient received adequate amount of IV fluids and albumin -urine lytes and not show prerenal picture, urine eosinophils were negative, CK level was 38 -monitor urine output, renal function electrolytes -consult nephrology (patient does see Dr. Martinez as outpatient) (7) Altered mental status: Code(s): R41.82 - Altered mental status, unspecified Status: Acute Assessment and Plan: Could be multifactorial likely related to infection, shock, anemia, hypoxia 03/24: CT head Stable moderate nonspecific cerebral white matter disease, which likely represents chronic small vessel ischemic disease. Plan DVT prophylaxis: SCDs Stress ulcer prophylaxis: Protonix Nutrition: NPO for now, will have NG tube inserted during angiogram when he gets some meds for sedation Code Status: Full code Critical Care Time Spent: [address] Murry, -discussed with patient's spouse at bedside updated with patient's condition and plan of care. I answered all questions. Due to a high probability of clinically significant, life threatening deterioration, the patient required my highest level of preparedness to intervene emergently and I personally spent this critical care time directly and personally managing the patient. This critical care time included obtaining a history; examining the patient; pulse oximetry; ordering and review of studies; arranging urgent treatment with development of a management plan; evaluation of patient's response to treatment; frequent reassessment; and discussions with other providers. It was exclusive of separately billable procedures and treating other patients and teaching time. Please see Assessment and Plan section and the rest of the note for further information on patient assessment and treatment This dictation may have been done utilizing a voice recognition system. Attempts have been made to correct errors. However, there may be uncorrected grammatical, spelling, and recognitions errors present. Subjective Date/time seen: 03/25/24 11:45 Interval history: Reason for consult: High-degree AV block, hemodynamic instability, bradycardia, fall 03/23: Transvenous pacemaker 03/24/2025: Patient seen and examined the ICU, is awake, able to answer questions and follows simple commands in all extremities minutes remains confused. Denies any pain or shortness of breath at this time, denies any nausea, vomiting abdominal pain. He does not have any intrinsic with him and is pacemaker dependent. Hemodynamically stable, his blood pressures have been elevated requiring hydralazine to be ordered overnight. Urine output has been adequate, creatinine trending up Review of Systems Review of Systems: All systems reviewed & are unremarkable except as noted in HPI and below Exam Narrative: General: Elderly gentleman currently in no acute distress HEENT:? Pupils equal and reactive, sclera is clear, dry oral mucosa Neck:? Supple Respiratory:? Clear to auscultation bilaterally, decreased at bases Cardiac:? Paced rhythm Abdomen:? Soft, nontender, nondistended, hypoactive bowel sounds Extremities:? palpable pedal pulses, no edema Neuro:? Patient is awake, not oriented, able to answer few questions and follows commands, confused Skin:? Mottling is improved on his knees bilaterally Psych:? Confused Objective Data Vital Signs Vital Signs: Vital Signs - 24 hr 03/24/24 12:00 03/24/24 12:00 03/24/24 12:00 Temperature 98 F Pulse Rate 81 81 Respiratory Rate 24 H Blood Pressure 154/92 H Pulse Oximetry 96 93 Oxygen Delivery Nasal Cannula Oxygen Flow Rate 2 Fraction of Inspired Oxygen 03/24/24 14:00 03/24/24 16:00 03/24/24 14:00 Temperature Pulse Rate 81 81 Respiratory Rate 22 H Blood Pressure 116/82 Pulse Oximetry 94 93 Oxygen Delivery Nasal Cannula Oxygen Flow Rate 2 Fraction of Inspired Oxygen 03/24/24 16:00 03/24/24 16:00 03/24/24 18:00 Temperature 97.7 F Pulse Rate 81 81 81 Respiratory Rate 18 Blood Pressure 134/92 H Pulse Oximetry 93 Oxygen Delivery Oxygen Flow Rate Fraction of Inspired Oxygen 03/24/24 18:00 03/24/24 20:00 03/24/24 21:45 Temperature 99.2 F Pulse Rate 81 81 Respiratory Rate 22 H 20 Blood Pressure 159/91 H 173/90 H 163/87 H Pulse Oximetry 92 95 Oxygen Delivery Oxygen Flow Rate Fraction of Inspired Oxygen 03/24/24 22:00 03/24/24 20:00 03/24/24 20:00 Temperature Pulse Rate 81 81 Respiratory Rate 17 Blood Pressure 158/78 H Pulse Oximetry 96 96 Oxygen Delivery Nasal Cannula Oxygen Flow Rate 2 Fraction of Inspired Oxygen 03/24/24 22:00 03/25/24 00:00 03/25/24 00:00 Temperature Pulse Rate 81 81 Respiratory Rate Blood Pressure Pulse Oximetry 97 Oxygen Delivery Nasal Cannula Oxygen Flow Rate 2 Fraction of Inspired Oxygen 03/25/24 00:00 03/25/24 02:00 03/25/24 02:00 Temperature 98.5 F Pulse Rate 81 81 81 Respiratory Rate 21 H 22 H Blood Pressure 160/99 H 139/107 H Pulse Oximetry 95 91 Oxygen Delivery Oxygen Flow Rate Fraction of Inspired Oxygen 03/25/24 04:00 03/25/24 04:00 03/25/24 06:00 Temperature 98.2 F Pulse Rate 81 81 81 Respiratory Rate 18 19 Blood Pressure 172/83 H 159/87 H Pulse Oximetry 94 94 Oxygen Delivery Oxygen Flow Rate Fraction of Inspired Oxygen 03/25/24 06:00 03/25/24 04:00 03/25/24 08:32 Temperature Pulse Rate 81 Respiratory Rate Blood Pressure Pulse Oximetry 93 100 Oxygen Delivery Nasal Cannula Nasal Cannula Oxygen Flow Rate 2 2 Fraction of Inspired Oxygen 03/25/24 08:00 03/25/24 08:00 03/25/24 10:00 Temperature 97.3 F L 97.6 F Pulse Rate 81 81 81 Respiratory Rate 16 17 Blood Pressure 164/86 H 162/95 H Pulse Oximetry 100 98 Oxygen Delivery Oxygen Flow Rate Fraction of Inspired Oxygen 03/25/24 08:00 03/25/24 08:00 03/25/24 10:00 Temperature Pulse Rate 81 81 Respiratory Rate Blood Pressure Pulse Oximetry 100 Oxygen Delivery Nasal Cannula Oxygen Flow Rate 2 Fraction of Inspired Oxygen Intake/Output Intake/Output: Intake & Output 03/22/24 03/23/24 03/24/24 03/25/24 23:59 23:59 23:59 23:59 Intake Total 16.6 2924.5 1250 1350 Output Total 275 350 350 Balance 16.6 2649.5 900 1000 Meds/Results Medications: Active Medications Generic Name Dose Route Start Last Admin Trade Name Freq PRN Reason Stop Dose Admin Acetaminophen 650 mg 03/22/24 15:38 Acetaminophen 325 Mg Tablet PO Q6H PRN Mild Pain (1-3) or Fever Carbidopa/Levodopa 1 tablet 11/25/24 22:00 03/23/24 09:18 Carbidopa/Levodopa 25/100 Mg Tablet PO Not Given TID@0900,1300,1800 BELKIS Ferrous Sulfate 325 mg 03/23/24 21:00 Ferrous Sulfate [address] BY MOUTH HS BELKIS Fludrocortisone Acetate 0.05 mg 03/23/24 09:00 Fludrocortisone Acetate 0.1 Mg Tablet PO DAILY PRN SBP<90 Hydralazine HCl 10 mg 03/24/24 20:52 03/25/24 05:58 Hydralazine Hcl 20 Mg/Ml Vial IV PUSH 10 mg Q4HR PRN Administration Blood Pressure - High Hydrocortisone Sodium Succinate 100 mg 03/23/24 14:00 03/25/24 05:59 Hydrocortisone Sodium Succinate 100 Mg/2 Ml Vial IV PUSH 100 mg Q8HR BELKIS Administration Ceftriaxone Sodium 1 gm in 50 mls @ 100 mls/hr 03/23/24 09:00 03/25/24 09:34 Rocephin 1 Gm/Ns 50 Ml IVPB 100 mls/hr Q24H BELKIS Administration Albumin Human 100 mls @ 60 mls/hr 03/25/24 08:16 03/25/24 11:16 Albutein IVPB 03/26/24 01:39 Infused Q6HR BELKIS Infusion Sodium Chloride 250 mls @ 30 mls/hr 03/25/24 08:18 03/25/24 09:34 Normal Saline Iv IV CONT 03/25/24 16:37 30 mls/hr .Q8H20M STA Administration Pantoprazole Sodium 40 mg 03/23/24 10:00 03/25/24 09:34 Pantoprazole Sodium Iv 40 Mg Vial IV PUSH 40 mg Q12HR BELKIS Administration Simvastatin 20 mg 03/22/24 21:40 03/23/24 00:16 Simvastatin 20 Mg Tablet PO Not Given QPM BELKIS Sodium Chloride 10 ml 03/23/24 06:00 03/25/24 05:59 Central Line Flush IV PUSH 10 ml Q8HR BELKIS Administration Sodium Chloride 20 ml 03/23/24 02:04 Central Line Flush IV PUSH PRN PRN after blood draws Vitamin D 1,000 units 03/23/24 09:00 03/23/24 09:18 Cholecalciferol 1,000 Units Tablet PO Not Given DAILY [facility] Radiology Results: ITS Impressions Pelvis X-Ray 03/22/24 15:24 IMPRESSION: No acute osseous finding in the pelvis. Chest X-Ray 03/23/24 10:09 Impression: 1: No acute cardiopulmonary disease. Head CT 03/24/24 11:11 IMPRESSION: 1. Stable moderate nonspecific cerebral white matter disease, which likely represents chronic small vessel ischemic disease. Abdomen/Pelvis CT 03/24/24 11:13 IMPRESSION: 1. Small pleural effusions. 2. Small volume of ascites. Labs Labs: Laboratory Results - last 24 hr 03/24/24 03/24/24 03/25/24 15:03 18:26 05:48 WBC 9.9 RBC 3.38 L Hgb 9.4 L Hct 30.7 L MCV 90.8 MCH 27.8 MCHC 30.6 L RDW 24.3 H Plt Count 169 MPV 9.4 Immature Gran % (Auto) 0.7 H Neut % (Auto) 90.6 H Lymph % (Auto) 2.6 L [place] % (Auto) 6.0 Eos % (Auto) 0.0 Baso % (Auto) 0.1 L Lymph # (Auto) 0.26 L [place] # (Auto) 0.6 Eos # (Auto) 0.0 Baso # (Auto) 0.0 Abs Immat Gran (auto) 0.07 H Absolute Neuts (auto) 8.9 H Absolute Nucleated RBC 0.020 H Nucleated RBC % 0.2 Platelet Estimate Adequate Anisocytosis 2+ Ovalocytes 1+ [place] Cells 1+ Acanthocytes (Spur) 1+ Schistocytes None seen PT 27.2 H D INR 2.5 APTT 34.7 Sodium 141 Potassium 4.3 Chloride 110 H Carbon Dioxide 19 L Anion Gap 12 BUN 67 H D Creatinine 1.90 H Estim Creat Clear Calc 23 Estimated GFR 34 L Glucose 111 H Lactic Acid 3.1 H 2.7 H 2.4 H Calcium 8.9 Phosphorus 4.9 H Magnesium 2.5 H Total Bilirubin 1.2 AST 90 H ALT 78 H Alkaline Phosphatase 48 Total Protein 6.0 L Albumin 4.0 Blood Type Antibody Screen 03/25/24 03/25/24 08:49 09:31 WBC RBC Hgb Hct MCV MCH MCHC RDW Plt Count MPV Immature Gran % (Auto) Neut % (Auto) Lymph % (Auto) [place] % (Auto) Eos % (Auto) Baso % (Auto) Lymph # (Auto) [place] # (Auto) Eos # (Auto) Baso # (Auto) Abs Immat Gran (auto) Absolute Neuts (auto) Absolute Nucleated RBC Nucleated RBC % Platelet Estimate Anisocytosis Ovalocytes [place] Cells Acanthocytes (Spur) Schistocytes PT INR APTT Sodium Potassium Chloride Carbon Dioxide Anion Gap BUN Creatinine Estim Creat Clear Calc Estimated GFR Glucose Lactic Acid 2.0 Calcium Phosphorus Magnesium Total Bilirubin AST ALT Alkaline Phosphatase Total Protein Albumin Blood Type O Positive Antibody Screen Negative Quality VTE Prophylaxis VTE prophylaxis: mechanical ordered
--- NOTE | 2024-03-25 12:50 | P.CONNP_ITS ---
Assessment and Plan Assessment and plan (1) JERMAINE (acute kidney injury): Code(s): N17.9 - Acute kidney failure, unspecified Status: Acute Assessment and Plan: * as noted by trend of creatinine since admission * suspect multifactorial etiology: * hemodynamic instability/shock * complete heart block * BP medications [employer] * prerenal factors * other (?) * evaluation to date noted: * urine electrolytes prerenal * urine eosinophils negative * UA suggests infection * CPK low * CT of abd/pelvis without obstruction * no critical electrolytes and reasonable urine output * follow repeat labs and UOP (2) Stage 3a chronic kidney disease: Code(s): N18.31 - Chronic kidney disease, stage 3a Status: Chronic Assessment and Plan: * baseline creatinine runs around 1.0 - 1.5mg/dl * thought to be secondary to hypertension and age-related change based on outpatient evaluation (3) Complete heart block: Code(s): I44.2 - Atrioventricular block, complete Status: Acute Assessment and Plan: * as noted on admission * presumably precipitated by sotalol use * initially transcutaneously paced * s/p tranveous pacer placement on 03/23 * was on dopamine and levophed and glucagon gtt - weaned off at this time * currently pacer dependent at this time * noted plans for permanent pacemaker * Cardiology following (4) Shock: Code(s): R57.9 - Shock, unspecified Status: Acute Assessment and Plan: * felt to be secondary to heart block * possibly also related to infection * off dopamine and levophed gtt once transvenous pacer placed * culture remain negative to date * on antibiotics * CT abd/plevis without acute pathology * follow trend of hemodynamics (5) Anemia: Qualifiers: Anemia type: unspecified type Qualified Code(s): D64.9 - Anemia, unspecified Code(s): D64.9 - Anemia, unspecified Status: Chronic Assessment and Plan: * known chronic history * element of iron deficiency noted * recent outpatient colonoscopy unrevealing * follow trend of H/H * Gi following as well (6) Altered mental status: Code(s): R41.82 - Altered mental status, unspecified Status: Acute Assessment and Plan: * presumably related to shock, anemia, and hypoxia * head CT without acute findings * follow mentation Long extensive discussion (> 20 minutes) with the patient's family at bedside regarding his acute renal failure/acute kidney injury on top of his baseline chronic kidney disease in association with previous hemodynamic instability/hypotension precipitated by his complete heart block which appears to be stable following transvenous pacer placement with the hope that ongoing stability in his hemodynamics will eventually improve his overall kidney function. They appeared to voice understanding. Discussed the case with Dr. Smith. I will continue to follow the patient with you while he remains hospitalized and make further recommendations as deemed necessary. Thank you for allowing me to participate in the care of this patient. History of Present Illness Reason for Consult Consult date: 03/25/24 Reason for consult: acute renal failure (on chronic kidney disease) Chief Complaint Chief complaint: heart block History of Present Illness Narrative: Almost all the information that I have obtained is from review of the electronic medical record, discussion with physicians /nurses involved in the patient's care, as well as discussion with the family at bedside as is difficult to get a full and complete history from the patient given his current clinical status. The patient is an 83-year-old male with a past medical history as outlined below who presented to [facility] Emergency Room a few days ago status post fall. Following the fall, EMS was called and upon their arrival, it was noted that patient's blood pressure was in the low 100 systolic in association with significant bradycardia with a heart rate of 30. He reported no symptoms of syncope, chest pain, shortness of breath, nausea, vomiting, or diaphoresis. His only real complaint apparently was that of found fatigue. He was subsequently transferred to the emergency room for further assessment. Workup and evaluation in the ER Improvement in his blood pressure to the 140 systolic but with persistent bradycardia with heart rate in the 30s with no evidence of hypoxia and a stable temperature. Routine blood tests were done which demonstrated stability in his hemoglobin, renal function, and white blood cell count. His troponin was mildly elevated 0.29 but his EKG just showed sinus bradycardia with second-degree AV block and right bundle-branch block. He was subsequently admitted to the hospital for further evaluation and therapy. Following his admission, patient had a rapid response due to worsening bradycardia with his heart rate in the 20s in association with altered mental status/ decreased responsiveness and hypotension. He was given atropine with marginal improvement in his heart rate and decision was made to transfer the patient to the ICU for closer monitoring. Further atropine was given along with peripheral dopamine and subsequently a central line was placed for vasopressor therapy. Cardiology was consulted and recommended glucagon and a glucagon drip due to concerns for a possible beta-corina overdose since the patient was rec ently initiated on sotalol. Transcutaneous pacing was initiated as well due to his bradycardia. Since his admission to the ICU, he was taken to the cardiac cardiac cath technologist for transvenous pacer and following this procedure, his hemodynamics have improved as he was able to be weaned off vasopressor therapy (dopamine and Levophed). he appears to be pacer dependent at this time and will likely need a permanent pacemaker placement which has tentatively been scheduled for tomorrow. Unfortunately, is been noted that his creatinine has trended up despite the fact that he appears to have adequate urine output. Renal consultation was requested due to his acute kidney injury/acute renal failure on top of his baseline chronic kidney disease. The patient is quite familiar to me as I have taking care of him for several years regarding his baseline chronic kidney disease. The patient's baseline creatinine usually runs around 1.3-1.5 mg/dL for last several years although in the recent months it has been somewhat better presumably secondary to his issues with weight loss and decreased diminished oral intake. His outpatient evaluation demonstrated normal renal ultrasound, and negative serological profile, and no significant proteinuria. His renal function has been fairly stable for last several years. On presentation to the hospital, his creatinine was within his baseline if not better but as mentioned above, his most recent creatinine has worsened up to 1.9 mg/dL although he has no critical electrolyte abnormalities and continues to make reasonable urine output. The presumed etiology of the acute insult to his kidneys probably related to his hemodynamic instability and associated hy potension in conjunction with his complete heart block/ bradycardia. Currently, at the time my evaluation, he does not appear to be in any acute distress although his mentation is clearly not at baseline. Review of Systems Review of Systems: As per HPI. [facility] Past Medical History Medical History Acute stroke due to ischemia Atrial flutter, paroxysmal Benign prostatic hyperplasia with lower urinary tract symptoms Chronic anemia anemia of chronic disease and iron deficiency Chronic kidney disease Hypertension senior care (current) use of anticoagulants Occlusion and stenosis of bilateral carotid arteries Overactive bladder Parkinson's disease Paroxysmal atrial fibrillation Prostate cancer status post radiation and seed implantation Secondary renal hyperparathyroidism Vasomotor rhinitis Vitamin D deficiency Surgical History Surgical History History of bilateral cataract extraction History of tonsillectomy History of transcarotid artery revascularization (TCAR) (04/2021) left Family History Family History Father Heart disease Sibling Cancer Social History Social History Social History: Surrogate medical decision maker: Arielle Terry, spouse. Code status: Full code. Years smoked: 20 Smoking status: Former smoker Tobacco type: cigarettes Second hand tobacco smoke exposure: No Additional smoking assessment comments: quit 40 years ago Alcohol intake: never Substance use: never Substance use type: does not use Do You Feel Safe in your Home?: Yes Lack of Transportation: No Lack of Food: Never True Current Housing: I Have Housing Concerned About Future Housing: No Difficulty Paying Gas/Electric Bills: No Difficulty Paying for Meds: No Currently Unemployed: No Education: Master's Degree or Higher Difficulty w/ Childcare or Family Care: No Living arrangements: with family Additional living arrangements comments: Lives with spouse in [place]. 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 Spiritual care concerns: No Agree to blood products: Yes Meds Home Medications and Allergies Home Medications Medication Instructions Recorded Confirmed Type apixaban 5 mg tablet (Eliquis) 5 mg PO Q12H 05/14/21 03/22/24 History cholecalciferol (vitamin D3) 25 25 mcg PO DAILY 05/09/22 03/22/24 History mcg (1,000 unit) capsule fluticasone propionate 50 1 spray intranasal DAILY PRN 05/09/22 03/22/24 History mcg/actuation nasal Allergy Symptoms spray,suspension (Flonase Allergy Relief) ketotifen fumarate 0.025 % (0.035 1 drp EACH EYE BID PRN Allergy 05/09/22 03/22/24 History %) eye drops ([place]) Symptoms ferrous sulfate 325 mg (65 mg 325 mg PO QPM 01/09/23 03/22/24 History iron) tablet clonidine HCl 0.1 mg tablet 0.1 mg PO PRN PRN Hypertension 03/19/23 03/22/24 History aspirin 81 mg tablet,delayed 81 mg PO DAILY 01/27/24 03/22/24 History release (Adult Low Dose Aspirin) simvastatin 20 mg tablet 20 mg PO QPM 02/03/24 03/22/24 History vibegron 75 mg tablet (Gemtesa) 75 mg PO QPM 02/03/24 03/22/24 History sotalol 80 mg tablet 80 mg PO Q12HR #90 tabs 02/08/24 03/22/24 Rx carbidopa 25 mg-levodopa 100 mg 25 - 100 tablet PO TID 03/04/24 03/22/24 History tablet fludrocortisone 0.1 mg tablet 0.05 mg PO DAILY 03/18/24 03/22/24 History tavaborole 5 % topical solution 1 applic topical DAILY 03/18/24 03/22/24 History with applicator nitrofurantoin 100 mg PO Q12H 03/22/24 03/22/24 History monohydrate/macrocrystals 100 mg capsule Allergies Allergy/AdvReac Type Severity Reaction Status Date / Time cats Allergy Mild Sneezing Uncoded 03/18/24 10:09 mold Allergy Mild Swelling Uncoded 03/18/24 10:09 tree pollen Allergy Mild Sneezing Uncoded 03/18/24 10:09 Vital Signs Vital Signs Temp Pulse Resp BP Pulse Ox O2 Del Method O2 Flow Rate 03/25/24 12:00 97.7 F 81 16 154/97 H 99 03/25/24 10:00 81 03/25/24 08:00 81 03/25/24 08:00 100 Nasal Cannula 2 03/25/24 10:00 97.6 F 81 17 162/95 H 98 03/25/24 08:00 81 03/25/24 08:00 97.3 F L 81 16 164/86 H 100 03/25/24 08:32 100 Nasal Cannula 2 03/25/24 04:00 93 Nasal Cannula 2 03/25/24 06:00 81 03/25/24 06:00 81 19 159/87 H 94 03/25/24 04:00 98.2 F 81 18 172/83 H 94 03/25/24 04:00 81 03/25/24 02:00 81 22 H 139/107 H 91 03/25/24 02:00 81 03/25/24 00:00 98.5 F 81 21 H 160/99 H 95 03/25/24 00:00 97 Nasal Cannula 2 03/25/24 00:00 81 03/24/24 22:00 81 03/24/24 20:00 81 03/24/24 20:00 96 Nasal Cannula 2 03/24/24 22:00 81 17 158/78 H 96 03/24/24 21:45 163/87 H 03/24/24 20:00 99.2 F 81 20 173/90 H 95 Exam Narrative: GENERAL APPEARANCE: elderly and frail appearing male in no acute distress HEENT: normocephalic, atraumatic, normal conjunctiva and sclera, nares patient NECK: no lymphadenopathy, thyromegaly, or JVD MOUTH: normal lips, teeth, and gums CARDIOVASCULAR: RRR, normal S1 and S2, no rub detected RESPIRATORY: clear anetriorly, decreased at bases ABDOMEN: soft, nontender, nondistended, diminished bowel sounds EXTREMITIES: no evidence of cyanosis, clubbing, or edema NEUROLOGICAL: difficult to assess - confused Results Lab Results 03/25/24 05:48 03/25/24 05:48 Lab results: Most recent lab results ABG pH 7.416 (7.350-7.450) 03/22/24 23:24 ABG pCO2 34.3 mmHg (35.0-45.0) L 03/22/24 23:24 ABG pO2 81.1 mmHg (80.0-100.0) 03/22/24 23:24 ABG HCO3 21.5 mEq/l (22.0-26.0) L 03/22/24 23:24 ABG O2 Saturation 96.2 % (95.0-100.0) 03/22/24 23:24 Calcium 8.9 mg/dL (8.4-10.2) 03/25/24 05:48 Phosphorus 4.9 mg/dL (2.5-4.5) H 03/25/24 05:48 Magnesium 2.5 mg/dL (1.6-2.3) H 03/25/24 05:48 Urine Creatinine 189.6 mg/dL 03/23/24 12:44
[2024-03-25] MEDS: SODIUM BICARBONATE 8.4% 150 MEQ in DEXTROSE 5% 1,000 ML 950 ML 50 MEQ IV CONT (12:53)
[2024-03-25] MEDS: HYDROCORTISONE SODIUM SUCCINATE 100 MG/2 ML VIAL 50 MG IV PUSH (20:08)
[2024-03-26] VITALS (18 sets, daily range): BP systolic 41–242; BP diastolic 20–131; PULSE 70–81; RESP 15–21; TEMP 36.1–36.2; O2SAT 92–98
[2024-03-26] MEDS: ALBUMIN HUMAN 25% 25 GM/100 ML 100 ML IVPB (00:34)
[2024-03-26] MEDS: hydrALAZINE HCL 20 MG/ML VIAL 10 MG IV PUSH (01:05)
[2024-03-26 04:30] LABS: Hemoglobin 8.8 g/dL (14.0-18.0); Immature Granulocyte Absolute 0.09 K/mm3 (0.00-0.031); Immature Granulocyte Percent A 0.8 % (0-0.5); Lymphocytes Absolute Auto 0.12 K/mm3 (0.9-3.2); Lymphocytes Percent Auto 1.1 % (18.3-44.2); Mean Corpuscular HGB Conc 30.3 g/dl (32-36); Mean Corpuscular Volume 92.4 fl (80-100); Monocytes Absolute Auto 0.5 K/mm3 (0.1-0.6); Monocytes Percent Auto 5.1 % (2.6-8.5); Neutrophils Absolute Auto 9.8 K/mm3 (1.3-6.7); Nucleated Red Blood Cells Perc 1.1 % (0.0-0.2); Platelet Count Result 132 k/mm3 (150-375); Red Blood Count 3.14 M/mm3 (4.6-6.20); Red Cell Distribution Width 24.7 % (11.5-14.5); White Blood Count 10.6 K/mm3 (4.5-10.0)
[2024-03-26 04:39] LABS: INR 2.4; Prothrombin Time 26.5 Seconds (11.1-14.7)
[2024-03-26 04:42] LABS: Alanine Aminotransferase 69 U/L (6-50); Albumin Level 4.6 g/dL (3.5-5.1); Alkaline Phosphatase 42 U/L (38-126); Anion Gap 16 mmol/L (4-12); Aspartate Amino Transferase 83 U/L (17-59); Bilirubin,Total 1.5 mg/dL (0.2-1.3); Blood Urea Nitrogen 68 mg/dL (9-20); Calcium 9.3 mg/dL (8.4-10.2); Carbon Dioxide 24 mmol/L (22-30); Chloride 106 mmol/L (98-107); Estimated CRCL calculation 23 ml/min; Estimated Glomerular Filt Rate 34; Glucose 132 mg/dL (65-110); Lactic Acid Reflex 2.3 mmol/L (0.7-2.0); Magnesium 2.6 mg/dL (1.6-2.3); Phosphorus 4.4 mg/dL (2.5-4.5); Potassium 3.7 mmol/L (3.4-5.0); Sodium 146 mmol/L (137-145)
[2024-03-26 04:57] LABS: Hypochromasia 1+; Ovalocytes 1+; Platelet Estimate Decreased (Adequate); Schistocytes None Seen
[2024-03-26 07:27] LABS: Reflex Lactic Acid Yes or No Add Lactic
[2024-03-26] MEDS: PHYTONADIONE ADULT INJ 10 MG in DEXTROSE 5% IN WATER 50 ML 100 MG IVPB (07:58)
[2024-03-26] MEDS: HYDROCORTISONE SODIUM SUCCINATE 100 MG/2 ML VIAL 50 MG IV PUSH (08:01)
[2024-03-26] MEDS: PANTOPRAZOLE SODIUM IV 40 MG VIAL IV PUSH (08:01)
[2024-03-26] MEDS: CENTRAL LINE FLUSH 10 ML IV PUSH ×2 (08:02→12:13)
--- NOTE | 2024-03-26 08:32 | WPDINTPN ---
Progress Note: A&P Assessment and Plan (1) Shock: Code(s): R57.9 - Shock, unspecified Status: Acute Assessment and Plan: Hemodynamic instability leading to shock secondary to high-degree AV block, questionable infection -central line was inserted overnight -OFF dopamine and Levophed off to transvenous pacer was inserted -lactic normalized -continue maintenance IV fluids -03/23: blood and urine cultures are negative -continue ceftriaxone (03/23) -chest x-ray was clear, UA reflective of UTI 03/24: CT abdomen and pelvis noncontrast 1. Small pleural effusions. 2. Small volume of ascites. 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, likely related to sotalol, last dose of Eliquis was on 03/22/2024 -currently currently being transcutaneously paced, -patient hemodynamically unstable requiring norepinephrine and dopamine -has received glucagon IV push and drip -03/23: Transvenous pacer placed -patient is currently off all vasopressors, hemodynamically stable, completely pacer dependent -permanent pacemaker to be placed today, 03/26/2024 (3) Bradycardia: Code(s): R00.1 - Bradycardia, unspecified Status: Acute Assessment and Plan: Symptomatic bradycardia likely related av block secondary to sotalol -treatment as above -status post transvenous pacemaker, (4) Fall from ground level: Code(s): W18.30XA - Fall on same level, unspecified, initial encounter Status: Acute Assessment and Plan: Most likely related to bradycardia and AV block (5) Chronic anemia: Code(s): D64.9 - Anemia, unspecified Status: Acute Assessment and Plan: History of chronic iron deficiency anemia, patient is on iron supplements at home. Recent colonoscopy as under -patient did have a maroon stool last night per hospitalist note -hemoglobin has been stable -continue to monitor for now -start Protonix IV q.12 hours -appreciate GI if following the patient as patient still has dark stools -he was on Eliquis until 03/22. Now off Eliquis, will continue to monitor hemoglobin 03/03/2024: Colonoscopy was done for iron deficiency anemia, showed cecal polyp, transverse colon polyps, ascending colon polyps, diverticulosis without perforation or abscess without bleeding. (6) Chronic kidney disease: Code(s): N18.9 - Chronic kidney disease, unspecified Status: Acute Assessment and Plan: Acute on chronic kidney disease, sees Dr. Martinez as outpatient. -JERMAINE likely related to hypotension, shock, ATN, UTI/sepsis 03/23: Creatinine 1.60 this admission, (baseline creatinine is 1.10-1.30) -continue maintenance IV fluid -patient received adequate amount of IV fluids and albumin -urine lytes and not show prerenal picture, urine eosinophils were negative, CK level was 38 -monitor urine output, renal function electrolytes -consult nephrology (patient does see Dr. Martinez as outpatient) -patient continues to have adequate urine output, creatinine has been stable at 1.9 (7) Altered mental status: Code(s): R41.82 - Altered mental status, unspecified Status: Acute Assessment and Plan: Could be multifactorial likely related to infection, shock, anemia, hypoxia 03/26: Patient more alert, awake and oriented x3. Able to answer questions appropriately as compared to the last couple of days. Able to hold a conversation. 03/24: CT head Stable moderate nonspecific cerebral white matter disease, which likely represents chronic small vessel ischemic disease. Plan DVT prophylaxis: SCDs Stress ulcer prophylaxis: Protonix Nutrition: NPO for now, will have NG tube inserted during angiogram when he gets some meds for sedation Code Status: Full code Critical Care Time Spent: 32 minutes -discussed with patient's spouse at bedside updated with patient's condition and plan of care. I answered all questions. Due to a high probability of clinically significant, life threatening deterioration, the patient required my highest level of preparedness to intervene emergently and I personally spent this critical care time directly and personally managing the patient. This critical care time included obtaining a history; examining the patient; pulse oximetry; ordering and review of studies; arranging urgent treatment with development of a management plan; evaluation of patient's response to treatment; frequent reassessment; and discussions with other providers. It was exclusive of separately billable procedures and treating other patients and teaching time. Please see Assessment and Plan section and the rest of the note for further information on patient assessment and treatment This dictation may have been done utilizing a voice recognition system. Attempts have been made to correct errors. However, there may be uncorrected grammatical, spelling, and recognitions errors present. Subjective Date/time seen: 03/26/24 08:32 Interval history: Reason for consult: High-degree AV block, hemodynamic instability, bradycardia, fall 03/23: Transvenous pacemaker 03/26/2024: Patient seen examined the ICU, is more awake this morning, alert, oriented x3. Follows commands. Denies chest pain, SOB, abdominal pain, nausea, vomiting. Hemodynamically stable, Afebrile, Adequate UO. Patient has a temp pr pacemaker, continues to be pacer dependent Review of Systems Review of Systems: All systems reviewed & are unremarkable except as noted in HPI and below Exam Narrative: General: Elderly gentleman currently in no acute distress HEENT:? Pupils equal and reactive, sclera is clear, dry oral mucosa Neck:? Supple Respiratory:? Clear to auscultation bilaterally, decreased at bases Cardiac:? Paced rhythm Abdomen:? Soft, nontender, nondistended, hypoactive bowel sounds Extremities:? palpable pedal pulses, no edema Neuro:? Patient is more awake, alert, oriented x3, was able to tell me where he was, the year and the name of the president. Able to answer questions, is more clear in his speech, follows simple commands in all extremities Skin:? Mottling on the knees has resolved Psych:? Flat affect Objective Data Vital Signs Vital Signs: Vital Signs - 24 hr 03/25/24 10:00 03/25/24 10:00 03/25/24 12:00 Temperature 97.6 F 97.7 F Pulse Rate 81 81 81 Respiratory Rate 17 16 Blood Pressure 162/95 H 154/97 H Pulse Oximetry 98 99 Oxygen Delivery Oxygen Flow Rate 03/25/24 12:00 03/25/24 12:00 03/25/24 14:00 Temperature Pulse Rate 81 81 Respiratory Rate Blood Pressure Pulse Oximetry 98 Oxygen Delivery Nasal Cannula Oxygen Flow Rate 2 03/25/24 14:00 03/25/24 15:14 03/25/24 15:20 Temperature 97.4 F L 97.3 F L Pulse Rate 81 81 81 Respiratory Rate 17 24 H 17 Blood Pressure 163/106 H 107/92 H 137/98 H Pulse Oximetry 96 95 96 Oxygen Delivery Oxygen Flow Rate 03/25/24 15:25 03/25/24 15:31 03/25/24 16:00 Temperature 97.4 F L 97.3 F L 97.7 F Pulse Rate 81 82 82 Respiratory Rate 15 19 15 Blood Pressure 127/109 H 138/96 H 155/76 H Pulse Oximetry 96 96 96 Oxygen Delivery Oxygen Flow Rate 03/25/24 16:31 03/25/24 16:00 03/25/24 16:00 Temperature 97.7 F Pulse Rate 81 81 Respiratory Rate 20 Blood Pressure 131/77 Pulse Oximetry 94 94 Oxygen Delivery Nasal Cannula Oxygen Flow Rate 2 03/25/24 17:31 03/25/24 18:00 03/25/24 18:00 Temperature 97.4 F L Pulse Rate 81 81 81 Respiratory Rate 21 H 17 Blood Pressure 146/98 H 148/90 H Pulse Oximetry 93 95 Oxygen Delivery Oxygen Flow Rate 03/25/24 18:34 03/25/24 20:00 03/25/24 20:00 Temperature 97.5 F L 97.6 F Pulse Rate 81 81 81 Respiratory Rate 17 18 18 Blood Pressure 148/90 H 157/82 H Pulse Oximetry 92 94 94 Oxygen Delivery Nasal Cannula Oxygen Flow Rate 2 03/25/24 20:00 03/25/24 22:00 03/25/24 22:00 Temperature Pulse Rate 81 81 81 Respiratory Rate 16 Blood Pressure 148/90 H Pulse Oximetry 98 Oxygen Delivery Oxygen Flow Rate 03/26/24 00:00 03/26/24 00:00 03/26/24 01:06 Temperature 97.0 F L Pulse Rate 81 81 81 Respiratory Rate 15 16 Blood Pressure 151/86 H 171/77 H Pulse Oximetry 98 95 Oxygen Delivery Nasal Cannula Oxygen Flow Rate 2 03/26/24 00:00 03/26/24 01:30 03/26/24 02:00 Temperature Pulse Rate 81 81 81 Respiratory Rate Blood Pressure 161/131 H Pulse Oximetry Oxygen Delivery Oxygen Flow Rate 03/26/24 02:00 03/26/24 04:00 03/26/24 04:00 Temperature 97.0 F L Pulse Rate 81 81 81 Respiratory Rate 20 16 16 Blood Pressure 124/90 155/90 H Pulse Oximetry 97 98 96 Oxygen Delivery Nasal Cannula Oxygen Flow Rate 2 03/26/24 04:00 03/26/24 06:00 03/26/24 06:00 Temperature Pulse Rate 81 81 81 Respiratory Rate 21 H Blood Pressure 138/80 Pulse Oximetry 97 Oxygen Delivery Oxygen Flow Rate 03/26/24 08:00 Temperature 97.1 F L Pulse Rate 81 Respiratory Rate 15 Blood Pressure 161/101 H Pulse Oximetry 97 Oxygen Delivery Oxygen Flow Rate Intake/Output Intake/Output: Intake & Output 03/23/24 03/24/24 03/25/24 03/26/24 23:59 23:59 23:59 23:59 Intake Total 2924.5 1250 2978 Output Total 275 350 650 325 Balance 2649.5 900 2328 -325 Meds/Results Medications: Active Medications Generic Name Dose Route Start Last Admin Trade Name Freq PRN Reason Stop Dose Admin Acetaminophen 650 mg 03/22/24 15:38 Acetaminophen 325 Mg Tablet PO Q6H PRN Mild Pain (1-3) or Fever Carbidopa/Levodopa 1 tablet 03/22/24 22:00 03/23/24 09:18 Carbidopa/Levodopa 25/100 Mg Tablet PO Not Given TID@0900,1300,1800 [facility] Ferrous Sulfate 325 mg 03/23/24 21:00 Ferrous Sulfate [address] BY MOUTH [facility] Fludrocortisone Acetate 0.05 mg 03/23/24 09:00 Fludrocortisone Acetate 0.1 Mg Tablet PO DAILY PRN SBP<90 Hydralazine HCl 10 mg 03/24/24 20:52 03/26/24 01:05 Hydralazine Hcl 20 Mg/Ml Vial IV PUSH 10 mg Q4HR PRN Administration Blood Pressure - High Hydrocortisone Sodium Succinate 50 mg 03/25/24 21:00 03/26/24 08:01 Hydrocortisone Sodium Succinate 100 Mg/2 Ml Vial IV PUSH 03/27/24 09:01 50 mg Q12H BELKIS Administration Ceftriaxone Sodium 1 gm in 50 mls @ 100 mls/hr 03/23/24 09:00 03/26/24 08:00 Rocephin 1 Gm/Ns 50 Ml IVPB 100 mls/hr Q24H BELKIS Administration Phytonadione 10 mg/ Dextrose 51 mls @ 100 mls/hr 03/26/24 08:30 03/26/24 07:58 IVPB 03/26/24 09:00 100 mls/hr ONCE ONE Administration Pantoprazole Sodium 40 mg 03/23/24 10:00 03/26/24 08:01 Pantoprazole Sodium Iv 40 Mg Vial IV PUSH 40 mg Q12HR BELKIS Administration Simvastatin 20 mg 03/22/24:40 03/23/24 00:16 Simvastatin 20 Mg Tablet PO Not Given QPM BELKIS Sodium Chloride 10 ml 03/23/24 06:00 03/26/24 08:02 Central Line Flush IV PUSH 10 ml Q8HR BELKIS Administration Sodium Chloride 20 ml 03/23/24 02:04 Central Line Flush IV PUSH PRN PRN after blood draws Vitamin D 1,000 units 03/23/24 09:00 03/23/24 09:18 Cholecalciferol 1,000 Units Tablet PO Not Given DAILY [facility] Radiology Results: ITS Impressions Pelvis X-Ray 03/22/24 15:24 IMPRESSION: No acute osseous finding in the pelvis. Chest X-Ray 03/23/24 10:09 Impression: 1: No acute cardiopulmonary disease. Head CT 03/24/24 11:11 IMPRESSION: 1. Stable moderate nonspecific cerebral white matter disease, which likely represents chronic small vessel ischemic disease. Abdomen/Pelvis CT 03/24/24 11:13 IMPRESSION: 1. Small pleural effusions. 2. Small volume of ascites. Labs Labs: Laboratory Results - last 24 hr 03/25/24 03/25/24 03/26/24 08:49 09:31 04:19 WBC 10.6 H RBC 3.14 L Hgb 8.8 L Hct 29.0 L MCV 92.4 MCH 28.0 MCHC 30.3 L RDW 24.7 H Plt Count 132 L MPV 9.0 Immature Gran % (Auto) 0.8 H Neut % (Auto) 93.0 H Lymph % (Auto) 1.1 L [place] % (Auto) 5.1 Eos % (Auto) 0.0 Baso % (Auto) 0.0 L Lymph # (Auto) 0.12 L [place] # (Auto) 0.5 Eos # (Auto) 0.0 Baso # (Auto) 0.0 Abs Immat Gran (auto) 0.09 H Absolute Neuts (auto) 9.8 H Absolute Nucleated RBC 0.120 H Nucleated RBC % 1.1 H Platelet Estimate Decreased Hypochromasia 1+ Ovalocytes 1+ Schistocytes None seen PT 26.5 H INR 2.4 APTT 35.0 Sodium 146 H Potassium 3.7 Chloride 106 Carbon Dioxide 24 Anion Gap 16 H BUN 68 H Creatinine 1.90 H Estim Creat Clear Calc 23 Estimated GFR 34 L Glucose 132 H Lactic Acid 2.0 2.3 H Calcium 9.3 Phosphorus 4.4 Magnesium 2.6 H Total Bilirubin 1.5 H AST 83 H ALT 69 H Alkaline Phosphatase 42 Total Protein 7.0 Albumin 4.6 Blood Type O Positive Antibody Screen Negative Quality VTE Prophylaxis VTE prophylaxis: mechanical ordered
--- NOTE | 2024-03-26 08:44 | P.SEDATION_ITS ---
Moderate Sedation Note-Pt Data Patient Data Diagnosis: Complete heart block history of atrial fibrillation Present Complaint: no complaint, patient obtunded Procedure to be performed/Plan: placement of permanent leadless pacemaker Allergies Allergy/AdvReac Type Severity Reaction Status Date / Time cats Allergy Mild Sneezing Uncoded 03/18/24 10:09 mold Allergy Mild Swelling Uncoded 03/18/24 10:09 tree pollen Allergy Mild Sneezing Uncoded 03/18/24 10:09 Home Medications Medication Instructions Recorded Confirmed Type apixaban 5 mg tablet (Eliquis) 5 mg PO Q12H 05/14/21 03/22/24 History cholecalciferol (vitamin D3) 25 25 mcg PO DAILY 05/09/22 03/22/24 History mcg (1,000 unit) capsule fluticasone propionate 50 1 spray intranasal DAILY PRN 05/09/22 03/22/24 History mcg/actuation nasal Allergy Symptoms spray,suspension (Flonase Allergy Relief) ketotifen fumarate 0.025 % (0.035 1 drp EACH EYE BID PRN Allergy 05/09/22 03/22/24 History %) eye drops ([place]) Symptoms ferrous sulfate 325 mg (65 mg 325 mg PO QPM 01/09/23 03/22/24 History iron) tablet clonidine HCl 0.1 mg tablet 0.1 mg PO PRN PRN Hypertension 03/19/23 03/22/24 History aspirin 81 mg tablet,delayed 81 mg PO DAILY 01/27/24 03/22/24 History release (Adult Low Dose Aspirin) simvastatin 20 mg tablet 20 mg PO QPM 02/03/24 03/22/24 History vibegron 75 mg tablet (Gemtesa) 75 mg PO QPM 02/03/24 03/22/24 History sotalol 80 mg tablet 80 mg PO Q12HR #90 tabs 02/08/24 03/22/24 Rx carbidopa 25 mg-levodopa 100 mg 25 - 100 tablet PO TID 03/04/24 03/22/24 History tablet fludrocortisone 0.1 mg tablet 0.05 mg PO DAILY 03/18/24 03/22/24 History tavaborole 5 % topical solution 1 applic topical DAILY 03/18/24 03/22/24 History with applicator nitrofurantoin 100 mg PO Q12H 03/22/24 03/22/24 History monohydrate/macrocrystals 100 mg capsule Current Medications: Active Medications Acetaminophen (Acetaminophen 325 Mg Tablet) 650 mg PO Q6H PRN PRN Reason: Mild Pain (1-3) or Fever Carbidopa/Levodopa (Carbidopa/Levodopa 25/100 Mg Tablet) 1 tablet PO TID@0900,1300,1800 [facility] Last Admin: 03/23/24 09:18 Dose: Not Given Ferrous Sulfate (Ferrous Sulfate [address]) 325 mg BY MOUTH [facility] Fludrocortisone Acetate (Fludrocortisone Acetate 0.1 Mg Tablet) 0.05 mg PO DAILY PRN PRN Reason: SBP<90 Hydralazine HCl (Hydralazine Hcl 20 Mg/Ml Vial) 10 mg IV PUSH Q4HR PRN PRN Reason: Blood Pressure - High Last Admin: 03/26/24 01:05 Dose: 10 mg Hydrocortisone Sodium Succinate (Hydrocortisone Sodium Succinate 100 Mg/2 Ml Vial) 50 mg IV PUSH Q12H [facility] Stop: 03/27/24 09:01 Last Admin: 03/26/24 08:01 Dose: 50 mg Ceftriaxone Sodium (Rocephin 1 Gm/Ns 50 Ml) 1 gm in 50 mls @ 100 mls/hr IVPB Q24H [facility] Last Admin: 03/26/24 08:00 Dose: 100 mls/hr Phytonadione 10 mg/ Dextrose 51 mls @ 100 mls/hr IVPB ONCE ONE Stop: 03/26/24 09:00 Last Admin: 03/26/24 07:58 Dose: 100 mls/hr Pantoprazole Sodium (Pantoprazole Sodium Iv 40 Mg Vial) 40 mg IV PUSH Q12HR [facility] Last Admin: 03/26/24 08:01 Dose: 40 mg Simvastatin (Simvastatin 20 Mg Tablet) 20 mg PO QPM [facility] Last Admin: 03/23/24 00:16 Dose: Not Given Sodium Chloride (Central Line Flush) 10 ml IV PUSH Q8HR [facility] Last Admin: 03/26/24 08:02 Dose: 10 ml Sodium Chloride (Central Line Flush) 20 ml IV PUSH PRN PRN PRN Reason: after blood draws Vitamin D (Cholecalciferol 1,000 Units Tablet) 1,000 units PO DAILY [facility] Last Admin: 03/23/24 09:18 Dose: Not Given Sedation/Anesthesia: No previous sedation/anesthesia problems (including family history). PMFSH Past Medical History Medical History Acute stroke due to ischemia Atrial flutter, paroxysmal Benign prostatic hyperplasia with lower urinary tract symptoms Chronic anemia anemia of chronic disease and iron deficiency Chronic kidney disease Hypertension residential (current) use of anticoagulants Occlusion and stenosis of bilateral carotid arteries Overactive bladder Parkinson's disease Paroxysmal atrial fibrillation Prostate cancer status post radiation and seed implantation Secondary renal hyperparathyroidism Vasomotor rhinitis Vitamin D deficiency Surgical History Surgical History History of bilateral cataract extraction History of tonsillectomy History of transcarotid artery revascularization (TCAR) (04/2021) left Family History Family History Father Heart disease Sibling Cancer Social History Social History Social History: Surrogate medical decision maker: Arielle Terry, spouse. Code status: Full code. Years smoked: 20 Smoking status: Former smoker Tobacco type: cigarettes Second hand tobacco smoke exposure: No Additional smoking assessment comments: quit 40 years ago Alcohol intake: never Substance use: never Substance use type: does not use Do You Feel Safe in your Home?: Yes Lack of Transportation: No Lack of Food: Never True Current Housing: I Have Housing Concerned About Future Housing: No Difficulty Paying Gas/Electric Bills: No Difficulty Paying for Meds: No Currently Unemployed: No Education: Master's Degree or Higher Difficulty w/ Childcare or Family Care: No Living arrangements: with family Additional living arrangements comments: Lives with spouse in [place]. 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 Spiritual care concerns: No Agree to blood products: Yes Mod Sed Physical Exam Physical Exam Pre Procedural Exam: Normal: Neck, Throat, Airway, Lungs, Heart Size, Heart Rate and Extremities and Variation: Appearance ( elderly white male, poorly responsive), Heart Rhythm ( paced rhythm) and Neuro Exam ( minimally responsive) Hours since solid foods: 12 Hours since liquid intake: 12 Mallampati Classification: class II Internal Medicine - PN: Obj Da Vital Signs Vital Signs: Vital Signs - 24 hr 03/25/24 10:00 03/25/24 10:00 03/25/24 12:00 Temperature 36.4 C 36.5 C Pulse Rate 81 81 81 Respiratory Rate 17 16 Blood Pressure 162/95 H 154/97 H Pulse Oximetry 98 99 Oxygen Delivery Oxygen Flow Rate 03/25/24 12:00 03/25/24 12:00 03/25/24 14:00 Temperature Pulse Rate 81 81 Respiratory Rate Blood Pressure Pulse Oximetry 98 Oxygen Delivery Nasal Cannula Oxygen Flow Rate 2 03/25/24 14:00 03/25/24 15:14 03/25/24 15:20 Temperature 36.3 C L 36.3 C L Pulse Rate 81 81 81 Respiratory Rate 17 24 H 17 Blood Pressure 163/106 H 107/92 H 137/98 H Pulse Oximetry 96 95 96 Oxygen Delivery Oxygen Flow Rate 03/25/24 15:25 03/25/24 15:31 03/25/24 16:00 Temperature 36.3 C L 36.3 C L 36.5 C Pulse Rate 81 82 82 Respiratory Rate 15 19 15 Blood Pressure 127/109 H 138/96 H 155/76 H Pulse Oximetry 96 96 96 Oxygen Delivery Oxygen Flow Rate 03/25/24 16:31 03/25/24 16:00 03/25/24 16:00 Temperature 36.5 C Pulse Rate 81 81 Respiratory Rate 20 Blood Pressure 131/77 Pulse Oximetry 94 94 Oxygen Delivery Nasal Cannula Oxygen Flow Rate 2 03/25/24 17:31 03/25/24 18:00 03/25/24 18:00 Temperature 36.3 C L Pulse Rate 81 81 81 Respiratory Rate 21 H 17 Blood Pressure 146/98 H 148/90 H Pulse Oximetry 93 95 Oxygen Delivery Oxygen Flow Rate 03/25/24 18:34 03/25/24 20:00 03/25/24 20:00 Temperature 36.4 C L 36.4 C Pulse Rate 81 81 81 Respiratory Rate 17 18 18 Blood Pressure 148/90 H 157/82 H Pulse Oximetry 92 94 94 Oxygen Delivery Nasal Cannula Oxygen Flow Rate 2 03/25/24 20:00 03/25/24 22:00 03/25/24 22:00 Temperature Pulse Rate 81 81 81 Respiratory Rate 16 Blood Pressure 148/90 H Pulse Oximetry 98 Oxygen Delivery Oxygen Flow Rate 03/26/24 00:00 03/26/24 00:00 03/26/24 01:06 Temperature 36.1 C L Pulse Rate 81 81 81 Respiratory Rate 15 16 Blood Pressure 151/86 H 171/77 H Pulse Oximetry 98 95 Oxygen Delivery Nasal Cannula Oxygen Flow Rate 2 03/26/24 00:00 03/26/24 01:30 03/26/24 02:00 Temperature Pulse Rate 81 81 81 Respiratory Rate Blood Pressure 161/131 H Pulse Oximetry Oxygen Delivery Oxygen Flow Rate 03/26/24 02:00 03/26/24 04:00 03/26/24 04:00 Temperature 36.1 C L Pulse Rate 81 81 81 Respiratory Rate 20 16 16 Blood Pressure 124/90 155/90 H Pulse Oximetry 97 98 96 Oxygen Delivery Nasal Cannula Oxygen Flow Rate 2 03/26/24 04:00 03/26/24 06:00 03/26/24 06:00 Temperature Pulse Rate 81 81 81 Respiratory Rate 21 H Blood Pressure 138/80 Pulse Oximetry 97 Oxygen Delivery Oxygen Flow Rate 03/26/24 08:00 Temperature 36.2 C L Pulse Rate 81 Respiratory Rate 15 Blood Pressure 161/101 H Pulse Oximetry 97 Oxygen Delivery Oxygen Flow Rate Intake/Output Intake/Output: Intake & Output 03/23/24 03/24/24 03/25/24 03/26/24 23:59 23:59 23:59 23:59 Intake Total 2924.5 1250 2978 Output Total 275 350 650 325 Balance 2649.5 900 2328 -325 Meds/Results Medications: Active Medications Generic Name Dose Route Start Last Admin Trade Name Freq PRN Reason Stop Dose Admin Acetaminophen 650 mg 03/22/24 15:38 Acetaminophen 325 Mg Tablet PO Q6H PRN Mild Pain (1-3) or Fever Carbidopa/Levodopa 1 tablet 03/22/24 22:00 03/23/24 09:18 Carbidopa/Levodopa 25/100 Mg Tablet PO Not Given TID@0900,1300,1800 [facility] Ferrous Sulfate 325 mg 03/23/24 21:00 Ferrous Sulfate [address] BY MOUTH HS [facility] Fludrocortisone Acetate 0.05 mg 03/23/24 09:00 Fludrocortisone Acetate 0.1 Mg Tablet PO DAILY PRN SBP<90 Hydralazine HCl 10 mg 03/24/24 20:52 03/26/24 01:05 Hydralazine Hcl 20 Mg/Ml Vial IV PUSH 10 mg Q4HR PRN Administration Blood Pressure - High Hydrocortisone Sodium Succinate 50 mg 03/25/24 21:00 03/26/24 08:01 Hydrocortisone Sodium Succinate 100 Mg/2 Ml Vial IV PUSH 03/27/24 09:01 50 mg Q12H [facility] Administration Ceftriaxone Sodium 1 gm in 50 mls @ 100 mls/hr 03/23/24 09:00 03/26/24 08:00 Rocephin 1 Gm/Ns 50 Ml IVPB 100 mls/hr Q24H [facility] Administration Phytonadione 10 mg/ Dextrose 51 mls @ 100 mls/hr 03/26/24 08:30 03/26/24 07:58 IVPB 03/26/24 09:00 100 mls/hr ONCE ONE Administration Pantoprazole Sodium 40 mg 03/23/24 10:00 03/26/24 08:01 Pantoprazole Sodium Iv 40 Mg Vial IV PUSH 40 mg Q12HR [facility] Administration Simvastatin 20 mg 03/22/24 21:40 03/23/24 00:16 Simvastatin 20 Mg Tablet PO Not Given QPM [facility] Sodium Chloride 10 ml 03/23/24 06:00 03/26/24 08:02 Central Line Flush IV PUSH 10 ml Q8HR [facility] Administration Sodium Chloride 20 ml 03/23/24 02:04 Central Line Flush IV PUSH PRN PRN after blood draws Vitamin D 1,000 units 03/23/24 09:00 03/23/24 09:18 Cholecalciferol 1,000 Units Tablet PO Not Given DAILY [facility] Radiology Results: ITS Impressions Pelvis X-Ray 03/22/24 15:24 IMPRESSION: No acute osseous finding in the pelvis. Chest X-Ray 03/23/24 10:09 Impression: 1: No acute cardiopulmonary disease. Head CT 03/24/24 11:11 IMPRESSION: 1. Stable moderate nonspecific cerebral white matter disease, which likely represents chronic small vessel ischemic disease. Abdomen/Pelvis CT 03/24/24 11:13 IMPRESSION: 1. Small pleural effusions. 2. Small volume of ascites. Labs 03/26/24 04:19 03/26/24 04:19 Labs: Laboratory Results - last 24 hr 03/25/24 03/25/24 03/26/24 08:49 09:31 04:19 WBC 10.6 H RBC 3.14 L Hgb 8.8 L Hct 29.0 L MCV 92.4 MCH 28.0 MCHC 30.3 L RDW 24.7 H Plt Count 132 L MPV 9.0 Immature Gran % (Auto) 0.8 H Neut % (Auto) 93.0 H Lymph % (Auto) 1.1 L [place] % (Auto) 5.1 Eos % (Auto) 0.0 Baso % (Auto) 0.0 L Lymph # (Auto) 0.12 L [place] # (Auto) 0.5 Eos # (Auto) 0.0 Baso # (Auto) 0.0 Abs Immat Gran (auto) 0.09 H Absolute Neuts (auto) 9.8 H Absolute Nucleated RBC 0.120 H Nucleated RBC % 1.1 H Platelet Estimate Decreased Hypochromasia 1+ Ovalocytes 1+ Schistocytes None seen PT 26.5 H INR 2.4 APTT 35.0 Sodium 146 H Potassium 3.7 Chloride 106 Carbon Dioxide 24 Anion Gap 16 H BUN 68 H Creatinine 1.90 H Estim Creat Clear Calc 23 Estimated GFR 34 L Glucose 132 H Lactic Acid 2.0 2.3 H Calcium 9.3 Phosphorus 4.4 Magnesium 2.6 H Total Bilirubin 1.5 H AST 83 H ALT 69 H Alkaline Phosphatase 42 Total Protein 7.0 Albumin 4.6 Blood Type O Positive Antibody Screen Negative ASA Classification/Sedation ASA Classification/Sedation ASA Class: III Emergent: No Risks: Risks, benefits and alternatives explained and patient/family accepted plan for sedation. Patient re-evaluated immediately prior to sedation.
[2024-03-26 09:19] LABS: Lactic Acid 2.1 mmol/L (0.7-2.0)
--- NOTE | 2024-03-26 09:20 | PC.NURSE ---
0910 transported to scientific laboratory supervisor for pacemaker procedure on transport monitor.
--- NOTE | 2024-03-26 09:30 | P.PNNP_ITS ---
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 * prerenal factors * other (?) * evaluation to date noted: * urine electrolytes prerenal * urine eosinophils negative * UA suggests infection * CPK low * CT of abd/pelvis without obstruction * renal ultrasound pending * no critical electrolytes and reasonable urine output * follow repeat labs and UOP (2) Stage 3a chronic kidney disease: Code(s): N18.31 - Chronic kidney disease, stage 3a Status: Chronic Assessment and Plan: * baseline creatinine runs around 1.0 - 1.5mg/dl * thought to be secondary to hypertension and age-related change based on outpatient evaluation (3) Complete heart block: Code(s): I44.2 - Atrioventricular block, complete Status: Acute Assessment and Plan: * as noted on admission * presumably precipitated by sotalol use * initially transcutaneously paced * s/p tranveous pacer placement on 03/23 * was on dopamine and levophed and glucagon gtt - weaned off at this time * currently pacer dependent at this time * noted plans for permanent pacemaker today * Cardiology following (4) Shock: Code(s): R57.9 - Shock, unspecified Status: Acute Assessment and Plan: * felt to be secondary to heart block * possibly also related to infection * off dopamine and levophed gtt once transvenous pacer placed * culture remain negative to date * on antibiotics * CT abd/plevis without acute pathology * follow trend of hemodynamics (5) Anemia: Qualifiers: Anemia type: unspecified type Qualified Code(s): D64.9 - Anemia, unspecified Code(s): D64.9 - Anemia, unspecified Status: Chronic Assessment and Plan: * known chronic history * element of iron deficiency noted * recent outpatient colonoscopy unrevealing * follow trend of H/H * Gi following as well (6) Altered mental status: Code(s): R41.82 - Altered mental status, unspecified Status: Acute Assessment and Plan: * improvement noted * presumably related to shock, anemia, and hypoxia * head CT without acute findings * follow mentation Will continue to follow. Subjective Date/time seen: 03/26/24 09:30 Interval history: Follow-up for acute kidney injury/acute renal failure on chronic kidney disease. Mentation seems a bit better at the time of my visit; no apparent distress and no acute complaints voiced when seen; remains hemodynamically stable without the need for vasopressor therapy; renal function/creatinine stable with acceptable urine output; continues to be pacer dependent; about to leave for cardiac cath labs for permanent pacemaker placement. Exam Narrative: General: elderly and frail appearing male in NAD Heart: normal S1 and S2; no rub Lungs: clear anteriorly, decreased at bases Abdomen: soft, nontender, nondistended, positive bowel sounds Extremities: no cyanosis or clubbing; no edema Skin: warm and dry Objective Data Vital Signs Vital Signs: Vital Signs Temp Pulse Resp BP Pulse Ox O2 Del Method O2 Flow Rate 03/26/24 09:00 81 95 Nasal Cannula 2 03/26/24 08:00 97.1 F L 81 15 161/101 H 97 03/26/24 06:00 81 21 H 138/80 97 03/26/24 06:00 81 03/26/24 04:00 81 03/26/24 04:00 81 16 96 Nasal Cannula 2 03/26/24 04:00 97.0 F L 81 16 155/90 H 98 03/26/24 02:00 81 20 124/90 97 03/26/24 02:00 81 03/26/24 01:30 81 161/131 H 03/26/24 00:00 81 03/26/24 01:06 81 171/77 H 03/26/24 00:00 81 16 95 Nasal Cannula 2 03/26/24 00:00 97.0 F L 81 15 151/86 H 98 03/25/24 22:00 81 16 148/90 H 98 03/25/24 22:00 81 03/25/24 20:00 81 03/25/24 20:00 81 18 94 Nasal Cannula 2 03/25/24 20:00 97.6 F 81 18 157/82 H 94 03/25/24 18:34 97.5 F L 81 17 148/90 H 92 03/25/24 18:00 81 17 148/90 H 95 03/25/24 18:00 81 03/25/24 17:31 97.4 F L 81 21 H 146/98 H 93 03/25/24 16:00 94 Nasal Cannula 2 03/25/24 16:00 81 03/25/24 16:31 97.7 F 81 20 131/77 94 03/25/24 16:00 97.7 F 82 15 155/76 H 96 03/25/24 15:31 97.3 F L 82 19 138/96 H 96 03/25/24 15:25 97.4 F L 81 15 127/109 H 96 03/25/24 15:20 97.3 F L 81 17 137/98 H 96 03/25/24 15:14 97.4 F L 81 24 H 107/92 H 95 Intake/Output Intake/Output: Intake & Output 03/23/24 03/24/24 03/25/24 03/26/24 23:59 23:59 23:59 23:59 Intake Total 2924.5 1250 2978 1051 Output Total 275 350 650 325 Balance 2649.5 900 2328 726 Meds/Results Medications: Active Medications Generic Name Dose Route Start Last Admin Trade Name Freq PRN Reason Stop Dose Admin Acetaminophen 650 mg 03/22/24 15:38 Acetaminophen 325 Mg Tablet PO Q6H PRN Mild Pain (1-3) or Fever Carbidopa/Levodopa 1 tablet 03/22/24 22:00 03/23/24 09:18 Carbidopa/Levodopa 25/100 Mg Tablet PO Not Given TID@0900,1300,1800 [facility] Ferrous Sulfate 325 mg 03/23/24 21:00 Ferrous Sulfate [address] BY MOUTH HS [facility] Fludrocortisone Acetate 0.05 mg 03/23/24 09:00 Fludrocortisone Acetate 0.1 Mg Tablet PO DAILY PRN SBP<90 Hydralazine HCl 10 mg 03/24/24 20:52 03/26/24 01:05 Hydralazine Hcl 20 Mg/Ml Vial IV PUSH 10 mg Q4HR PRN Administration Blood Pressure - High Hydrocortisone Sodium Succinate 50 mg 03/25/24 21:00 03/26/24 08:01 Hydrocortisone Sodium Succinate 100 Mg/2 Ml Vial IV PUSH 03/27/24 09:01 50 mg Q12H [facility] Administration Ceftriaxone Sodium 1 gm in 50 mls @ 100 mls/hr 03/23/24 09:00 03/26/24 12:13 Rocephin 1 Gm/Ns 50 Ml IVPB Infused Q24H [facility] Infusion Lactated Ringer's 1,000 mls @ 999 mls/hr 03/26/24 14:24 Lr - Lactated Ringers Iv IV CONT 03/26/24 15:24 .Q1H1M STA Pantoprazole Sodium 40 mg 03/23/24 10:00 03/26/24 08:01 Pantoprazole Sodium Iv 40 Mg Vial IV PUSH 40 mg Q12HR [facility] Administration Simvastatin 20 mg 03/22/24 21:40 03/23/24 00:16 Simvastatin 20 Mg Tablet PO Not Given QPM [facility] Sodium Chloride 10 ml 03/23/24 06:00 03/26/24 12:13 Central Line Flush IV PUSH 10 ml Q8HR [facility] Administration Sodium Chloride 20 ml 03/23/24 02:04 Central Line Flush IV PUSH PRN PRN after blood draws Vitamin D 1,000 units 03/23/24 09:00 03/23/24 09:18 Cholecalciferol 1,000 Units Tablet PO Not Given DAILY [facility] Radiology Results: ITS Impressions Pelvis X-Ray 03/22/24 15:24 IMPRESSION: No acute osseous finding in the pelvis. Head CT 03/24/24 11:11 IMPRESSION: 1. Stable moderate nonspecific cerebral white matter disease, which likely represents chronic small vessel ischemic disease. Abdomen/Pelvis CT 03/24/24 11:13 IMPRESSION: 1. Small pleural effusions. 2. Small volume of ascites. Labs Labs: Laboratory Tests 03/26/24 04:19 03/26/24 04:19 Lactic Acid 2.3 H Calcium 9.3 Phosphorus 4.4 Magnesium 2.6 H Total Bilirubin 1.5 H AST 83 H ALT 69 H Alkaline Phosphatase 42 Total Protein 7.0 Albumin 4.6
--- NOTE | 2024-03-26 10:58 | P.PCNCC_ITS ---
Cardiac Cath Procedure Note Date of procedure:: 03/26/24 Performing physician:: Prabhakar Murry MD Indication:: complete heart block Brief clinical history:: this is an 83-year-old man with a history of atrial fibrillation. He entered the hospital with symptomatic bradycardia with complete heart block. Because of hemodynamic instability a temporary transvenous pacemaker was placed in the right femoral vein . He is now being brought to the veterinary laboratory diagnostician for implantation of a permanent leadless pacemaker system. Because of the presence of the temporary wire in the right femoral vein I have elected to place a new temporary pacemaker from the right internal jugular position so as not to dislodge the put temporary wire in this pacemaker dependent patient Procedure Procedure performed:: placement of temporary transvenous pacemaker from the right IJ removal of temporary pacemaker from the right femoral vein placement of Medtronic Micra VR permanent pacemaker via the right femoral vein Sedation/Medication given:: Versed 2 mg case start time 9:24 a.m. case end time 10:57 a.m. sedation provided by Jaylin Womack RN trained observer Access site:: right femoral vein right IJ Estimated blood loss:: minimal Procedure note:: patient was brought to the cardiac catheterization lab in the postabsorptive state initially prepped the right neck for internal jugular access. 1% lidocaine was infiltrated in this area and the right femoral vein was punctured easily and a 6 Mauritian vascular sheath was placed. At this time it was clear that the x-ray in the veterinary laboratory diagnostician was not functional. Obviously patient had to be moved from this sweet to the other veterinary laboratory diagnostician suite with functional x-ray so the procedure could be completed. The patient was then transported to the 2nd catheterization lab where the area was then re-prepped and redraped. The internal jugular sheath was used to advance the balloon tipped temporary pacem alicia into the right ventricle apical position. The temporary pacemaker was tested and was working well. The temporary pacemaker from the femoral vein was then turned off and removed. Following this the right femoral region was prepped and draped in the usual sterile fashion. 15 cc of 1% lidocaine was infiltrated and the femoral vein was then punctured. A 6 Mauritian sheath was placed in a Super Stiff Amplatz wire was then advanced through the IVC through the right atrium and out into the superior superior vena cava. After this the puncture site was pre-dilated with a 22 Mauritian dilator. The Micra insertion sheath and dilator were then advanced into the venous circulation into the level of the right atrium under fluoroscopic visualization. The Super Stiff wire and the dilator were removed. The sheath was connected to continuous flush heparinized saline. Following this the micro insertion tool was prepared and de-aired. This was then connected to continuous running saline flush. The Micra insertion tool was then placed into the sheath advanced into the right atrial position the sheath was then withdrawn into the IVC. The device was that steered to a position into the right ventricle. Upon saline contrast injection it was clear the device was in the coronary sinus. It was withdrawn back into the right atrium. On 2nd attempt it was successfully placed across the tricuspid valve annulus into the right ventricle. It was positioned into the mid septal position. In the POLISH projection septal positioning was confirmed with saline contrast injection. Following this pressure was placed on the insertion tool and the Micra device was deployed into the septal position. The device was turned on and appropriate pacing and sensing performance was demonstrated. Following this under cineangiography the tethers were tucked and a good fixation of at least 3 of the tines was visualized. The sutures were then cut and withdrawn carefully through the insertion tool. The Micra pacemaker device is then left successfully deployed. The insertion tool was removed following this a [id number] stitch was made over the puncture site and the insertion sheath was removed after which continuous pressure will be held for at least 20 minutes. Procedure was successful and uncomplicated. Findings:: The patient received a Medtronic leadless pacemaker model [id number] serial number [id number]. the pacing impedance is 570 Ohms threshold is 0.5 volts at 0.24 millisecond. Device is programmed VVI lower rate limit of 70. Conclusion:: 1. Successful placement of new temporary pacemaker from the right internal jugular position 2. successful withdrawal of temporary pacemaker wire from the right femoral vein position 3. successful deployment of the Medtronic Micra VR leadless pacemaker system in this 83-year-old debilitated man with atrial fibrillation and high-grade AV block progressing to complete pacemaker dependency. Prabhakar Murry MD [facility]
[2024-03-26] MEDS: SODIUM CHLORIDE 0.9% IV 1,000 ML 50 ML IV CONT (12:11)
[2024-03-26 12:26] LABS: Vancomycin Trough 10.8 ug/mL (10.0-20.0)
[2024-03-26] MEDS: FUROSEMIDE INJ 40 MG/4 ML VIAL IV PUSH (13:12)
--- NOTE | 2024-03-26 13:43 | PCNFU ---
Addendum entered by Gina Christensen, RD, LDN 03/26/24 14:53: Patient code blue. Intubated at this time. Recommend tube feedings formula change to Vital AF 1.2. at 20 ml/hr advance by 10 ml q 4 hours to goal rate at this time to 50 ml/hr. Tube feedings providing 1320 kcal/83 gm protein/892 ml water. Free water flush 30 ml q 4 hours. Following. Original Note: Nutrition Follow-Up Complete: Severe protein calorie malnutrition related to loss of appetite, Parkinson's disease as evidenced by weight loss -14%/1 month; intakes <75% needs >1 month; severe muscle wasting and fat loss Goal: Adequate PO intake at least 75% meals and supplements Patient has limited progress towards goal. We will continue current goal. Pt current nutrition is NPO. Nutrition recommendation: Jevity 1.5 at 20 ml/hr advance by 10 ml q 4 hours to goal rate of 55 ml/hr. Last recorded weight is 65 kg, up from 62 kg on admit. Bowel Motility: Last reported BM 03/24 Labs Reviewed:Mg 2.6, BUN 68, Cr 1.9, Glu 132, Na 146 Meds Noted: Protonix, Rocephin. Skin: WNL Additional Notes: Patient had Pacemaker placement today. NGT placed today. Spoke with Brine Tank Tender today, wanting nutrition recommendations. Nutrition Recommendations: Jevity 1.5 at 20 ml/hr advance by 10 ml q 4 hours to goal rate of 55 ml/hr. Tube feedings at goal rate providing 1815 kcal/77 gm protein/ 920 ml water. Flush 100 ml q 4 hour. Tube feedings meeting 98% kcal needs at 30 kcal/kg and 100% protein needs at 0.8-1.0 gm protein. Monitoring in ICU rounds. Reassess intakes, weights, labs, supplement tolerance, plan of care every Friday and Friday.
[2024-03-26] MEDS: flumazeniL 0.5 MG/5 ML VIAL 0.2 MG IV PUSH (13:47)
[2024-03-26] MEDS: flumazeniL 0.5 MG/5 ML VIAL 0.3 MG IV PUSH (13:51)
[2024-03-26] MEDS: ETOMIDATE 20 MG/10 ML AMPUL IV PUSH (14:00)
--- NOTE | 2024-03-26 14:05 | PCRCNOTE ---
RT assisted with intubation. Patient was intubated with a size 7.5 ETT @ 25 cm @ lip. Co@ detector detected color change, Bilat BS heard and Chest X-ray ordered to confirm ETT placement. RT placed pt on Vent according to Dr. Smith settings. Vent settings are CMV Vt 450, R 24, Peep 10, 100%.
[2024-03-26 14:27] LABS: Alveolar/Arterial O2 Gradient 606.3 mmHg; Base Excess ABG -3.6 mEq/l (+/-2.0); Carboxyhemoglobin 0.6 % THb (0-2.0); Fractional Inspired Oxygen 100 %; HCO3 ABG 21.6 mEq/l (22.0-26.0); Methemoglobin ABG 0.3 %THb (0-1.5); Oxygen Content ABG 12.4 %vol (16.0-22.0); Oxygen Saturation ABG 92.5 % (95.0-100.0); Oxyhemoglobin 88.6 % THb (90.0-100.0); PCO2 ABG 39.8 mmHg (35.0-45.0); PO2 ABG 66.9 mmHg (80.0-100.0); PO2 FiO2 Ratio Arterial Blood 0.67 %; Reduced Hemoglobin 10.5 %THb (0-5.0); Total Hemoglobin 9.9 g/dL (12.0-18.0); pH ABG 7.353 (7.350-7.450)
[2024-03-26 14:28] LABS: Arterial Blood Gas PEEP 8 cmH2O; Arterial Blood Gas Tidal Volume 450 ml; Arterial Blood Gas Vent Mode CMV; Arterial Blood Gas Ventilator rate 24 /MIN; Device VENTILATOR; Site Drawn LEFT FEMORAL
[2024-03-26] MEDS: NOREPINEPHRINE 8 MG/D5W 250 ML 8 MG/250 ML BAG 9.38 MG IV CONT (15:00)
--- NOTE | 2024-03-26 15:04 | PCSTNOTE ---
Bedside Swallow Evaluation order discontinued due to condition. Will request new order when patient is able to participate.
--- NOTE | 2024-03-26 15:10 | PCOTNOTE ---
Pt. has been intubated. Unable to participate in therapy services at this time. Cancelling OT/PT orders. Re-order when pt. safely able to participate.
[2024-03-26] MEDS: EPINEPHrine INJ 1 MG in DEXTROSE 5% IN WATER 250 ML 30.12 MG IV CONT (15:21)
[2024-03-26 15:23] LABS: Immature Granulocyte Absolute 0.18 K/mm3 (0.00-0.031); Immature Granulocyte Percent A 1.8 % (0-0.5); Lymphocytes Absolute Auto 0.92 K/mm3 (0.9-3.2); Lymphocytes Percent Auto 9.3 % (18.3-44.2); Mean Corpuscular Hemoglobin 28.5 pg (26-34); Mean Corpuscular Volume 94.9 fl (80-100); Mean Platelet Volume 10.3 fl (7.4-10.4); Monocytes Absolute Auto 0.7 K/mm3 (0.1-0.6); Monocytes Percent Auto 6.7 % (2.6-8.5); Neutrophils Absolute Auto 8.2 K/mm3 (1.3-6.7); Neutrophils Percent Auto 82.2 % (45.5-73.1); Nucleated Red Blood Cells Perc 2.2 % (0.0-0.2); Platelet Count Result 129 k/mm3 (150-375); Red Blood Count 3.16 M/mm3 (4.6-6.20); Red Cell Distribution Width 24.8 % (11.5-14.5); White Blood Count 9.9 K/mm3 (4.5-10.0)
--- NOTE | 2024-03-26 15:29 | PM.EVENT ---
Event Note Event Note Event Note: Patient came back from laboratory animal care veterinarian after lead less pacemaker placement, patient was somnolent, hypoxic, was given flumazenil. To which he responded but remained hypoxic, discussed with patient's and son regarding intubation, the consented. Patient was intubated successfully, unable to obtain O2 sats because of decreased perfusion. Patient then lost his pulse, CPR commands per ACLS protocol and received 1 round of epi, bicarb and dextrose 50%. With return of spontaneous circulation. An art line was placed emergently. Post art line placement patient did not have a pulse and CPR was commenced per ACLS protocol and received 1 round of epi, and bicarb with return of spontaneous circulation. Discussed with patient's and son, they wanted to discuss it with their other son regarding further plan of care. Patient was dropping his blood pressures, started patient on epinephrine and Levophed infusion. Coal Yard Supervisor deirdre Murry was also at bedside. Family came back to the room and stated they wanted to stop everything and let him go peace and dignity. Levophed and epinephrine infusions were held, patient dropped his he blood pressures almost immediately and was pulseless on the art line waveform. Was disconnected from the ventilator. Please referred to the code blue sheets for further information Patient's , son and 2 grandchildren were at bedside.
--- NOTE | 2024-03-26 15:30 | WPDPROCEDUR ---
Procedures Intubation Intubation Date: 03/26/24 Intubation Time: 14:00 A pre-procedural Time-Out was completed immediately before starting the procedure and confirmed: Patient Identification, Site, Procedure, Patient Position and the Availability of Requisite Equipment: Yes Sedative: etomidate Laryngoscope: fiber optic video scope Assist device used: fiber optic device ET tube size: 8 Tube secured depth (cm): 25 Tube secured location: lips Tube placement confirmation: visualized tube passing through cords, equal breath sounds bilaterally, no breath sounds over epigastrium and confirmation by capnometry Patient tolerated procedure: well Intubation complications: none Additional comments: ETT in place on chest x-ray, discussed with radiologist, suspicion for pneumothorax, that was a skin fold on the left side
--- NOTE | 2024-03-26 15:31 | P.PCNBED_ITS ---
Procedures Arterial Line Arterial Line Date: 03/26/24 Arterial Line Time: 14:45 Discussed with the patient/family/POA, the placement of an arterial catheter, including its clinical necessity/indication and associated potential risks, benefits and alternatives.: Yes Patient/family/POA and/or understands and acknowledges the need to proceed with the arterial catheter insertion as an important element of the patient's clinical management.: Yes Time Out Performed: Yes Patient Position: supine Head Of Precision Targeting Prep: sterile gown, sterile gloves, mask and hat Site: left and femoral Site Prep: chlorhexidine and sterile drape Technique used: ultrasound-guided Size (Gauge): 14 Length: 12 cm Closure/Dressing: suture, transparent dressing, hemostatic product, antimicrobial product and securement product Patient tolerated procedure: well Complications: none
[2024-03-26 15:34] LABS: INR 2.5
[2024-03-26 15:35] LABS: Partial Thromboplastin Time 31.1 Seconds (22.3-36.8)
[2024-03-26 15:48] LABS: Albumin Level 3.9 g/dL (3.5-5.1); Alkaline Phosphatase 42 U/L (38-126); Aspartate Amino Transferase 109 U/L (17-59); Blood Urea Nitrogen 67 mg/dL (9-20); Calcium 8.3 mg/dL (8.4-10.2); Carbon Dioxide 25 mmol/L (22-30); Chloride 104 mmol/L (98-107); Estimated CRCL calculation 23 ml/min; Estimated Glomerular Filt Rate 32; Glucose 311 mg/dL (65-110)
[2024-03-26 15:49] LABS: Anion Gap 20 mmol/L (4-12); Bilirubin,Total 1.2 mg/dL (0.2-1.3); Magnesium 2.8 mg/dL (1.6-2.3); Phosphorus 7.1 mg/dL (2.5-4.5); Potassium 4.1 mmol/L (3.4-5.0); Sodium 149 mmol/L (137-145)
[2024-03-26 15:52] LABS: Platelet Estimate Decreased (Adequate)
[2024-03-26 15:53] LABS: Acanthocytes 1+; Schistocytes Rare
[2024-03-26 15:54] LABS: Anisocytosis 3+; Hypochromasia 1+
[2024-03-26 15:55] LABS: Polychromasia 1+
[2024-03-26 15:55] LABS: Alanine Aminotransferase 80 U/L (6-50)
--- NOTE | 2024-03-26 15:56 | PC.NURSE ---
Addendum entered by Sandy Prasad RN 03/26/24 17:09: 1330 unable to get oxygen sat above 80% Patient on 15L nonrebreather. Airvo attempted with no success. Dr. Smith in the room. Decision made to intubate patient. Patient coded after intubation at 1417. ROSC was obtained at 1419 after receiving 1 mg of Epinephrine, 1 amp of bicarb, and 50ml of Dextrose 50%. At that time it was decided to put in an artline. After artline put in place patient coded again at 1458. ROSC was obtained at 1459 after 1 mg of Epinephrine and 2 amps of bicarb given. Original Note: Dr. Smith talked with patient's and they made the decision to withdraw care. All drips turned off and patient was extubated at 1526. Patient at 1529.
--- NOTE | 2024-03-26 16:01 | P.DN_ITS ---
Discharge Summary Probable Cause of Probable Cause of : Aspiration pneumonia septic shock Complete heart block Summary Hospital Course: This is an 83-year-old male with history of atrial fibrillation on chronic anti coagulation hyperlipidemia Parkinson's disease orthostatic hypotension with history of syncope chronic kidney disease presented for evaluation of weakness and fall. He was noted to be bradycardic with evidence of second-degree heart block Mobitz type 2. Beta-corina were held. Patient was admitted to the ICU. Was also hypotensive mostly related to AV block. He was transcutaneously paced. Also received norepinephrine and dopamine drip. Which was able to be tapered off after transcutaneous pacer was placed. He underwent permanent pacemaker placement on 03/26/2024. Post pacemaker placement he became hypoxic requiring emergent intubation. Chest x-ray initially post pacemaker implantation showed pulmonary edema. He also became hypotensive requiring vasopressor treatment. Post intubation he was noted to have mucus plugging/partial collapse of right lung suspicious for aspiration event. Subsequently he had cardiac arrest which ACS protocol was started with return of spontaneous circulation. The patient continued to decline rapidly despite aggressive resuscitative measures. Patient's family wanted to stop Everything and comfort measures were initiated. Patient subsequently .
[2024-03-26 16:02] LABS: Lactic Acid Reflex 12.3 mmol/L (0.7-2.0)
--- NOTE | 2024-03-26 17:16 | PC.NURSE ---
Patient taken down to [facility] [place] at 1700.
[2024-03-30 12:33] LABS: Chloride Rand Ur 24 mmol/L (32-290); Chloride/Creatinine Rand Ur 13 (23-275); Creatinine Random Urine 187 mg/dL (20-320)
== END 2024-03-26 15:29 | disposition expired | DRG 228 ==
LOC: ANHED 15:07 → ANHIMU 16:44 → ANHICU 22:57
PROVIDERS: Internal Medicine; Physician Assistant; Specialist; Admitting Provider General Practice; Emergency Provider Emergency Medicine; PCP Family Medicine Adolescent Medicine; Visit Provider Internal Medicine
PROC: 02HK3JZ Insertion of Pacemaker Lead into Right Ventricle, Percutaneous Approach (ICD-10-PCS; CPT 33210; principal; 2024-03-23 09:15)
PROC: 02HK3NZ Insertion of Intracardiac Pacemaker into Right Ventricle, Percutaneous Approach (ICD-10-PCS; CPT 33274; principal; 2024-03-26 08:15)
DX: I44.2 Atrioventricular block, complete (principal); A41.9 Sepsis, unspecified organism; J69.0 Pneumonitis due to inhalation of food and vomit; R65.21 Severe sepsis with septic shock; N17.0 Acute kidney failure with tubular necrosis; N25.81 Secondary hyperparathyroidism of renal origin; T17.890A Other foreign object in other parts of respiratory tract causing asphyxiation, initial encounter; I49.5 Sick sinus syndrome; I46.9 Cardiac arrest, cause unspecified; N40.1 Benign prostatic hyperplasia with lower urinary tract symptoms; D50.9 Iron deficiency anemia, unspecified; D63.8 Anemia in other chronic diseases classified elsewhere; N32.81 Overactive bladder; G20.A1 Parkinson's disease without dyskinesia, without mention of fluctuations; I48.0 Paroxysmal atrial fibrillation; W18.30XA Fall on same level, unspecified, initial encounter; E78.5 Hyperlipidemia, unspecified; I44.1 Atrioventricular block, second degree; R00.1 Bradycardia, unspecified; I12.9 Hypertensive chronic kidney disease with stage 1 through stage 4 chronic kidney disease, or unspecified chronic kidney disease; R57.8 Other shock; N18.31 Chronic kidney disease, stage 3a; Z66 Do not resuscitate; Z79.01 Long term (current) use of anticoagulants; Z98.42 Cataract extraction status, left eye; Z98.41 Cataract extraction status, right eye; Z87.891 Personal history of nicotine dependence; Z85.46 Personal history of malignant neoplasm of prostate; Z86.73 Personal history of transient ischemic attack (TIA), and cerebral infarction without residual deficits; Z79.82 Long term (current) use of aspirin
CPT/HCPCS: 31500; 33210; 33274; 36415; 36430; 36600; 70450; 71045; 72170; 74176; 80048; 80053; 80202; 81001; 82274; 82375; 82436; 82550; 82570; 82805; 83050; 83605; 83690; 83735; 84100; 84133; 84300; 84439; 84443; 84480; 84484; 85018; 85025; 85027; 85380; 85384; 85610; 85730; 85999; 86850; 86900; 86901; 87040; 87086; 92950; 93005; 94002; 99285; A9270; C1751; C1769; C1786; C1894; J0171; J0360; J0461; J0696; J1265; J1610; J1644; J1720; J1940; J2003; J2250; J2470; J3010; J3370; J3430; J7030; J7040; J7050; J7060; J7070; J7120; L1830; P9017; P9047